=== PATIENT | female | born 1960 | race Caucasian/White ===

== ENCOUNTER 2017-05-02 05:58 | Day surgery (SDC) | payer MEDICAID ==
[2017-05-02] MEDS ORDERED: Versed 2 MG/2 ML Injection IV ONE (05:59)
[2017-05-02] MEDS ORDERED: DIPRIVAN 200 MG/20 ML IV ONE (05:59)
[2017-05-02] MEDS ORDERED: SUBLIMAZE 100 MCG/2 ML IV ONE (05:59)
[2017-05-02] MEDS ORDERED: Lactated Ringers 1,000 ML IV SCH (06:30)
[2017-05-02] MEDS ORDERED: Lactated Ringers 1,000 ML IV ONE (07:29)
[2017-05-02 08:21] VITALS: PULSE 66; O2SAT 94
[2017-05-02 08:51] VITALS: BP 176/74
--- NOTE | 2017-05-02 14:30 | OP ---
SURGERY DATE/TIME: 05/02/201705 PREOPERATIVE DIAGNOSIS: 1) Abdominal pain. 2) Rectal bleeding. POSTOPERATIVE DIAGNOSIS: 1) Normal EGD. 2) Transverse colon polyp. PROCEDURES: 1) EGD. 2) Colonoscopy. SURGEON: Gee Gupta M.D. ANESTHESIA: MAC by Emmanuel Madera CRNA. ESTIMATED BLOOD LOSS: Minimal. SPECIMENS: Hot forceps polypectomy transverse colon polyp. DESCRIPTION OF PROCEDURE: After informed written consent was obtained, the patient was taken to the endoscopy suite. She underwent monitored anesthesia and a bite block was inserted. The endoscope was inserted in the posterior oropharynx and under direct visualization the esophagus was traversed. The level of the gastroesophageal junction was inspected and noted to be within normal limits. Gastric cavity was inspected and noted to have normal rugated gastric mucosa free of lesions or defects. The pylorus was traversed. The first and second portions of the duodenum within normal limits. Upon withdrawal mucosal inspection revealed no abnormalities, no lesions or defects. The scope was removed and the scopes were switched. Digital rectal exam showed normal sphincter tone and no internal lesions. The scope was inserted in the rectum and sequentially the entire colonic mucosa was traversed. The level of cecum was reached and verified with direct visualization of ileocecal valve. Upon withdrawal careful mucosal inspection revealed a small sessile polyp in the transverse colon which was removed in its entirety with forceps and cautery. These were completely removed and noted to be hemostatic following removal. Upon further withdrawal no other abnormalities. Prior to withdrawal retroflexion was performed and was within normal limits. The scope was removed and the patient was transferred to the recovery room in excellent condition.
== END 2017-05-02 08:40 | disposition home or self-care (01) ==
LOC: SDC 05:58
PROVIDERS: ATTEND Family Medicine
PROC: 0DJ08ZZ Inspection of Upper Intestinal Tract, Via Natural or Artificial Opening Endoscopic (ICD-10-PCS; principal; 2017-05-02)
PROC: 0DBL8ZX Excision of Transverse Colon, Via Natural or Artificial Opening Endoscopic, Diagnostic (ICD-10-PCS; 2017-05-02)
DX: R10.9 Unspecified abdominal pain (principal); D12.3 Benign neoplasm of transverse colon; K62.5 Hemorrhage of anus and rectum; Z95.1 Presence of aortocoronary bypass graft
CPT/HCPCS: 00740; 00810; 36415; 88305; J2250; J2704; J3010

== ENCOUNTER 2017-05-14 08:51 | Emergency (ER) | payer MEDICAID ==
[2017-05-14] MEDS ORDERED: Pepcid 20 MG VIAL IV ONE ×2 (09:21→09:33)
[2017-05-14 09:29] LABS: BASOPHIL % 0.8 % (0.0-0.4); Eosinophil % 3.6 % (0.00-5.0); Granulocytes % 71.7 % (36.0-66.0); Lymphocytes % 18.9 % (24.0-44.0); Mean Cell Volume 97.6 fl (78-100); Mean Corpuscular Hemoglobin 30.3 pg (26-32); Mean Platelet Volume 10.4 fl (6-9.5); Platelet Count 395 K/mm3 (150-450); Red Blood Count 2.87 M/mm3 (4.1-5.4); Red Cell Distribution Width 12.5 % (11.5-14.0); White Blood Count 12.6 K/mm3 (4.0-10.5)
--- NOTE | 2017-05-14 09:29 | ERPHSYRPT ---
- History of Present Illness Time Seen by Provider: 05/14/17 09:15 Historian: patient Patient Subjective Stated Complaint: "I had a colonoscopy on the and had one polyp removed and I have been bleeding ever since. The bleeding is getting worse." Triage Nursing Assessment: Pt alert and oriented X3, skin pwd pt ambulates without difficulty, able to speak in full sentences. PT crying and anxious. Physician History: CC: rectal bleeding Hx: 57 y/o patient of Dr Shin had colonoscopy May 02 with transverse tubular adenoma polyp removed. She had normal EGD. These were done for rectal bleeding. She has been on asa and plavix for heart and stroke. She reports daily rectal bleeding since the procedure. It was worse this AM and scared her. It is bright red and dark in the toilet. She feels some fatigue and dizziness. No fever or chills. Off and on abd discomfort but no graham pain. Allergies/Adverse Reactions: morphine Adverse Reaction (Verified 05/14/17 09:02) Rash Home Medications: Albuterol 2.5 mg/3 ml Neb [Proventil 2.5 mg/3 ml Neb] 2.5 mg IH UD [History] Albuterol Sulfate 1.25 mg IH BID 04/24/17 [History] Aspirin EC 325 mg [Ecotrin 325 MG] 325 mg PO DAILY 04/24/17 [History] Atorvastatin Calcium [Lipitor] 40 mg PO HS 04/24/17 [History] Carbamazepine [Tegretol] 200 mg PO QID 04/24/17 [History] Cider Vinegar [Apple Cider Vinegar] 300 mg PO DAILY 04/24/17 [History] Citalopram Hydrobromide 20 mg* [ceLEXa 20 MG] 20 mg PO HS 04/24/17 [History] Clopidogrel Bisulfate 75 mg [PLAVIX 75 MG Tablet] 75 mg PO DAILY 04/24/17 [History] Famotidine 20 mg [Pepcid 20 MG] 20 mg PO HS 04/24/17 [History] Fenofibric Acid (Choline) [Trilipix] 45 mg PO BID 04/24/17 [History] Lisinopril/Hydrochlorothiazide [Lisinopril-Hctz 20-12.5 mg Tab] 1 each PO DAILY 04/24/17 [History] Metformin HCl [Metformin HCl ER] 1,000 mg PO BID 04/24/17 [History] Metoprolol Tartrate 50 mg [Lopressor 50 MG] 50 mg PO HS 04/24/17 [History] [place]-3 Fatty Acids/Fish Oil [Fish Oil 1,000 mg Capsule] 1,000 mg PO DAILY 04/24/17 [History] PANTOPRAZOLE 40 mg Tablet [Protonix 40MG Tablet] 40 mg PO QAM 04/24/17 [ History] Hx Tetanus, Diphtheria Vaccination/Date Given: No Hx Influenza Vaccination/Date Given: Yes Hx Pneumococcal Vaccination/Date Given: Yes Immunizations Up to Date: Yes - Review of Systems Constitutional: Fatigue, Weakness, No Fever, No Chills Eyes: No Symptoms Ears, Nose, & Throat: No Symptoms Respiratory: No Cough, No Dyspnea Cardiac: No Chest Pain Abdominal/Gastrointestinal: Nausea, Hematochezia, No Vomiting, No Diarrhea Skin: No Rash Neurological: Dizziness, No Headache All Other Systems: Reviewed and Negative - Past Medical History Pertinent Past Medical History: Yes Neurological History: Seizures, Stroke ENT History: No Pertinent History Cardiac History: Coronary Artery Disease, High Cholesterol, Hypertension Respiratory History: COPD Endocrine Medical History: Diabetes Type II Musculoskeletal History: Arthritis GI Medical History: GERD History: Other Psycho-Social History: Anxiety, Depression, Other Female Reproductive Disorders: No Pertinent History Other Medical History: states had been in [facility], states has kidney stones , possibly passed - Past Surgical History Past Surgical History: Yes Neuro Surgical History: No Pertinent History Cardiac: CABG Respiratory: No Pertinent History Gastrointestinal: Cholecystectomy Genitourinary: No Pertinent History Musculoskeletal: No Pertinent History Female Surgical History: Hysterectomy, Section Other Surgical History: colonoscopy - Social History Smoking Status: Never smoker Exposure to second hand smoke: No Drug Use: none Patient Lives Alone: No - Female History Hx Last Menstrual Period: years - Nursing Vital Signs Nursing Vital Signs: Initial Vital Signs Temperature 98.7 F 05/14/17 08:55 Pulse Rate 82 05/14/17 08:55 Respiratory Rate 16 05/14/17 08:55 Blood Pressure 186/109 05/14/17 08:55 O2 Sat by Pulse Oximetry 94 L 05/14/17 08:55 Pain Scale Pain Intensity 0 - Physical Exam General Appearance: alert, obese, other (pleasant anxious lady) Eye Exam: PERRL/EOMI Ears, Nose, Throat Exam: normal ENT inspection, moist mucous membranes Neck Exam: normal inspection, supple Respiratory Exam: normal breath sounds Cardiovascular Exam: regular rate/rhythm Gastrointestinal/Abdomen Exam: soft, No tenderness, No distention, No mass, No guarding Rectal Exam: normal rectal tone, blood (dark maroon blood), No hemorrhoids Back Exam: normal inspection Extremity Exam: normal inspection, normal range of motion Neurologic Exam: alert, oriented x 3, cooperative, sensation nml, No motor deficits Skin Exam: warm, dry, No rash SpO2 Interpretation: normal SpO2: 97 Oxygen Delivery: Room Air - Course Nursing assessment & vital signs reviewed: Yes - Radiology Exams AAS X-ray Interpretation: Teleradiologist Report, Negative Ordered Tests: Active Orders 24 hr Category Date Time Status IV Insertion STAT Care 05/14/17 09:21 Active NPO (ED) STAT Care 05/14/17 09:21 Active Orthostatic Vital Signs STAT Care 05/14/17 10:22 Active OBSTR/ACUTE ABDOMEN SERIES Stat Exams 05/14/17 09:22 Completed CBC W DIFF Stat Lab 05/14/17 09:26 Completed CMP Stat Lab 05/14/17 09:26 Completed PROTIME WITH INR Stat Lab 05/14/17 09:26 Completed PTT Stat Lab 05/14/17 09:26 Completed Medication Summary Generic Name Dose Route Start Last Admin Trade Name Freq PRN Reason Stop Dose Admin Sodium Chloride 1,000 mls @ 100 mls/hr 05/14/17 09:30 05/14/17 09:37 Sodium Chloride 0.9% 1000 Ml IV 06/13/17 09:29 100 mls/hr .Q10H SB Administration Discontinued Medications Generic Name Dose Route Start Last Admin Trade Name Freq PRN Reason Stop Dose Admin Famotidine 20 mg 05/14/17 09:21 05/14/17 09:37 Pepcid 20 Mg Vial IV 05/14/17 09:22 20 mg STAT ONE Administration Famotidine Confirm 05/14/17 09:33 Pepcid 20 Mg Vial Administered 05/14/17 09:34 Dose 20 mg IV .[email or web address]-MED ONE Lab/Rad Data: Laboratory Result Diagrams 05/14/17 09:26 05/14/17 09:26 Laboratory Results 05/14/17 05/14/17 05/14/17 Range/Units 09:26 09:26 09:26 WBC 12.6 H (4.0-10.5) K/mm3 RBC 2.87 L (4.1-5.4) M/mm3 Hgb 8.7 L (12.0-16.0) gm/dl Hct 28.0 L (35-47) % MCV 97.6 (78-100) fl MCH 30.3 (26-32) pg MCHC 31.1 L (32-36) g/dl RDW 12.5 (11.5-14.0) % Plt Count 395 (150-450) K/mm3 MPV 10.4 H (6-9.5) fl Gran % 71.7 H (36.0-66.0) % Lymphocytes % 18.9 L (24.0-44.0) % Monocytes % 5.0 (0.0-12.0) % Eosinophils % 3.6 (0.00-5.0) % Basophils % 0.8 (0.0-0.4) % Basophils # 0.10 (0-0.4) INR 0.95 (0.8-3.0) APTT 27.7 (25.3-37.0) SECONDS Sodium 139 (136-145) mEq/L Potassium 4.2 (3.5-5.1) mEq/L Chloride 102 (98-107) mEq/L Carbon Dioxide 26.0 (21-32) mEq/L Anion Gap 15.5 H (5-15) MEQ/L BUN 24 H (9-20) mg/dL Creatinine 0.93 (0.55-1.30) mg/dl Estimated GFR > 60 ML/MIN Glucose 226 H (70-110) MG/DL Calcium 9.0 (8.5-10.1) mg/dL Total Bilirubin 0.20 (0.2-1.0) mg/dL AST 14 L (15-37) U/L ALT 15 (12-78) U/L Alkaline Phosphatase 68 (46-116) U/L Serum Total Protein 7.6 (6.4-8.2) gm/dL Albumin 3.6 (3.4-5.0) g/dL ABO Group Rh Factor Antibody Screen (NEGATIVE) 05/14/17 Range/Units 09:21 WBC (4.0-10.5) K/mm3 RBC (4.1-5.4) M/mm3 Hgb (12.0-16.0) gm/dl Hct (35-47) % MCV (78-100) fl MCH (26-32) pg MCHC (32-36) g/dl RDW (11.5-14.0) % Plt Count (150-450) K/mm3 MPV (6-9.5) fl Gran % (36.0-66.0) % Lymphocytes % (24.0-44.0) % Monocytes % (0.0-12.0) % Eosinophils % (0.00-5.0) % Basophils % (0.0-0.4) % Basophils # (0-0.4) INR (0.8-3.0) APTT (25.3-37.0) SECONDS Sodium (136-145) mEq/L Potassium (3.5-5.1) mEq/L Chloride (98-107) mEq/L Carbon Dioxide (21-32) mEq/L Anion Gap (5-15) MEQ/L BUN (9-20) mg/dL Creatinine (0.55-1.30) mg/dl Estimated GFR ML/MIN Glucose (70-110) MG/DL Calcium (8.5-10.1) mg/dL Total Bilirubin (0.2-1.0) mg/dL AST (15-37) U/L ALT (12-78) U/L Alkaline Phosphatase (46-116) U/L Serum Total Protein (6.4-8.2) gm/dL Albumin (3.4-5.0) g/dL ABO Group A Rh Factor POSITIVE Antibody Screen NEGATIVE (NEGATIVE) - Progress Progress Note: 05/14/17 10:41 She is stable but feels need to have another BM. She has been upset and tearful. Daughter Charanjit here and wants her transferred to [facility]. Discussed test results. Hg has dropped about 5 gram since last check. Plan discussed with pt and daughter. 05/14/17 11:12 Pt stable on orthostatic testing. Spoke to Dr Curt Hernandez [facility] one call transfer center and he accepts transfer to [facility] medical floor at patient request. Dr Matson for [facility] notified. Counseled pt/family regarding: lab results, diagnosis, need for follow-up, rad results - Departure Time of Disposition: 11:12 Departure Disposition: Transfer ([facility]) Clinical Impression: Lower GI bleed, Anemia Condition: Fair Critical Care Time: No Referrals: NICHOLAS SHIN MD [Primary Care Provider] -
[2017-05-14] MEDS ORDERED: Sodium Chloride 0.9% 1000 ML 1,000 ML IV SCH (09:30)
[2017-05-14] MEDS ORDERED: Sodium Chloride 0.9% 1000 ML 1,000 ML ONE (09:33)
[2017-05-14 09:49] LABS: INR 0.95 (0.8-3.0); PROTIME 10.7 SECONDS (9.95-12.35)
[2017-05-14 09:52] LABS: PTT 27.7 SECONDS (25.3-37.0)
[2017-05-14 09:57] LABS: ALBUMIN 3.6 g/dL (3.4-5.0); ALKALINE PHOSPHATASE 68 U/L (46-116); ANION GAP 15.5 MEQ/L (5-15); BLOOD UREA NITROGEN 24 mg/dL (9-20); CHLORIDE 102 mEq/L (98-107); Glucose 226 MG/DL (70-110); Potassium 4.2 mEq/L (3.5-5.1); SGOT/AST 14 U/L (15-37); SGPT/ALT 15 U/L (12-78); SODIUM 139 mEq/L (136-145); Total Protein 7.6 gm/dL (6.4-8.2)
--- NOTE | 2017-05-14 10:50 | XRAY ---
Indication: Rectal bleeding and upper abdominal pain following colonoscopy. Comparison: Chest radiograph June 18, 2011. 2 views of the abdomen nonacute and nonobstructed with chunky calcified splenic granuloma and cholecystectomy clips. No free air. Solid organs unremarkable. Osseous structures intact with mild spinal degenerative changes. Single PA chest remains clear. Heart is not enlarged and again demonstrates previous CABG surgery. Bony thorax intact. Impression: Nonacute nonobstructed abdomen with chronic features. Stable nonacute 1 view chest.
[2017-05-14 11:15] VITALS: BP 140/78; PULSE 76; O2SAT 96
== END 2017-05-14 12:01 | disposition short-term general hospital (02) ==
LOC: ED 08:51
DX: K92.2 Gastrointestinal hemorrhage, unspecified (principal); D64.9 Anemia, unspecified
CPT/HCPCS: 36000; 36415; 74022; 80053; 85025; 85610; 85730; 86850; 86900; 86901; 96360; 96374; 99285

== ENCOUNTER 2018-10-15 14:11 | Emergency (ER) | payer OTHER ==
[2018-10-15] MEDS ORDERED: Sodium Chloride 0.9% 1000 ML 1,000 ML IV STA (14:38)
[2018-10-15 15:07] LABS: BASOPHIL % 0.6 % (0.0-0.4); Basophil (Absolute #) 0.05 (0-0.4); Eosinophil % 3.9 % (0.00-5.0); Eosinophil (Absolute #) 0.33 (0-0.5); Granulocyte Absolute (ANC) 5.93 (1.4-6.9); Granulocytes % 69.3 % (36.0-66.0); Hematocrit 41.1 % (35-47); Hemoglobin 13.2 gm/dl (12.0-16.0); Lymphocyte (Absolute #) 1.69 (1.0-4.6); Lymphocytes % 19.8 % (24.0-44.0); Mean Cell Volume 94.3 fl (78-100); Mean Corpuscular Hemoglobin 30.3 pg (26-32); Mean Corpuscular Hgb Concent. 32.1 g/dl (32-36); Mean Platelet Volume 10.3 fl (6-9.5); Monocyte (Absolute #) 0.55 (0.0-1.3); Monocytes % 6.4 % (0.0-12.0); Platelet Count 373 K/mm3 (150-450); Red Blood Count 4.36 M/mm3 (4.1-5.4); Red Cell Distribution Width 12.1 % (11.5-14.0); White Blood Count 8.6 K/mm3 (4.0-10.5)
[2018-10-15] MEDS ORDERED: Sodium Chloride 0.9% 1000 ML 1,000 ML ONE (15:08)
[2018-10-15 15:14] LABS: ALBUMIN 4.6 g/dL (3.5-5.0); ALKALINE PHOSPHATASE 80 U/L (38-126); ANION GAP 17.4 MEQ/L (5-15); BLOOD UREA NITROGEN 16 mg/dL (7-17); CHLORIDE 103 mmol/L (98-107); Calcium 9.4 mg/dL (8.4-10.2); Carbon Dioxide 24 mmol/L (22-30); Creatinine 1 0.73 mg/dL (0.52-1.04); Glucose 116 mg/dL (74-106); Potassium 3.9 mmol/L (3.5-5.1); SGOT/AST 22 U/L (14-36); SGPT/ALT 17 U/L (0-35); SODIUM 141 mmol/L (137-145); Total Protein 8.1 g/dL (6.3-8.2)
--- NOTE | 2018-10-15 15:18 | XRAY ---
Indication: Back pain. Gross hematuria. History kidney stones. Multiple contiguous axial images obtained through the abdomen and pelvis without contrast using renal stone protocol. Comparison: October 21, 2013. Lung bases demonstrate stable tiny medial right base calcified granuloma. No infiltrate or effusion. Heart is not enlarged. Nonobstructing micro-calculus in each kidney, stable in the right kidney and new on the left. No hydronephrosis or hydroureter. Urinary bladder now demonstrates small intraluminal air either iatrogenic from recent catheterization versus gas-forming bacterial infection. Stomach distended with food/fluid. Noncontrasted stomach and bowel loops appear nonobstructed. Normal appendix. Again previous cholecystectomy and hysterectomy. No free fluid/air. Stable hepatic/splenic calcified granulomas. Remaining liver, pancreas, spleen, adrenal glands, kidneys, ureters, and bladder appear unremarkable for noncontrast exam. Moderate scattered aortoiliac calcifications without AAA. Osseous structures intact with mild degenerative changes throughout the spine. No ventral or inguinal hernias. Impression: 1. Nonobstructing micro-calculus in each kidney. 2. New urinary bladder intraluminal air either from recent catheterization versus gas-forming bacterial infection. 3. Again evidence for old granulomatous disease. 4. Remaining CT abdomen/pelvis without contrast exam is negative. CT DI 23.68
[2018-10-15] MEDS ORDERED: Cipro 500 MG ONE (15:38)
--- NOTE | 2018-10-15 16:28 | ERPHSYRPT ---
- History of Present Illness Source: patient Exam Limitations: no limitations Patient Subjective Stated Complaint: urinating graham blood Triage Nursing Assessment: Pt was brought down by [facility] due to graham blood in her urine, pt reports that 4 days ago her urine was pink tinged but upon waking up this morning her urine is dark red, denies any pain, has burning in her urinary tract and pain in her back when she urinates, she feels she has to push real hard to urinate, was told 2 years ago that she had kidney stones in her kidney and she hasn't seen her urologist since, she can not remember the name of the doctor, no other issues at this time Physician History: Pt is a pleasant 58 y/o female, with 4 days of dysuria, urgency and frequency. She started having some bleeding in her urine, but she thought it is secondary to cranberry juice she was drinking. Today she had gross hematuria, and came to [facility], that sent her to the ER. Pt had a CT of abdomen that showed air in the bladder and small non obstructing stones. Labs did not show any infection, and WBC is normal. Pt started Cipro 500mg PO once, and IVF fluids were started. As pt still having gross hematuria, she will be transfered to regional ER for Urology consult. Timing/Duration: today Activites at Onset: none Onset Location: right flank Pain Radiation: none Severity of Pain-Max: moderate Severity of Pain-Current: none Modifying Factors: Improves With: nothing (blood in the urine) Allergies/Adverse Reactions: No Known Drug Allergies Allergy (Verified 10/15/18 14:34) Home Medications: Albuterol 2.5 mg/3 ml Neb [Proventil 2.5 mg/3 ml Neb] 2.5 mg IH UD [History] Albuterol Sulfate 1.25 mg IH BID 04/24/17 [History] Aspirin EC 325 mg [Ecotrin 325 MG] 325 mg PO DAILY 04/24/17 [History] Atorvastatin Calcium [Lipitor] 40 mg PO HS 04/24/17 [History] Carbamazepine [Tegretol] 200 mg PO QID 04/24/17 [History] Cider Vinegar [Apple Cider Vinegar] 300 mg PO DAILY 04/24/17 [History] Citalopram Hydrobromide 20 mg* [ceLEXa 20 MG] 20 mg PO HS 04/24/17 [History] Clopidogrel Bisulfate 75 mg [PLAVIX 75 MG Tablet] 75 mg PO DAILY 04/24/17 [History] Famotidine 20 mg [Pepcid 20 MG] 20 mg PO HS 04/24/17 [History] Fenofibric Acid (Choline) [Trilipix] 45 mg PO BID 04/24/17 [History] Lisinopril/Hydrochlorothiazide [Lisinopril-Hctz 20-12.5 mg Tab] 1 each PO DAILY 04/24/17 [History] Metformin HCl [Metformin ER Osmotic] 1,000 mg PO BID 04/24/17 [History] Metoprolol Tartrate 50 mg [Lopressor 50 MG] 50 mg PO HS 04/24/17 [History] [place]-3 Fatty Acids/Fish Oil [Fish Oil 1,000 mg Capsule] 1,000 mg PO DAILY 04/24/17 [History] PANTOPRAZOLE 40 mg Tablet [Protonix 40MG Tablet] 40 mg PO QAM 04/24/17 [ History] Hx Tetanus, Diphtheria Vaccination/Date Given: No Hx Influenza Vaccination/Date Given: Yes Hx Pneumococcal Vaccination/Date Given: Yes - Review of Systems Constitutional: No Fever, No Chills Respiratory: No Cough, No Dyspnea Cardiac: No Chest Pain, No Edema, No Syncope Abdominal/Gastrointestinal: No Abdominal Pain, No Nausea, No Vomiting, No Diarrhea Genitourinary Symptoms: Other (gross hematuria) Musculoskeletal: No Back Pain, No Neck Pain - Past Medical History Pertinent Past Medical History: Yes Neurological History: Seizures, Stroke ENT History: No Pertinent History Cardiac History: Coronary Artery Disease, High Cholesterol, Hypertension Respiratory History: COPD Endocrine Medical History: Diabetes Type II Musculoskeletal History: Arthritis GI Medical History: GERD History: Other Psycho-Social History: Anxiety, Depression, Other Female Reproductive Disorders: No Pertinent History Other Medical History: states had been in [facility], states has kidney stones , possibly passed - Past Surgical History Past Surgical History: Yes Neuro Surgical History: No Pertinent History Cardiac: CABG Respiratory: No Pertinent History Gastrointestinal: Cholecystectomy Genitourinary: No Pertinent History Musculoskeletal: No Pertinent History Female Surgical History: Hysterectomy, Section Other Surgical History: colonoscopy - Social History Smoking Status: Former smoker Exposure to second hand smoke: No Drug Use: none Patient Lives Alone: No - Female History Hx Now: No - Nursing Vital Signs Nursing Vital Signs: Initial Vital Signs Temperature 98.1 F 10/15/18 15:14 Pulse Rate 63 10/15/18 15:14 Respiratory Rate 18 10/15/18 15:14 Blood Pressure 90/62 10/15/18 15:14 O2 Sat by Pulse Oximetry 94 L 10/15/18 15:14 Pain Scale Pain Intensity 0 - Physical Exam General Appearance: no apparent distress, alert Respiratory Exam: normal breath sounds, lungs clear, No respiratory distress Cardiovascular Exam: regular rate/rhythm, normal heart sounds, normal peripheral pulses Gastrointestinal/Abdomen Exam: soft, No tenderness, No mass Pelvic Exam: not done Rectal Exam: deferred Back Exam: normal inspection, normal range of motion, No CVA tenderness, No vertebral tenderness Extremity Exam: normal inspection, normal range of motion, pelvis stable SpO2: 94 - Course Nursing assessment & vital signs reviewed: Yes Ordered Tests: Active Orders 24 hr Category Date Time Status IV Insertion STAT Care 10/15/18 14:38 Active ABDOMEN AND PELVIS W/0 CONTRAS [CT] Stat Exams 10/15/18 14:37 Completed CBC W DIFF Stat Lab 10/15/18 15:01 Completed CMP Stat Lab 10/15/18 15:01 Completed Lactic Acid Stat Lab 10/15/18 14:38 Results Medication Summary Generic Name Dose Route Start Last Admin Trade Name Freq PRN Reason Stop Dose Admin Ciprofloxacin 500 mg 10/15/18 22:00 10/15/18 15:39 Cipro 500 Mg PO 11/14/18 21:59 500 mg BID SB Administration Discontinued Medications Generic Name Dose Route Start Last Admin Trade Name Freq PRN Reason Stop Dose Admin Sodium Chloride 1,000 mls @ 999 mls/hr 10/15/18 14:38 10/15/18 16:18 Sodium Chloride 0.9% 1000 Ml IV 10/15/18 15:38 Infused .Q1H1M STA Infusion Sodium Chloride Confirm 10/15/18 15:08 Sodium Chloride 0.9% 1000 Ml Administered 10/15/18 15:09 Dose 1,000 mls @ ud .ROUTE .[facility]-MED ONE Lab/Rad Data: Laboratory Result Diagrams 10/15/18 15:01 10/15/18 15:01 Laboratory Results 10/15/18 10/15/18 10/15/18 Range/Units 15:01 15:01 14:38 WBC 8.6 (4.0-10.5) K/mm3 RBC 4.36 (4.1-5.4) M/mm3 Hgb 13.2 (12.0-16.0) gm/dl Hct 41.1 (35-47) % MCV 94.3 (78-100) fl MCH 30.3 (26-32) pg MCHC 32.1 (32-36) g/dl RDW 12.1 (11.5-14.0) % Plt Count 373 (150-450) K/mm3 MPV 10.3 H (6-9.5) fl Gran % 69.3 H (36.0-66.0) % Eos # (Auto) 0.33 (0-0.5) Absolute Lymphs (auto) 1.69 (1.0-4.6) Absolute Monos (auto) 0.55 (0.0-1.3) Lymphocytes % 19.8 L (24.0-44.0) % Monocytes % 6.4 (0.0-12.0) % Eosinophils % 3.9 (0.00-5.0) % Basophils % 0.6 (0.0-0.4) % Absolute Granulocytes 5.93 (1.4-6.9) Basophils # 0.05 (0-0.4) Sodium 141 (137-145) mmol/L Potassium 3.9 (3.5-5.1) mmol/L Chloride 103 (98-107) mmol/L Carbon Dioxide 24 (22-30) mmol/L Anion Gap 17.4 H (5-15) MEQ/L BUN 16 (7-17) mg/dL Creatinine 0.73 (0.52-1.04) mg/dL Estimated GFR > 60.0 ML/MIN Glucose 116 H (74-106) mg/dL Lactic Acid 2.0 (0.4-2.0) Calcium 9.4 (8.4-10.2) mg/dL Total Bilirubin 0.40 (0.2-1.3) mg/dL AST 22 (14-36) U/L ALT 17 (0-35) U/L Alkaline Phosphatase 80 (38-126) U/L Serum Total Protein 8.1 (6.3-8.2) g/dL Albumin 4.6 (3.5-5.0) g/dL - Progress Progress: unchanged Air Movement: good Blood Culture(s) Obtained: No Antibiotics given: Yes (Cipro 500mg PO once) Will see patient in: ED (Pt is transfered to regional ED. Dr Muñoz is accepting) Counseled pt/family regarding: lab results, diagnosis, rad results - Departure Time of Disposition: 16:40 Departure Disposition: Transfer Clinical Impression: Gross hematuria Condition: Stable Critical Care Time: No Referrals: NICHOLAS SHIN MD [Primary Care Provider] - Additional Instructions: F/U with Regional ER.
[2018-10-15 17:04] VITALS: BP 116/60; PULSE 69; O2SAT 98
[2018-10-15] MEDS ORDERED: Cipro 500 MG PO SCH (22:00)
== END 2018-10-15 17:32 | disposition short-term general hospital (02) ==
LOC: ED 14:11
DX: R31.0 Gross hematuria (principal); G40.909 Epilepsy, unspecified, not intractable, without status epilepticus; I25.810 Atherosclerosis of coronary artery bypass graft(s) without angina pectoris; I10 Essential (primary) hypertension; E78.00 Pure hypercholesterolemia, unspecified; J44.9 Chronic obstructive pulmonary disease, unspecified; E11.9 Type 2 diabetes mellitus without complications; Z79.4 Long term (current) use of insulin; M19.90 Unspecified osteoarthritis, unspecified site; K21.9 Gastro-esophageal reflux disease without esophagitis; F41.9 Anxiety disorder, unspecified; F32.9 Major depressive disorder, single episode, unspecified
CPT/HCPCS: 36000; 36415; 74176; 80053; 83605; 85025; 96360; 96374; 99285; A9270-GY

== ENCOUNTER 2021-11-30 16:43 | Emergency (ER) | payer OTHER ==
--- NOTE | 2021-11-30 16:45 | ERPHSYRPT ---
- History of Present Illness Time Seen by Provider: 11/30/21 16:45 Source: patient Exam Limitations: no limitations Physician History: This is a right-handed 61-year-old white female with a laceration to the tip of the left thumb. She accidentally cut this area while cutting peppers for a meal. Patient is on Plavix. She could not get the area to stop bleeding. Patient's tetanus status is not up-to-date. Timing/Duration: today Quality: painful Severity: moderate (In terms of pain only) Location: hands (Left thumb) Possible Causes: other (Accidental laceration) Associated Symptoms: denies symptoms Allergies/Adverse Reactions: No Known Drug Allergies Allergy (Verified 07/13/20 10:23) Home Medications: Albuterol 2.5 mg/3 ml Neb [Proventil 2.5 mg/3 ml Neb] 2.5 mg IH UD 04/24/17 [History] Albuterol Sulfate 1.25 mg IH BID 04/24/17 [History] Aspirin EC 325 mg [Ecotrin 325 MG] 325 mg PO DAILY 04/24/17 [History] Atorvastatin Calcium [Lipitor] 40 mg PO HS 04/24/17 [History] Citalopram Hydrobromide 20 mg* [ceLEXa 20 MG] 40 mg PO HS 04/24/17 [History] Clopidogrel Bisulfate 75 mg [PLAVIX 75 MG Tablet] 75 mg PO DAILY 04/24/17 [History] Fenofibric Acid (Choline) [Trilipix] 45 mg PO BID 04/24/17 [History] Metformin HCl [Metformin ER Osmotic] 1,000 mg PO BID 04/24/17 [History] Metoprolol Tartrate 50 mg [Lopressor 50 MG] 50 mg PO HS 04/24/17 [History] carBAMazepine [Tegretol] 200 mg PO QID 04/24/17 [History] Dexlansoprazole [Dexilant] 60 mg PO DAILY 07/13/20 [History] Tramadol HCl 50 mg [Ultram 50 mg] 50 mg PO TID 07/13/20 [History] guaiFENesin [Mucinex] 600 mg PO DAILY 07/13/20 [History] Hx Tetanus, Diphtheria Vaccination/Date Given: No Hx Influenza Vaccination/Date Given: Yes Hx Pneumococcal Vaccination/Date Given: Yes Travel Risk - International Travel Have you traveled outside of the country in past 3 weeks: No - Coronavirus Screening Are you exhibiting any of the following symptoms?: No Close contact with a COVID-19 positive Pt in past 14-21 Days: No - Review of Systems Constitutional: No Symptoms Eyes: No Symptoms Ears, Nose, & Throat: No Symptoms Respiratory: No Symptoms Cardiac: No Symptoms Abdominal/Gastrointestinal: No Symptoms Genitourinary Symptoms: No Symptoms Musculoskeletal: No Symptoms Skin: Other (Laceration tip of left thumb) Neurological: No Symptoms Psychological: No Symptoms Endocrine: No Symptoms Hematologic/Lymphatic: No Symptoms Immunological/Allergic: No Symptoms All Other Systems: Reviewed and Negative - Past Medical History Pertinent Past Medical History: Yes Neurological History: Seizures, Stroke ENT History: No Pertinent History Cardiac History: Coronary Artery Disease, High Cholesterol, Hypertension Respiratory History: COPD Endocrine Medical History: Diabetes Type II Musculoskeletal History: Arthritis GI Medical History: GERD History: Other Psycho-Social History: Anxiety, Depression, Other Female Reproductive Disorders: No Pertinent History Other Medical History: states had been in [facility], states has kidney stones , possibly passed - Past Surgical History Past Surgical History: Yes Neuro Surgical History: No Pertinent History Cardiac: CABG Respiratory: No Pertinent History Gastrointestinal: Cholecystectomy Genitourinary: No Pertinent History Musculoskeletal: No Pertinent History Female Surgical History: Hysterectomy, Section Other Surgical History: colonoscopy - Social History Smoking Status: Former smoker Exposure to second hand smoke: No Drug Use: none Patient Lives Alone: No - Nursing Vital Signs Nursing Vital Signs: Initial Vital Signs Temperature 96.4 F 11/30/21 16:54 Pulse Rate 63 11/30/21 16:54 Respiratory Rate 16 11/30/21 16:54 O2 Sat by Pulse Oximetry 95 11/30/21 16:54 Pain Scale Pain Intensity 0 - Physical Exam General Appearance: no apparent distress, alert, anxiety Eye Exam: PERRL/EOMI, eyes nml inspection Ears, Nose, Throat Exam: normal ENT inspection, moist mucous membranes Neck Exam: normal inspection, non-tender, supple, full range of motion Respiratory Exam: airway intact, No chest tenderness, No respiratory distress Gastrointestinal/Abdomen Exam: No tenderness Pelvic Exam: not done Rectal Exam: not done Back Exam: normal inspection, normal range of motion, No CVA tenderness, No vertebral tenderness Extremity Exam: normal range of motion, pelvis stable, other (Tip of left thumb was completely avulsed off. The diameter was approximately 4 mm. There is a slow ooze from the site. It is tender. Patient has full function. There is no tendon injury. Patient is neurovascularly intact) Neurologic Exam: alert, oriented x 3, cooperative, community ambassador II-XII nml as tested, normal mood/affect, nml cerebellar function, nml station & gait, sensation nml Skin Exam: laceration (Tip of left thumb) Lymphatic Exam: No adenopathy SpO2 Interpretation: normal O2 Delivery: Room Air Ordered Tests: Medication Summary Discontinued Medications Generic Name Dose Route Start Last Admin Trade Name Freq PRN Reason Stop Dose Admin Bacitracin Zinc Confirm 11/30/21 16:59 Bacitracin Packet 0.9 Gm Pckt Administered 11/30/21 17:00 Dose 1 gm .ROUTE .STK-MED ONE Diphtheria/Tetanus/Acell Pertussis 0.5 ml 11/30/21 17:14 Tdap --Diph,Pertuss(Acell),Tet Vac/Pf 0.5 Ml Vial IM 11/30/21 17:15 .ONCE ONE - Progress Progress: improved, re-examined Progress Note: 11/30/21 17:20 Procedure note: There is no need for laceration repair. Patient had avulsed a very small flap of skin from the tip of the left thumb. Timeout was performed approximately 17 10 PM. The site was cleaned and dried. The area was then anesthetized with 1 cc of 1% lidocaine plain intradermally. This compressed the blood vessels in the oozing from the site ceased. We then cauterized the site with electrocautery. Area was then cleaned bacitracin ointment is applied followed by Telfa and a pressure dressing. 11/30/21 17:23 Counseled pt/family regarding: diagnosis - Departure Departure Disposition: Home Clinical Impression: Laceration of left thumb Condition: Stable Critical Care Time: No Referrals: NICHOLAS SHIN MD [Primary Care Provider] - Follow up/PCP as directed Additional Instructions: Stop your Plavix. May restart Plavix on 12/03/2021. Keep pressure dressing in place until Saturday morning, 12/02/2021. After removing the dressing, wash the site daily with soap and water. Do not rub the laceration site. Keep the area clean and dried. May apply antibiotic ointment once daily then cover it with a bandage.
[2021-11-30] MEDS ORDERED: BACIGUENT PACKET ONE (16:59)
[2021-11-30 17:11] VITALS: PULSE 63; O2SAT 95
[2021-11-30] MEDS ORDERED: Adacel Vial IM ONE ×2 (17:14→17:20)
[2021-11-30] MEDS ORDERED: BACIGUENT PACKET TP ONE (17:24)
== END 2021-11-30 17:33 | disposition home or self-care (01) ==
LOC: ED 16:43
DX: S61.012A Laceration without foreign body of left thumb without damage to nail, initial encounter (principal); W26.0XXA Contact with knife, initial encounter; Y93.G1 Activity, food preparation and clean up; Y92.000 Kitchen of unspecified non-institutional (private) residence as the place of occurrence of the external cause; E78.5 Hyperlipidemia, unspecified; I10 Essential (primary) hypertension; E11.9 Type 2 diabetes mellitus without complications; Z79.84 Long term (current) use of oral hypoglycemic drugs; K21.9 Gastro-esophageal reflux disease without esophagitis; Z79.891 Long term (current) use of opiate analgesic; Z79.01 Long term (current) use of anticoagulants; Z79.899 Other long term (current) drug therapy
CPT/HCPCS: 90471; 90715; 99283; A9270-GY

== ENCOUNTER 2023-03-19 12:20 | Emergency (ER) | payer OTHER ==
--- NOTE | 2023-03-19 12:35 | ERPHSYRPT ---
- History of Present Illness Time Seen by Provider: 03/19/23 12:31 Exam Limitations: no limitations Physician History: Patient is a 63-year-old female presents to our emergency department for evalu ation of heart palpitations neck pain and feeling unwell. Patient states she was playing a board game at home when symptoms started. Upon arrival to our ED patient was observed to be in sinus tachycardia. No associated nausea vomiting or diaphoresis. Patient states she has 7 cardiac stents. Stents were placed approximately 10 years ago. Patient's quality nurse is . Patient is accompanied by her daughter. They voiced no other complaints or concerns at this time. Timing/Duration: today Modifying Factors: Improves With: cold therapy, nothing Associated Symptoms: other (Neck pain) Allergies/Adverse Reactions: No Known Drug Allergies Allergy (Verified 12/12/22 10:09) Home Medications: Albuterol 2.5 mg/3 ml Neb [Proventil 2.5 mg/3 ml Neb] 2.5 mg IH UD 04/24/17 [History] Albuterol Sulfate 1.25 mg IH BID 04/24/17 [History] Aspirin EC 325 mg [Ecotrin 325 MG] 325 mg PO DAILY 04/24/17 [History] Atorvastatin Calcium [Lipitor] 40 mg PO HS 04/24/17 [History] Citalopram Hydrobromide 20 mg* [ceLEXa 20 MG] 40 mg PO HS 04/24/17 [History] Clopidogrel Bisulfate [PLAVIX Tablet] 75 mg PO DAILY 04/24/17 [History] Metformin HCl [Metformin ER Osmotic] 1,000 mg PO BID 04/24/17 [History] Metoprolol Tartrate 50 mg [Lopressor 50 MG] 50 mg PO HS 04/24/17 [History] carBAMazepine [Tegretol] 200 mg PO QID 04/24/17 [History] Dexlansoprazole [Dexilant] 60 mg PO DAILY 07/13/20 [History] Tramadol HCl 50 mg [Ultram 50 mg] 50 mg PO TID 07/13/20 [History] guaiFENesin [Mucinex] 600 mg PO DAILY 07/13/20 [History] Ropinirole HCl 0.5 mg [Requip 0.5 MG] 0.5 mg PO DAILY 03/19/23 [History] Semaglutide [Ozempic] 2 mg SQ WEEKLY 03/19/23 [History] Hx Tetanus, Diphtheria Vaccination/Date Given: No Hx Influenza Vaccination/Date Given: Yes Hx Pneumococcal Vaccination/Date Given: Yes Travel Risk - Vaccine Status Have you recieved a Covid-19 vaccination: No - Review of Systems Constitutional: No Symptoms, No Fever, No Chills Eyes: No Symptoms Ears, Nose, & Throat: No Symptoms Respiratory: No Symptoms, No Cough, No Dyspnea Cardiac: No Symptoms, No Chest Pain, No Edema, No Syncope Abdominal/Gastrointestinal: No Symptoms, No Abdominal Pain, No Nausea, No Vomiting, No Diarrhea Genitourinary Symptoms: No Symptoms, No Dysuria Musculoskeletal: No Symptoms, No Back Pain, No Neck Pain Skin: No Symptoms, No Rash Neurological: No Symptoms, No Dizziness, No Focal Weakness, No Sensory Changes Psychological: No Symptoms Endocrine: No Symptoms Hematologic/Lymphatic: No Symptoms Immunological/Allergic: No Symptoms All Other Systems: Reviewed and Negative - Past Medical History Pertinent Past Medical History: Yes Neurological History: Seizures, Stroke ENT History: No Pertinent History Cardiac History: Coronary Artery Disease, High Cholesterol, Hypertension Respiratory History: COPD Endocrine Medical History: Diabetes Type II Musculoskeletal History: Arthritis GI Medical History: GERD History: Other Psycho-Social History: Anxiety, Depression, Other Female Reproductive Disorders: No Pertinent History Other Medical History: states had been in [facility], states has kidney stones , possibly passed - Past Surgical History Past Surgical History: Yes Neuro Surgical History: No Pertinent History Cardiac: CABG Respiratory: No Pertinent History Gastrointestinal: Cholecystectomy Genitourinary: No Pertinent History Musculoskeletal: No Pertinent History Female Surgical History: Hysterectomy, Section Other Surgical History: colonoscopy. brain susrgery - Social History Smoking Status: Former smoker Exposure to second hand smoke: No Drug Use: none Patient Lives Alone: No - Nursing Vital Signs Nursing Vital Signs: Initial Vital Signs Temperature 97.6 F 03/19/23 12:26 Pulse Rate 136 H 03/19/23 12:26 Respiratory Rate 24 03/19/23 12:26 Blood Pressure 180/99 03/19/23 12:26 O2 Sat by Pulse Oximetry 96 03/19/23 12:26 Pain Scale Pain Intensity 0 - Physical Exam General Appearance: no apparent distress, alert Eye Exam: PERRL/EOMI, eyes nml inspection Ears, Nose, Throat Exam: normal ENT inspection, TMs normal, pharynx normal, moist mucous membranes Neck Exam: normal inspection, non-tender, supple, full range of motion Respiratory Exam: normal breath sounds, lungs clear, airway intact, No respiratory distress Cardiovascular Exam: regular rate/rhythm, normal heart sounds, normal peripheral pulses Gastrointestinal/Abdomen Exam: soft, normal bowel sounds, No tenderness, No mass Back Exam: normal inspection, normal range of motion, No CVA tenderness, No v ertebral tenderness Extremity Exam: normal inspection, normal range of motion, pelvis stable Neurologic Exam: alert, oriented x 3, cooperative, normal mood/affect, nml cerebellar function, nml station & gait, sensation nml, No motor deficits Skin Exam: normal color, warm, dry, No rash Lymphatic Exam: No adenopathy SpO2 Interpretation: normal SpO2: 96 O2 Delivery: Room Air - Course Nursing assessment & vital signs reviewed: Yes EKG Interpreted by Me: RATE (129, fast sinus arrhythmia), NORMAL AXIS, NORMAL INTERVALS, NORMAL QRS - Radiology Exams Chest X-ray Interpretation: Teleradiologist Report (No acute findings) Ordered Tests: Active Orders 24 hr Category Date Time Status Director Of Regional Sales STAT Care 03/19/23 12:32 Active EKG-ER Only STAT Care 03/19/23 12:31 Active IV Insertion STAT Care 03/19/23 12:31 Active Pulse Oximetry (ED) STAT Care 03/19/23 12:31 Active CHEST 1 VIEW (PORTABLE) Stat Exams 03/19/23 12:32 Completed ALBUMIN Stat Lab 03/19/23 12:35 Completed ALKALINE PHOSPHATASE Stat Lab 03/19/23 12:35 Completed BILIRUBIN,TOTAL Stat Lab 03/19/23 12:35 Completed CBC W DIFF Stat Lab 03/19/23 12:35 Completed D-DIMER QUANTITATIVE Stat Lab 03/19/23 12:35 Completed NT PRO BNPII Stat Lab 03/19/23 Completed SGOT/AST Stat Lab 03/19/23 12:35 Completed SGPT/ALT Stat Lab 03/19/23 12:35 Completed TROPONIN Q4H Lab 03/19/23 12:35 Completed TROPONIN Q4H Lab 03/19/23 16:45 Ordered TROPONIN Q4H Lab 03/19/23 20:45 Ordered TSH [TSH, 3RD Generation] Stat Lab 03/19/23 13:29 Completed Total Protein Stat Lab 03/19/23 12:35 Completed Medication Summary Generic Name Dose Route Start Last Admin Trade Name Thomas PRN Reason Stop Dose Admin Sodium Chloride 1,000 mls @ 100 mls/hr 03/19/23 13:30 03/19/23 13:31 Sodium Chloride 0.9% 1000 Ml IV 04/18/23 13:29 100 mls/hr .Q10H SB Administration Amiodarone HCl/Dextrose 360 mg in 200 mls @ 33 mls/hr 03/19/23 15:30 03/19/23 15:27 Nexterone 360 Mg/200 Ml Bag IV 04/18/23 15:29 33 mls/hr .Q6H4M SB 33 mls/hr Administration Protocol Lorazepam 0.5 mg 03/19/23 13:16 03/19/23 13:31 Lorazepam 2 Mg/1 Ml 2 Mg Vial IV 04/18/23 13:15 0.5 mg Q4H PRN PRN Administration ANXIETY Discontinued Medications Generic Name Dose Route Start Last Admin Trade Name Thomas PRN Reason Stop Dose Admin Amiodarone HCl Confirm 03/19/23 16:02 Amiodarone Hcl 150 Mg/3 Ml Vial Administered 03/19/23 16:03 Dose 150 mg .ROUTE .STK-MED ONE Amiodarone HCl 150 mg/ 103 mls @ 618 mls/hr 03/19/23 15:58 03/19/23 16:03 Dextrose IV 03/19/23 16:07 618 mls/hr STAT ONE Administration Protocol Amiodarone HCl 150 mg/ 103 mls @ 618 mls/hr 03/19/23 16:01 03/19/23 16:04 Dextrose IV 03/19/23 16:10 Not Given STAT ONE Protocol Dextrose Confirm 03/19/23 16:03 D5w 100ml Mini Bag 100 Ml Administered 03/19/23 16:04 Dose 100 mls @ ud IV .STK-MED ONE Lab/Rad Data: Laboratory Result Diagrams 03/19/23 12:35 03/19/23 12:35 Laboratory Results 03/19/23 03/19/23 03/19/23 Range/Units Unknown 13:29 12:35 WBC (4.0-10.5) x10^3/uL RBC (4.1-5.4) x10^6/uL Hgb (12.0-16.0) g/dL Hct (35-47) % MCV (78-100) fL MCH (26-32) pg MCHC (32-36) g/dL RDW (11.5-14.0) % Plt Count (150-450) x10^3/uL MPV (7.5-11.0) fL Gran % (36.0-66.0) % Immature Gran % (Auto) (0.00-0.4) % Nucleat RBC Rel Count (0.00-0.1) % Eos # (Auto) (0-0.5) x10^3/uL Immature Gran # (Auto) (0.00-0.03) x10^3u/L Absolute Lymphs (auto) (1.0-4.6) x10^3/uL Absolute Monos (auto) (0.0-1.3) x10^3/uL Absolute Nucleated RBC (0.00-0.01) x10^3u/L Lymphocytes % (24.0-44.0) % Monocytes % (0.0-12.0) % Eosinophils % (0.00-5.0) % Basophils % (0.0-0.4) % Absolute Granulocytes (1.4-6.9) x10^3/uL Basophils # (0-0.4) x10^3/uL D-Dimer (0.0-0.50) mg/L Sodium Direct (138-146) mmol/L Potassium (3.5-4.9) mmol/L Chloride (98-109) mmol/L Carbon Dioxide (24-29) mmol/L Venous BUN (8-26) mg/dL Creatinine (0.6-1.3) mg/dL Glucose (70-105) mg/dL Ionized Calcium (1.12-1.32) mmol/L Total Bilirubin (0.2-1.3) mg/dL AST (14-36) U/L ALT (0-35) U/L Alkaline Phosphatase (38-126) U/L Troponin I < 0.012 (0.000-0.034) ng/mL NT-Pro-B Natriuret Pep 186 (<300) pg/mL Serum Total Protein (6.3-8.2) g/dL Albumin (3.5-5.0) g/dL TSH 3rd Generation 1.180 (0.47-4.68) mIU/L 03/19/23 03/19/23 03/19/23 Range/Units 12:35 12:35 12:35 WBC 9.7 (4.0-10.5) x10^3/uL RBC 4.62 (4.1-5.4) x10^6/uL Hgb 13.7 (12.0-16.0) g/dL Hct 41.7 (35-47) % MCV 90.3 (78-100) fL MCH 29.7 (26-32) pg MCHC 32.9 (32-36) g/dL RDW 13.2 (11.5-14.0) % Plt Count 359 (150-450) x10^3/uL MPV 10.1 (7.5-11.0) fL Gran % 71.4 H (36.0-66.0) % Immature Gran % (Auto) 0.2 (0.00-0.4) % Nucleat RBC Rel Count 0.0 (0.00-0.1) % Eos # (Auto) 0.36 (0-0.5) x10^3/uL Immature Gran # (Auto) 0.02 (0.00-0.03) x10^3u/L Absolute Lymphs (auto) 1.73 (1.0-4.6) x10^3/uL Absolute Monos (auto) 0.58 (0.0-1.3) x10^3/uL Absolute Nucleated RBC 0.00 (0.00-0.01) x10^3u/L Lymphocytes % 17.9 L (24.0-44.0) % Monocytes % 6.0 (0.0-12.0) % Eosinophils % 3.7 (0.00-5.0) % Basophils % 0.8 (0.0-0.4) % Absolute Granulocytes 6.88 (1.4-6.9) x10^3/uL Basophils # 0.08 (0-0.4) x10^3/uL D-Dimer 0.38 (0.0-0.50) mg/L Sodium Direct 137 L (138-146) mmol/L Potassium 4.2 (3.5-4.9) mmol/L Chloride 100 (98-109) mmol/L Carbon Dioxide 28 (24-29) mmol/L Venous BUN 32 H (8-26) mg/dL Creatinine 0.9 (0.6-1.3) mg/dL Glucose 107 H (70-105) mg/dL Ionized Calcium 1.11 L (1.12-1.32) mmol/L Total Bilirubin 0.50 (0.2-1.3) mg/dL AST 35 (14-36) U/L ALT 22 (0-35) U/L Alkaline Phosphatase 60 (38-126) U/L Troponin I (0.000-0.034) ng/mL NT-Pro-B Natriuret Pep (<300) pg/mL Serum Total Protein 8.7 H (6.3-8.2) g/dL Albumin 4.6 (3.5-5.0) g/dL TSH 3rd Generation (0.47-4.68) mIU/L - Progress Progress: improved Progress Note: Case discussed with Dr. Otero ER physician at [facility] who accepts transfer at 4:22 PM 03/19/23 16:24 Case discussed with quality nurse at [facility] who accepts t ransfer at 3:15 PM Patient 63-year-old female presents to our ED for evaluation of heart palpitatio ns. Physical exam reveals a very anxious patient. EKG reveals a tacky dysrhythmia. Rhythm strip reveals intermittent bouts of ventricular tachycardia. Testing includes EKG which reveals a sinus tachycardia with abnormal rhythm. Chest x-ray within normal limits. CBC CMP within normal limits. D-dimer negative. Initial troponin negative. TSH within normal limits. Patient received lorazepam for anxiety. Amiodarone drip initiated. Heart rate now down from 180s to 92. Patient received normal saline as well. Patient appears to be resting comfortably. Will be transferred to [facility]. Complexity of problem addressed is high, threat to bodily function. 2 hours of critical care time. Patient in and out of ventricular tachycardia. Immediate action with amiodarone drip initiated to prevent further deterioration. Complexity of data reviewed and analyzed is extensive. Dr. Berger ordered reviewed and analyzed laboratory work-up as well as imaging studies. Plan of care discussed with receiving physician Dr. Otero ER physician at [facility]. Risk of complication and or risk morbidity/mortality of patient management is high. Patient requires hospitalization/higher level of care for further evaluation and treatment. Patient agrees to transfer to [facility] for further evaluation and treatment. Vitals are stable. Diagnosis is heart palpitations ventricular tachycardia. Portions of this note were created with voice recognition technology. There may be grammatical, spelling, punctuation or sound alike errors 03/19/23 16:24 Counseled pt/family regarding: lab results, diagnosis, rad results - Departure Departure Disposition: Transfer Clinical Impression: Heart palpitations, Intermittent ventricular tachycardia Condition: Stable Critical Care Time: Yes Critical Care Time(excluding separately billable procedures): Critical 105-134 mins Referrals: NICHOLAS SHIN MD [Primary Care Provider] - Follow up/PCP as directed Additional Instructions: Discharge/Care Plan AKUA ADAME was seen on 03/19/23 in the Emergency Room. The patient was counseled regarding Diagnosis,Lab results, Imaging studies, need for follow up and when to return to the Emergency Room. Prescriptions given: Discharge Note I have spoken with the patient and/or caregivers. I have explained the patient's condition, diagnosis and treatment plan based on the information available to me at this time. I have answered the patient's and/or caregiver's questions and addressed any concerns. The patient and/or caregivers have as good understanding of the patient's diagnosis, condition and treatment plan as can be expected at this point. The vital signs have been stable. The patient's condition is stable and appropriate for discharge from the emergency department. The patient will pursue further outpatient evaluation with the primary care physician or other designated or consulting physician as outlined in the dischar ge instructions. The patient and/or caregivers are agreeable to this plan of care and follow-up instructions have been explained in detail. The patient and/or caregivers have received these instruction. The patient/and or caregivers are aware that any significant change in condition or worsening of symptoms should prompt an immediate return to this or the closest emergency department or call 911.
--- NOTE | 2023-03-19 12:49 | XRAY ---
Indication: Palpitations. Comparison: May 14, 2017 Portable chest remains inflated and clear. Heart borderline enlarged again with CABG. Bony thorax intact. No acute findings.
[2023-03-19 13:01] LABS: Absolute Neutrophil Ct (ANC) 6.88 x10^3/uL (1.4-6.9); BASOPHIL % 0.8 % (0.0-0.4); Basophil (Absolute #) 0.08 x10^3/uL (0-0.4); Eosinophil % 3.7 % (0.00-5.0); Eosinophil (Absolute #) 0.36 x10^3/uL (0-0.5); Hematocrit 41.7 % (35-47); Hemoglobin 13.7 g/dL (12.0-16.0); IMMATURE GRAN # 0.02 x10^3u/L (0.00-0.03); IMMATURE GRAN % 0.2 % (0.00-0.4); Lymphocyte (Absolute #) 1.73 x10^3/uL (1.0-4.6); Lymphocytes % 17.9 % (24.0-44.0); Mean Cell Volume 90.3 fL (78-100); Mean Corpuscular Hemoglobin 29.7 pg (26-32); Mean Corpuscular Hgb Concent. 32.9 g/dL (32-36); Mean Platelet Volume 10.1 fL (7.5-11.0); Monocyte (Absolute #) 0.58 x10^3/uL (0.0-1.3); Neutrophil % 71.4 % (36.0-66.0); Platelet Count 359 x10^3/uL (150-450); Red Blood Count 4.62 x10^6/uL (4.1-5.4); Red Cell Distribution Width 13.2 % (11.5-14.0); White Blood Count 9.7 x10^3/uL (4.0-10.5)
[2023-03-19 13:06] LABS: ISTAT CREA 0.9 mg/dL (0.6-1.3); ISTAT K 4.2 mmol/L (3.5-4.9); ISTAT iCA 1.11 mmol/L (1.12-1.32)
[2023-03-19 13:09] LABS: ALBUMIN 4.6 g/dL (3.5-5.0); BILIRUBIN,TOTAL 0.5 mg/dL (0.2-1.3); Total Protein 8.7 g/dL (6.3-8.2)
[2023-03-19] MEDS ORDERED: Ativan 2 MG/1 ML VIAL IV PRN (13:16)
[2023-03-19] MEDS ORDERED: Sodium Chloride 0.9% 1000 ML 1,000 ML IV SCH (13:30)
[2023-03-19] MEDS ORDERED: Ativan 2 MG/1 ML VIAL ONE (13:31)
[2023-03-19] MEDS ORDERED: Sodium Chloride 0.9% 1000 ML 1,000 ML ONE (13:31)
[2023-03-19] MEDS ORDERED: NEXTERONE 360 MG/200 ML BAG 360 MG/200 ML PLAST..BAG IV ONE (15:24)
[2023-03-19] MEDS ORDERED: NEXTERONE 360 MG/200 ML BAG 360 MG/200 ML PLAST..BAG IV SCH (15:30)
[2023-03-19 15:44] VITALS: PULSE 168
[2023-03-19 15:47] VITALS: O2SAT 96
[2023-03-19] MEDS ORDERED: Cordarone 150 MG/3 ML Injection*** 150 MG in D5w 100ML Mini Bag 100 ML 100 ML IV ONE ×2 (15:58→16:01)
[2023-03-19] MEDS ORDERED: Cordarone 150 MG/3 ML Injection ONE (16:02)
[2023-03-19] MEDS ORDERED: D5w 100ML Mini Bag 100 ML 100 ML IV ONE (16:03)
[2023-03-19 16:45] VITALS: BP 125/73
== END 2023-03-19 16:52 | disposition short-term general hospital (02) ==
LOC: ED 12:20
DX: I47.29 Other ventricular tachycardia (principal); R00.2 Palpitations; M54.2 Cervicalgia; E78.5 Hyperlipidemia, unspecified; I10 Essential (primary) hypertension; E11.9 Type 2 diabetes mellitus without complications; Z79.02 Long term (current) use of antithrombotics/antiplatelets; Z79.84 Long term (current) use of oral hypoglycemic drugs; Z79.85 Long-term (current) use of injectable non-insulin antidiabetic drugs; Z79.899 Other long term (current) drug therapy; Z28.310 Unvaccinated for COVID-19
CPT/HCPCS: 36000; 36415; 71045; 80047; 82040; 82247; 83521; 83880; 84075; 84443; 84450; 84460; 84484; 85025; 85379; 93005; 93041; 94760; 96374; 99284; 99291; 99292; J0282; J2060

== ENCOUNTER 2023-08-11 01:34 | Emergency (ER) | payer OTHER ==
--- NOTE | 2023-08-11 01:40 | ERPHSYRPT ---
- History of Present Illness Time Seen by Provider: 08/11/23 01:39 Source: patient Exam Limitations: no limitations Physician History: The patient, who has a history of COPD, diabetes, and blood pressure issues, underwent pacemaker surgery 10 days ago. They started experiencing shortness of breath yesterday, which worsened today, making it difficult for them to sleep. T he patient reports a mild cough, producing yellow phlegm. They deny having any fever or wheezing, but mention feeling as if their lungs were heavy while breathing. The patient has a history of open heart surgery, specifically a triple bypass, as the fourth artery was located behind the heart. They have been using Beterol as needed for their COPD, which has not bothered them since quitting smoking 13 years ago. The patient was unaware that Beterol is not a daily inhaler. Additionally, the patient experiences diarrhea, which they attribute to Irritable Bowel Syndrome (IBS), as they often alternate between constipation and diarrhea. They report no swelling or pain in their legs, and no pain elsewhere. Timing/Duration: yesterday Activities at Onset: rest Severity of Dyspnea-Max: severe Severity of Dyspnea-Current: moderate Possible Cause: illness exposure Modifying Factors: Improves With: albuterol inhaler, oxygen. Worsens With: exertion Associated Symptoms: constant, cough, wheezing, productive cough, No chest pain/discomfort, No edema, No fever, No chills, No dizziness, No heaviness, No heart racing, No leg swelling Allergies/Adverse Reactions: latex Allergy (Verified 08/11/23 01:40) Itching Home Medications: Albuterol Sulfate 1.25 mg IH BID 04/24/17 [History] Atorvastatin Calcium [Lipitor] 40 mg PO HS 04/24/17 [History] Citalopram Hydrobromide 20 mg* [ceLEXa 20 MG] 40 mg PO HS 04/24/17 [History] Clopidogrel Bisulfate [PLAVIX Tablet] 75 mg PO DAILY 04/24/17 [History] Metformin HCl [Metformin ER Osmotic] 1,000 mg PO BID 04/24/17 [History] Metoprolol Tartrate 50 mg [Lopressor 50 MG] 25 mg PO BID 04/24/17 [History] carBAMazepine [Tegretol] 400 mg PO QID 04/24/17 [History] Tramadol HCl 50 mg [Ultram 50 mg] 50 mg PO TID 07/13/20 [History] Semaglutide [Ozempic] 2 mg SQ WEEKLY 03/19/23 [History] Apixaban [Eliquis] 5 mg PO BID 08/11/23 [History] Cetirizine HCl 10 mg PO DAILY 08/11/23 [History] Empagliflozin [Jardiance] 25 mg PO DAILY 08/11/23 [History] Glipizide [Glipizide ER] 5 mg PO BID 08/11/23 [History] Isosorbide Mononitrate 30 mg [Imdur 30 MG] 30 mg PO DAILY 08/11/23 [History] Isosorbide Mononitrate 60 mg [Imdur 60MG] 60 mg PO DAILY 08/11/23 [History] Lisinopril 10 mg [Zestril 10 MG] 10 mg PO DAILY 08/11/23 [History] Melatonin 5 mg PO HS 08/11/23 [History] Hx Tetanus, Diphtheria Vaccination/Date Given: No Hx Influenza Vaccination/Date Given: Yes Hx Pneumococcal Vaccination/Date Given: Yes Travel Risk - Vaccine Status Have you recieved a Covid-19 vaccination: No - Review of Systems All Other Systems: Reviewed and Negative (As per HPI) - Past Medical History Pertinent Past Medical History: Yes Neurological History: Seizures, Stroke ENT History: No Pertinent History Cardiac History: Coronary Artery Disease, High Cholesterol, Hypertension Respiratory History: COPD Endocrine Medical History: Diabetes Type II Musculoskeletal History: Arthritis GI Medical History: GERD History: Other Psycho-Social History: Anxiety, Depression, Other Female Reproductive Disorders: No Pertinent History Other Medical History: states had been in [facility], states has kidney stones , possibly passed - Past Surgical History Past Surgical History: Yes Neuro Surgical History: No Pertinent History Cardiac: CABG Respiratory: No Pertinent History Gastrointestinal: Cholecystectomy Genitourinary: No Pertinent History Musculoskeletal: No Pertinent History Female Surgical History: Hysterectomy, Section Other Surgical History: colonoscopy. brain susrgery - Social History Smoking Status: Former smoker Exposure to second hand smoke: No Drug Use: none Patient Lives Alone: No - Nursing Vital Signs Nursing Vital Signs: Initial Vital Signs Temperature 95 F 08/11/23 01:34 Pulse Rate 72 08/11/23 01:34 Respiratory Rate 20 08/11/23 01:34 Blood Pressure 178/93 08/11/23 01:34 O2 Sat by Pulse Oximetry 95 08/11/23 01:34 Pain Scale Pain Intensity 0 - Physical Exam General Appearance: mild distress Eye Exam: eyes nml inspection Ears, Nose, Throat Exam: hearing grossly normal, normal ENT inspection, normal pharynx Neck Exam: normal inspection, non-tender, supple, full range of motion Respiratory Exam: airway intact, wheezing, No respiratory distress Cardiovascular/Chest Exam: normal heart sounds, regular rate/rhythm, No edema Abdominal/Gastrointestinal Exam: soft, No tenderness, No distention Extremity Exam: non-tender, No swelling Neurologic Exam: alert, oriented x 3, cooperative, normal mood/affect Skin Exam: normal color, warm, dry, No rash SpO2 Interpretation: hypoxic O2 Delivery: Nasal Cannula - Course Nursing assessment & vital signs reviewed: Yes EKG Interpreted by Me: RATE (70, atrial paced), NORMAL AXIS, NORMAL INTERVALS, Right Bundle Branch Block, NORMAL ST-T - Radiology Exams Chest X-ray Interpretation: Interpreted by me, Other (b/l patchy ground glass infiltrates, hyperinflated lungs) Ordered Tests: Active Orders 24 hr Category Date Time Status EKG-ER Only STAT Care 08/11/23 01:54 Active IV Insertion STAT Care 08/11/23 01:54 Active CHEST 1 VIEW (PORTABLE) Stat Exams 08/11/23 01:55 Taken CBC W DIFF Stat Lab 08/11/23 01:50 Completed CMP Stat Lab 08/11/23 01:50 Completed MAGNESIUM Stat Lab 08/11/23 01:50 Completed NT PRO BNPII Stat Lab 08/11/23 01:50 Received TROPONIN Q4H Lab 08/11/23 01:50 Completed TROPONIN Q4H Lab 08/11/23 06:00 Ordered TROPONIN Q4H Lab 08/11/23 10:00 Ordered VENOUS BLOOD GAS Stat Lab 08/11/23 01:15 Completed Respiratory Therapy Assessment DAILY RT 08/11/23 02:06 Active Medication Summary Generic Name Dose Route Start Last Admin Trade Name Freq PRN Reason Stop Dose Admin Sodium Chloride 1,000 mls @ 999 mls/hr 08/11/23 01:54 08/11/23 02:06 Sodium Chloride 0.9% 1000 Ml IV 08/11/23 02:54 999 mls/hr .Q1H1M STA Administration Azithromycin 500 mg in 250 mls @ 250 mls/hr 08/11/23 01:54 08/11/23 02:07 Zithromax 500 Mg/ 250 Ml Nacl Premix IV 08/11/23 02:53 250 mls/hr STAT STA 250 mls/hr Administration Discontinued Medications Generic Name Dose Route Start Last Admin Trade Name Thomas PRN Reason Stop Dose Admin Albuterol/Ipratropium 3 ml 08/11/23 01:54 08/11/23 02:06 Ipratropium/Albuterol Sulfate 3 Ml Ampul.Neb IH 08/11/23 01:55 3 ml STAT ONE Administration Albuterol/Ipratropium Confirm 08/11/23 02:02 Ipratropium/Albuterol Sulfate 3 Ml Ampul.Neb Administered 08/11/23 02:03 Dose 3 ml IH .STK-MED ONE Methylprednisolone Sodium 0 mg 08/11/23 01:54 08/11/23 02:07 Succinate 125 mg/ Sterile IV 08/11/23 01:55 125 mg Water 2 ml STAT ONE Administration Azithromycin Confirm 08/11/23 02:02 Zithromax 500 Mg/ 250 Ml Nacl Premix Administered 08/11/23 02:03 Dose 500 mg in 250 mls @ ud IV .STK-MED ONE Sodium Chloride Confirm 08/11/23 02:02 Sodium Chloride 0.9% 1000 Ml Administered 08/11/23 02:03 Dose 1,000 mls @ ud .ROUTE .STK-MED ONE Methylprednisolone Sodium Succinate Confirm 08/11/23 02:02 Methylprednis Sod Succ 125 Mg/2 Ml Vial Administered 08/11/23 02:03 Dose 125 mg .ROUTE .STK-MED ONE Sterile Water Confirm 08/11/23 02:02 Water For Injection,Sterile 10 Ml Vial Administered 08/11/23 02:03 Dose 10 ml IJ .STK-MED ONE Lab/Rad Data: Laboratory Result Diagrams 08/11/23 01:50 08/11/23 01:50 Laboratory Results 08/11/23 08/11/23 08/11/23 Range/Units 01:50 01:50 01:50 WBC 14.6 H (4.0-10.5) x10^3/uL RBC 4.63 (4.1-5.4) x10^6/uL Hgb 14.5 (12.0-16.0) g/dL Hct 45.0 (35-47) % MCV 97.2 (78-100) fL MCH 31.3 (26-32) pg MCHC 32.2 (32-36) g/dL RDW 11.9 (11.5-14.0) % Plt Count 368 (150-450) x10^3/uL MPV 9.8 (7.5-11.0) fL Gran % 72.6 H (36.0-66.0) % Immature Gran % (Auto) 0.4 (0.00-0.4) % Nucleat RBC Rel Count 0.0 (0.00-0.1) % Eos # (Auto) 0.34 (0-0.5) x10^3/uL Immature Gran # (Auto) 0.06 H (0.00-0.03) x10^3u/L Absolute Lymphs (auto) 2.80 (1.0-4.6) x10^3/uL Absolute Monos (auto) 0.73 (0.0-1.3) x10^3/uL Absolute Nucleated RBC 0.00 (0.00-0.01) x10^3u/L Lymphocytes % 19.2 L (24.0-44.0) % Monocytes % 5.0 (0.0-12.0) % Eosinophils % 2.3 (0.00-5.0) % Basophils % 0.5 (0.0-0.4) % Absolute Granulocytes 10.61 H (1.4-6.9) x10^3/uL Basophils # 0.08 (0-0.4) x10^3/uL pO2/FiO2 Ratio % VBG pH (7.32-7.42) VBG pCO2 at Pat Temp (42-55) mm/Hg VBG pO2 at Pat Temp (25-40) mm/Hg VBG HCO3 (22-28) meq/L VBG O2 Sat (Vincent) (95-100) VBG Base Excess (-2.0-2.0) VBG Hemoglobin VBG Carboxyhemoglobin (0.0-6.9) % T HGB POC Potassium (3.5-5.1) Sodium 141 (137-145) mmol/L Potassium 4.0 (3.5-5.1) mmol/L Chloride 104 (98-107) mmol/L Carbon Dioxide 27 (22-30) mmol/L Anion Gap 14.0 (5-15) MEQ/L BUN 10 (7-17) mg/dL Creatinine 0.67 (0.52-1.04) mg/dL Estimated GFR 96.9 ML/MIN Glucose 138 H (74-106) mg/dL Calcium 8.9 (8.4-10.2) mg/dL Magnesium 1.6 (1.6-2.3) mg/dL Total Bilirubin 0.20 (0.2-1.3) mg/dL AST 31 (14-36) U/L ALT 18 (0-35) U/L Alkaline Phosphatase 108 (38-126) U/L Troponin I < 0.012 (0.000-0.034) ng/mL Serum Total Protein 8.0 (6.3-8.2) g/dL Albumin 4.2 (3.5-5.0) g/dL 08/11/23 Range/Units 01:15 WBC (4.0-10.5) x10^3/uL RBC (4.1-5.4) x10^6/uL Hgb (12.0-16.0) g/dL Hct (35-47) % MCV (78-100) fL MCH (26-32) pg MCHC (32-36) g/dL RDW (11.5-14.0) % Plt Count (150-450) x10^3/uL MPV (7.5-11.0) fL Gran % (36.0-66.0) % Immature Gran % (Auto) (0.00-0.4) % Nucleat RBC Rel Count (0.00-0.1) % Eos # (Auto) (0-0.5) x10^3/uL Immature Gran # (Auto) (0.00-0.03) x10^3u/L Absolute Lymphs (auto) (1.0-4.6) x10^3/uL Absolute Monos (auto) (0.0-1.3) x10^3/uL Absolute Nucleated RBC (0.00-0.01) x10^3u/L Lymphocytes % (24.0-44.0) % Monocytes % (0.0-12.0) % Eosinophils % (0.00-5.0) % Basophils % (0.0-0.4) % Absolute Granulocytes (1.4-6.9) x10^3/uL Basophils # (0-0.4) x10^3/uL pO2/FiO2 Ratio 21.0 % VBG pH 7.25 L (7.32-7.42) VBG pCO2 at Pat Temp 67 H* (42-55) mm/Hg VBG pO2 at Pat Temp 37 (25-40) mm/Hg VBG HCO3 29.4 H* (22-28) meq/L VBG O2 Sat (Vincent) 56.6 L (95-100) VBG Base Excess 0.2 (-2.0-2.0) VBG Hemoglobin 15.0 VBG Carboxyhemoglobin 2.7 (0.0-6.9) % T HGB POC Potassium 4.2 (3.5-5.1) Sodium (137-145) mmol/L Potassium (3.5-5.1) mmol/L Chloride (98-107) mmol/L Carbon Dioxide (22-30) mmol/L Anion Gap (5-15) MEQ/L BUN (7-17) mg/dL Creatinine (0.52-1.04) mg/dL Estimated GFR ML/MIN Glucose (74-106) mg/dL Calcium (8.4-10.2) mg/dL Magnesium (1.6-2.3) mg/dL Total Bilirubin (0.2-1.3) mg/dL AST (14-36) U/L ALT (0-35) U/L Alkaline Phosphatase (38-126) U/L Troponin I (0.000-0.034) ng/mL Serum Total Protein (6.3-8.2) g/dL Albumin (3.5-5.0) g/dL - Progress Progress: improved Air Movement: good Progress Note: Patient responded well to DuoNeb and steroids. She is moving good amounts of air and no longer wheezing at this time. She was given 500 mg of azithromycin as well. Her white count was elevated at 14 but otherwise her CBC and CMP were within normal limits. Initial troponin was negative. Patient's symptoms are dramatically improved and feels well enough to go home. I will discharge her with 4 days of azithromycin and prednisone 50 mg daily over this time. I will also send in Advair inhaler for her to start and instructed her on using the albuterol inhaler only as needed and not as a daily inhaler. I strongly encouraged her to follow-up with Dr. Shin. Blood Culture(s) Obtained: No Antibiotics given: Yes Counseled pt/family regarding: lab results, diagnosis, need for follow-up, rad results Medical Desision Making - Diagnostic Testing Diagnostic test were ordered, analyzed, and reviewed by me: Yes Radiological Interpretation: Interpreted by me - Risk of complications The pt has a mod risk of morbidity or mortality based on: Need for prescription drug management - Departure Departure Disposition: Home Clinical Impression: COPD exacerbation, SOB (shortness of breath), Atypical pneumonia Condition: Good Critical Care Time: No Referrals: NICHOLAS SHIN MD [Primary Care Provider] - Follow up/PCP as directed Instructions: Exacerbation of COPD (DC), Chronic Obstructive Pulmonary Disease Prescriptions: Fluticasone/Salmeterol 230/21 [Advair Hfa 230/21 Mcg COMMON CANISTER*] 1 puff IH DAILY #1 inhaler Azithromycin 250 mg PO DAILY #4 tablet predniSONE [Prednisone] 50 mg PO DAILY #4 tablet
[2023-08-11 01:53] VITALS: TEMP 95
[2023-08-11] MEDS ORDERED: DUONEB 0.5-3 MG/3 ml Neb IH ONE ×2 (01:54→02:02)
[2023-08-11] MEDS ORDERED: Sodium Chloride 0.9% 1000 ML 1,000 ML IV STA (01:54)
[2023-08-11] MEDS ORDERED: solu-MEDROL 125 MG, Sterile H2O 10 ml 2 ML IV ONE ×2 (01:54)
[2023-08-11] MEDS ORDERED: Zithromax 500 MG/ 250 ML NaCl Premix 500 MG/250 ML IVPB IV STA (01:54)
[2023-08-11] MEDS ORDERED: Zithromax 500 MG/ 250 ML NaCl Premix 500 MG/250 ML IVPB IV ONE (02:02)
[2023-08-11] MEDS ORDERED: Sodium Chloride 0.9% 1000 ML 1,000 ML ONE (02:02)
[2023-08-11] MEDS ORDERED: solu-MEDROL ONE (02:02)
[2023-08-11] MEDS ORDERED: Sterile H2O 10 ml IJ ONE (02:02)
[2023-08-11 02:03] LABS: Absolute Neutrophil Ct (ANC) 10.61 x10^3/uL (1.4-6.9); BASOPHIL % 0.5 % (0.0-0.4); Basophil (Absolute #) 0.08 x10^3/uL (0-0.4); Eosinophil % 2.3 % (0.00-5.0); Eosinophil (Absolute #) 0.34 x10^3/uL (0-0.5); Hemoglobin 14.5 g/dL (12.0-16.0); IMMATURE GRAN # 0.06 x10^3u/L (0.00-0.03); IMMATURE GRAN % 0.4 % (0.00-0.4); Lymphocytes % 19.2 % (24.0-44.0); Mean Cell Volume 97.2 fL (78-100); Mean Corpuscular Hemoglobin 31.3 pg (26-32); Mean Corpuscular Hgb Concent. 32.2 g/dL (32-36); Mean Platelet Volume 9.8 fL (7.5-11.0); Monocyte (Absolute #) 0.73 x10^3/uL (0.0-1.3); Neutrophil % 72.6 % (36.0-66.0); Platelet Count 368 x10^3/uL (150-450); Red Blood Count 4.63 x10^6/uL (4.1-5.4); Red Cell Distribution Width 11.9 % (11.5-14.0); White Blood Count 14.6 x10^3/uL (4.0-10.5)
[2023-08-11 02:14] LABS: ALBUMIN 4.2 g/dL (3.5-5.0); BILIRUBIN,TOTAL 0.2 mg/dL (0.2-1.3); Calcium 8.9 mg/dL (8.4-10.2); Creatinine 1 0.67 mg/dL (0.52-1.04); EST GLOMERULAR FILTRATION RATE 96.9 ML/MIN; MAGNESIUM 1.6 mg/dL (1.6-2.3)
[2023-08-11 02:21] LABS: VBG BASE EXCESS 0.2 (-2.0-2.0); VBG CARBOXYHEMOGLOBIN 2.7 % T HGB (0.0-6.9); VBG HCO3- 29.4 meq/L (22-28); VBG O2 SATURATION 56.6 (95-100); VBG POTASSIUM 4.2 (3.5-5.1); VBG pH 7.25 (7.32-7.42)
[2023-08-11 02:52] LABS: INFLUENZA A NEGATIVE (NEGATIVE); INFLUENZA B NEGATIVE (NEGATIVE); RESPIRATORY SYNCTIAL VIRUS NEGATIVE (NEGATIVE); SARS-CoV-2 Xpert Express NEGATIVE (NEGATIVE)
[2023-08-11 02:54] VITALS: RESP 20; O2SAT 94
[2023-08-11 03:15] VITALS: BP 144/74; PULSE 66
--- NOTE | 2023-08-11 07:42 | XRAY ---
Indication: Short of breath. Comparison: March 19, 2023 Portable chest again hyperinflated without focal infiltrate, consolidation, or large effusion. Heart not enlarged again with CABG. New left dual-lead pacemaker. Bony thorax intact again with osteopenia and mild degenerative changes. Impression: Continued nonacute chest with chronic features.
== END 2023-08-11 03:25 | disposition home or self-care (01) ==
LOC: ED 01:34
DX: J44.1 Chronic obstructive pulmonary disease with (acute) exacerbation (principal); J18.9 Pneumonia, unspecified organism; R06.02 Shortness of breath; E11.9 Type 2 diabetes mellitus without complications; E78.5 Hyperlipidemia, unspecified; I10 Essential (primary) hypertension; Z79.52 Long term (current) use of systemic steroids; Z79.02 Long term (current) use of antithrombotics/antiplatelets; Z79.84 Long term (current) use of oral hypoglycemic drugs; Z79.85 Long-term (current) use of injectable non-insulin antidiabetic drugs; Z79.01 Long term (current) use of anticoagulants; Z79.899 Other long term (current) drug therapy; Z28.310 Unvaccinated for COVID-19; Z20.828 Contact with and (suspected) exposure to other viral communicable diseases
CPT/HCPCS: 0241U; 36000; 36415; 71045; 80053; 82805; 83735; 83880; 84484; 85025; 93005; 94640; 96360; 96374; 99284; 96365; J0456; J2930; A9270-GY

== ENCOUNTER 2025-06-27 14:23 | Observation (INO) | payer OTHER ==
[2025-06-27] MEDS ORDERED: ZITHROMAX IV IV ONE (14:44)
[2025-06-27] MEDS ORDERED: Sterile H2O 10 ml IJ ONE ×2 (14:44→21:30)
[2025-06-27] MEDS ORDERED: BABY ASPIRIN 81 MG CHEW ONE (14:44)
[2025-06-27] MEDS: ZITHROMAX IV*** 500 MG in Sodium Chloride 0.9% 250 ML 250 ML IV STA (14:46)
[2025-06-27] MEDS: BABY ASPIRIN 81 MG CHEW PO ONE (14:48)
[2025-06-27] MEDS: solu-MEDROL 125 MG, Sterile H2O 10 ml 2 ML IV ONE (14:48)
[2025-06-27 14:51] LABS: BASOPHIL % 0.7 % (0.1-1.2); Basophil (Absolute #) 0.09 x10^3/uL (0.01-0.08); Eosinophil (Absolute #) 0.52 x10^3/uL (0.04-0.36); Hematocrit 45.9 % (34.1-44.9); Hemoglobin 14.6 g/dL (11.2-15.7); IMMATURE GRAN # 0.03 x10^3u/L (0.001-0.031); IMMATURE GRAN % 0.2 % (0.001-0.429); Lymphocyte (Absolute #) 1.69 x10^3/uL (1.18-3.74); Mean Corpuscular Hemoglobin 30.2 pg (25.6-32.2); Mean Corpuscular Hgb Concent. 31.8 g/dL (32.2-35.5); Monocyte (Absolute #) 0.97 x10^3/uL (0.24-0.86); NUCLEATED RBC # 0.00 x10^3u/L (0.00-0.012); NUCLEATED RBC % 0.0 % (0.00-0.2); Platelet Count 416 x10^3/uL (182-369); Red Blood Count 4.84 x10^6/uL (3.93-5.22); White Blood Count 13.3 x10^3/uL (3.98-10.04)
[2025-06-27] MEDS ORDERED: DUONEB 0.5-3 MG/3 ml Neb IH ONE (14:55)
[2025-06-27] MEDS: DUONEB 0.5-3 MG/3 ml Neb IH ONE (14:56)
--- NOTE | 2025-06-27 14:57 | ERPHSYRPT ---
- History of Present Illness Time Seen by Provider: 06/27/25 14:27 Source: patient Exam Limitations: no limitations Patient Subjective Stated Complaint: patient's right shoulder/elbow is "locked", patient states she cant lift anything with right arm, patient states she thinks she has pneumonia, patient states she is short of breath, patient is coughing up yellow phlegm, Triage Nursing Assessment: patient presents to ed via private vehicle, patient able to ambulate into ed, patient alert and oriented x 4, patient's skin p/w/d, patient complains of shorntess of breath, patient's oxygen saturation 90% on room air, patient placed on 2 L oxygen via nasal cannula, patient has wheezing throughout all lung vasquez, patient has productive cough with yellow phlegm, denies chest discomfort, patient unable to lift right arm due to pain in shoulder, no bruising/deformity noted to right shoulder Physician History: Patient is here for shortness of breath and right shoulder pain. Patient states that she has been having ongoing shortness of breath the past few weeks. Was placed on steroids by her primary care doctor. Patient is not on home oxygen. She was 90% when she came to the emergency department. Placed on 2 L of oxygen. Patient states that she does have a history of smoking and COPD exacerbations. She has not been admitted to the hospital during this time. No fever no chills no systemic signs of illness. Patient also complains of right shoulder pain. States that it "locks up". Patient states that she cannot raise it against gravity. However she has full strength at her wrist and her elbow. It sounds like it is more pain limiting rather than a stroke, true numbness and weakness. She has no falls, trauma, gross deformities. She has not seen her PCP for this. Patient is taking PO well. Same number of urinations and defecations. The patient has no signs of altered mental status, nuchal rigidity, signs of meningitis. The patient is up-to-date on all vaccinations. Allergies/Adverse Reactions: latex Allergy (Verified 06/27/25 14:34) Itching Home Medications: Citalopram Hydrobromide 20 mg* [ceLEXa 20 MG] 40 mg PO HS 04/24/17 [History] Clopidogrel Bisulfate [PLAVIX Tablet] 75 mg PO DAILY 04/24/17 [History] Metformin HCl [Metformin ER Osmotic] 1,000 mg PO BID 04/24/17 [History] Metoprolol Tartrate 50 mg [Lopressor 50 MG] 25 mg PO BID 04/24/17 [History] carBAMazepine [Tegretol] 400 mg PO QID 04/24/17 [History] Tramadol HCl 50 mg [Ultram 50 mg] 50 mg PO TID 07/13/20 [History] Semaglutide [Ozempic] 2 mg SQ WEEKLY 03/19/23 [History] Apixaban [Eliquis] 5 mg PO BID 08/11/23 [History] Cetirizine HCl 10 mg PO DAILY 08/11/23 [History] Empagliflozin [Jardiance] 25 mg PO DAILY 08/11/23 [History] Isosorbide Mononitrate 30 mg [Imdur 30 MG] 30 mg PO DAILY 08/11/23 [History] Isosorbide Mononitrate 60 mg [Imdur 60MG] 60 mg PO DAILY 08/11/23 [History] Lisinopril 10 mg [Zestril 10 MG] 20 mg PO DAILY 08/11/23 [History] Melatonin 5 mg PO HS 08/11/23 [History] Albuterol 8 gm Mdi Hfa [Ventolin Hfa MDI] 2 puff IH QID PRN 06/27/25 [History] Hx Tetanus, Diphtheria Vaccination/Date Given: No Hx Influenza Vaccination/Date Given: Yes Hx Pneumococcal Vaccination/Date Given: Yes Travel Risk - International Travel Have you traveled outside of the country in past 3 weeks: No - Emerging Infectious Disease Are you exhibiting symptoms associated with any current EIDs: No Comment: 91% room air - Past Medical History Pertinent Past Medical History: Yes Neurological History: Seizures, Stroke ENT History: No Pertinent History Cardiac History: Coronary Artery Disease, Hypertension Respiratory History: COPD Endocrine Medical History: Diabetes Type II Musculoskeletal History: Arthritis GI Medical History: GERD History: Other Psycho-Social History: Anxiety, Depression, Other Female Reproductive Disorders: No Pertinent History Other Medical History: states had been in [facility], states has kidney stones , possibly passed. parkinson disease. glaucoma - Past Surgical History Past Surgical History: Yes Neuro Surgical History: No Pertinent History Cardiac: CABG Respiratory: No Pertinent History Gastrointestinal: Cholecystectomy Genitourinary: No Pertinent History Musculoskeletal: No Pertinent History Female Surgical History: Hysterectomy, Section Other Surgical History: colonoscopy. brain surgery- aneurysm - Social History Smoking Status: Former smoker Exposure to second hand smoke: No Drug Use: none - Social Determinants of Health Will the patient participate in the screening: Yes Do you worry about a steady place to live?: No Do you have any problems with any of the following?: No known problems In the past 12 months,have you had to go without utilities?: No Transportation Issues: No Has anyone in your support network made you feel unsafe?: No Have you or anyone in your house had to go w/o enough food: No - Nursing Vital Signs Nursing Vital Signs: Initial Vital Signs Temperature 97.2 F 06/27/25 14:24 Pulse Rate 67 06/27/25 14:24 Respiratory Rate 14 06/27/25 14:24 Blood Pressure 159/98 06/27/25 14:24 O2 Sat by Pulse Oximetry 95 06/27/25 14:24 Pain Scale Pain Intensity 4 - Physical Exam SpO2 Interpretation: normal SpO2: 95 Comments: 06/27/25 14:54 Review of Systems Constitutional: Negative for fever. HENT: Negative for congestion. Respiratory: Shortness of breath, wheezing, placed on oxygen Cardiovascular: Negative for chest pain. Gastrointestinal: Negative for abdominal pain. Genitourinary: Negative for dysuria. Musculoskeletal: Negative for back pain. Right shoulder pain Skin: Negative for rash. Neurological: Negative for headaches. Psychiatric/Behavioral: Negative for behavioral problems. All other systems reviewed and are negative. Physical Exam Vitals signs and nursing note reviewed. Constitutional: Appearance: Patient is well-developed. HENT: Head: Normocephalic and atraumatic. Eyes: Conjunctiva/sclera: Conjunctivae normal. Neck: Musculoskeletal: Normal range of motion. Trachea: No tracheal deviation. Cardiovascular: Rate and Rhythm: Normal rate. Heart sounds normal. Pulmonary: Effort: Pulmonary effort is normal. Wheezing throughout, some crackles at the bases, placed on 2 L of oxygen Abdominal: Palpations: Abdomen is soft. Musculoskeletal: General: Right shoulder pain, minimal tenderness to palpation. Unable to lift right arm against gravity. Full range of motion at right elbow, right wrist. No wrist deformity, elbow deformity, pain. 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 I am able to lift her right arm passively against gravity. However she is not able to hold it up against gravity. She has tenderness with any movement whatsoever. She is otherwise neurovascularly intact distal to the pain. 2+ radial, 2+ ulnar pulses, sensation intact, 2+ cap refill. No signs of compartment syndrome, no gross deformities. No overlying skin changes Skin: General: Skin is warm and dry. Neurological/ Psychiatric: Mental Status: Mental status, behavior, interaction with environment is appropriate for patient's age and condition - Course Nursing assessment & vital signs reviewed: Yes EKG Interpreted by Me: Sinus Rhythm (EKG my interpretation at 1430 demonstrates atrial paced complexes, right bundle branch block, rate of 73, FL interval 205, QRS 162, QTc is 480, no STEMI or other ST changes) Ordered Tests: Active Orders 24 hr Category Date Time Status Admit as Inpatient ROUTINE Care 06/27/25 17:22 Active Call Admit Doctor for Orders ON ADMISSION Care 06/27/25 17:22 Active Dental Floss Packer STAT Care 06/27/25 14:39 Active Code Status Order ROUTINE Care 06/27/25 17:22 Active EKG-ER Only STAT Care 06/27/25 14:38 Active IV Insertion STAT Care 06/27/25 14:38 Active Telemetry q6h Care 06/27/25 17:23 Active House Regular Diet Diet 06/28/25 Breakfast Active CHEST 1 VIEW (PORTABLE) Stat Exams 06/27/25 14:39 Completed SHOULDER Stat Exams 06/27/25 14:40 Taken CBC W DIFF Stat Lab 06/27/25 14:45 Completed CMP Stat Lab 06/27/25 14:45 Completed CULTURE,SPUTUM Stat Lab 06/27/25 14:38 Received NT PRO BNPII Stat Lab 06/27/25 14:45 Completed TROPONIN Q4H Lab 06/27/25 14:45 Completed TROPONIN Q4H Lab 06/27/25 18:45 Ordered TROPONIN Q4H Lab 06/27/25 22:45 Ordered Pulse Oximetry CONTINUOUS RT 06/27/25 17:23 Active Respiratory Therapy Assessment DAILY RT 06/27/25 14:58 Active Respiratory Therapy Consult ONCE RT 06/27/25 17:22 Active Transfer Order Routine Transfer 06/27/25 Ordered Medication Summary Generic Name Dose Route Start Last Admin Trade Name Freq PRN Reason Stop Dose Admin Ceftriaxone Sodium 1 gm in 100 mls @ 200 mls/hr 06/27/25 17:09 06/27/25 17:11 Rocephin 1 Gm / 100 Ml Nacl IV 06/27/25 17:38 200 ml/hr STAT ONE 200 mls/hr Administration Discontinued Medications Generic Name Dose Route Start Last Admin Trade Name Thomas PRN Reason Stop Dose Admin Albuterol/Ipratropium 3 ml 06/27/25 14:38 06/27/25 14:56 Ipratropium/Albuterol Sulfate 3 Ml Ampul.Neb IH 06/27/25 14:39 3 ml STAT ONE Administration Albuterol/Ipratropium Confirm 06/27/25 14:55 Ipratropium/Albuterol Sulfate 3 Ml Ampul.Neb Administered 06/27/25 14:56 Dose 3 ml IH .STK-MED ONE Aspirin 324 mg 06/27/25 14:40 06/27/25 14:48 Aspirin 81 Mg Tab.Chew PO 06/27/25 14:41 324 mg STAT ONE Administration Aspirin Confirm 06/27/25 14:44 Aspirin 81 Mg Tab.Chew Administered 06/27/25 14:45 Dose 324 mg .ROUTE .STK-MED ONE Azithromycin Confirm 06/27/25 14:44 Azithromycin Inj Administered 06/27/25 14:45 Dose 500 mg IV .STK-MED ONE Methylprednisolone Sodium 0 mg 06/27/25 14:38 06/27/25 14:48 Succinate 125 mg/ Sterile IV 06/27/25 14:39 125 mg Water 2 ml STAT ONE Administration Azithromycin 500 mg/ Sodium 250 mls @ 250 mls/hr 06/27/25 14:38 06/27/25 15:50 Chloride IV 06/27/25 15:37 Infused STAT STA Infusion Sodium Chloride Confirm 06/27/25 14:44 Sodium Chloride 0.9% 250 Ml Administered 06/27/25 14:45 Dose 250 mls @ ud IV .STK-MED ONE Ceftriaxone Sodium Confirm 06/27/25 17:10 Rocephin 1 Gm / 100 Ml Nacl Administered 06/27/25 17:11 Dose 1 gm in 100 mls @ ud IV .STK-MED ONE Methylprednisolone Sodium Succinate Confirm 06/27/25 14:44 Methylprednis Sod Succ 125 Mg/2 Ml Vial Administered 06/27/25 14:45 Dose 125 mg .ROUTE .STK-MED ONE Sterile Water Confirm 06/27/25 14:44 Water For Injection,Sterile 10 Ml Vial Administered 06/27/25 14:45 Dose 10 ml IJ .[employer] ONE Lab/Rad Data: Laboratory Result Diagrams 06/27/25 14:45 06/27/25 14:45 Laboratory Results 06/27/25 06/27/25 06/27/25 Range/Units 14:50 14:45 14:45 WBC (3.98-10.04) x10^3/uL RBC (3.93-5.22) x10^6/uL Hgb (11.2-15.7) g/dL Hct (34.1-44.9) % MCV (79.4-94.8) fL MCH (25.6-32.2) pg MCHC (32.2-35.5) g/dL RDW (11.7-14.4) % Plt Count (182-369) x10^3/uL MPV (9.4-12.3) fL Gran % (34.0-71.1) % Immature Gran % (Auto) (0.001-0.429) % Nucleat RBC Rel Count (0.00-0.2) % Eos # (Auto) (0.04-0.36) x10^3/uL Immature Gran # (Auto) (0.001-0.031) x10^3u/L Absolute Lymphs (auto) (1.18-3.74) x10^3/uL Absolute Monos (auto) (0.24-0.86) x10^3/uL Absolute Nucleated RBC (0.00-0.012) x10^3u/L Lymphocytes % (19.3-51.7) % Monocytes % (4.7-12.5) % Eosinophils % (0.7-5.8) % Basophils % (0.1-1.2) % Absolute Granulocytes (1.56-6.13) x10^3/uL Basophils # (0.01-0.08) x10^3/uL Sodium 139 (135-145) mmol/L Potassium 4.8 (3.5-5.1) mmol/L Chloride 103 (98-107) mmol/L Carbon Dioxide 27 (22-30) mmol/L Anion Gap 14.8 (5-15) MEQ/L BUN 14 (7-17) mg/dL Creatinine 0.64 (0.52-1.04) mg/dL Estimated GFR 96.8 ML/MIN Glucose 94 (74-106) mg/dL Calcium 9.4 (8.4-10.2) mg/dL Total Bilirubin 0.30 (0.2-1.3) mg/dL AST 26 (14-36) U/L ALT 16 (0-35) U/L Alkaline Phosphatase 84 (38-126) U/L Troponin I < 0.012 (0.000-0.033) ng/mL NT-Pro-B Natriuret Pep 1410 (<300) pg/mL Serum Total Protein 8.1 (6.3-8.2) g/dL Albumin 4.3 (3.5-5.0) g/dL Influenza Type A Ag NEGATIVE (NEGATIVE) Influenza Type B Ag NEGATIVE (NEGATIVE) RSV (PCR) NEGATIVE (NEGATIVE) SARS-CoV-2 (PCR) NEGATIVE (NEGATIVE) 06/27/25 Range/Units 14:45 WBC 13.3 H (3.98-10.04) x10^3/uL RBC 4.84 (3.93-5.22) x10^6/uL Hgb 14.6 (11.2-15.7) g/dL Hct 45.9 H (34.1-44.9) % MCV 94.8 (79.4-94.8) fL MCH 30.2 (25.6-32.2) pg MCHC 31.8 L (32.2-35.5) g/dL RDW 13.0 (11.7-14.4) % Plt Count 416 H (182-369) x10^3/uL MPV 9.6 (9.4-12.3) fL Gran % 75.2 H (34.0-71.1) % Immature Gran % (Auto) 0.2 (0.001-0.429) % Nucleat RBC Rel Count 0.0 (0.00-0.2) % Eos # (Auto) 0.52 H (0.04-0.36) x10^3/uL Immature Gran # (Auto) 0.03 (0.001-0.031) x10^3u/L Absolute Lymphs (auto) 1.69 (1.18-3.74) x10^3/uL Absolute Monos (auto) 0.97 H (0.24-0.86) x10^3/uL Absolute Nucleated RBC 0.00 (0.00-0.012) x10^3u/L Lymphocytes % 12.7 L (19.3-51.7) % Monocytes % 7.3 (4.7-12.5) % Eosinophils % 3.9 (0.7-5.8) % Basophils % 0.7 (0.1-1.2) % Absolute Granulocytes 9.97 H (1.56-6.13) x10^3/uL Basophils # 0.09 H (0.01-0.08) x10^3/uL Sodium (135-145) mmol/L Potassium (3.5-5.1) mmol/L Chloride (98-107) mmol/L Carbon Dioxide (22-30) mmol/L Anion Gap (5-15) MEQ/L BUN (7-17) mg/dL Creatinine (0.52-1.04) mg/dL Estimated GFR ML/MIN Glucose (74-106) mg/dL Calcium (8.4-10.2) mg/dL Total Bilirubin (0.2-1.3) mg/dL AST (14-36) U/L ALT (0-35) U/L Alkaline Phosphatase (38-126) U/L Troponin I (0.000-0.033) ng/mL NT-Pro-B Natriuret Pep (<300) pg/mL Serum Total Protein (6.3-8.2) g/dL Albumin (3.5-5.0) g/dL Influenza Type A Ag (NEGATIVE) Influenza Type B Ag (NEGATIVE) RSV (PCR) (NEGATIVE) SARS-CoV-2 (PCR) (NEGATIVE) - Progress Progress: improved Progress Note: 06/27/25 14:56 Differential diagnosis includes: PNA, STEMI, NSTEMI, other infection, musculoskeletal pain, pneumothorax, right shoulder musculoskeletal injury, fracture, strain, sprain - We'll obtain basic labs, fluids, EKG, troponin, chest x-ray - EKG shows no ST changes - my read - O2 saturations consistently greater than 95% on 2 L - CXR and right shoulder x-ray 06/27/25 17:24 Right shoulder x-ray demonstrates no acute fracture, dislocation on my review. Likely labrum tear or other musculoskeletal injury based on physical exam. Chest x-ray does show bilateral pneumonia. Patient on 2 L of oxygen as above. Likely COPD exacerbation with pneumonia. Patient started on azithromycin and Rocephin. Patient does look much improved after breathing treatment, steroids, antibiotics. I still believe that she will need to be admitted to the hospital today. I did discuss all this over the phone with on-call physician, Dr. Girma Larson. We discussed the case in detail, made the decision to admit patient to the hospital floor. Plan for continued close monitoring, oxygen, antibiotics. Counseled pt/family regarding: lab results, diagnosis, need for follow-up, rad results - Departure Departure Disposition: In-patient Admission Clinical Impression: Acute hypoxic respiratory failure, Right shoulder pain, Pneumonia, COPD exacerbation Condition: Stable Critical Care Time: Yes Critical Care Time(excluding separately billable procedures): Critical 30-74 mins Referrals: NICHOLAS SHIN MD [Primary Care Provider, [facility]] - Follow up/PCP as directed Instructions: Chronic Obstructive Pulmonary Disease
[2025-06-27 15:20] LABS: Calcium 9.4 mg/dL (8.4-10.2); Carbon Dioxide 27.0 mmol/L (22-30); Creatinine 1 0.64 mg/dL (0.52-1.04); EST GLOMERULAR FILTRATION RATE 96.8 ML/MIN; Glucose 94.0 mg/dL (74-106); NT PRO BNPII 1410.0 pg/mL (<300); Potassium 4.8 mmol/L (3.5-5.1); SGOT/AST 26.0 U/L (14-36); SGPT/ALT 16.0 U/L (0-35); Total Protein 8.1 g/dL (6.3-8.2)
[2025-06-27 15:29] LABS: INFLUENZA A NEGATIVE (NEGATIVE); INFLUENZA B NEGATIVE (NEGATIVE); RESPIRATORY SYNCTIAL VIRUS NEGATIVE (NEGATIVE); SARS-CoV-2 Xpert Express NEGATIVE (NEGATIVE)
--- NOTE | 2025-06-27 17:04 | XRAY ---
CLINICAL HISTORY: PNA COMPARISON: 08/11/2023 CR. TECHNIQUE: X-ray images of the chest were obtained in posteroanterior (PA) projection. FINDINGS: The lungs show bilateral middle and lower lung zone reticulonodular infiltration with patchy airspace opacities. There is no evidence of pleural effusion or pleural thickening. No pneumothorax is seen. The heart size and shape are normal. There is no mediastinal widening or mass. No hilar or mediastinal lymphadenopathy is identified. A dual-lead cardiac pacemaker is noted. The bony thorax appears intact without fractures or deformities. Sternotomy sutures from previous open heart surgery are noted. The soft tissues overlying the chest wall are unremarkable. IMPRESSION: Findings suggest an infective/inflammatory etiology, less likely others, to be further evaluated by a dedicated CT of the chest. New findings are present. Electronically Signed by: Gerald Goodwin MD. (06/27/2025 17:03:19 EDT)
[2025-06-27] MEDS ORDERED: ROCEPHIN 1 GM / 100 ML NaCl 1 GM/100 ML IVPB IV ONE (17:10)
[2025-06-27] MEDS: ROCEPHIN 1 GM / 100 ML NaCl 1 GM/100 ML IVPB IV ONE (17:11)
--- NOTE | 2025-06-27 18:13 | PCM.HP ---
History of Present Illness - Chief Complaint Chief Complaint: PNA Date: 06/27/25 History of Present Illness: is a 65 year old female with a past medical history including COPD, coronary artery disease status post CABG with placement of 9 stents, arrythmia (patient unsure-reports fast HR with pacemaker on Eliquis), hypertension, type 2 diabetes mellitus, gastroesophageal reflux disease, arthritis, anxiety, depression, seizure disorder, prior ischemic strokes, history of cerebral aneurysm, essential tremor(questionable Parkinsons disease- being worked up OP), who presented to the ED on June 27, 2025 for evaluation of progressive shortness of breath and productive cough. She reports that her respiratory symptoms began approximately eight weeks ago, when she was diagnosed with bronchitis. Her cough and shortness of breath never fully resolved and gradually worsened over the past two weeks, with increased dyspnea and more productive cough. Over the last two days, her condition acutely deteriorated, with severe shortness of breath at rest, markedly increased sputum production now described as thick and yellow, recurrent sweats, and worsening orthopnea requiring her to sleep upright. She denies chest pain but endorses wheezing, cough, and overall fatigue. On arrival to the ED, she was noted to be hypoxic with oxygen saturation of 90% on room air, improving to 95% on 2 L nasal cannula. Normal sinus rhythm on EKG with right bundle branch block (rate 73 bpm, OH interval 205 ms, QRS 162 ms, QTcF 480 ms), without ST elevations or ischemic changes. Chest X-ray demonstrated bilateral infiltrates consistent with pneumonia. Right shoulder radiograph showed no acute fracture despite the patients complaint of stiffness and inability to raise her arm. Laboratory evaluation was notable for WBC 13.3, and BNP 1410. Chemistry panel was otherwise unremarkable, and a respiratory viral panel was negative. Patient received Duonebs, IV Solu-Medrol, and empiric antibiotics azithromycin and Rocephin in ED. - Review of Systems Constitutional: Night Sweats, Weakness Eyes: No Symptoms Ears, Nose, & Throat: No Symptoms Respiratory: Cough, Short Of Breath, Wheezing Cardiac: No Symptoms Abdominal/Gastrointestinal: No Symptoms Genitourinary Symptoms: No Symptoms Musculoskeletal: Joint Pain (right shoulder) Skin: No Symptoms Neurological: No Symptoms Psychological: No Symptoms Endocrine: No Symptoms Hematologic/Lymphatic: No Symptoms Immunological/Allergic: No Symptoms Medications & Allergies Home Medications: Home Medication List Citalopram Hydrobromide 20 mg* [ceLEXa 20 MG] 40 mg PO HS 04/24/17 [History Confirmed 06/27/25] Clopidogrel Bisulfate [PLAVIX Tablet] 75 mg PO DAILY 04/24/17 [History Confirmed 06/27/25] Metformin HCl [Metformin ER Osmotic] 1,000 mg PO BID 04/24/17 [History Confirmed 06/27/25] Metoprolol Tartrate 50 mg [Lopressor 50 MG] 25 mg PO BID 04/24/17 [History Confirmed 06/27/25] carBAMazepine [Tegretol] 400 mg PO QID 04/24/17 [History Confirmed 06/27/25] Tramadol HCl 50 mg [Ultram 50 mg] 50 mg PO TID 07/13/20 [History Confirmed 06/27/25] Semaglutide [Ozempic] 2 mg SQ WEEKLY 03/19/23 [History Confirmed 06/27/25] Apixaban [Eliquis] 5 mg PO BID 08/11/23 [History Confirmed 06/27/25] Cetirizine HCl 10 mg PO DAILY 08/11/23 [History Confirmed 06/27/25] Empagliflozin [Jardiance] 25 mg PO DAILY 08/11/23 [History Confirmed 06/27/25] Isosorbide Mononitrate 30 mg [Imdur 30 MG] 30 mg PO DAILY 08/11/23 [History Confirmed 06/27/25] Isosorbide Mononitrate 60 mg [Imdur 60MG] 60 mg PO DAILY 08/11/23 [History Confirmed 06/27/25] Lisinopril 10 mg [Zestril 10 MG] 20 mg PO DAILY 08/11/23 [History Confirmed 06/27/25] Melatonin 5 mg PO HS 08/11/23 [History Confirmed 06/27/25] Albuterol 8 gm Mdi Hfa [Ventolin Hfa MDI] 2 puff IH QID PRN 06/27/25 [History Confirmed 06/27/25] Allergies/Adverse Reactions: Allergies Allergy/AdvReac Type Severity Reaction Status Date / Time latex Allergy Itching Verified 06/27/25 14:34 - Past Medical History Past Medical History: Yes Neurological History: Seizures, Stroke ENT History: No Pertinent History Cardiac History: Coronary Artery Disease, Hypertension Respiratory History: COPD Endocrine Medical History: Diabetes Type II Musculoskelatal History: Arthritis GI Medical History: GERD History: Other Pyscho-Social History: Anxiety, Depression, Other Reproductive Disorders: No Pertinent History Comment: states had been in [facility], states has kidney stones , possibly passed. parkinson disease. glaucoma - Past Surgical History Past Surgical History: Yes Neuro Surgical History: No Pertinent History Cardiac History: CABG Respiratory Surgery: No Pertinent History GI Surgical History: Cholecystectomy Genitourinary Surgical Hx: No Pertinent History Musculskeletal Surgical Hx: No Pertinent History Female Surgical History: Hysterectomy, Section Other Surgical History: Tonsil/adeoidectomy. colonoscopy. brain surgery- aneurysm Significant Family History: heart disease, cancer, diabetes - Social History Smoking Status: Former smoker Exposure to second hand smoke: No Alcohol: None Drug Use: none - Social Determinants of Health Will the patient participate in the screening: Yes Do you worry about a steady place to live?: No Do you have any problems with any of the following?: No known problems In the past 12 months,have you had to go without utilities?: No Have you or anyone in your house had to go without enough: No Transportation Issues: No Has anyone in your support network made you feel unsafe?: No - Physical Exam Vital Signs: Vital Signs - 24 hr Temp Pulse Resp BP BP Pulse Ox 06/27/25 17:30 71 18 142/84 95 06/27/25 17:26 95 06/27/25 17:00 68 15 136/95 94 L 06/27/25 16:30 69 22 140/70 93 L 06/27/25 16:02 70 22 120/78 95 06/27/25 15:38 64 21 132/79 96 06/27/25 15:37 98 06/27/25 15:24 154/80 98 06/27/25 15:00 16 165/92 98 06/27/25 14:56 63 17 94 L 06/27/25 14:43 62 14 159/98 95 06/27/25 14:35 65 18 95 06/27/25 14:24 97.2 F 67 14 159/98 95 General Appearance: no apparent distress Neurologic Exam: alert, oriented x 3, cooperative Eye Exam: PERRL/EOMI Ears, Nose, Throat Exam: normal ENT inspection Neck Exam: normal inspection Respiratory Exam: crackles/rales, wheezing Cardiovascular Exam: regular rate/rhythm, normal heart sounds Pelvic Exam: not done Rectal Exam: deferred Back Exam: normal inspection Extremity Exam: normal inspection Skin Exam: normal color Results - Labs Lab/Micro Results: Lab Results-Last 24 Hours 06/27/25 06/27/25 06/27/25 Range/Units 14:45 14:45 14:45 WBC 13.3 H (3.98-10.04) x10^3/uL RBC 4.84 (3.93-5.22) x10^6/uL Hgb 14.6 (11.2-15.7) g/dL Hct 45.9 H (34.1-44.9) % MCV 94.8 (79.4-94.8) fL MCH 30.2 (25.6-32.2) pg MCHC 31.8 L (32.2-35.5) g/dL RDW 13.0 (11.7-14.4) % Plt Count 416 H (182-369) x10^3/uL MPV 9.6 (9.4-12.3) fL Gran % 75.2 H (34.0-71.1) % Immature Gran % (Auto) 0.2 (0.001-0.429) % Nucleat RBC Rel Count 0.0 (0.00-0.2) % Eos # (Auto) 0.52 H (0.04-0.36) x10^3/uL Immature Gran # (Auto) 0.03 (0.001-0.031) x10^3u/L Absolute Lymphs (auto) 1.69 (1.18-3.74) x10^3/uL Absolute Monos (auto) 0.97 H (0.24-0.86) x10^3/uL Absolute Nucleated RBC 0.00 (0.00-0.012) x10^3u/L Lymphocytes % 12.7 L (19.3-51.7) % Monocytes % 7.3 (4.7-12.5) % Eosinophils % 3.9 (0.7-5.8) % Basophils % 0.7 (0.1-1.2) % Absolute Granulocytes 9.97 H (1.56-6.13) x10^3/uL Basophils # 0.09 H (0.01-0.08) x10^3/uL Sodium 139 (135-145) mmol/L Potassium 4.8 (3.5-5.1) mmol/L Chloride 103 (98-107) mmol/L Carbon Dioxide 27 (22-30) mmol/L Anion Gap 14.8 (5-15) MEQ/L BUN 14 (7-17) mg/dL Creatinine 0.64 (0.52-1.04) mg/dL Estimated GFR 96.8 ML/MIN Glucose 94 (74-106) mg/dL Calcium 9.4 (8.4-10.2) mg/dL Total Bilirubin 0.30 (0.2-1.3) mg/dL AST 26 (14-36) U/L ALT 16 (0-35) U/L Alkaline Phosphatase 84 (38-126) U/L Troponin I < 0.012 (0.000-0.033) ng/mL NT-Pro-B Natriuret Pep 1410 (<300) pg/mL Serum Total Protein 8.1 (6.3-8.2) g/dL Albumin 4.3 (3.5-5.0) g/dL Influenza Type A Ag (NEGATIVE) Influenza Type B Ag (NEGATIVE) RSV (PCR) (NEGATIVE) SARS-CoV-2 (PCR) (NEGATIVE) 06/27/25 Range/Units 14:50 WBC (3.98-10.04) x10^3/uL RBC (3.93-5.22) x10^6/uL Hgb (11.2-15.7) g/dL Hct (34.1-44.9) % MCV (79.4-94.8) fL MCH (25.6-32.2) pg MCHC (32.2-35.5) g/dL RDW (11.7-14.4) % Plt Count (182-369) x10^3/uL MPV (9.4-12.3) fL Gran % (34.0-71.1) % Immature Gran % (Auto) (0.001-0.429) % Nucleat RBC Rel Count (0.00-0.2) % Eos # (Auto) (0.04-0.36) x10^3/uL Immature Gran # (Auto) (0.001-0.031) x10^3u/L Absolute Lymphs (auto) (1.18-3.74) x10^3/uL Absolute Monos (auto) (0.24-0.86) x10^3/uL Absolute Nucleated RBC (0.00-0.012) x10^3u/L Lymphocytes % (19.3-51.7) % Monocytes % (4.7-12.5) % Eosinophils % (0.7-5.8) % Basophils % (0.1-1.2) % Absolute Granulocytes (1.56-6.13) x10^3/uL Basophils # (0.01-0.08) x10^3/uL Sodium (135-145) mmol/L Potassium (3.5-5.1) mmol/L Chloride (98-107) mmol/L Carbon Dioxide (22-30) mmol/L Anion Gap (5-15) MEQ/L BUN (7-17) mg/dL Creatinine (0.52-1.04) mg/dL Estimated GFR ML/MIN Glucose (74-106) mg/dL Calcium (8.4-10.2) mg/dL Total Bilirubin (0.2-1.3) mg/dL AST (14-36) U/L ALT (0-35) U/L Alkaline Phosphatase (38-126) U/L Troponin I (0.000-0.033) ng/mL NT-Pro-B Natriuret Pep (<300) pg/mL Serum Total Protein (6.3-8.2) g/dL Albumin (3.5-5.0) g/dL Influenza Type A Ag NEGATIVE (NEGATIVE) Influenza Type B Ag NEGATIVE (NEGATIVE) RSV (PCR) NEGATIVE (NEGATIVE) SARS-CoV-2 (PCR) NEGATIVE (NEGATIVE) - Radiology Impressions Radiology Exams & Impressions: Radiology Procedures Category Date Time Status CHEST 1 VIEW (PORTABLE) Stat Exams 06/27/25 14:39 Completed SHOULDER Stat Exams 06/27/25 14:40 Taken - Other Procedures and Tests Respiratory Therapy 06/27/25 14:58 Respiratory Therapy Assessment DAILY 06/27/25 17:22 Respiratory Therapy Consult ONCE Assessment/Plan (1) Acute hypoxic respiratory failure Current Visit: Yes Status: Acute Assessment & Plan: -CXR bilateral infiltrates consistent with pneumonia -O2sat 90% RA - 95% on 2 L NC; Multifactorial: bilateral pneumonia + COPD exacerbation; BNP elevated but no radiographic edema/no edema on exam -Maintain O2 to keep sat >92%. -Trend ABG or VBG if worsening hypoxia/lethargy -Continue ceftriaxone/azithromycin -sputum culture pending -Protonix -lactic -Blood cultures x 2 pending -WBC reviewed at 13.3-trend -Respiratory viral panel negative -Solumedrol 40mg BID transition to prednisone as appropriate -Xopenex/INH -IS Code(s): J96.01 - ACUTE RESPIRATORY FAILURE WITH HYPOXIA (2) COPD exacerbation Current Visit: Yes Status: Acute Assessment & Plan: -see plan ARF Code(s): J44.1 - CHRONIC OBSTRUCTIVE PULMONARY DISEASE W (ACUTE) EXACERBATION (3) Pneumonia Current Visit: Yes Status: Acute Assessment & Plan: see above ARF Code(s): J18.9 - PNEUMONIA, UNSPECIFIED ORGANISM (4) CAD (coronary artery disease) Current Visit: Yes Status: Acute Assessment & Plan: -continue home meds Code(s): I25.10 - ATHSCL HEART DISEASE OF [place] CORONARY ARTERY W/O ANG PCTRS (5) Arrhythmia Current Visit: Yes Status: Acute Assessment & Plan: -Currently NSR, paced. -On ELiquis -Tele -Resume outpatient rate/rhythm regimen Code(s): I49.9 - CARDIAC ARRHYTHMIA, UNSPECIFIED (6) Seizure disorder Current Visit: Yes Status: Acute Assessment & Plan: -Stable at baseline, no acute neuro changes -Continue home regimen Code(s): G40.909 - EPILEPSY, UNSP, NOT INTRACTABLE, WITHOUT STATUS EPILEPTICUS (7) Cerebral aneurysm Current Visit: Yes Status: Acute Assessment & Plan: -Stable at baseline, no acute neuro changes -Neuro checks during hospitalization. (8) Essential tremor Current Visit: Yes Status: Acute Assessment & Plan: -Questionable diagnosis of parkinson per patient - being worked-up OP, no acute changes. Code(s): G25.0 - ESSENTIAL TREMOR (9) DMII (diabetes mellitus, type 2) Current Visit: Yes Status: Acute Assessment & Plan: -ADA diet -SSI -adjust accordingly for steroid induced hyperglycemia -A1c (10) HTN (hypertension) Current Visit: Yes Status: Acute Assessment & Plan: -Continue home antihypertensives. -Adjust based on inpatient BP trends. Code(s): I10 - ESSENTIAL (PRIMARY) HYPERTENSION (11) Anxiety and depression Current Visit: Yes Status: Acute Assessment & Plan: -Continue home medications. -Supportive management. Code(s): F41.9 - ANXIETY DISORDER, UNSPECIFIED; F32.A - DEPRESSION, UNSPECIFIED (12) GERD (gastroesophageal reflux disease) Current Visit: Yes Status: Acute Assessment & Plan: -Continue protonix Code(s): K21.9 - GASTRO-ESOPHAGEAL REFLUX DISEASE WITHOUT ESOPHAGITIS (13) Right shoulder pain Current Visit: Yes Status: Acute Assessment & Plan: -No fracture on X-ray; reports mechanical locking. -Symptomatic management with analgesia. -Consider PT/OT evaluation. -If persistent, outpatient ortho follow-up. Code(s): M25.511 - PAIN IN RIGHT SHOULDER (14) History of stroke Current Visit: Yes Status: Acute Assessment & Plan: -continue home meds Code(s): Z86.73 - PRSNL HX OF TIA (TIA), AND CEREB INFRC W/O RESID DEFICITS (15) Chronic diarrhea Current Visit: Yes Status: Acute Assessment & Plan: -add questran VTE: Eliquis PPI: Protonix Dispo: 1-3 days Code status: Full Code Plan of care time spent > 40mins Code(s): K52.9 - NONINFECTIVE GASTROENTERITIS AND COLITIS, UNSPECIFIED Telemedicine Encounter - Telemedicine Encounter Telemedicine Encounter: "The entirety of this encounter was performed via Telemedicine" This visit was performed using real-time audio and video connection between my location and thepatients locationwith the assistance of a surrogateat the patients location. Written or verbal consent was obtained from the patient/guardian to perform this visit [facility] technology. Any patient questions regarding the telemedicine interaction were answered.
[2025-06-27] MEDS ORDERED: TYLENOL 325 MG PO PRN (18:34)
[2025-06-27] MEDS ORDERED: Xopenex 1.25 MG/0.5 ML UD NEBULE IH PRN (18:34)
[2025-06-27] MEDS ORDERED: NON-FORMULARY ITEM (Cetirizine Hcl [Cetirizine Hcl] 10 MG Tablet) PO PRN (18:59)
[2025-06-27] MEDS ORDERED: Ventolin Hfa MDI IH PRN (18:59)
[2025-06-27] MEDS ORDERED: Sodium Chloride 3 ML UD NEBULES IH ONE (19:09)
[2025-06-27] MEDS: Xopenex 1.25 MG/0.5 ML UD NEBULE IH SCH (19:32)
--- NOTE | 2025-06-27 19:38 | XRAY ---
Indication: Pain. Comparison: None 3 view right shoulder demonstrates osteopenia, mild AC degenerative arthropathy, curvilinear ossification superior lateral humeral head as degenerative versus sequela injury/inflammation, and mild multilevel cervical thoracic degenerative spondylosis. No acute bony/articular abnormalities. Chest reported separately.
[2025-06-27] MEDS: ROCEPHIN 1 GM / 100 ML NaCl 1 GM/100 ML IVPB IV SCH (20:06)
[2025-06-27] MEDS: ceLEXa 20 MG PO SCH (20:27)
[2025-06-27] MEDS: Mucinex 600MG ER Tabs PO SCH (21:42)
[2025-06-27] MEDS: solu-MEDROL 40 MG, Sterile H2O 10 ml 1 ML IV SCH (21:42)
[2025-06-27] MEDS: MELATONIN PO SCH (21:43)
[2025-06-27] MEDS: Lopressor 50 MG PO SCH (21:43)
[2025-06-27] MEDS: Tegretol 200 MG PO SCH (21:43)
[2025-06-27] MEDS: ULTRAM 50 MG PO SCH (21:44)
[2025-06-27] MEDS: ELIQUIS 2.5 MG TABLET PO SCH (21:44)
[2025-06-27] MEDS: Zestril 10 MG PO SCH (21:44)
[2025-06-27] MEDS: HUMALOG SQ PRN (21:57)
[2025-06-27] MEDS ORDERED: NON-FORMULARY ITEM (Apixaban [Eliquis] 5 MG Tablet) PO SCH (22:00)
[2025-06-27] MEDS ORDERED: NON-FORMULARY ITEM (Melatonin [Melatonin] 5 MG Tablet) PO SCH (22:00)
[2025-06-27] MEDS ORDERED: VIBRAMYCIN 100 MG*** 100 MG in D5w 100ML Mini Bag 100 ML 100 ML IV SCH (22:00)
[2025-06-28] MEDS ORDERED: Sodium Chloride 3 ML UD NEBULES IH ONE ×2 (01:17→06:47)
[2025-06-28 05:10] LABS: BASOPHIL % 0.3 % (0.1-1.2); Basophil (Absolute #) 0.03 x10^3/uL (0.01-0.08); Eosinophil (Absolute #) 0.09 x10^3/uL (0.04-0.36); Hematocrit 42.2 % (34.1-44.9); Hemoglobin 13.3 g/dL (11.2-15.7); IMMATURE GRAN # 0.03 x10^3u/L (0.001-0.031); IMMATURE GRAN % 0.3 % (0.001-0.429); Lymphocyte (Absolute #) 1.02 x10^3/uL (1.18-3.74); Mean Corpuscular Hemoglobin 30.0 pg (25.6-32.2); Mean Corpuscular Hgb Concent. 31.5 g/dL (32.2-35.5); Monocyte (Absolute #) 0.67 x10^3/uL (0.24-0.86); NUCLEATED RBC # 0.00 x10^3u/L (0.00-0.012); NUCLEATED RBC % 0.0 % (0.00-0.2); Platelet Count 342 x10^3/uL (182-369); Red Blood Count 4.43 x10^6/uL (3.93-5.22); White Blood Count 11.1 x10^3/uL (3.98-10.04)
[2025-06-28 05:33] LABS: Calcium 8.9 mg/dL (8.4-10.2); Carbon Dioxide 27.0 mmol/L (22-30); Creatinine 1 0.52 mg/dL (0.52-1.04); EST GLOMERULAR FILTRATION RATE 101.8 ML/MIN; Glucose 120.0 mg/dL (74-106); Potassium 4.5 mmol/L (3.5-5.1); SGOT/AST 20.0 U/L (14-36); SGPT/ALT 12.0 U/L (0-35); Total Protein 7.7 g/dL (6.3-8.2)
[2025-06-28] MEDS ORDERED: CLARITIN 10 MG PO PRN (06:58)
[2025-06-28] MEDS ORDERED: VENTOLIN COMMON CANISTER IH PRN (07:04)
[2025-06-28 07:18] VITALS: RESP 16
[2025-06-28] MEDS: QUESTRAN Light 4 GM Packet PO SCH (09:28)
[2025-06-28] MEDS: Protonix 40MG Tablet PO SCH (09:29)
[2025-06-28] MEDS: ZITHROMAX IV*** 500 MG in Sodium Chloride 0.9% 250 ML 250 ML IV SCH (09:32)
[2025-06-28] MEDS: Zestril 20 MG PO SCH (09:32)
[2025-06-28] MEDS: PLAVIX Tablet PO SCH (09:43)
[2025-06-28] MEDS ORDERED: ZITHROMAX IV*** 500 MG in Sodium Chloride 0.9% 250 ML 250 ML IV SCH (10:00)
[2025-06-28] MEDS ORDERED: ROCEPHIN 1 GM / 100 ML NaCl 1 GM/100 ML IVPB IV SCH (10:00)
[2025-06-28] MEDS: ROCEPHIN 1 GM / 100 ML NaCl 1 GM/100 ML IVPB IV SCH (10:48)
[2025-06-28 11:47] VITALS: BP 141/71; PULSE 87; TEMP 97.8; O2SAT 90
--- NOTE | 2025-06-28 12:07 | PCM.DS ---
Discharge Summary Date of Admission: 06/27/25 17:48 Date of Discharge: 06/28/25 Admitting Physician: NAHEED BILLINGSLEY MD Primary Care Provider: NICHOLAS SHIN NAOMI Allergies Allergies latex Allergy (Verified 06/27/25 14:34) Itching Hospital Summary - Hospital Course Hospital Course: is a 65-year-old female with a complex medical history including COPD, coronary artery disease with prior CABG and multiple stents, arrhythmia with pacemaker on Eliquis, hypertension, type 2 diabetes, GERD, arthritis, anxiety, depression, seizure disorder, prior ischemic strokes, cerebral aneurysm, and essential tremor (with outpatient workup for possible Parkinsons disease) presented to the ED on June 27, 2025, with worsening shortness of breath and productive cough. Her symptoms began approximately eight weeks ago following a diagnosis of bronchitis, with gradual progression over the past two weeks and acute worsening over the past two days, including increased dyspnea at rest, thick yellow sputum, sweats, fatigue, wheezing, and orthopnea requiring upright sleep. On arrival, she was hypoxic with SpO2 of 90% on room air, improving to 95% with 2 L nasal cannula. Chest X-ray showed bilateral infiltrates consistent with pneumonia, and labs revealed leukocytosis (WBC 13.3) and elevated BNP at 1410. EKG showed normal sinus rhythm with a right bundle branch block but no ischemic changes. She was treated in the ED with Duonebs, IV steroids, and empiric antibiotics (azithromycin and ceftriaxone). On 06/28, she reported feeling much better, with improved WBC count (now 11.1) and oxygen saturation of 97% on room air at rest, though she required 2 L oxygen with ambulation. She wishes to be discharged home today on continued antibiotics, steroids, and supplemental oxygen. Pending improvement in blood pressure, discharge will proceed, and she denies any further concerns. - Vitals & Intake/Output Vital Signs: Vital Signs Temperature 97.8 F 06/28/25 11:46 Pulse Rate 87 06/28/25 11:46 Respiratory Rate 16 06/28/25 11:46 Blood Pressure 141/71 06/28/25 11:46 O2 Sat by Pulse Oximetry 90 L 06/28/25 11:46 Intake & Output: Intake & Output 06/26/25 06/27/25 06/28/25 06/29/25 11:59 11:59 11:59 11:59 Intake Total 1580 Balance 1580 Weight 98 kg - Lab Result Diagrams: 06/28/25 05:00 06/28/25 05:00 Lab Results-Last 24 Hrs: Lab Results-Last 24 Hours 06/27/25 06/27/25 06/27/25 Range/Units 14:45 14:45 14:45 WBC 13.3 H (3.98-10.04) x10^3/uL RBC 4.84 (3.93-5.22) x10^6/uL Hgb 14.6 (11.2-15.7) g/dL Hct 45.9 H (34.1-44.9) % MCV 94.8 (79.4-94.8) fL MCH 30.2 (25.6-32.2) pg MCHC 31.8 L (32.2-35.5) g/dL RDW 13.0 (11.7-14.4) % Plt Count 416 H (182-369) x10^3/uL MPV 9.6 (9.4-12.3) fL Gran % 75.2 H (34.0-71.1) % Immature Gran % (Auto) 0.2 (0.001-0.429) % Nucleat RBC Rel Count 0.0 (0.00-0.2) % Eos # (Auto) 0.52 H (0.04-0.36) x10^3/uL Immature Gran # (Auto) 0.03 (0.001-0.031) x10^3u/L Absolute Lymphs (auto) 1.69 (1.18-3.74) x10^3/uL Absolute Monos (auto) 0.97 H (0.24-0.86) x10^3/uL Absolute Nucleated RBC 0.00 (0.00-0.012) x10^3u/L Lymphocytes % 12.7 L (19.3-51.7) % Monocytes % 7.3 (4.7-12.5) % Eosinophils % 3.9 (0.7-5.8) % Basophils % 0.7 (0.1-1.2) % Absolute Granulocytes 9.97 H (1.56-6.13) x10^3/uL Basophils # 0.09 H (0.01-0.08) x10^3/uL Sodium 139 (135-145) mmol/L Potassium 4.8 (3.5-5.1) mmol/L Chloride 103 (98-107) mmol/L Carbon Dioxide 27 (22-30) mmol/L Anion Gap 14.8 (5-15) MEQ/L BUN 14 (7-17) mg/dL Creatinine 0.64 (0.52-1.04) mg/dL Estimated GFR 96.8 ML/MIN Glucose 94 (74-106) mg/dL POC Glucometer (74 to 106) mg/dL Hemoglobin A1c (4.5-6.0) % Lactic Acid (0.4-2.0) Calcium 9.4 (8.4-10.2) mg/dL Total Bilirubin 0.30 (0.2-1.3) mg/dL AST 26 (14-36) U/L ALT 16 (0-35) U/L Alkaline Phosphatase 84 (38-126) U/L Troponin I < 0.012 (0.000-0.033) ng/mL NT-Pro-B Natriuret Pep 1410 (<300) pg/mL Serum Total Protein 8.1 (6.3-8.2) g/dL Albumin 4.3 (3.5-5.0) g/dL Influenza Type A Ag (NEGATIVE) Influenza Type B Ag (NEGATIVE) RSV (PCR) (NEGATIVE) SARS-CoV-2 (PCR) (NEGATIVE) 06/27/25 06/27/25 06/27/25 Range/Units 14:50 18:45 18:46 WBC (3.98-10.04) x10^3/uL RBC (3.93-5.22) x10^6/uL Hgb (11.2-15.7) g/dL Hct (34.1-44.9) % MCV (79.4-94.8) fL MCH (25.6-32.2) pg MCHC (32.2-35.5) g/dL RDW (11.7-14.4) % Plt Count (182-369) x10^3/uL MPV (9.4-12.3) fL Gran % (34.0-71.1) % Immature Gran % (Auto) (0.001-0.429) % Nucleat RBC Rel Count (0.00-0.2) % Eos # (Auto) (0.04-0.36) x10^3/uL Immature Gran # (Auto) (0.001-0.031) x10^3u/L Absolute Lymphs (auto) (1.18-3.74) x10^3/uL Absolute Monos (auto) (0.24-0.86) x10^3/uL Absolute Nucleated RBC (0.00-0.012) x10^3u/L Lymphocytes % (19.3-51.7) % Monocytes % (4.7-12.5) % Eosinophils % (0.7-5.8) % Basophils % (0.1-1.2) % Absolute Granulocytes (1.56-6.13) x10^3/uL Basophils # (0.01-0.08) x10^3/uL Sodium (135-145) mmol/L Potassium (3.5-5.1) mmol/L Chloride (98-107) mmol/L Carbon Dioxide (22-30) mmol/L Anion Gap (5-15) MEQ/L BUN (7-17) mg/dL Creatinine (0.52-1.04) mg/dL Estimated GFR ML/MIN Glucose (74-106) mg/dL POC Glucometer (74 to 106) mg/dL Hemoglobin A1c (4.5-6.0) % Lactic Acid 1.5 (0.4-2.0) Calcium (8.4-10.2) mg/dL Total Bilirubin (0.2-1.3) mg/dL AST (14-36) U/L ALT (0-35) U/L Alkaline Phosphatase (38-126) U/L Troponin I < 0.012 (0.000-0.033) ng/mL NT-Pro-B Natriuret Pep (<300) pg/mL Serum Total Protein (6.3-8.2) g/dL Albumin (3.5-5.0) g/dL Influenza Type A Ag NEGATIVE (NEGATIVE) Influenza Type B Ag NEGATIVE (NEGATIVE) RSV (PCR) NEGATIVE (NEGATIVE) SARS-CoV-2 (PCR) NEGATIVE (NEGATIVE) 06/27/25 06/27/25 06/27/25 Range/Units 18:46 21:34 22:20 WBC (3.98-10.04) x10^3/uL RBC (3.93-5.22) x10^6/uL Hgb (11.2-15.7) g/dL Hct (34.1-44.9) % MCV (79.4-94.8) fL MCH (25.6-32.2) pg MCHC (32.2-35.5) g/dL RDW (11.7-14.4) % Plt Count (182-369) x10^3/uL MPV (9.4-12.3) fL Gran % (34.0-71.1) % Immature Gran % (Auto) (0.001-0.429) % Nucleat RBC Rel Count (0.00-0.2) % Eos # (Auto) (0.04-0.36) x10^3/uL Immature Gran # (Auto) (0.001-0.031) x10^3u/L Absolute Lymphs (auto) (1.18-3.74) x10^3/uL Absolute Monos (auto) (0.24-0.86) x10^3/uL Absolute Nucleated RBC (0.00-0.012) x10^3u/L Lymphocytes % (19.3-51.7) % Monocytes % (4.7-12.5) % Eosinophils % (0.7-5.8) % Basophils % (0.1-1.2) % Absolute Granulocytes (1.56-6.13) x10^3/uL Basophils # (0.01-0.08) x10^3/uL Sodium (135-145) mmol/L Potassium (3.5-5.1) mmol/L Chloride (98-107) mmol/L Carbon Dioxide (22-30) mmol/L Anion Gap (5-15) MEQ/L BUN (7-17) mg/dL Creatinine (0.52-1.04) mg/dL Estimated GFR ML/MIN Glucose (74-106) mg/dL POC Glucometer 158 H (74 to 106) mg/dL Hemoglobin A1c 5.73 (4.5-6.0) % Lactic Acid (0.4-2.0) Calcium (8.4-10.2) mg/dL Total Bilirubin (0.2-1.3) mg/dL AST (14-36) U/L ALT (0-35) U/L Alkaline Phosphatase (38-126) U/L Troponin I < 0.012 (0.000-0.033) ng/mL NT-Pro-B Natriuret Pep (<300) pg/mL Serum Total Protein (6.3-8.2) g/dL Albumin (3.5-5.0) g/dL Influenza Type A Ag (NEGATIVE) Influenza Type B Ag (NEGATIVE) RSV (PCR) (NEGATIVE) SARS-CoV-2 (PCR) (NEGATIVE) 06/28/25 06/28/25 06/28/25 Range/Units 05:00 05:00 07:35 WBC 11.1 H (3.98-10.04) x10^3/uL RBC 4.43 (3.93-5.22) x10^6/uL Hgb 13.3 (11.2-15.7) g/dL Hct 42.2 (34.1-44.9) % MCV 95.3 H (79.4-94.8) fL MCH 30.0 (25.6-32.2) pg MCHC 31.5 L (32.2-35.5) g/dL RDW 12.9 (11.7-14.4) % Plt Count 342 (182-369) x10^3/uL MPV 9.9 (9.4-12.3) fL Gran % 83.4 H (34.0-71.1) % Immature Gran % (Auto) 0.3 (0.001-0.429) % Nucleat RBC Rel Count 0.0 (0.00-0.2) % Eos # (Auto) 0.09 (0.04-0.36) x10^3/uL Immature Gran # (Auto) 0.03 (0.001-0.031) x10^3u/L Absolute Lymphs (auto) 1.02 L (1.18-3.74) x10^3/uL Absolute Monos (auto) 0.67 (0.24-0.86) x10^3/uL Absolute Nucleated RBC 0.00 (0.00-0.012) x10^3u/L Lymphocytes % 9.2 L (19.3-51.7) % Monocytes % 6.0 (4.7-12.5) % Eosinophils % 0.8 (0.7-5.8) % Basophils % 0.3 (0.1-1.2) % Absolute Granulocytes 9.26 H (1.56-6.13) x10^3/uL Basophils # 0.03 (0.01-0.08) x10^3/uL Sodium 136 (135-145) mmol/L Potassium 4.5 (3.5-5.1) mmol/L Chloride 101 (98-107) mmol/L Carbon Dioxide 27 (22-30) mmol/L Anion Gap 11.8 (5-15) MEQ/L BUN 13 (7-17) mg/dL Creatinine 0.52 (0.52-1.04) mg/dL Estimated GFR 101.8 ML/MIN Glucose 120 H (74-106) mg/dL POC Glucometer 109 H (74 to 106) mg/dL Hemoglobin A1c (4.5-6.0) % Lactic Acid (0.4-2.0) Calcium 8.9 (8.4-10.2) mg/dL Total Bilirubin 0.20 (0.2-1.3) mg/dL AST 20 (14-36) U/L ALT 12 (0-35) U/L Alkaline Phosphatase 81 (38-126) U/L Troponin I (0.000-0.033) ng/mL NT-Pro-B Natriuret Pep (<300) pg/mL Serum Total Protein 7.7 (6.3-8.2) g/dL Albumin 4.0 (3.5-5.0) g/dL Influenza Type A Ag (NEGATIVE) Influenza Type B Ag (NEGATIVE) RSV (PCR) (NEGATIVE) SARS-CoV-2 (PCR) (NEGATIVE) 06/28/25 Range/Units 11:21 WBC (3.98-10.04) x10^3/uL RBC (3.93-5.22) x10^6/uL Hgb (11.2-15.7) g/dL Hct (34.1-44.9) % MCV (79.4-94.8) fL MCH (25.6-32.2) pg MCHC (32.2-35.5) g/dL RDW (11.7-14.4) % Plt Count (182-369) x10^3/uL MPV (9.4-12.3) fL Gran % (34.0-71.1) % Immature Gran % (Auto) (0.001-0.429) % Nucleat RBC Rel Count (0.00-0.2) % Eos # (Auto) (0.04-0.36) x10^3/uL Immature Gran # (Auto) (0.001-0.031) x10^3u/L Absolute Lymphs (auto) (1.18-3.74) x10^3/uL Absolute Monos (auto) (0.24-0.86) x10^3/uL Absolute Nucleated RBC (0.00-0.012) x10^3u/L Lymphocytes % (19.3-51.7) % Monocytes % (4.7-12.5) % Eosinophils % (0.7-5.8) % Basophils % (0.1-1.2) % Absolute Granulocytes (1.56-6.13) x10^3/uL Basophils # (0.01-0.08) x10^3/uL Sodium (135-145) mmol/L Potassium (3.5-5.1) mmol/L Chloride (98-107) mmol/L Carbon Dioxide (22-30) mmol/L Anion Gap (5-15) MEQ/L BUN (7-17) mg/dL Creatinine (0.52-1.04) mg/dL Estimated GFR ML/MIN Glucose (74-106) mg/dL POC Glucometer 150 H (74 to 106) mg/dL Hemoglobin A1c (4.5-6.0) % Lactic Acid (0.4-2.0) Calcium (8.4-10.2) mg/dL Total Bilirubin (0.2-1.3) mg/dL AST (14-36) U/L ALT (0-35) U/L Alkaline Phosphatase (38-126) U/L Troponin I (0.000-0.033) ng/mL NT-Pro-B Natriuret Pep (<300) pg/mL Serum Total Protein (6.3-8.2) g/dL Albumin (3.5-5.0) g/dL Influenza Type A Ag (NEGATIVE) Influenza Type B Ag (NEGATIVE) RSV (PCR) (NEGATIVE) SARS-CoV-2 (PCR) (NEGATIVE) Micro Results-Entire Visit: Microbiology 06/27/25 14:38 Gram Stain - Final Sputum - Aerosol Induced Accuchecks Date 06/28/25 Date 06/28/25 Time 11:45 Time 07:42 - Radiology Exams Ordered Rad Exams-Entire Visit: Radiology Procedures Category Date Time Status CHEST 1 VIEW (PORTABLE) Stat Exams 06/27/25 14:39 Completed SHOULDER Stat Exams 06/27/25 14:40 Completed - Procedures and Test Procedures and Tests throughout Hospitalization: Therapy Orders & Screens 06/27/25 14:58 Respiratory Therapy Assessment DAILY Comment: 06/27/25 17:22 Respiratory Therapy Consult ONCE Comment: Reason For Exam: 06/27/25 18:34 EKG REPEAT IN AM Comment: Diagnosis: PNA Flutter Therapy UD Comment: Diagnosis: PNA Incentive Spirometry UD Comment: Diagnosis: PNA 06/27/25 19:53 Oxygen Nasal Cannula 2 lpm Comment: Diagnosis: PNA 06/27/25 20:32 OT Screen per Nursing Assess ONCE Comment: Protocol Order Physician Instructions: Greater than 3 points order OT Admission Screening Reason For Exam: Triggered on Admission Diagnosis: PNA Open Wound/Cellutlitis/Pressure Ulcers: No Acute Fx/ORIF/Change in wt bearing status: No Severe MUSCULOSKELETAL pain: No ADL Dysfunction: Yes Acute CVA w/Hemiparesis/Hemiplegia: No Decreased Functional Mobility/Strength: Yes: FROZEN RT SHOULDER Sprain/Strain: No Acute Post-op Mobility Dysfunction: No Total Points: 4 PT Screen per Nursing Assess ONCE Comment: Protocol Order Physician Instructions: Greater than 3 points order PT Admission Screenin Reason For Exam: Triggered on Admission Diagnosis: PNA Open Wound/Cellutlitis/Pressure Ulcers: No Acute Fx/ORIF/Change in wt bearing status: No Severe MUSCULOSKELETAL pain: No ADL Dysfunction: Yes Acute CVA w/Hemiparesis/Hemiplegia: No Decreased Functional Mobility/Strength: Yes: FROZEN RT SHOULDER Sprain/Strain: No Acute Post-op Mobility Dysfunction: No Total Points: 4 RT Screen per Nursing Assess ONCE Comment: Protocol Order Physician Instructions: Greater than 3 points order RT Admission Screen Reason For Exam: Triggered on Admission Diagnosis: PNA Diagnosis: PNA Pneumonia: Yes Home O2: No Asthma: No CHF: No Home CPAP/BIPAP: No Home Nebs/MDI: Yes Total Points: 8 ST Screen per Nursing Assess ONCE Comment: Protocol Order Physician Instructions: Greater than [address] Admission Screening Reason For Exam: Triggered on Admission Diagnosis: PNA CVA/Dysphagia/Aphasia: Yes: PAST HX Cognitive Deficits: No Dehydration/Nutrition Deficit: No Reflux: Yes Oral-Motor Difficulties: No Pneumonia: Yes Usp Resident: No Total Points: 13 Discharge Exam General Appearance: no apparent distress, alert, obese Neurologic Exam: alert, oriented x 3, cooperative, normal mood/affect, nml cerebellar function, sensation nml, No motor deficits Eye Exam: PERRL, EOMI, eyes nml inspection Ears, Nose, Throat Exam: normal ENT inspection, pharynx normal, moist mucous membranes Neck Exam: normal inspection, non-tender, supple, full range of motion Respiratory Exam: normal breath sounds, lungs clear, No respiratory distress Cardiovascular Exam: regular rate/rhythm, normal heart sounds Gastrointestinal/Abdomen Exam: soft, No tenderness, No mass Pelvic Exam: deferred Rectal Exam: deferred Back Exam: normal inspection, normal range of motion, No CVA tenderness, No vertebral tenderness Extremity Exam: normal inspection, normal range of motion Skin Exam: normal color, warm, dry Final Diagnosis/Problem List - Final Discharge Diagnosis/Problem (1) Pneumonia Current Visit: Yes Status: Acute Assessment & Plan: - CXR bilateral infiltrates consistent with pneumonia - O2sat 90% RA - 95% on 2 L NC; Multifactorial: bilateral pneumonia + COPD exacerbation; BNP elevated but no radiographic edema/no edema on exam - Maintain O2 to keep sat >92%. - Trend ABG or VBG if worsening hypoxia/lethargy - Continue ceftriaxone/azithromycin - Respiratory viral panel negative - Solumedrol 40mg BID transition to prednisone as appropriate - Xopenex/INH - IS - Sputum culture and BC x2 pending- Will continue to follow OP - RA 97% when sitting, requires O2 when walking per RT - CM ordered home O2 2LNC - CBC, CMP reviewed - WBC 11.1- improved Code(s): J18.9 - PNEUMONIA, UNSPECIFIED ORGANISM (2) COPD exacerbation Current Visit: Yes Status: Acute Assessment & Plan: - see pneumonia plan Code(s): J44.1 - CHRONIC OBSTRUCTIVE PULMONARY DISEASE W (ACUTE) EXACERBATION (3) Right shoulder pain Current Visit: Yes Status: Acute Assessment & Plan: - F/U with ortho OP- appointment made -No fracture on X-ray; reports mechanical locking. -Symptomatic management with analgesia. -Consider PT/OT evaluation- OP Code(s): M25.511 - PAIN IN RIGHT SHOULDER (4) Cerebral aneurysm Current Visit: Yes Status: Chronic Assessment & Plan: - Hx of - Stable at baseline, no acute neuro changes - Neuro checks during hospitalization. (5) Chronic diarrhea Current Visit: Yes Status: Chronic Assessment & Plan: - Questran daily Code(s): K52.9 - NONINFECTIVE GASTROENTERITIS AND COLITIS, UNSPECIFIED (6) DMII (diabetes mellitus, type 2) Current Visit: Yes Status: Chronic Assessment & Plan: - ADA diet - Accuchecks AC/HS - SSI -adjust accordingly for steroid induced hyperglycemia - A1c 5.73 - controlled (7) Essential tremor Current Visit: Yes Status: Chronic Assessment & Plan: - Questionable diagnosis of parkinson per patient - being worked-up OP, no acute changes. Code(s): G25.0 - ESSENTIAL TREMOR (8) GERD (gastroesophageal reflux disease) Current Visit: Yes Status: Chronic Assessment & Plan: - Continue protonix Code(s): K21.9 - GASTRO-ESOPHAGEAL REFLUX DISEASE WITHOUT ESOPHAGITIS (9) HTN (hypertension) Current Visit: Yes Status: Chronic Assessment & Plan: - Continue home antihypertensives. - Adjust based on inpatient BP trends. - Diastolic elevated this AM- trend- if improves january d/c. Code(s): I10 - ESSENTIAL (PRIMARY) HYPERTENSION (10) History of stroke Current Visit: Yes Status: Chronic Assessment & Plan: -Continue home meds - Neuro consult - Continue plavix Code(s): Z86.73 - PRSNL HX OF TIA (TIA), AND CEREB INFRC W/O RESID DEFICITS (11) Seizure disorder Current Visit: Yes Status: Chronic Assessment & Plan: -Stable at baseline, no acute neuro changes -Continue home regimen Code(s): G40.909 - EPILEPSY, UNSP, NOT INTRACTABLE, WITHOUT STATUS EPILEPTICUS (12) Obesity (BMI 30-39.9) Current Visit: Yes Status: Chronic Assessment & Plan: - advised diet and exercise control Code(s): E66.9 - OBESITY, UNSPECIFIED (13) Arrhythmia Current Visit: Yes Status: Chronic Assessment & Plan: -Currently NSR, paced. -On Eliquis -Tele -Resume outpatient rate/rhythm regimen Code(s): I49.9 - CARDIAC ARRHYTHMIA, UNSPECIFIED (14) Anxiety and depression Current Visit: Yes Status: Chronic Assessment & Plan: - Continue home meds Code(s): F41.9 - ANXIETY DISORDER, UNSPECIFIED; F32.A - DEPRESSION, UNSPECIFIED (15) Acute hypoxic respiratory failure Current Visit: Yes Status: Resolved Assessment & Plan: - See above plan - 2:2 pneumonia Code(s): J96.01 - ACUTE RESPIRATORY FAILURE WITH HYPOXIA (16) CAD (coronary artery disease) Current Visit: Yes Status: Chronic Assessment & Plan: -continue home meds D/C plan of care time : 41 minutes D/C meds new: Questran light, prednisone, cefuroxime Will continue to follow BC x2 and sputum culture OP Code(s): I25.10 - ATHSCL HEART DISEASE OF [place] CORONARY ARTERY W/O ANG PCTRS - Discharge Discharge Date: 06/28/25 Disposition: Home, Self-Care Condition: Stable Prescriptions: New Cholestyramine Light 4 gm [QUESTRAN Light 4 GM Packet] 4 gm PO DAILY 30 Days #30 pkt Continue Citalopram Hydrobromide 20 mg* [ceLEXa 20 MG] 40 mg PO HS Metoprolol Tartrate 50 mg [Lopressor 50 MG] 25 mg PO BID carBAMazepine [Tegretol] 400 mg PO QID Clopidogrel Bisulfate [PLAVIX Tablet] 75 mg PO DAILY Metformin HCl [Metformin ER Osmotic] 1,000 mg PO BID Tramadol HCl 50 mg [Ultram 50 mg] 50 mg PO TID Semaglutide [Ozempic] 2 mg SQ WEEKLY Empagliflozin [Jardiance] 25 mg PO QHS Apixaban [Eliquis] 5 mg PO BID Melatonin 5 mg PO HS Lisinopril 10 mg [Zestril 10 MG] 20 mg PO BID Cetirizine HCl 10 mg PO DAILY PRN PRN PRN Reason: Allergies Albuterol 8 gm Mdi Hfa [Ventolin Hfa MDI] 2 puff IH QID PRN PRN Reason: Shortness Of Breath/Wheezing Instructions: Oxygen therapy at home, Pneumonia in adults - Discharge instructions Additional Instructions: WEAR 2L/NC AT HOME, ESPECIALLY WHEN AMBULATING OR EXERTING YOURSELF CALL LOUIE AT [phone] WHEN YOU LEAVE [facility] SO THEY CAN MEET YOU AT HOME TO DELIVER YOUR HOME CONCENTRATOR If you found Mucinex helpful you can buy this OTC. Follow up with: WESTON ARCE MD [ACTIVE STAFF, ORTHOPEDICS] - 07/01/25 9:00 am Referral Note: Right frozen shoulder CAMILA TIJERINA NP [NON-STAFF PHY W/O PRIVILEGES, UNKNOWN] - 07/05/25 11:00 am
== END 2025-06-28 13:40 | disposition home or self-care (01) ==
LOC: ED 14:23 → MED SURG 17:48
PROVIDERS: ADMIT Internal Medicine; ATTEND Internal Medicine
DX: J18.9 Pneumonia, unspecified organism (principal); J44.1 Chronic obstructive pulmonary disease with (acute) exacerbation; M25.511 Pain in right shoulder; I67.1 Cerebral aneurysm, nonruptured; K52.9 Noninfective gastroenteritis and colitis, unspecified; E11.9 Type 2 diabetes mellitus without complications; G25.0 Essential tremor; K21.9 Gastro-esophageal reflux disease without esophagitis; I10 Essential (primary) hypertension; Z86.73 Personal history of transient ischemic attack (TIA), and cerebral infarction without residual deficits; G40.909 Epilepsy, unspecified, not intractable, without status epilepticus; E66.9 Obesity, unspecified; I49.9 Cardiac arrhythmia, unspecified; F41.9 Anxiety disorder, unspecified; F32.A Depression, unspecified; J96.01 Acute respiratory failure with hypoxia; I25.10 Atherosclerotic heart disease of native coronary artery without angina pectoris; Z79.01 Long term (current) use of anticoagulants; Z79.899 Other long term (current) drug therapy; Z95.0 Presence of cardiac pacemaker
CPT/HCPCS: 36415; 71045; 73030; 80053; 82947; 83036; 83605; 83880; 84484; 85025; 87040; 87070; 87637; 93005; 93041; 93268; 94640; 94667; 94762; 96365; 96367; 96375; 99291; G0378

== ENCOUNTER 2025-07-13 09:30 | Observation (INO) | payer OTHER ==
[2025-07-13 10:43] LABS: Glucose, Urine >=1000 mg/dL (Negative); Protein,Urine Dip Trace (Negative); RBC 0-2 /HPF (0-5); WBC 21-50 /HPF (0-5)
[2025-07-13] MEDS ORDERED: Sterile H2O 10 ml IJ ONE (10:50)
[2025-07-13] MEDS: solu-MEDROL 125 MG, Sterile H2O 10 ml 2 ML IV ONE (10:51)
[2025-07-13] MEDS ORDERED: DUONEB 0.5-3 MG/3 ml Neb IH ONE (10:54)
--- NOTE | 2025-07-13 10:54 | ERPHSYRPT ---
- History of Present Illness Time Seen by Provider: 07/13/25 10:30 Source: patient Exam Limitations: no limitations Patient Subjective Stated Complaint: C/O SOB. Patient reports she has been SOB "for weeks" with sudden worsening last night. Patient typically utilizes 02 @ 2L per N/C at home and increased herself to 4L during the night. Triage Nursing Assessment: Patient arrived by ambulance. She is alert and oriented. Skin is cool, clammy and patient is diaphoretic. ORR WNL. Denies pain. Labored breathing present. Wheezing noted throughout. Physician History: Patient is a 65-year-old female history of type 2 diabetes, hypertension stroke seizure coronary artery disease CABG, COPD, anxiety and depression presents to our ED via EMS for evaluation of shortness of breath. Patient normally requires 2 L nasal cannula at home. However patient states her O2 requirement went up to 4 L. Symptoms started approximately 11 weeks ago. Patient states shortness of breath worse last night. No chest pain. No nausea vomiting or diaphoresis. No trauma no fever. Patient states she was diagnosed with bronchitis about 2 weeks ago. She was diagnosed with pneumonia shortly thereafter. Patient symptoms are mild to moderate in intensity. Shortness of breath worse with activity. Patient otherwise feels well. She voices no other complaints or concerns at this time. Portions of this note were created with voice recognition technology. There may be grammatical, spelling, punctuation or sound alike errors Timing/Duration: today Activities at Onset: none Severity of Dyspnea-Max: moderate Severity of Dyspnea-Current: mild Possible Cause: occasional episodes Modifying Factors: Improves With: exertion Associated Symptoms: denies symptoms Allergies/Adverse Reactions: latex Allergy (Verified 07/13/25 09:41) Itching Home Medications: Citalopram Hydrobromide 20 mg* [ceLEXa 20 MG] 40 mg PO HS 04/24/17 [History] Clopidogrel Bisulfate [PLAVIX Tablet] 75 mg PO DAILY 04/24/17 [History] Metformin HCl [Metformin ER Osmotic] 1,000 mg PO BID 04/24/17 [History] Metoprolol Tartrate 50 mg [Lopressor 50 MG] 25 mg PO BID 04/24/17 [History] carBAMazepine [Tegretol] 400 mg PO QID 04/24/17 [History] Tramadol HCl 50 mg [Ultram 50 mg] 50 mg PO TID 07/13/20 [History] Semaglutide [Ozempic] 2 mg SQ WEEKLY 03/19/23 [History] Apixaban [Eliquis] 5 mg PO BID 08/11/23 [History] Cetirizine HCl 10 mg PO DAILY 08/11/23 [History] Empagliflozin [Jardiance] 25 mg PO QHS 08/11/23 [History] Lisinopril 10 mg [Zestril 10 MG] 20 mg PO BID 08/11/23 [History] Melatonin 5 mg PO HS 08/11/23 [History] Albuterol 8 gm Mdi Hfa [Ventolin Hfa MDI] 2 puff IH QID PRN 06/27/25 [History] Hx Tetanus, Diphtheria Vaccination/Date Given: Yes Hx Influenza Vaccination/Date Given: Yes Hx Pneumococcal Vaccination/Date Given: Yes Immunizations Up to Date: Yes Travel Risk - International Travel Have you traveled outside of the country in past 3 weeks: No - Emerging Infectious Disease Are you exhibiting symptoms associated with any current EIDs: Yes Symptoms: Cough: New Onset, Shortness of Breath Comment: 91% room air - Review of Systems All Other Systems: Reviewed and Negative - Past Medical History Pertinent Past Medical History: Yes Neurological History: Seizures, Stroke, Other ENT History: Glaucoma Cardiac History: Coronary Artery Disease, Hypertension Respiratory History: COPD Endocrine Medical History: Diabetes Type II Musculoskeletal History: Arthritis GI Medical History: GERD History: Other Psycho-Social History: Anxiety, Depression, Other Female Reproductive Disorders: No Pertinent History Other Medical History: kidney stones, parkinson disease - Past Surgical History Past Surgical History: Yes Neuro Surgical History: No Pertinent History Cardiac: CABG, Pacemaker Respiratory: No Pertinent History Gastrointestinal: Cholecystectomy Genitourinary: No Pertinent History Musculoskeletal: No Pertinent History Female Surgical History: Hysterectomy, Section Other Surgical History: brain surgery- aneurysm Significant Family History: heart disease, cancer, diabetes - Social History Smoking Status: Former smoker Exposure to second hand smoke: No Drug Use: none - Social Determinants of Health Will the patient participate in the screening: Yes Do you worry about a steady place to live?: No Do you have any problems with any of the following?: No known problems In the past 12 months,have you had to go without utilities?: No Transportation Issues: No Has anyone in your support network made you feel unsafe?: No Have you or anyone in your house had to go w/o enough food: No - Nursing Vital Signs Nursing Vital Signs: Initial Vital Signs Pulse Rate 66 07/13/25 09:30 Respiratory Rate 18 07/13/25 09:30 Blood Pressure 102/56 07/13/25 09:30 O2 Sat by Pulse Oximetry 96 07/13/25 09:30 Pain Scale Pain Intensity 0 - Physical Exam General Appearance: no apparent distress, alert Eye Exam: PERRL/EOMI Ears, Nose, Throat Exam: hearing grossly normal Neck Exam: normal inspection, supple Respiratory Exam: diminished breath sounds, wheezing, other (Slightly tachypneic. No acute respiratory distress) Cardiovascular/Chest Exam: normal heart sounds, regular rate/rhythm Abdominal/Gastrointestinal Exam: soft, No tenderness, No distention, No mass Extremity Exam: non-tender, normal range of motion, normal inspection, no calf tenderness, no pedal edema Neurologic Exam: alert, oriented x 3, cooperative, tack puller machine II-XII nml as tested, sensation nml, No motor deficits Skin Exam: normal color, warm, No dry Lymphatic Exam: No adenopathy SpO2 Interpretation: normal SpO2: 96 O2 Delivery: Room Air - Course Nursing assessment & vital signs reviewed: Yes EKG Interpreted by Me: RATE (61), LAFB, NORMAL INTERVALS, Right Bundle Branch Block - CT Exams Chest CT Interpretation: Tele-radiologist Report (No PE, bilateral pneumonia) Ordered Tests: Active Orders 24 hr Category Date Time Status Accountant Tax STAT Care 07/13/25 10:12 Active EKG-ER Only STAT Care 07/13/25 10:11 Active IV Insertion STAT Care 07/13/25 10:11 Active Oxygen-ED Only Nasal Cannula 2 lpm Care 07/13/25 10:11 Active Pulse Oximetry (ED) STAT Care 07/13/25 10:11 Active CHEST WITH CONTRAST [CT] Stat Exams 07/13/25 11:50 Completed BLOOD CULTURE Stat Lab 07/13/25 11:17 Received CBC W DIFF Stat Lab 07/13/25 11:07 Completed CMP Stat Lab 07/13/25 11:07 Completed CULTURE,URINE Stat Lab 07/13/25 10:11 Received D-DIMER QUANTITATIVE Stat Lab 07/13/25 11:07 Completed NT PRO BNPII Stat Lab 07/13/25 11:07 Completed TROPONIN Q4H Lab 07/13/25 11:07 Completed TROPONIN Q4H Lab 07/13/25 15:00 Ordered TROPONIN Q4H Lab 07/13/25 19:00 Ordered UA W/RFX UR CULTURE Stat Lab 07/13/25 10:11 Completed Respiratory Therapy Assessment DAILY RT 07/13/25 11:04 Active Transfer Order Routine Transfer 07/13/25 Ordered Medication Summary Generic Name Dose Route Start Last Admin Trade Name Freq PRN Reason Stop Dose Admin Ceftriaxone Sodium 2 gm in 100 mls @ 200 mls/hr 07/13/25 14:22 07/13/25 14:29 Rocephin 2 Gm/100 Ml Nacl IV 07/13/25 14:51 200 mls/hr STAT ONE 200 mls/hr Administration Azithromycin 500 mg/ Sodium 250 mls @ 250 mls/hr 07/13/25 14:22 Chloride IV 07/13/25 15:21 STAT STA Discontinued Medications Generic Name Dose Route Start Last Admin Trade Name Freq PRN Reason Stop Dose Admin Albuterol/Ipratropium 3 ml 07/13/25 10:45 07/13/25 11:03 Ipratropium/Albuterol Sulfate 3 Ml Ampul.Neb IH 07/13/25 10:46 3 ml STAT ONE Administration Albuterol/Ipratropium Confirm 07/13/25 10:54 Ipratropium/Albuterol Sulfate 3 Ml Ampul.Neb Administered 07/13/25 10:55 Dose 3 ml IH .STK-MED ONE Methylprednisolone Sodium 0 mg 07/13/25 10:45 07/13/25 10:51 Succinate 125 mg/ Sterile IV 07/13/25 10:46 125 mg Water 2 ml STAT ONE Administration Ceftriaxone Sodium Confirm 07/13/25 14:25 Rocephin 2 Gm/100 Ml Nacl Administered 07/13/25 14:26 Dose 2 gm in 100 mls @ ud IV .STK-MED ONE Methylprednisolone Sodium Succinate Confirm 07/13/25 10:50 Methylprednis Sod Succ 125 Mg/2 Ml Vial Administered 07/13/25 10:51 Dose 125 mg .ROUTE .STK-MED ONE Sterile Water Confirm 07/13/25 10:50 Water For Injection,Sterile 10 Ml Vial Administered 07/13/25 10:51 Dose 10 ml IJ .[facility] ONE Lab/Rad Data: Laboratory Result Diagrams 07/13/25 11:07 07/13/25 11:07 Laboratory Results 07/13/25 07/13/25 07/13/25 Range/Units 11:07 11:07 11:07 WBC (3.98-10.04) x10^3/uL RBC (3.93-5.22) x10^6/uL Hgb (11.2-15.7) g/dL Hct (34.1-44.9) % MCV (79.4-94.8) fL MCH (25.6-32.2) pg MCHC (32.2-35.5) g/dL RDW (11.7-14.4) % Plt Count (182-369) x10^3/uL MPV (9.4-12.3) fL Gran % (34.0-71.1) % Immature Gran % (Auto) (0.001-0.429) % Nucleat RBC Rel Count (0.00-0.2) % Eos # (Auto) (0.04-0.36) x10^3/uL Immature Gran # (Auto) (0.001-0.031) x10^3u/L Absolute Lymphs (auto) (1.18-3.74) x10^3/uL Absolute Monos (auto) (0.24-0.86) x10^3/uL Absolute Nucleated RBC (0.00-0.012) x10^3u/L Lymphocytes % (19.3-51.7) % Monocytes % (4.7-12.5) % Eosinophils % (0.7-5.8) % Basophils % (0.1-1.2) % Absolute Granulocytes (1.56-6.13) x10^3/uL Basophils # (0.01-0.08) x10^3/uL D-Dimer 1.07 H* (0.0-0.50) mg/L Sodium 140 (135-145) mmol/L Potassium 4.4 (3.5-5.1) mmol/L Chloride 105 (98-107) mmol/L Carbon Dioxide 25 (22-30) mmol/L Anion Gap 13.4 (5-15) MEQ/L BUN 15 (7-17) mg/dL Creatinine 0.62 (0.52-1.04) mg/dL Estimated GFR 97.5 ML/MIN Glucose 90 (74-106) mg/dL Calcium 8.5 (8.4-10.2) mg/dL Total Bilirubin < 0.10 L (0.2-1.3) mg/dL AST 25 (14-36) U/L ALT 18 (0-35) U/L Alkaline Phosphatase 92 (38-126) U/L Troponin I < 0.012 (0.000-0.033) ng/mL NT-Pro-B Natriuret Pep 591 (<300) pg/mL Serum Total Protein 7.1 (6.3-8.2) g/dL Albumin 3.6 (3.5-5.0) g/dL Urine Color (Yellow) Urine Appearance (Clear) Urine pH (4.6-8.0) Ur Specific [place] (1.005-1.030) Urine Protein (Negative) Urine Glucose (UA) (Negative) mg/dL Urine Ketones (Negative) Urine Blood (Negative) Urine Nitrite (Negative) Urine Bilirubin (Negative) Urine Urobilinogen (0.2) mg/dL Ur Leukocyte Esterase (Negative) U Hyaline Cast (Auto) (0-2) /LPF Urine Microscopic RBC (0-5) /HPF Urine Microscopic WBC (0-5) /HPF Ur Epithelial Cells (None Seen) /HPF Urine Bacteria (None Seen) /HPF Urine Culture Reflexed (NO) Influenza Type A Ag (NEGATIVE) Influenza Type B Ag (NEGATIVE) RSV (PCR) (NEGATIVE) SARS-CoV-2 (PCR) (NEGATIVE) 07/13/25 07/13/25 07/13/25 Range/Units 11:07 10:40 10:11 WBC 13.7 H (3.98-10.04) x10^3/uL RBC 4.57 (3.93-5.22) x10^6/uL Hgb 14.1 (11.2-15.7) g/dL Hct 43.8 (34.1-44.9) % MCV 95.8 H (79.4-94.8) fL MCH 30.9 (25.6-32.2) pg MCHC 32.2 (32.2-35.5) g/dL RDW 12.7 (11.7-14.4) % Plt Count 385 H (182-369) x10^3/uL MPV 9.7 (9.4-12.3) fL Gran % 77.9 H (34.0-71.1) % Immature Gran % (Auto) 0.4 (0.001-0.429) % Nucleat RBC Rel Count 0.0 (0.00-0.2) % Eos # (Auto) 0.31 (0.04-0.36) x10^3/uL Immature Gran # (Auto) 0.06 H (0.001-0.031) x10^3u/L Absolute Lymphs (auto) 1.75 (1.18-3.74) x10^3/uL Absolute Monos (auto) 0.81 (0.24-0.86) x10^3/uL Absolute Nucleated RBC 0.00 (0.00-0.012) x10^3u/L Lymphocytes % 12.8 L (19.3-51.7) % Monocytes % 5.9 (4.7-12.5) % Eosinophils % 2.3 (0.7-5.8) % Basophils % 0.7 (0.1-1.2) % Absolute Granulocytes 10.69 H (1.56-6.13) x10^3/uL Basophils # 0.10 H (0.01-0.08) x10^3/uL D-Dimer (0.0-0.50) mg/L Sodium (135-145) mmol/L Potassium (3.5-5.1) mmol/L Chloride (98-107) mmol/L Carbon Dioxide (22-30) mmol/L Anion Gap (5-15) MEQ/L BUN (7-17) mg/dL Creatinine (0.52-1.04) mg/dL Estimated GFR ML/MIN Glucose (74-106) mg/dL Calcium (8.4-10.2) mg/dL Total Bilirubin (0.2-1.3) mg/dL AST (14-36) U/L ALT (0-35) U/L Alkaline Phosphatase (38-126) U/L Troponin I (0.000-0.033) ng/mL NT-Pro-B Natriuret Pep (<300) pg/mL Serum Total Protein (6.3-8.2) g/dL Albumin (3.5-5.0) g/dL Urine Color Yellow (Yellow) Urine Appearance Clear (Clear) Urine pH 6.0 (4.6-8.0) Ur Specific [place] >=1.030 A (1.005-1.030) Urine Protein Trace A (Negative) Urine Glucose (UA) >=1000 A (Negative) mg/dL Urine Ketones Negative (Negative) Urine Blood Negative (Negative) Urine Nitrite Negative (Negative) Urine Bilirubin Negative (Negative) Urine Urobilinogen 0.2 (0.2) mg/dL Ur Leukocyte Esterase Trace A (Negative) U Hyaline Cast (Auto) 6-10 A (0-2) /LPF Urine Microscopic RBC 0-2 (0-5) /HPF Urine Microscopic WBC 21-50 A (0-5) /HPF Ur Epithelial Cells Rare (None Seen) /HPF Urine Bacteria Few A (None Seen) /HPF Urine Culture Reflexed YES (NO) Influenza Type A Ag NEGATIVE (NEGATIVE) Influenza Type B Ag NEGATIVE (NEGATIVE) RSV (PCR) NEGATIVE (NEGATIVE) SARS-CoV-2 (PCR) NEGATIVE (NEGATIVE) - Progress Progress: improved Air Movement: good Progress Note: Patient is a 65-year-old female history of type 2 diabetes, hypertension stroke seizure coronary artery disease CABG, COPD, anxiety and depression presents to our ED via EMS for evaluation of shortness of breath. Physical exam reveals diffuse bilateral wheezing tachypnea. Patient's O2 requirement is increased from 2 to 4 L/min. D-dimer positive. CTA chest negative for PE however reveals bilateral pneumonia. Laboratory workup reveals a leukocytosis of 13.7. UA significant for UTI. Blood cultures obtained. 125 mg Solu-Medrol administered. Patient also received a DuoNeb per respiratory therapy. 2 g of Rocephin IV piggyback and azithromycin 500 mg administered. Patient will require hospitalization for further evaluation and treatment. Patient advised of the findings. Patient agrees to admission at [facility] for further evaluation and treatment. Case discussed with hospitalist stepped admission to observation at approximately 2:30 PM Portions of this note were created with voice recognition technology. There may be grammatical, spelling, punctuation or sound alike errors History obtained from patient. Differential diagnosis include pneumonia, PE, COPD exacerbation Complexity of problem addressed is moderate acute complicated. No critical care time. Complex of data reviewed and analyzed is extensive. Test ordered chest reviewed results analyzed and correlated clinically with history and physical exam. Management discussed with hospitalist who accepts admission to observation. Risk of complication or risk of morbidity/mortality of patient management is high. Patient requires hospitalization for further evaluation and treatment. Vital stable. Time spent to admit patient approximately 15 minutes. Plan of care established for shared decision making. No social determinants of health present to impede follow-up. Portions of this note were created with voice recognition technology. There may be grammatical, spelling, punctuation or sound alike errors 07/13/25 14:34 07/13/25 14:35 Blood Culture(s) Obtained: Yes Antibiotics given: Yes Will see patient in: hospital (observation) Counseled pt/family regarding: lab results, diagnosis, rad results - Departure Departure Disposition: Observation Clinical Impression: Bilateral pneumonia, Shortness of breath, COPD exacerbation, UTI (urinary tract infection) Condition: Stable Critical Care Time: No Referrals: NICHOLAS SHIN MD [Primary Care Provider, [facility]] - Follow up/PCP as directed Instructions: Chronic Obstructive Pulmonary Disease
[2025-07-13] MEDS: DUONEB 0.5-3 MG/3 ml Neb IH ONE (11:03)
[2025-07-13 11:22] LABS: BASOPHIL % 0.7 % (0.1-1.2); Basophil (Absolute #) 0.10 x10^3/uL (0.01-0.08); Eosinophil (Absolute #) 0.31 x10^3/uL (0.04-0.36); Hematocrit 43.8 % (34.1-44.9); Hemoglobin 14.1 g/dL (11.2-15.7); IMMATURE GRAN # 0.06 x10^3u/L (0.001-0.031); IMMATURE GRAN % 0.4 % (0.001-0.429); Lymphocyte (Absolute #) 1.75 x10^3/uL (1.18-3.74); Mean Corpuscular Hemoglobin 30.9 pg (25.6-32.2); Mean Corpuscular Hgb Concent. 32.2 g/dL (32.2-35.5); Monocyte (Absolute #) 0.81 x10^3/uL (0.24-0.86); NUCLEATED RBC # 0.00 x10^3u/L (0.00-0.012); NUCLEATED RBC % 0.0 % (0.00-0.2); Platelet Count 385 x10^3/uL (182-369); Red Blood Count 4.57 x10^6/uL (3.93-5.22); White Blood Count 13.7 x10^3/uL (3.98-10.04)
[2025-07-13 11:43] LABS: INFLUENZA A NEGATIVE (NEGATIVE); INFLUENZA B NEGATIVE (NEGATIVE); RESPIRATORY SYNCTIAL VIRUS NEGATIVE (NEGATIVE); SARS-CoV-2 Xpert Express NEGATIVE (NEGATIVE)
[2025-07-13 11:46] LABS: Calcium 8.5 mg/dL (8.4-10.2); Carbon Dioxide 25 mmol/L (22-30); Creatinine 1 0.62 mg/dL (0.52-1.04); EST GLOMERULAR FILTRATION RATE 97.5 ML/MIN; Glucose 90 mg/dL (74-106); NT PRO BNPII 591 pg/mL (<300); Potassium 4.4 mmol/L (3.5-5.1); SGOT/AST 25 U/L (14-36); SGPT/ALT 18 U/L (0-35); Total Protein 7.1 g/dL (6.3-8.2)
--- NOTE | 2025-07-13 14:15 | XRAY ---
Indication: Short of breath. Positive D-dimer. Multiple contiguous axial images obtained through the chest using 80 cc Isovue 370 contrast and PE protocol. Comparison: None Good opacification pulmonary arteries. Mild diffuse respiration artifact limits evaluation of the more distal lobar and segmental branches. No central pulmonary embolus. Heart not enlarged with CABG surgery and left dual lead pacemaker. Aorta is normal in course and caliber with minimal calcifications. Small subcarinal calcified nodes. No pathologic mediastinal/hilar lymphadenopathy. Lungs demonstrates diffuse bilateral patchy consolidating/nonconsolidating airspace disease with small right and tiny left effusion. Bony thorax intact with osteopenia and mild/moderate degenerative changes throughout spine. Limited upper abdomen demonstrates hepatic/splenic calcified granulomas and cholecystectomy clips. Impression: 1. Respiration artifact limits pulmonary embolus evaluation. No obvious central pulmonary embolus. 2. Diffuse bilateral consolidating/nonconsolidating airspace disease with small effusions as was reported on chest radiograph June 27, 2025. 3. Chronic findings including CABG surgery, arteriosclerotic disease, chronic bony findings, and old granulomatous disease.
[2025-07-13] MEDS ORDERED: ROCEPHIN 2 GM/100 ML NACL 2 GM/100 ML IVPB IV ONE (14:25)
[2025-07-13] MEDS: ROCEPHIN 2 GM/100 ML NACL 2 GM/100 ML IVPB IV ONE (14:29)
--- NOTE | 2025-07-13 15:01 | PCM.HP ---
History of Present Illness - Chief Complaint Chief Complaint: COPD exacerbation, bilateral pneumonia, wheezing Date: 07/13/25 History of Present Illness: is a 65-year-old female with a past medical history significant for type 2 diabetes mellitus, hypertension, prior stroke, seizure disorder, coronary artery disease status post CABG, COPD, anxiety, and depression. She presented to the emergency department via EMS for evaluation of worsening shortness of talon th. The patient typically requires 2 liters of oxygen via nasal cannula at home but reports that her oxygen requirement recently increased to 4 liters. She was recently hospitalized from 06/27 to 06/28 for COPD exacerbation and pneumonia. The patient states that after discharge, she never improved and has progressively worsened since returning home. Her shortness of breath has intensified, particularly with activity. She denies chest pain, nausea, vomiting, diaphoresis, fever, or trauma. In the emergency department, laboratory workup revealed an elevated D-dimer; however, CTA of the chest was negative for pulmonary embolism. She was started on antibiotics for pneumonia, urinary tract infection, and COPD exacerbation. The patients symptoms are described as mild to moderate in intensity at rest but worsen with exertion. She otherwise feels generally unwell and expresses concern that her breathing has not improved since her last hospitalization. - Review of Systems Constitutional: Other (diaphoretic), No Fever, No Chills Eyes: No Symptoms Ears, Nose, & Throat: No Symptoms Respiratory: Orthopnea, Short Of Breath, Wheezing, No Cough Cardiac: No Chest Pain, No Edema, No Syncope Abdominal/Gastrointestinal: Diarrhea, No Abdominal Pain, No Nausea, No Vomiting Genitourinary Symptoms: No Dysuria Musculoskeletal: No Back Pain, No Neck Pain Skin: No Rash Neurological: No Dizziness, No Focal Weakness, No Sensory Changes Psychological: No Symptoms Endocrine: No Symptoms Hematologic/Lymphatic: No Symptoms Immunological/Allergic: No Symptoms Medications & Allergies Home Medications: Home Medication List Citalopram Hydrobromide 20 mg* [ceLEXa 20 MG] 40 mg PO HS 04/24/17 [History Confirmed 07/13/25] Clopidogrel Bisulfate [PLAVIX Tablet] 75 mg PO DAILY 04/24/17 [History Confirmed 07/13/25] Metformin HCl [Metformin ER Osmotic] 1,000 mg PO BID 04/24/17 [History Confirmed 07/13/25] Metoprolol Tartrate 50 mg [Lopressor 50 MG] 25 mg PO BID 04/24/17 [History Confirmed 07/13/25] carBAMazepine [Tegretol] 400 mg PO QID 04/24/17 [History Confirmed 07/13/25] Tramadol HCl 50 mg [Ultram 50 mg] 50 mg PO TID 07/13/20 [History Confirmed 07/13/25] Semaglutide [Ozempic] 2 mg SQ WEEKLY 03/19/23 [History Confirmed 07/13/25] Apixaban [Eliquis] 5 mg PO BID 08/11/23 [History Confirmed 07/13/25] Cetirizine HCl 10 mg PO DAILY 08/11/23 [History Confirmed 07/13/25] Empagliflozin [Jardiance] 25 mg PO QHS 08/11/23 [History Confirmed 07/13/25] Lisinopril 10 mg [Zestril 10 MG] 20 mg PO BID 08/11/23 [History Confirmed 07/13/25] Melatonin 5 mg PO HS 08/11/23 [History Confirmed 07/13/25] Albuterol 8 gm Mdi Hfa [Ventolin Hfa MDI] 2 puff IH QID PRN 06/27/25 [History Confirmed 07/13/25] Allergies/Adverse Reactions: Allergies Allergy/AdvReac Type Severity Reaction Status Date / Time latex Allergy Itching Verified 07/13/25 14:48 - Past Medical History Past Medical History: Yes Neurological History: Seizures, Stroke, Other ENT History: Glaucoma Cardiac History: Coronary Artery Disease, Hypertension Respiratory History: COPD Endocrine Medical History: Diabetes Type II Musculoskelatal History: Arthritis GI Medical History: GERD History: Other Pyscho-Social History: Anxiety, Depression, Other Reproductive Disorders: No Pertinent History Comment: kidney stones, parkinson disease - Past Surgical History Past Surgical History: Yes Neuro Surgical History: No Pertinent History Cardiac History: CABG, Pacemaker Respiratory Surgery: No Pertinent History GI Surgical History: Cholecystectomy Genitourinary Surgical Hx: No Pertinent History Musculskeletal Surgical Hx: No Pertinent History Female Surgical History: Hysterectomy, Section Other Surgical History: brain surgery- aneurysm Significant Family History: heart disease, cancer, diabetes - Social History Smoking Status: Former smoker Exposure to second hand smoke: No Alcohol: None Drug Use: none - Social Determinants of Health Will the patient participate in the screening: Yes Do you worry about a steady place to live?: No Do you have any problems with any of the following?: No known problems In the past 12 months,have you had to go without utilities?: No Have you or anyone in your house had to go without enough: No Transportation Issues: No Has anyone in your support network made you feel unsafe?: No - Physical Exam Vital Signs: Vital Signs - 24 hr Temp Pulse Resp BP BP Pulse Ox 07/13/25 14:38 96 07/13/25 14:00 74 11 L 139/90 96 07/13/25 13:30 77 19 137/69 96 07/13/25 13:00 67 22 127/83 96 07/13/25 12:41 69 23 122/73 95 07/13/25 12:40 72 20 96 07/13/25 12:00 66 22 122/64 95 07/13/25 11:30 66 30 H 126/69 94 L 07/13/25 11:10 61 22 101/58 96 07/13/25 11:04 67 22 96 07/13/25 11:02 63 21 101/58 97 07/13/25 10:30 62 25 H 117/64 99 07/13/25 10:11 96 07/13/25 10:00 62 18 108/57 96 07/13/25 09:38 97.9 F 70 22 102/56 93 L 07/13/25 09:30 66 18 102/56 96 General Appearance: no apparent distress, alert, obese Neurologic Exam: alert, oriented x 3, cooperative, 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 as tested, normal mood/affect, nml cerebellar function, nml station & gait, sensation nml, No motor deficits Eye Exam: PERRL/EOMI, eyes nml inspection Ears, Nose, Throat Exam: normal ENT inspection, TMs normal, pharynx normal, moist mucous membranes Neck Exam: normal inspection, non-tender, supple, full range of motion Respiratory Exam: wheezing, No respiratory distress Cardiovascular Exam: regular rate/rhythm, normal heart sounds, normal peripheral pulses Gastrointestinal/Abdomen Exam: soft, normal bowel sounds, No tenderness, No mass Back Exam: normal inspection, normal range of motion, No CVA tenderness, No vertebral tenderness Extremity Exam: normal inspection, normal range of motion, pelvis stable Skin Exam: normal color, warm, dry, diaphoresis, No rash Lymphatic Exam: No adenopathy Results - Labs Lab/Micro Results: Lab Results-Last 24 Hours 07/13/25 07/13/25 07/13/25 Range/Units 10:11 10:40 11:07 WBC 13.7 H (3.98-10.04) x10^3/uL RBC 4.57 (3.93-5.22) x10^6/uL Hgb 14.1 (11.2-15.7) g/dL Hct 43.8 (34.1-44.9) % MCV 95.8 H (79.4-94.8) fL MCH 30.9 (25.6-32.2) pg MCHC 32.2 (32.2-35.5) g/dL RDW 12.7 (11.7-14.4) % Plt Count 385 H (182-369) x10^3/uL MPV 9.7 (9.4-12.3) fL Gran % 77.9 H (34.0-71.1) % Immature Gran % (Auto) 0.4 (0.001-0.429) % Nucleat RBC Rel Count 0.0 (0.00-0.2) % Eos # (Auto) 0.31 (0.04-0.36) x10^3/uL Immature Gran # (Auto) 0.06 H (0.001-0.031) x10^3u/L Absolute Lymphs (auto) 1.75 (1.18-3.74) x10^3/uL Absolute Monos (auto) 0.81 (0.24-0.86) x10^3/uL Absolute Nucleated RBC 0.00 (0.00-0.012) x10^3u/L Lymphocytes % 12.8 L (19.3-51.7) % Monocytes % 5.9 (4.7-12.5) % Eosinophils % 2.3 (0.7-5.8) % Basophils % 0.7 (0.1-1.2) % Absolute Granulocytes 10.69 H (1.56-6.13) x10^3/uL Basophils # 0.10 H (0.01-0.08) x10^3/uL D-Dimer (0.0-0.50) mg/L Sodium (135-145) mmol/L Potassium (3.5-5.1) mmol/L Chloride (98-107) mmol/L Carbon Dioxide (22-30) mmol/L Anion Gap (5-15) MEQ/L BUN (7-17) mg/dL Creatinine (0.52-1.04) mg/dL Estimated GFR ML/MIN Glucose (74-106) mg/dL Calcium (8.4-10.2) mg/dL Total Bilirubin (0.2-1.3) mg/dL AST (14-36) U/L ALT (0-35) U/L Alkaline Phosphatase (38-126) U/L Troponin I (0.000-0.033) ng/mL NT-Pro-B Natriuret Pep (<300) pg/mL Serum Total Protein (6.3-8.2) g/dL Albumin (3.5-5.0) g/dL Urine Color Yellow (Yellow) Urine Appearance Clear (Clear) Urine pH 6.0 (4.6-8.0) Ur Specific [place] >=1.030 A (1.005-1.030) Urine Protein Trace A (Negative) Urine Glucose (UA) >=1000 A (Negative) mg/dL Urine Ketones Negative (Negative) Urine Blood Negative (Negative) Urine Nitrite Negative (Negative) Urine Bilirubin Negative (Negative) Urine Urobilinogen 0.2 (0.2) mg/dL Ur Leukocyte Esterase Trace A (Negative) U Hyaline Cast (Auto) 6-10 A (0-2) /LPF Urine Microscopic RBC 0-2 (0-5) /HPF Urine Microscopic WBC 21-50 A (0-5) /HPF Ur Epithelial Cells Rare (None Seen) /HPF Urine Bacteria Few A (None Seen) /HPF Urine Culture Reflexed YES (NO) Influenza Type A Ag NEGATIVE (NEGATIVE) Influenza Type B Ag NEGATIVE (NEGATIVE) RSV (PCR) NEGATIVE (NEGATIVE) SARS-CoV-2 (PCR) NEGATIVE (NEGATIVE) 07/13/25 07/13/25 07/13/25 Range/Units 11:07 11:07 11:07 WBC (3.98-10.04) x10^3/uL RBC (3.93-5.22) x10^6/uL Hgb (11.2-15.7) g/dL Hct (34.1-44.9) % MCV (79.4-94.8) fL MCH (25.6-32.2) pg MCHC (32.2-35.5) g/dL RDW (11.7-14.4) % Plt Count (182-369) x10^3/uL MPV (9.4-12.3) fL Gran % (34.0-71.1) % Immature Gran % (Auto) (0.001-0.429) % Nucleat RBC Rel Count (0.00-0.2) % Eos # (Auto) (0.04-0.36) x10^3/uL Immature Gran # (Auto) (0.001-0.031) x10^3u/L Absolute Lymphs (auto) (1.18-3.74) x10^3/uL Absolute Monos (auto) (0.24-0.86) x10^3/uL Absolute Nucleated RBC (0.00-0.012) x10^3u/L Lymphocytes % (19.3-51.7) % Monocytes % (4.7-12.5) % Eosinophils % (0.7-5.8) % Basophils % (0.1-1.2) % Absolute Granulocytes (1.56-6.13) x10^3/uL Basophils # (0.01-0.08) x10^3/uL D-Dimer 1.07 H* (0.0-0.50) mg/L Sodium 140 (135-145) mmol/L Potassium 4.4 (3.5-5.1) mmol/L Chloride 105 (98-107) mmol/L Carbon Dioxide 25 (22-30) mmol/L Anion Gap 13.4 (5-15) MEQ/L BUN 15 (7-17) mg/dL Creatinine 0.62 (0.52-1.04) mg/dL Estimated GFR 97.5 ML/MIN Glucose 90 (74-106) mg/dL Calcium 8.5 (8.4-10.2) mg/dL Total Bilirubin < 0.10 L (0.2-1.3) mg/dL AST 25 (14-36) U/L ALT 18 (0-35) U/L Alkaline Phosphatase 92 (38-126) U/L Troponin I < 0.012 (0.000-0.033) ng/mL NT-Pro-B Natriuret Pep 591 (<300) pg/mL Serum Total Protein 7.1 (6.3-8.2) g/dL Albumin 3.6 (3.5-5.0) g/dL Urine Color (Yellow) Urine Appearance (Clear) Urine pH (4.6-8.0) Ur Specific [place] (1.005-1.030) Urine Protein (Negative) Urine Glucose (UA) (Negative) mg/dL Urine Ketones (Negative) Urine Blood (Negative) Urine Nitrite (Negative) Urine Bilirubin (Negative) Urine Urobilinogen (0.2) mg/dL Ur Leukocyte Esterase (Negative) U Hyaline Cast (Auto) (0-2) /LPF Urine Microscopic RBC (0-5) /HPF Urine Microscopic WBC (0-5) /HPF Ur Epithelial Cells (None Seen) /HPF Urine Bacteria (None Seen) /HPF Urine Culture Reflexed (NO) Influenza Type A Ag (NEGATIVE) Influenza Type B Ag (NEGATIVE) RSV (PCR) (NEGATIVE) SARS-CoV-2 (PCR) (NEGATIVE) - Radiology Impressions Radiology Exams & Impressions: Radiology Procedures Category Date Time Status CHEST WITH CONTRAST [CT] Stat Exams 07/13/25 11:50 Completed Assessment/Plan (1) Bilateral pneumonia Current Visit: Yes Status: Acute Assessment & Plan: - Chest CTA: Impression: 1. Respiration artifact limits pulmonary embolus evaluation. No obvious central pulmonary embolus. 2. Diffuse bilateral consolidating/nonconsolidating airspace disease with small effusions as was reported on chest radiograph June 27, 2025. 3. Chronic findings including CABG surgery, arteriosclerotic disease, chronic bony findings, and old granulomatous disease. - CBC, CMP reviewed - D-Dimer elevated - IV Zosyn, azithromycin not added as it is a contraindication with her home meds - steroids, duonebs, advair - BC x2 - Tylenol PRN - Previous sputum sample negative. - On 4lNC, BL 2LNC Code(s): J18.9 - PNEUMONIA, UNSPECIFIED ORGANISM (2) COPD exacerbation Current Visit: Yes Status: Acute Assessment & Plan: - On 4lNC 95% - BL 2lNC - Zosyn IV - Advair, duonebs, steroids Code(s): J44.1 - CHRONIC OBSTRUCTIVE PULMONARY DISEASE W (ACUTE) EXACERBATION (3) UTI (urinary tract infection) Current Visit: Yes Status: Acute Assessment & Plan: - IV antibiotic - UC pending Code(s): N39.0 - URINARY TRACT INFECTION, SITE NOT SPECIFIED (4) Anxiety and depression Current Visit: No Status: Chronic Assessment & Plan: - Continue home meds Code(s): F41.9 - ANXIETY DISORDER, UNSPECIFIED; F32.A - DEPRESSION, UNSPECIFIED (5) CAD (coronary artery disease) Current Visit: No Status: Chronic Assessment & Plan: - Continue home meds Code(s): I25.10 - ATHSCL HEART DISEASE OF [place] CORONARY ARTERY W/O ANG PCTRS (6) DMII (diabetes mellitus, type 2) Current Visit: No Status: Chronic 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 Assessment & Plan: - A1c 5.73- Controlled - Hold oral meds - S/S insulin (7) HTN (hypertension) Current Visit: No Status: Chronic Assessment & Plan: - Continue home meds - BP stable Code(s): I10 - ESSENTIAL (PRIMARY) HYPERTENSION (8) History of stroke Current Visit: No Status: Chronic Assessment & Plan: - Continue Eliquis Code(s): Z86.73 - PRSNL HX OF TIA (TIA), AND CEREB INFRC W/O RESID DEFICITS (9) Obesity (BMI 30-39.9) Current Visit: No Status: Chronic Assessment & Plan: - Advised diet and exercise control Code(s): E66.9 - OBESITY, UNSPECIFIED (10) Seizure disorder Current Visit: No Status: Chronic Assessment & Plan: - Continue tegretol Code(s): G40.909 - EPILEPSY, UNSP, NOT INTRACTABLE, WITHOUT STATUS EPILEPTICUS (11) Chronic diarrhea Current Visit: No Status: Chronic Assessment & Plan: - Pt refuses to take Questran light as she does not like the taste - Probiotics started VTE: Eliquis PPI: Protonix Next of KIN: Friend Sandra Allan D/C plan: 2-3 days Code status: Full PLan of care time> 48 minutes Code(s): K52.9 - NONINFECTIVE GASTROENTERITIS AND COLITIS, UNSPECIFIED Telemedicine Encounter - Telemedicine Encounter Telemedicine Encounter: "The entirety of this encounter was performed via Telemedicine" This visit was performed using real-time audio and video connection between my location and thepatients locationwith the assistance of a surrogateat the patients location. Written or verbal consent was obtained from the patient/guardian to perform this visit [email or web address]. Any patient questions regarding the telemedicine interaction were answered.
[2025-07-13] MEDS ORDERED: NON-FORMULARY ITEM (Semaglutide [Ozempic] 2 MG/0.75 ML Pen.Injctr) SQ SCH (16:15)
[2025-07-13] MEDS ORDERED: HUMALOG SQ PRN (16:27)
[2025-07-13] MEDS: Tegretol 200 MG PO SCH (18:47)
[2025-07-13] MEDS: ZITHROMAX IV*** 500 MG in Sodium Chloride 0.9% 250 ML 250 ML IV STA (19:10)
[2025-07-13] MEDS: DUONEB 0.5-3 MG/3 ml Neb IH PRN (19:28)
[2025-07-13] MEDS: Advair Hfa 115/21 Common canister IH SCH (19:33)
[2025-07-13] MEDS ORDERED: Lopressor 50 MG PO SCH (22:00)
[2025-07-13] MEDS ORDERED: NON-FORMULARY ITEM (Apixaban [Eliquis] 5 MG Tablet) PO SCH (22:00)
[2025-07-13] MEDS ORDERED: Zestril 10 MG PO SCH (22:00)
[2025-07-13] MEDS ORDERED: NON-FORMULARY ITEM (Melatonin [Melatonin] 5 MG Tablet) PO SCH (22:00)
[2025-07-13] MEDS: ceLEXa 20 MG PO SCH (22:35)
[2025-07-13] MEDS: Lopressor 25MG Tab PO SCH (22:36)
[2025-07-13] MEDS: ULTRAM 50 MG PO SCH (22:37)
[2025-07-13] MEDS: ELIQUIS 2.5 MG TABLET PO SCH (22:37)
[2025-07-13] MEDS: Zestril 20 MG PO SCH (22:38)
[2025-07-13] MEDS: solu-MEDROL 40 MG, Sterile H2O 10 ml 1 ML IV SCH (22:39)
[2025-07-13] MEDS: MELATONIN PO SCH (22:40)
[2025-07-14 05:29] LABS: Hematocrit 41.3 % (34.1-44.9); Hemoglobin 13.0 g/dL (11.2-15.7); Mean Corpuscular Hemoglobin 29.9 pg (25.6-32.2); Mean Corpuscular Hgb Concent. 31.5 g/dL (32.2-35.5); Platelet Count 338 x10^3/uL (182-369); Red Blood Count 4.35 x10^6/uL (3.93-5.22); White Blood Count 10.9 x10^3/uL (3.98-10.04)
[2025-07-14 06:32] LABS: Calcium 8.3 mg/dL (8.4-10.2); Carbon Dioxide 29 mmol/L (22-30); Creatinine 1 0.61 mg/dL (0.52-1.04); EST GLOMERULAR FILTRATION RATE 97.9 ML/MIN; Glucose 120 mg/dL (74-106); Potassium 4.4 mmol/L (3.5-5.1); SGOT/AST 19 U/L (14-36); SGPT/ALT 13 U/L (0-35); Total Protein 6.6 g/dL (6.3-8.2)
[2025-07-14] MEDS: CLARITIN 10 MG PO SCH (09:47)
[2025-07-14] MEDS: PLAVIX Tablet PO SCH (09:48)
[2025-07-14] MEDS: Acidophilus TABLET PO SCH (09:49)
[2025-07-14] MEDS: HOLD METFORMIN PRODUCTS FOR 48 HOURS MC SCH (09:50)
[2025-07-14] MEDS: Protonix 20MG Tablet PO SCH (09:50)
[2025-07-14] MEDS ORDERED: NON-FORMULARY ITEM (Cetirizine Hcl [Cetirizine Hcl] 10 MG Tablet) PO SCH (10:00)
--- NOTE | 2025-07-14 11:43 | PCM.NOTE ---
Date and Time: 07/14/25 1137 Subjective Assessment: 07/13/25 is a 65-year-old female with a past medical history significant for type 2 diabetes mellitus, hypertension, prior stroke, seizure disorder, coronary artery disease status post CABG, COPD, anxiety, and depression. She presented to the emergency department via EMS for evaluation of worsening shortness of breath. The patient typically requires 2 liters of oxygen via nasal cannula at home but reports that her oxygen requirement recently increased to 4 liters. She was recently hospitalized from 06/27 to 06/28 for COPD exacerbation and pneumonia. The patient states that after discharge, she never improved and has progressively worsened since returning home. Her shortness of breath has int ensified, particularly with activity. She denies chest pain, nausea, vomiting, diaphoresis, fever, or trauma. In the emergency department, laboratory workup revealed an elevated D-dimer; however, CTA of the chest was negative for pulmonary embolism. She was started on antibiotics for pneumonia, urinary tract infection, and COPD exacerbation. The patients symptoms are described as mild to moderate in intensity at rest but worsen with exertion. She otherwise feels generally unwell and expresses concern that her breathing has not improved since her last hospitalization. 07/14/25 The patient was observed sitting up in the chair today and reports that she is starting to feel better overall. However, she continues to experience shortness of breath with any activity. She remains on her baseline oxygen of 2 liters per minute, maintaining an oxygen saturation of 94%. Physical therapy will evaluate the patient to assess her needs for home support. She is continuing on IV Zosyn, corticosteroids, and scheduled DuoNeb treatments. The patient refused Advair last night; upon discussion, she explained that it increases her appetite and requested snacks if she decides to resume it. This was agreed upon and discussed with the nursing staff. Blood cultures x2 are currently pending. The urine culture has returned showing gram-negative organisms, with sensitivities pending. A stool specimen has been sent and is pending results for Clostridioides difficile. - Review of Systems Constitutional: No Fever, No Chills Eyes: No Symptoms Ears, Nose, & Throat: No Symptoms Respiratory: Short Of Breath, No Cough Cardiac: No Chest Pain, No Edema, No Syncope Abdominal/Gastrointestinal: No Abdominal Pain, No Nausea, No Vomiting, No Diarrhea Genitourinary Symptoms: No Dysuria Musculoskeletal: No Back Pain, No Neck Pain Skin: No Rash Neurological: No Dizziness, No Focal Weakness, No Sensory Changes Psychological: No Symptoms Endocrine: No Symptoms Hematologic/Lymphatic: No Symptoms Immunological/Allergic: No Symptoms Objective Exam General Appearance: no apparent distress, alert, obese Neurologic Exam: alert, oriented x 3, cooperative, normal mood/affect, nml cerebellar function, sensation nml, No motor deficits Skin Exam: normal color, warm, dry Eye Exam: PERRL, EOMI, eyes nml inspection Ears, Nose, Throat Exam: normal ENT inspection, pharynx normal, moist mucous membranes Neck Exam: normal inspection, non-tender, supple, full range of motion Respiratory Exam: normal breath sounds, lungs clear, diminished breath sounds, No respiratory distress Cardiovascular Exam: regular rate/rhythm, normal heart sounds Gastrointestinal/Abdomen Exam: soft, No tenderness, No mass Extremity Exam: normal inspection, normal range of motion Back Exam: normal inspection, normal range of motion, No CVA tenderness, No vertebral tenderness Pelvic Exam: deferred Rectal Exam: deferred Objective Data Vital Signs: Vital Signs - 24 hr Temp Pulse Resp BP BP Pulse Ox 07/14/25 11:28 98.5 F 66 18 119/77 94 L 07/14/25 07:40 98.8 F 79 18 165/84 94 L 07/14/25 07:02 73 16 98 07/14/25 04:00 96.8 F 71 19 142/74 95 07/13/25 23:25 97.0 F 73 19 118/56 95 07/13/25 20:33 80 22 95 07/13/25 19:43 97.6 F 79 22 133/78 95 07/13/25 16:39 96 07/13/25 15:30 97.3 F 79 24 129/73 95 07/13/25 14:47 97.3 F 79 24 129/73 95 07/13/25 14:38 96 07/13/25 14:00 74 11 L 139/90 96 07/13/25 13:30 77 19 137/69 96 07/13/25 13:00 67 22 127/83 96 07/13/25 12:41 69 23 122/73 95 07/13/25 12:40 72 20 96 07/13/25 12:00 66 22 122/64 95 Pain Assessment - Last Documented Pain Intensity 0 Intake and Output: Intake & Output 10/19/25 10/20/25 10/21/25 10/22/25 11:59 11:59 11:59 11:59 Intake Total 1938 Balance 1938 Weight 94.8 kg 93.4 kg Lab Results: Lab Results-Last 24 Hours 07/13/25 07/13/25 07/13/25 Range/Units 10:40 11:07 11:07 WBC (3.98-10.04) x10^3/uL RBC (3.93-5.22) x10^6/uL Hgb (11.2-15.7) g/dL Hct (34.1-44.9) % MCV (79.4-94.8) fL MCH (25.6-32.2) pg MCHC (32.2-35.5) g/dL RDW (11.7-14.4) % Plt Count (182-369) x10^3/uL MPV (9.4-12.3) fL D-Dimer 1.07 H* (0.0-0.50) mg/L Sodium 140 (135-145) mmol/L Potassium 4.4 (3.5-5.1) mmol/L Chloride 105 (98-107) mmol/L Carbon Dioxide 25 (22-30) mmol/L Anion Gap 13.4 (5-15) MEQ/L BUN 15 (7-17) mg/dL Creatinine 0.62 (0.52-1.04) mg/dL Estimated GFR 97.5 ML/MIN Glucose 90 (74-106) mg/dL POC Glucometer (74 to 106) mg/dL Calcium 8.5 (8.4-10.2) mg/dL Total Bilirubin < 0.10 L (0.2-1.3) mg/dL AST 25 (14-36) U/L ALT 18 (0-35) U/L Alkaline Phosphatase 92 (38-126) U/L Troponin I (0.000-0.033) ng/mL NT-Pro-B Natriuret Pep 591 (<300) pg/mL Serum Total Protein 7.1 (6.3-8.2) g/dL Albumin 3.6 (3.5-5.0) g/dL TSH 3rd Generation (0.470-4.680) mIU/L Influenza Type A Ag NEGATIVE (NEGATIVE) Influenza Type B Ag NEGATIVE (NEGATIVE) RSV (PCR) NEGATIVE (NEGATIVE) SARS-CoV-2 (PCR) NEGATIVE (NEGATIVE) 07/13/25 07/13/25 07/13/25 Range/Units 11:07 15:07 17:30 WBC (3.98-10.04) x10^3/uL RBC (3.93-5.22) x10^6/uL Hgb (11.2-15.7) g/dL Hct (34.1-44.9) % MCV (79.4-94.8) fL MCH (25.6-32.2) pg MCHC (32.2-35.5) g/dL RDW (11.7-14.4) % Plt Count (182-369) x10^3/uL MPV (9.4-12.3) fL D-Dimer (0.0-0.50) mg/L Sodium (135-145) mmol/L Potassium (3.5-5.1) mmol/L Chloride (98-107) mmol/L Carbon Dioxide (22-30) mmol/L Anion Gap (5-15) MEQ/L BUN (7-17) mg/dL Creatinine (0.52-1.04) mg/dL Estimated GFR ML/MIN Glucose (74-106) mg/dL POC Glucometer 170 H (74 to 106) mg/dL Calcium (8.4-10.2) mg/dL Total Bilirubin (0.2-1.3) mg/dL AST (14-36) U/L ALT (0-35) U/L Alkaline Phosphatase (38-126) U/L Troponin I < 0.012 < 0.012 (0.000-0.033) ng/mL NT-Pro-B Natriuret Pep (<300) pg/mL Serum Total Protein (6.3-8.2) g/dL Albumin (3.5-5.0) g/dL TSH 3rd Generation (0.470-4.680) mIU/L Influenza Type A Ag (NEGATIVE) Influenza Type B Ag (NEGATIVE) RSV (PCR) (NEGATIVE) SARS-CoV-2 (PCR) (NEGATIVE) 07/13/25 07/13/25 07/14/25 Range/Units 19:05 21:09 05:03 WBC 10.9 H (3.98-10.04) x10^3/uL RBC 4.35 (3.93-5.22) x10^6/uL Hgb 13.0 (11.2-15.7) g/dL Hct 41.3 (34.1-44.9) % MCV 94.9 H (79.4-94.8) fL MCH 29.9 (25.6-32.2) pg MCHC 31.5 L (32.2-35.5) g/dL RDW 12.6 (11.7-14.4) % Plt Count 338 (182-369) x10^3/uL MPV 9.8 (9.4-12.3) fL D-Dimer (0.0-0.50) mg/L Sodium (135-145) mmol/L Potassium (3.5-5.1) mmol/L Chloride (98-107) mmol/L Carbon Dioxide (22-30) mmol/L Anion Gap (5-15) MEQ/L BUN (7-17) mg/dL Creatinine (0.52-1.04) mg/dL Estimated GFR ML/MIN Glucose (74-106) mg/dL POC Glucometer 109 H (74 to 106) mg/dL Calcium (8.4-10.2) mg/dL Total Bilirubin (0.2-1.3) mg/dL AST (14-36) U/L ALT (0-35) U/L Alkaline Phosphatase (38-126) U/L Troponin I < 0.012 (0.000-0.033) ng/mL NT-Pro-B Natriuret Pep (<300) pg/mL Serum Total Protein (6.3-8.2) g/dL Albumin (3.5-5.0) g/dL TSH 3rd Generation (0.470-4.680) mIU/L Influenza Type A Ag (NEGATIVE) Influenza Type B Ag (NEGATIVE) RSV (PCR) (NEGATIVE) SARS-CoV-2 (PCR) (NEGATIVE) 07/14/25 07/14/25 07/14/25 Range/Units 05:03 07:23 11:13 WBC (3.98-10.04) x10^3/uL RBC (3.93-5.22) x10^6/uL Hgb (11.2-15.7) g/dL Hct (34.1-44.9) % MCV (79.4-94.8) fL MCH (25.6-32.2) pg MCHC (32.2-35.5) g/dL RDW (11.7-14.4) % Plt Count (182-369) x10^3/uL MPV (9.4-12.3) fL D-Dimer (0.0-0.50) mg/L Sodium 138 (135-145) mmol/L Potassium 4.4 (3.5-5.1) mmol/L Chloride 105 (98-107) mmol/L Carbon Dioxide 29 (22-30) mmol/L Anion Gap 8.5 (5-15) MEQ/L BUN 17 (7-17) mg/dL Creatinine 0.61 (0.52-1.04) mg/dL Estimated GFR 97.9 ML/MIN Glucose 120 H (74-106) mg/dL POC Glucometer 102 136 H (74 to 106) mg/dL Calcium 8.3 L (8.4-10.2) mg/dL Total Bilirubin < 0.10 L (0.2-1.3) mg/dL AST 19 (14-36) U/L ALT 13 (0-35) U/L Alkaline Phosphatase 89 (38-126) U/L Troponin I (0.000-0.033) ng/mL NT-Pro-B Natriuret Pep (<300) pg/mL Serum Total Protein 6.6 (6.3-8.2) g/dL Albumin 3.3 L (3.5-5.0) g/dL TSH 3rd Generation 0.287 L (0.470-4.680) mIU/L Influenza Type A Ag (NEGATIVE) Influenza Type B Ag (NEGATIVE) RSV (PCR) (NEGATIVE) SARS-CoV-2 (PCR) (NEGATIVE) Radiology Exams: Radiology Procedures Category Date Time Status CHEST WITH CONTRAST [CT] Stat Exams 07/13/25 11:50 Completed Medications: Medications Generic Name Dose Route Start Last Admin Trade Name Freq PRN Reason Stop Dose Admin Acetaminophen 650 mg 07/13/25 16:09 Acetaminophen 325 Mg Tablet PO 08/12/25 16:08 Q6H PRN PRN PAIN AND/OR FEVER Albuterol/Ipratropium 3 ml 07/13/25 16:15 07/13/25 19:28 Ipratropium/Albuterol Sulfate 3 Ml Ampul.Neb IH 08/12/25 16:14 3 ml Q4HPRN PRN Administration SHORTNESS OF BREATH/WHEEZING Apixaban 5 mg 07/13/25 22:00 07/14/25 09:48 Apixaban 2.5 Mg Tablet PO 08/12/25 21:59 5 mg BID SB Administration Carbamazepine 400 mg 07/13/25 17:00 07/14/25 09:49 Carbamazepine 200 Mg Tablet PO 08/12/25 16:59 400 mg QID SB Administration Citalopram Hydrobromide 40 mg 07/13/25 22:00 07/13/25 22:35 Citalopram Hydrobromide 20 Mg Tablet PO 08/12/25 21:59 40 mg HS SB Administration Clopidogrel Bisulfate 75 mg 07/14/25 10:00 07/14/25 09:48 Clopidogrel Bisulfate 75 Mg Tablet PO 08/13/25 09:59 75 mg DAILY SB Administration Methylprednisolone Sodium 0 mg 07/13/25 22:00 07/14/25 09:49 Succinate 40 mg/ Sterile Water IV 08/12/25 21:59 40 mg 1 ml Q12HT SB Administration Piperacillin Sod/Tazobactam 100 mls @ 200 mls/hr 07/13/25 18:00 07/14/25 05:58 Sod 4.5 gm/ Sodium Chloride IV 08/12/25 17:59 200 mls/hr Q6HT SB Administration Insulin Human Lispro 0 unit 07/13/25 16:27 Insulin Lispro 1 Unit SQ 08/12/25 16:26 UD PRN HYPERGLYCEMIA Lactobacillus Acidophilus 1 tab 07/14/25 10:00 07/14/25 09:49 Lactobacillus Acidophilus 1 Tab Tablet PO 08/13/25 09:59 1 tab DAILY SB Administration Lisinopril 20 mg 07/13/25 22:00 07/14/25 09:48 Lisinopril 20 Mg Tablet PO 08/12/25 21:59 20 mg BID SB Administration Loratadine 10 mg 07/14/25 10:00 07/14/25 09:47 Loratadine 10 Mg Tablet PO 08/13/25 09:59 10 mg DAILY SB Administration Melatonin 4.5 mg 07/13/25 22:00 07/13/25 22:40 Melatonin 3 Mg Tablet PO 08/12/25 21:59 4.5 mg HS SB Administration Metoprolol Tartrate 25 mg 07/13/25 22:00 07/14/25 09:48 Metoprolol Tartrate 25 Mg Tab PO 08/12/25 21:59 25 mg BID SB Administration Non-Formulary Medication 1 each 07/13/25 12:30 07/14/25 09:50 Hold Metformin Products For 48hrs 07/15/25 12:31 Not Given Q48H SB Pantoprazole Sodium 20 mg 07/14/25 10:00 07/14/25 09:50 Pantoprazole 20 Mg Tab PO 08/13/25 09:59 20 mg DAILY SB Administration Tramadol HCl 50 mg 07/13/25 22:00 07/14/25 09:49 Tramadol Hcl 50 Mg Tablet PO 08/12/25 21:59 50 mg TID SB Administration Discontinued Medications Generic Name Dose Route Start Last Admin Trade Name Morganq PRN Reason Stop Dose Admin Albuterol/Ipratropium 3 ml 07/13/25 10:45 07/13/25 11:03 Ipratropium/Albuterol Sulfate 3 Ml Ampul.Neb IH 07/13/25 10:46 3 ml STAT ONE Administration Albuterol/Ipratropium Confirm 07/13/25 10:54 Ipratropium/Albuterol Sulfate 3 Ml Ampul.Neb Administered 07/13/25 10:55 Dose 3 ml IH .STK-MED ONE Methylprednisolone Sodium 0 mg 07/13/25 10:45 07/13/25 10:51 Succinate 125 mg/ Sterile IV 07/13/25 10:46 125 mg Water 2 ml STAT ONE Administration Ceftriaxone Sodium 2 gm in 100 mls @ 200 mls/hr 07/13/25 14:22 07/13/25 14:29 Rocephin 2 Gm/100 Ml Nacl IV 07/13/25 14:51 200 mls/hr STAT ONE 200 mls/hr Administration Azithromycin 500 mg/ Sodium 250 mls @ 250 mls/hr 07/13/25 14:22 07/13/25 19:10 Chloride IV 07/13/25 15:21 Not Given STAT STA Ceftriaxone Sodium Confirm 07/13/25 14:25 Rocephin 2 Gm/100 Ml Nacl Administered 07/13/25 14:26 Dose 2 gm in 100 mls @ ud IV .STK-MED ONE Methylprednisolone Sodium Succinate Confirm 07/13/25 10:50 Methylprednis Sod Succ 125 Mg/2 Ml Vial Administered 07/13/25 10:51 Dose 125 mg .ROUTE .STK-MED ONE Non-Formulary Medication 2 mg 07/13/25 16:15 Semaglutide [Ozempic] SQ 08/12/25 16:14 WEEKLY SB Fluticasone/Salmeterol 2 puff 07/13/25 19:00 07/14/25 07:01 Fluticasone/Salmeterol / 60 Puff Aer.W.Adap IH 08/12/25 18:59 Not Given BIDRT SB Sterile Water Confirm 07/13/25 10:50 Water For Injection,Sterile 10 Ml Vial Administered 07/13/25 10:51 Dose 10 ml IJ .STK-MED ONE Assessment/Plan (1) Bilateral pneumonia Current Visit: Yes Status: Acute Code(s): J18.9 - PNEUMONIA, UNSPECIFIED ORGANISM (2) COPD exacerbation Current Visit: Yes Status: Acute Code(s): J44.1 - CHRONIC OBSTRUCTIVE PULMONARY DISEASE W (ACUTE) EXACERBATION (3) UTI (urinary tract infection) Current Visit: Yes Status: Acute Code(s): N39.0 - URINARY TRACT INFECTION, SITE NOT SPECIFIED (4) Anxiety and depression Current Visit: No Status: Chronic Code(s): F41.9 - ANXIETY DISORDER, UNSPECIFIED; F32.A - DEPRESSION, UNSPECIFIED (5) CAD (coronary artery disease) Current Visit: No Status: Chronic Code(s): I25.10 - ATHSCL HEART DISEASE OF [place] CORONARY ARTERY W/O ANG PCTRS (6) DMII (diabetes mellitus, type 2) Current Visit: No Status: Chronic Qualifiers: Diabetes mellitus long-term insulin use: 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 (7) HTN (hypertension) Current Visit: No Status: Chronic Code(s): I10 - ESSENTIAL (PRIMARY) HYPERTENSION (8) History of stroke Current Visit: No Status: Chronic Code(s): Z86.73 - PRSNL HX OF TIA (TIA), AND CEREB INFRC W/O RESID DEFICITS (9) Obesity (BMI 30-39.9) Current Visit: No Status: Chronic Code(s): E66.9 - OBESITY, UNSPECIFIED (10) Seizure disorder Current Visit: No Status: Chronic Code(s): G40.909 - EPILEPSY, UNSP, NOT INTRACTABLE, WITHOUT STATUS EPILEPTICUS (11) Chronic diarrhea Current Visit: No Status: Chronic Assessment & Plan: (1) Bilateral pneumonia Current Visit: Yes Status: Acute Assessment & Plan: - Tele - Chest CTA: Impression: 1. Respiration artifact limits pulmonary embolus evaluation. No obvious central pulmonary embolus. 2. Diffuse bilateral consolidating/nonconsolidating airspace disease with small effusions as was reported on chest radiograph June 27, 2025. 3. Chronic findings including CABG surgery, arteriosclerotic disease, chronic bony findings, and old granulomatous disease. - CBC, CMP reviewed - D-Dimer elevated - IV Zosyn, azithromycin not added as it is a contraindication with her home meds - steroids, duonebs, advair - BC x2 - Tylenol PRN - Previous sputum sample negative. - On 4lNC, BL 2LNC 07/14 - On 2lNC 94%- baseline O2 requirement - BC x2 pending - CBC, CMP reviewed - WBC 10.9- improved - PT eval for weakness and home needs - Increased SOB with activity Code(s): J18.9 - PNEUMONIA, UNSPECIFIED ORGANISM (2) COPD exacerbation Current Visit: Yes Status: Acute Assessment & Plan: - On 4lNC 95% - BL 2lNC - Zosyn IV - Advair, duonebs, steroids 07/14 - On 2lNC 94%- baseline O2 requirement Code(s): J44.1 - CHRONIC OBSTRUCTIVE PULMONARY DISEASE W (ACUTE) EXACERBATION (3) UTI (urinary tract infection) Current Visit: Yes Status: Acute Assessment & Plan: - IV antibiotic - UC pending 07/14 - UC geam negative Code(s): N39.0 - URINARY TRACT INFECTION, SITE NOT SPECIFIED (4) Anxiety and depression Current Visit: No Status: Chronic Assessment & Plan: - Continue home meds Code(s): F41.9 - ANXIETY DISORDER, UNSPECIFIED; F32.A - DEPRESSION, UNSPECIFIED (5) CAD (coronary artery disease) Current Visit: No Status: Chronic Assessment & Plan: - Continue home meds Code(s): I25.10 - ATHSCL HEART DISEASE OF [place] CORONARY ARTERY W/O ANG PCTRS (6) DMII (diabetes mellitus, type 2) Current Visit: No Status: Chronic Qualifiers: Diabetes mellitus long-term insulin use: 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 Assessment & Plan: - A1c 5.73- Controlled - Hold oral meds - S/S insulin - Accuchecks AC/HS (7) HTN (hypertension) Current Visit: No Status: Chronic Assessment & Plan: - Continue home meds - BP stable Code(s): I10 - ESSENTIAL (PRIMARY) HYPERTENSION (8) History of stroke Current Visit: No Status: Chronic Assessment & Plan: - Continue Eliquis Code(s): Z86.73 - PRSNL HX OF TIA (TIA), AND CEREB INFRC W/O RESID DEFICITS (9) Obesity (BMI 30-39.9) Current Visit: No Status: Chronic Assessment & Plan: - Advised diet and exercise control Code(s): E66.9 - OBESITY, UNSPECIFIED (10) Seizure disorder Current Visit: No Status: Chronic Assessment & Plan: - Continue tegretol Code(s): G40.909 - EPILEPSY, UNSP, NOT INTRACTABLE, WITHOUT STATUS EPILEPTICUS (11) Chronic diarrhea Current Visit: No Status: Chronic Assessment & Plan: - Pt refuses to take Questran light as she does not like the taste - Probiotics started - C-Diff pending VTE: Eliquis PPI: Protonix Next of KIN: Friend Sandra Lemus D/C plan: 1-2 days Code status: Full PLan of care time> 48 minutes Code(s): K52.9 - NONINFECTIVE GASTROENTERITIS AND COLITIS, UNSPECIFIED Code(s): K52.9 - NONINFECTIVE GASTROENTERITIS AND COLITIS, UNSPECIFIED
[2025-07-14] MEDS: TYLENOL 325 MG PO PRN (18:24)
[2025-07-14] MEDS: Advair Hfa 115/21 Common canister IH SCH (19:52)
[2025-07-15 05:10] LABS: Hematocrit 38.7 % (34.1-44.9); Hemoglobin 12.4 g/dL (11.2-15.7); Mean Corpuscular Hemoglobin 30.4 pg (25.6-32.2); Mean Corpuscular Hgb Concent. 32.0 g/dL (32.2-35.5); Platelet Count 314 x10^3/uL (182-369); Red Blood Count 4.08 x10^6/uL (3.93-5.22); White Blood Count 9.8 x10^3/uL (3.98-10.04)
[2025-07-15 06:56] LABS: Calcium 8.0 mg/dL (8.4-10.2); Carbon Dioxide 29 mmol/L (22-30); Creatinine 1 0.53 mg/dL (0.52-1.04); EST GLOMERULAR FILTRATION RATE 101.3 ML/MIN; Glucose 135 mg/dL (74-106); Potassium 4.0 mmol/L (3.5-5.1); SGOT/AST 19 U/L (14-36); SGPT/ALT 13 U/L (0-35); Total Protein 6.3 g/dL (6.3-8.2)
[2025-07-15 07:54] VITALS: O2SAT 93
--- NOTE | 2025-07-15 11:49 | PCM.DS ---
Discharge Summary Date of Admission: 07/13/25 14:43 Date of Discharge: 07/15/25 Admitting Physician: ALEXANDRA CABRERA MD Primary Care Provider: NICHOLAS SHIN NOAMI Allergies Allergies latex Allergy (Verified 07/13/25 14:48) Itching Hospital Summary - Hospital Course Hospital Course: The patient is a 65-year-old female with a past medical history of type 2 diabetes mellitus, hypertension, prior stroke, seizure disorder, coronary artery disease status post CABG, COPD, anxiety, and depression, who presented on 07/13/25 with worsening shortness of breath. She typically uses 2 liters of oxygen via nasal cannula at home but had recently required 4 liters. Evaluation in the emergency department revealed an elevated D-dimer, but CTA of the chest was negative for pulmonary embolism. She was started on antibiotics for pneumonia, urinary tract infection, and COPD exacerbation, along with corticosteroids and scheduled DuoNeb treatments. Over the course of hospitalization, her respiratory symptoms gradually improved, and she was weaned back to her baseline oxygen of 2 liters per minute with oxygen saturation of 94%. Today, the patient reports feeling much better and is ready for discharge. White blood cell count has normalized. She will continue antibiotics and corticosteroids as an outpatient for management of pneumonia and COPD exacerbation. Her TSH was found to be low, consistent with hyperthyroidism, and she will be referred to endocrinology for outpatient evaluation. The patient has experienced symptoms consistent with hyperthyroidism, including tremors, diarrhea, hair thinning, and sweating. Case management arranged for her to have a nebulizer machine at home; she will be discharged with albuterol nebulizer treatments and an Advair inhaler. The patient denies any further concerns at this time and will follow up with her primary care provider and endocrinology as an outpatient. - Vitals & Intake/Output Vital Signs: Vital Signs Temperature 97.9 F 07/15/25 07:53 Pulse Rate 65 07/15/25 07:53 Respiratory Rate 21 07/15/25 07:53 Blood Pressure 133/73 07/15/25 07:53 O2 Sat by Pulse Oximetry 93 L 07/15/25 07:53 Intake & Output: Intake & Output 07/12/25 07/13/25 07/14/25 07/15/25 11:59 11:59 11:59 11:59 Intake Total 1937 1812 Output Total 250 Balance 1937 1562 Weight 94.8 kg 93.4 kg - Lab Result Diagrams: 07/15/25 05:01 07/15/25 05:01 Lab Results-Last 24 Hrs: Lab Results-Last 24 Hours 07/14/25 07/14/25 07/15/25 Range/Units 16:08 21:16 05:01 WBC 9.8 (3.98-10.04) x10^3/uL RBC 4.08 (3.93-5.22) x10^6/uL Hgb 12.4 (11.2-15.7) g/dL Hct 38.7 (34.1-44.9) % MCV 94.9 H (79.4-94.8) fL MCH 30.4 (25.6-32.2) pg MCHC 32.0 L (32.2-35.5) g/dL RDW 13.1 (11.7-14.4) % Plt Count 314 (182-369) x10^3/uL MPV 9.8 (9.4-12.3) fL Sodium (135-145) mmol/L Potassium (3.5-5.1) mmol/L Chloride (98-107) mmol/L Carbon Dioxide (22-30) mmol/L Anion Gap (5-15) MEQ/L BUN (7-17) mg/dL Creatinine (0.52-1.04) mg/dL Estimated GFR ML/MIN Glucose (74-106) mg/dL POC Glucometer 141 H 148 H (74 to 106) mg/dL Calcium (8.4-10.2) mg/dL Total Bilirubin (0.2-1.3) mg/dL AST (14-36) U/L ALT (0-35) U/L Alkaline Phosphatase (38-126) U/L Serum Total Protein (6.3-8.2) g/dL Albumin (3.5-5.0) g/dL 07/15/25 07/15/25 Range/Units 05:01 07:26 WBC (3.98-10.04) x10^3/uL RBC (3.93-5.22) x10^6/uL Hgb (11.2-15.7) g/dL Hct (34.1-44.9) % MCV (79.4-94.8) fL MCH (25.6-32.2) pg MCHC (32.2-35.5) g/dL RDW (11.7-14.4) % Plt Count (182-369) x10^3/uL MPV (9.4-12.3) fL Sodium 140 (135-145) mmol/L Potassium 4.0 (3.5-5.1) mmol/L Chloride 107 (98-107) mmol/L Carbon Dioxide 29 (22-30) mmol/L Anion Gap 8.3 (5-15) MEQ/L BUN 12 (7-17) mg/dL Creatinine 0.53 (0.52-1.04) mg/dL Estimated GFR 101.3 ML/MIN Glucose 135 H (74-106) mg/dL POC Glucometer 104 (74 to 106) mg/dL Calcium 8.0 L (8.4-10.2) mg/dL Total Bilirubin < 0.10 L (0.2-1.3) mg/dL AST 19 (14-36) U/L ALT 13 (0-35) U/L Alkaline Phosphatase 79 (38-126) U/L Serum Total Protein 6.3 (6.3-8.2) g/dL Albumin 3.1 L (3.5-5.0) g/dL Micro Results-Entire Visit: Microbiology 07/13/25 10:11 Urine Culture - Final Clean Catch Midstream Proteus Mirabilis 07/13/25 11:17 Blood Culture - Preliminary Blood 07/13/25 11:07 Blood Culture - Preliminary Blood Accuchecks Date 07/14/25 Time 16:26 - Radiology Exams Ordered Rad Exams-Entire Visit: Radiology Procedures Category Date Time Status CHEST WITH CONTRAST [CT] Stat Exams 07/13/25 11:50 Completed - Procedures and Test Procedures and Tests throughout Hospitalization: Therapy Orders & Screens 07/13/25 11:04 Respiratory Therapy Assessment DAILY Comment: 07/13/25 15:43 RT Screen per Nursing Assess ONCE Comment: Protocol Order Physician Instructions: Greater than 3 points order RT Admission Screen Reason For Exam: Triggered on Admission Diagnosis: COPD exacerbation, bilateral pneumonia Diagnosis: COPD exacerbation, bilateral pneumonia Pneumonia: Yes Home O2: Yes Asthma: No CHF: No Home CPAP/BIPAP: No Home Nebs/MDI: Yes Total Points: 13 07/13/25 16:27 Respiratory Therapy Assessment DAILY Comment: Diagnosis: COPD exacerbation, bilateral pneumonia, wheezing 07/13/25 16:29 Oxygen Nasal Cannula 2 lpm Comment: Diagnosis: COPD exacerbation, bilateral pneumonia, wheezing 07/14/25 11:42 PT Eval & Treat (MD Order) ONCE Reason for Eval:: increased SOB with walking, weakness- eval for home needs Diagnosis: COPD exacerbation, bilateral pneumonia, wheezing Discharge Exam General Appearance: no apparent distress, alert, obese Neurologic Exam: alert, oriented x 3, cooperative, normal mood/affect, nml cerebellar function, sensation nml, No motor deficits Eye Exam: PERRL, EOMI, eyes nml inspection Ears, Nose, Throat Exam: normal ENT inspection, pharynx normal, moist mucous membranes Neck Exam: normal inspection, non-tender, supple, full range of motion Respiratory Exam: normal breath sounds, lungs clear, No respiratory distress Cardiovascular Exam: regular rate/rhythm, normal heart sounds Gastrointestinal/Abdomen Exam: soft, No tenderness, No mass Pelvic Exam: deferred Rectal Exam: deferred Back Exam: normal inspection, normal range of motion, No CVA tenderness, No vertebral tenderness Extremity Exam: normal inspection, normal range of motion Skin Exam: normal color, warm, dry Final Diagnosis/Problem List - Final Discharge Diagnosis/Problem (1) Bilateral pneumonia Current Visit: Yes Status: Acute Code(s): J18.9 - PNEUMONIA, UNSPECIFIED ORGANISM (2) COPD exacerbation Current Visit: Yes Status: Acute Code(s): J44.1 - CHRONIC OBSTRUCTIVE PULMONARY DISEASE W (ACUTE) EXACERBATION (3) UTI (urinary tract infection) Current Visit: Yes Status: Acute Code(s): N39.0 - URINARY TRACT INFECTION, SITE NOT SPECIFIED (4) Anxiety and depression Current Visit: No Status: Chronic Code(s): F41.9 - ANXIETY DISORDER, UNSPECIFIED; F32.A - DEPRESSION, UNSPECIFIED (5) CAD (coronary artery disease) Current Visit: No Status: Chronic Code(s): I25.10 - ATHSCL HEART DISEASE OF [place] CORONARY ARTERY W/O ANG PCTRS (6) DMII (diabetes mellitus, type 2) Current Visit: No Status: Chronic (7) HTN (hypertension) Current Visit: No Status: Chronic Code(s): I10 - ESSENTIAL (PRIMARY) HYPERTENSION (8) History of stroke Current Visit: No Status: Chronic Code(s): Z86.73 - PRSNL HX OF TIA (TIA), AND CEREB INFRC W/O RESID DEFICITS (9) Obesity (BMI 30-39.9) Current Visit: No Status: Chronic Code(s): E66.9 - OBESITY, UNSPECIFIED (10) Seizure disorder Current Visit: No Status: Chronic Code(s): G40.909 - EPILEPSY, UNSP, NOT INTRACTABLE, WITHOUT STATUS EPILEPTICUS (11) Chronic diarrhea Current Visit: No Status: Chronic Assessment & Plan: (1) Bilateral pneumonia Current Visit: Yes Status: Acute Assessment & Plan: - Tele - Chest CTA: Impression: 1. Respiration artifact limits pulmonary embolus evaluation. No obvious central pulmonary embolus. 2. Diffuse bilateral consolidating/nonconsolidating airspace disease with small effusions as was reported on chest radiograph June 27, 2025. 3. Chronic findings including CABG surgery, arteriosclerotic disease, chronic bony findings, and old granulomatous disease. - CBC, CMP reviewed - D-Dimer elevated - IV Zosyn, azithromycin not added as it is a contraindication with her home meds - steroids, duonebs, advair - BC x2 - Tylenol PRN - Previous sputum sample negative. - On 4lNC, BL 2LNC 07/14 - On 2lNC 94%- baseline O2 requirement - BC x2 pending - CBC, CMP reviewed - WBC 10.9- improved - PT eval for weakness and home needs - Increased SOB with activity 07/15 - On baseline O2 at 2lNC 94% - Lung sounds are clear - Denies SOB - Neb machine ordered by CM, - Continue nebs, antibiotics, steroids OP - CBC, CMP reviewed - BC x2 negative Code(s): J18.9 - PNEUMONIA, UNSPECIFIED ORGANISM (2) COPD exacerbation Current Visit: Yes Status: Acute Assessment & Plan: - On 4lNC 95% - BL 2lNC - Zosyn IV - Advair, duonebs, steroids 07/14 - On 2lNC 94%- baseline O2 requirement Code(s): J44.1 - CHRONIC OBSTRUCTIVE PULMONARY DISEASE W (ACUTE) EXACERBATION (3) UTI (urinary tract infection) Current Visit: Yes Status: Acute Assessment & Plan: - IV antibiotic - UC pending 07/14 - UC gram negative 07/15 - UC + proteus mirabilis - Will d/c with PO antibiotic Code(s): N39.0 - URINARY TRACT INFECTION, SITE NOT SPECIFIED (4) Anxiety and depression Current Visit: No Status: Chronic Assessment & Plan: - Continue home meds Code(s): F41.9 - ANXIETY DISORDER, UNSPECIFIED; F32.A - DEPRESSION, UNSPECIFIED (5) CAD (coronary artery disease) Current Visit: No Status: Chronic Assessment & Plan: - Continue home meds Code(s): I25.10 - ATHSCL HEART DISEASE OF [place] CORONARY ARTERY W/O ANG PCTRS (6) DMII (diabetes mellitus, type 2) Current Visit: No Status: Chronic Qualifiers: Diabetes mellitus mcfp insulin use: without mcfp use Assessment & Plan: - A1c 5.73- Controlled - Hold oral meds - S/S insulin - Accuchecks AC/HS (7) HTN (hypertension) Current Visit: No Status: Chronic Assessment & Plan: - Continue home meds - BP stable Code(s): I10 - ESSENTIAL (PRIMARY) HYPERTENSION (8) History of stroke Current Visit: No Status: Chronic Assessment & Plan: - Continue Eliquis Code(s): Z86.73 - PRSNL HX OF TIA (TIA), AND CEREB INFRC W/O RESID DEFICITS (9) Obesity (BMI 30-39.9) Current Visit: No Status: Chronic Assessment & Plan: - Advised diet and exercise control Code(s): E66.9 - OBESITY, UNSPECIFIED (10) Seizure disorder Current Visit: No Status: Chronic Assessment & Plan: - Continue tegretol Code(s): G40.909 - EPILEPSY, UNSP, NOT INTRACTABLE, WITHOUT STATUS EPILEPTICUS (11) Chronic diarrhea Current Visit: No Status: Chronic Assessment & Plan: - Pt refuses to take Questran light as she does not like the taste - Probiotics started - C-Diff pending- diarrhea resolved so specimen not obtained D/C plan of care time: > 46 minutes New meds at D/C: Prednisone, Advair inhaler, Albuterol nebs, cefuroxime, doxycycline Code(s): K52.9 - NONINFECTIVE GASTROENTERITIS AND COLITIS, UNSPECIFIED - Discharge Discharge Date: 07/15/25 Disposition: Home, Self-Care Condition: Stable Prescriptions: New Doxycycline Hyclate 100 mg [Vibramycin 100 MG] 100 mg PO BID 5 Days #10 tab Prednisone 20 mg [Deltasone 20 mg] 20 mg PO BID 5 Days #10 tablet Albuterol/Ipratropium 3ml Neb* [DUONEB 0.5-3 MG/3 ml Neb] 3 ml IH Q4HPRN PRN 5 Days #30 amp PRN Reason: Shortness Of Breath/Wheezing Fluticasone/Salmeterol 115/21 [Advair Hfa 115/21 Common canister*] 2 puff IH BID 30 Days #1 inhaler Continue Citalopram Hydrobromide 20 mg* [ceLEXa 20 MG] 40 mg PO HS Metoprolol Tartrate 50 mg [Lopressor 50 MG] 25 mg PO BID carBAMazepine [Tegretol] 400 mg PO QID Clopidogrel Bisulfate [PLAVIX Tablet] 75 mg PO DAILY Metformin HCl [Metformin ER Osmotic] 1,000 mg PO BID Tramadol HCl 50 mg [Ultram 50 mg] 50 mg PO TID Semaglutide [Ozempic] 2 mg SQ WEEKLY Empagliflozin [Jardiance] 25 mg PO QHS Apixaban [Eliquis] 5 mg PO BID Melatonin 5 mg PO HS Lisinopril 10 mg [Zestril 10 MG] 20 mg PO BID Cetirizine HCl 10 mg PO DAILY Albuterol 8 gm Mdi Hfa [Ventolin Hfa MDI] 2 puff IH QID PRN PRN Reason: Shortness Of Breath/Wheezing Additional Instructions: A NEBULIZER MACHINE WAS ORDERED THRU [facility]- THIS WILL BE DELIVERED TO YOUR HOME. YOU CAN FOLLOWUP WITH THEM IF NEEDED AT [phone] Follow up with: DEVON MACHADO [NON-STAFF PHY W/O PRIVILEGES, UNKNOWN] - Office will call patient Referral Note: We will be faxing your records to Dr. Machado. Once reviewed, they will call you to schedule an appointment. NICHOLAS SHIN MD [Primary Care Provider, [facility]] - 07/19/25 1:00 pm
[2025-07-15 12:05] VITALS: BP 183/87; PULSE 86; RESP 19; TEMP 97.6
== END 2025-07-15 13:58 | disposition home or self-care (01) ==
LOC: ED 09:30 → MED SURG 14:43
PROVIDERS: ADMIT Internal Medicine; ATTEND Internal Medicine
DX: J18.9 Pneumonia, unspecified organism (principal); J44.1 Chronic obstructive pulmonary disease with (acute) exacerbation; N39.0 Urinary tract infection, site not specified; F41.9 Anxiety disorder, unspecified; F32.A Depression, unspecified; I25.10 Atherosclerotic heart disease of native coronary artery without angina pectoris; E11.9 Type 2 diabetes mellitus without complications; I10 Essential (primary) hypertension; Z86.73 Personal history of transient ischemic attack (TIA), and cerebral infarction without residual deficits; E66.9 Obesity, unspecified; G40.909 Epilepsy, unspecified, not intractable, without status epilepticus; K52.9 Noninfective gastroenteritis and colitis, unspecified; Z79.01 Long term (current) use of anticoagulants; Z79.899 Other long term (current) drug therapy; Z95.0 Presence of cardiac pacemaker
CPT/HCPCS: 36415; 71260; 80053; 81001; 82947; 83880; 84443; 84484; 85025; 85027; 85379; 87040; 87077; 87086; 87186; 87637; 93005; 93041; 94640; 94760; 94762; 97161; 97530; 99285; Q3014

== ENCOUNTER 2025-07-19 09:57 | Inpatient (IN) | payer OTHER ==
--- NOTE | 2025-07-19 10:12 | ERPHSYRPT ---
- History of Present Illness Time Seen by Provider: 07/19/25 10:07 Source: patient Physician History: Patient comes to the emergency room due to shortness of breath that is minimal on for the past 2 days patient was discharged a couple weeks ago from this hospital for pneumonia was started on oxygen normally she is on 2 L but right now requiring about 3 to 4 L saying her shortness of breath is getting worse and her legs are getting more puffy and swollen therefore she came in to get evaluated for that wants to be admitted. Timing/Duration: day(s) Possible Cause: frequent episodes Modifying Factors: Improves With: activity Associated Symptoms: cough, edema, No fever, No productive cough Allergies/Adverse Reactions: latex Allergy (Verified 07/19/25 10:07) Itching Home Medications: Citalopram Hydrobromide 20 mg* [ceLEXa 20 MG] 40 mg PO HS 04/24/17 [History] Clopidogrel Bisulfate [PLAVIX Tablet] 75 mg PO DAILY 04/24/17 [History] Metformin HCl [Metformin ER Osmotic] 1,000 mg PO BID 04/24/17 [History] Metoprolol Tartrate 50 mg [Lopressor 50 MG] 25 mg PO BID 04/24/17 [History] carBAMazepine [Tegretol] 400 mg PO QID 04/24/17 [History] Tramadol HCl 50 mg [Ultram 50 mg] 50 mg PO TID 07/13/20 [History] Semaglutide [Ozempic] 2 mg SQ WEEKLY 03/19/23 [History] Apixaban [Eliquis] 5 mg PO BID 08/11/23 [History] Cetirizine HCl 10 mg PO DAILY 08/11/23 [History] Empagliflozin [Jardiance] 25 mg PO QHS 08/11/23 [History] Lisinopril 10 mg [Zestril 10 MG] 20 mg PO BID 08/11/23 [History] Melatonin 5 mg PO HS 08/11/23 [History] Albuterol 8 gm Mdi Hfa [Ventolin Hfa MDI] 2 puff IH QID PRN 06/27/25 [History] Hx Tetanus, Diphtheria Vaccination/Date Given: Yes Hx Influenza Vaccination/Date Given: Yes Hx Pneumococcal Vaccination/Date Given: Yes Travel Risk - Emerging Infectious Disease Are you exhibiting symptoms associated with any current EIDs: Yes Symptoms: Cough: New Onset, Shortness of Breath Comment: 91% room air - Review of Systems Constitutional: No Fever, No Chills Respiratory: Cough, Dyspnea, Dyspnea on Exertion (VICENTE) Cardiac: Edema, No No Symptoms Abdominal/Gastrointestinal: No Symptoms Skin: No Symptoms Neurological: No Symptoms Psychological: No Symptoms - Past Medical History Pertinent Past Medical History: Yes Neurological History: Seizures, Stroke, Other ENT History: Glaucoma Cardiac History: Coronary Artery Disease, Hypertension Respiratory History: COPD Endocrine Medical History: Diabetes Type II Musculoskeletal History: Arthritis GI Medical History: GERD History: Other Psycho-Social History: Anxiety, Depression, Other Female Reproductive Disorders: No Pertinent History Other Medical History: kidney stones, parkinson disease - Past Surgical History Past Surgical History: Yes Neuro Surgical History: No Pertinent History Cardiac: CABG, Pacemaker Respiratory: No Pertinent History Gastrointestinal: Cholecystectomy Genitourinary: No Pertinent History Musculoskeletal: No Pertinent History Female Surgical History: Hysterectomy, Section Other Surgical History: brain surgery- aneurysm Significant Family History: heart disease, cancer, diabetes - Social History Drug Use: none - Social Determinants of Health Will the patient participate in the screening: Yes Do you worry about a steady place to live?: No In the past 12 months,have you had to go without utilities?: No Transportation Issues: No Has anyone in your support network made you feel unsafe?: No Have you or anyone in your house had to go w/o enough food: No - Nursing Vital Signs Nursing Vital Signs: Initial Vital Signs Temperature 96 F 07/19/25 09:57 Pulse Rate 73 07/19/25 09:57 Respiratory Rate 17 07/19/25 09:57 Blood Pressure 161/96 07/19/25 09:57 O2 Sat by Pulse Oximetry 94 L 07/19/25 09:57 Pain Scale Pain Intensity 3 - Physical Exam General Appearance: no apparent distress Eye Exam: PERRL/EOMI Respiratory Exam: diminished breath sounds Cardiovascular/Chest Exam: normal heart sounds, regular rate/rhythm, edema Abdominal/Gastrointestinal Exam: soft Extremity Exam: non-tender Neurologic Exam: alert, oriented x 3, cooperative, 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 as tested, sensation nml, No motor deficits Skin Exam: normal color, warm, No dry SpO2 Interpretation: O2 applied SpO2: 94 O2 Delivery: Nasal Cannula Ordered Tests: Active Orders 24 hr Category Date Time Status EKG-ER Only STAT Care 07/19/25 10:13 Active CHEST 1 VIEW (PORTABLE) Stat Exams 07/19/25 10:06 Completed BMP Stat Lab 07/19/25 10:22 Completed CBC W DIFF Stat Lab 07/19/25 10:18 Completed NT PRO BNPII Stat Lab 07/19/25 10:18 Completed VENOUS BLOOD GAS Stat Lab 07/19/25 10:06 Completed Medication Summary Discontinued Medications Generic Name Dose Route Start Last Admin Trade Name Freq PRN Reason Stop Dose Admin Piperacillin Sod/Tazobactam 100 mls @ 200 mls/hr 07/19/25 10:46 07/19/25 11:39 Sod 3.375 gm/ Sodium Chloride IV 07/19/25 11:15 Infused STAT STA Infusion Sodium Chloride Confirm 07/19/25 10:56 Sodium Chloride 0.9% Administered 07/19/25 10:57 Dose 100 mls @ ud .ROUTE .STK-MED ONE Ondansetron HCl 4 mg 07/19/25 11:28 07/19/25 11:38 Ondansetron Hcl 4 Mg/2 Ml Vial IV 07/19/25 11:29 4 mg STAT ONE Administration Ondansetron HCl Confirm 07/19/25 11:34 Ondansetron Hcl 4 Mg/2 Ml Vial Administered 07/19/25 11:35 Dose 4 mg .ROUTE .STK-MED ONE Piperacillin Sod/Tazobactam Sod Confirm 07/19/25 10:55 Piperacillin/Tazobactam Sodium 3.375 Gm Vial Administered 07/19/25 10:56 Dose 3.375 gm IV .STK-MED ONE Lab/Rad Data: Laboratory Result Diagrams 07/19/25 10:18 07/19/25 10:22 Laboratory Results 07/19/25 07/19/25 07/19/25 Range/Units 10:22 10:18 10:18 WBC (3.98-10.04) x10^3/uL RBC (3.93-5.22) x10^6/uL Hgb (11.2-15.7) g/dL Hct (34.1-44.9) % MCV (79.4-94.8) fL MCH (25.6-32.2) pg MCHC (32.2-35.5) g/dL RDW (11.7-14.4) % Plt Count (182-369) x10^3/uL MPV (9.4-12.3) fL Gran % (34.0-71.1) % Immature Gran % (Auto) (0.001-0.429) % Nucleat RBC Rel Count (0.00-0.2) % Eos # (Auto) (0.04-0.36) x10^3/uL Immature Gran # (Auto) (0.001-0.031) x10^3u/L Absolute Lymphs (auto) (1.18-3.74) x10^3/uL Absolute Monos (auto) (0.24-0.86) x10^3/uL Absolute Nucleated RBC (0.00-0.012) x10^3u/L Lymphocytes % (19.3-51.7) % Monocytes % (4.7-12.5) % Eosinophils % (0.7-5.8) % Basophils % (0.1-1.2) % Absolute Granulocytes (1.56-6.13) x10^3/uL Basophils # (0.01-0.08) x10^3/uL pO2/FiO2 Ratio % VBG pH (7.32-7.42) VBG pCO2 at Pat Temp (42-55) mm/Hg VBG pO2 at Pat Temp (25-40) mm/Hg VBG HCO3 (22-28) meq/L VBG O2 Sat (Vincent) (95-100) VBG Base Excess (-2.0-2.0) VBG Hemoglobin VBG Carboxyhemoglobin (0.0-6.9) % T HGB POC Potassium (3.5-5.1) Sodium 138 (135-145) mmol/L Potassium 4.1 (3.5-5.1) mmol/L Chloride 101 (98-107) mmol/L Carbon Dioxide 28 (22-30) mmol/L Anion Gap 13.0 (5-15) MEQ/L BUN 14 (7-17) mg/dL Creatinine 0.52 (0.52-1.04) mg/dL Estimated GFR 101.8 ML/MIN Glucose 120 H (74-106) mg/dL Calcium 8.8 (8.4-10.2) mg/dL NT-Pro-B Natriuret Pep 1600 (<300) pg/mL Influenza Type A Ag NEGATIVE (NEGATIVE) Influenza Type B Ag NEGATIVE (NEGATIVE) RSV (PCR) NEGATIVE (NEGATIVE) SARS-CoV-2 (PCR) NEGATIVE (NEGATIVE) 07/19/25 07/19/25 Range/Units 10:18 10:06 WBC 13.8 H (3.98-10.04) x10^3/uL RBC 4.44 (3.93-5.22) x10^6/uL Hgb 13.5 (11.2-15.7) g/dL Hct 41.7 (34.1-44.9) % MCV 93.9 (79.4-94.8) fL MCH 30.4 (25.6-32.2) pg MCHC 32.4 (32.2-35.5) g/dL RDW 12.7 (11.7-14.4) % Plt Count 369 (182-369) x10^3/uL MPV 9.9 (9.4-12.3) fL Gran % 84.4 H (34.0-71.1) % Immature Gran % (Auto) 0.4 (0.001-0.429) % Nucleat RBC Rel Count 0.0 (0.00-0.2) % Eos # (Auto) 0.11 (0.04-0.36) x10^3/uL Immature Gran # (Auto) 0.06 H (0.001-0.031) x10^3u/L Absolute Lymphs (auto) 1.25 (1.18-3.74) x10^3/uL Absolute Monos (auto) 0.67 (0.24-0.86) x10^3/uL Absolute Nucleated RBC 0.00 (0.00-0.012) x10^3u/L Lymphocytes % 9.1 L (19.3-51.7) % Monocytes % 4.9 (4.7-12.5) % Eosinophils % 0.8 (0.7-5.8) % Basophils % 0.4 (0.1-1.2) % Absolute Granulocytes 11.61 H (1.56-6.13) x10^3/uL Basophils # 0.06 (0.01-0.08) x10^3/uL pO2/FiO2 Ratio 21.0 % VBG pH 7.46 H (7.32-7.42) VBG pCO2 at Pat Temp 43 (42-55) mm/Hg VBG pO2 at Pat Temp 95 H (25-40) mm/Hg VBG HCO3 30.6 H* (22-28) meq/L VBG O2 Sat (Vincent) 98.4 (95-100) VBG Base Excess 6.0 H (-2.0-2.0) VBG Hemoglobin 14.4 VBG Carboxyhemoglobin 2.6 (0.0-6.9) % T HGB POC Potassium 4.1 (3.5-5.1) Sodium (135-145) mmol/L Potassium (3.5-5.1) mmol/L Chloride (98-107) mmol/L Carbon Dioxide (22-30) mmol/L Anion Gap (5-15) MEQ/L BUN (7-17) mg/dL Creatinine (0.52-1.04) mg/dL Estimated GFR ML/MIN Glucose (74-106) mg/dL Calcium (8.4-10.2) mg/dL NT-Pro-B Natriuret Pep (<300) pg/mL Influenza Type A Ag (NEGATIVE) Influenza Type B Ag (NEGATIVE) RSV (PCR) (NEGATIVE) SARS-CoV-2 (PCR) (NEGATIVE) - Progress Progress: re-examined Air Movement: fair Progress Note: 07/19/25 11:46 Patient has pneumonia based on the x-ray physical exam. At this time patient is requiring oxygen more than normal she was normally on 2 L and now she is requiring about 4 L because the patient was recently discharged from the hospital about 3 weeks ago after being treated with pneumonia I will be treating this as hospital-acquired pneumonia and giving the patient Gil here in the emergency room. Patient is very anxious but she is not in respiratory distress. At this time patient will be admitted for hypoxia secondary to pneumonia now there is some swelling bilaterally of the lower extremities and this could be consistent with possible congestive heart failure I cannot find any records based on checking to see if there is history of heart failure the patient cannot disclose that information therefore with her BNP being at 1600 I would not be treating that we will await further testing if the patient is admitted and worked up for that might require an echocardiogram. Antibiotics given: Yes - Departure Departure Disposition: In-patient Admission Clinical Impression: SOB (shortness of breath) Pneumonia Qualifiers: Pneumonia type: due to unspecified organism Laterality: bilateral Lung location: unspecified part of lung Qualified Code(s): J18.9 - Pneumonia, unspecified organism Condition: Stable Critical Care Time: No Referrals: NICHOLAS SHIN MD [Primary Care Provider, [facility]] - Follow up/PCP as directed
[2025-07-19 10:22] LABS: VBG BASE EXCESS 6.0 (-2.0-2.0); VBG CARBOXYHEMOGLOBIN 2.6 % T HGB (0.0-6.9); VBG FIO2 21.0 %; VBG HCO3- 30.6 meq/L (22-28); VBG HEMOGLOBIN 14.4; VBG O2 SATURATION 98.4 (95-100); VBG PCO2 43.0 mm/Hg (42-55); VBG PO2 95.0 mm/Hg (25-40); VBG POTASSIUM 4.1 (3.5-5.1)
[2025-07-19 10:22] LABS: BASOPHIL % 0.4 % (0.1-1.2); Basophil (Absolute #) 0.06 x10^3/uL (0.01-0.08); Eosinophil (Absolute #) 0.11 x10^3/uL (0.04-0.36); Hematocrit 41.7 % (34.1-44.9); Hemoglobin 13.5 g/dL (11.2-15.7); IMMATURE GRAN # 0.06 x10^3u/L (0.001-0.031); IMMATURE GRAN % 0.4 % (0.001-0.429); Lymphocyte (Absolute #) 1.25 x10^3/uL (1.18-3.74); Mean Corpuscular Hemoglobin 30.4 pg (25.6-32.2); Mean Corpuscular Hgb Concent. 32.4 g/dL (32.2-35.5); Monocyte (Absolute #) 0.67 x10^3/uL (0.24-0.86); NUCLEATED RBC # 0.00 x10^3u/L (0.00-0.012); NUCLEATED RBC % 0.0 % (0.00-0.2); Platelet Count 369 x10^3/uL (182-369); Red Blood Count 4.44 x10^6/uL (3.93-5.22); White Blood Count 13.8 x10^3/uL (3.98-10.04)
--- NOTE | 2025-07-19 10:33 | XRAY ---
Indication: Short of breath. Comparison: June 27, 2025 Portable chest demonstrates worsening moderate diffuse bilateral consolidating/nonconsolidating airspace disease. New small bibasilar effusions, [id number]. Appearance similar to recent CT PE exam July 13, 2025. Heart now enlarged again with left pacemaker.
[2025-07-19] MEDS ORDERED: PIPERACILLIN/TAZOBACTAM IV ONE (10:55)
[2025-07-19 10:59] LABS: INFLUENZA A NEGATIVE (NEGATIVE); INFLUENZA B NEGATIVE (NEGATIVE); RESPIRATORY SYNCTIAL VIRUS NEGATIVE (NEGATIVE); SARS-CoV-2 Xpert Express NEGATIVE (NEGATIVE)
[2025-07-19 11:14] LABS: Calcium 8.8 mg/dL (8.4-10.2); Carbon Dioxide 28.0 mmol/L (22-30); Creatinine 1 0.52 mg/dL (0.52-1.04); EST GLOMERULAR FILTRATION RATE 101.8 ML/MIN; Glucose 120.0 mg/dL (74-106); Potassium 4.1 mmol/L (3.5-5.1)
[2025-07-19] MEDS ORDERED: Zofran 4 MG/2 ML VIAL ONE (11:34)
[2025-07-19] MEDS: Zofran 4 MG/2 ML VIAL IV ONE (11:38)
--- NOTE | 2025-07-19 12:41 | PCM.HP ---
History of Present Illness - Chief Complaint Chief Complaint: pneumonia/CHF exacerbation Date: 07/19/25 History of Present Illness: is a 65 year old female with a pmhx of chronic heart failure, coronary artery disease status post-CABG (9 stents), arrythmia (on eliquis/pacemaker), COPD, type 2 diabetes mellitus, hypertension, prior ischemic stroke, seizure disorder, anxiety, and depression, who presented on July 09, 2025, with shortness of breath and bilateral lower extremity edema. She was recently admitted from June 2123 for pneumonia, COPD exacerbation, and urinary tract infection, treated with doxycycline, corticosteroids, and scheduled DuoNebs. She improved and was discharged on home oxygen at her baseline 4 L/min with saturation 94%. Patient reports that her shortness of breath has not changed since discharge but she will occasionally knock her oxygen off and become short of breath at night and have a panic attack. She reports multiple panic attacks due to shortness of breath. Over the past two days she has noticed worsening bilateral leg swelling. She denies chest pain, fever, chills, or productive cough. In the emergency department, BP was 161/96 mm Hg, SpO2 94% on 3 L, and exam revealed diffuse crackles and pitting pedal edema greater on the left . Chest X-ray demonstrated worsening moderate diffuse bilateral airspace disease (both consolidating and nonconsolidating) with new small bibasilar effusions, right greater than left, and cardiomegaly with a left-sided pacemaker, similar to her CT chest from July 13. Laboratory findings showed WBC 13.8 and BNP 1600 , consistent with heart failure exacerbation. CMP was unremarkable. Respiratory viral panel was negative. Plan for observation for treatment of pneumonia and CHF exacerbation. No recent echo on file. Will obtain. - Review of Systems Constitutional: Weakness Eyes: No Symptoms Ears, Nose, & Throat: No Symptoms Respiratory: Cough, Short Of Breath Cardiac: Edema (BLE L> R ) Abdominal/Gastrointestinal: No Symptoms Genitourinary Symptoms: No Symptoms Musculoskeletal: No Symptoms Skin: No Symptoms Neurological: No Symptoms Psychological: No Symptoms Endocrine: No Symptoms Hematologic/Lymphatic: No Symptoms Immunological/Allergic: No Symptoms Medications & Allergies Home Medications: Home Medication List Citalopram Hydrobromide 20 mg* [ceLEXa 20 MG] 40 mg PO HS 04/24/17 [History Confirmed 07/19/25] Clopidogrel Bisulfate [PLAVIX Tablet] 75 mg PO DAILY 04/24/17 [History Confirmed 07/19/25] Metformin HCl [Metformin ER Osmotic] 1,000 mg PO BID 04/24/17 [History Confirmed 07/19/25] Metoprolol Tartrate 50 mg [Lopressor 50 MG] 25 mg PO BID 04/24/17 [History Confirmed 07/19/25] carBAMazepine [Tegretol] 400 mg PO QID 04/24/17 [History Confirmed 07/19/25] Tramadol HCl 50 mg [Ultram 50 mg] 50 mg PO TID 07/13/20 [History Confirmed 07/19/25] Semaglutide [Ozempic] 2 mg SQ WEEKLY 03/19/23 [History Confirmed 07/19/25] Apixaban [Eliquis] 5 mg PO BID 08/11/23 [History Confirmed 07/19/25] Cetirizine HCl 10 mg PO DAILY 08/11/23 [History Confirmed 07/19/25] Empagliflozin [Jardiance] 25 mg PO QHS 08/11/23 [History Confirmed 07/19/25] Lisinopril 10 mg [Zestril 10 MG] 20 mg PO BID 08/11/23 [History Confirmed 07/19/25] Melatonin 5 mg PO HS 08/11/23 [History Confirmed 07/19/25] Albuterol 8 gm Mdi Hfa [Ventolin Hfa MDI] 2 puff IH QID PRN 06/27/25 [History Confirmed 07/19/25] Albuterol/Ipratropium 3ml Neb* [DUONEB 0.5-3 MG/3 ml Neb] 3 ml IH Q4HPRN PRN 5 Days #30 amp 07/15/25 [Rx Confirmed 07/19/25] Doxycycline Hyclate 100 mg [Vibramycin 100 MG] 100 mg PO BID 5 Days #10 tab 07/15/25 [Rx Confirmed 07/19/25] Fluticasone/Salmeterol 115/21 [Advair Hfa 115/21 Common canister*] 2 puff IH BID 30 Days #1 inhaler 07/15/25 [Rx Confirmed 07/19/25] Prednisone 20 mg [Deltasone 20 mg] 20 mg PO BID 5 Days #10 tablet 07/15/25 [Rx Confirmed 07/19/25] cefuroxime axetiL [Cefuroxime] 500 mg PO BID 5 Days #10 tablet 07/15/25 [Rx Confirmed 07/19/25] Allergies/Adverse Reactions: Allergies Allergy/AdvReac Type Severity Reaction Status Date / Time latex Allergy Itching Verified 07/19/25 12:23 - Past Medical History Past Medical History: Yes Neurological History: Seizures, Stroke, Other ENT History: Glaucoma Cardiac History: Coronary Artery Disease, Hypertension Respiratory History: COPD Endocrine Medical History: Diabetes Type II Musculoskelatal History: Arthritis GI Medical History: GERD History: Other Pyscho-Social History: Anxiety, Depression, Other Reproductive Disorders: No Pertinent History Comment: kidney stones, parkinson disease - Past Surgical History Past Surgical History: Yes Neuro Surgical History: No Pertinent History Cardiac History: CABG, Pacemaker Respiratory Surgery: No Pertinent History GI Surgical History: Cholecystectomy Genitourinary Surgical Hx: No Pertinent History Musculskeletal Surgical Hx: No Pertinent History Female Surgical History: Hysterectomy, Section Other Surgical History: brain surgery- aneurysm Significant Family History: heart disease, cancer, diabetes - Social History Smoking Status: Former smoker Exposure to second hand smoke: No Alcohol: None Drug Use: none - Social Determinants of Health Will the patient participate in the screening: Yes Do you worry about a steady place to live?: No Do you have any problems with any of the following?: No known problems In the past 12 months,have you had to go without utilities?: No Have you or anyone in your house had to go without enough: No Transportation Issues: No Has anyone in your support network made you feel unsafe?: No Does the patient want assistance with any of the above?: No - Physical Exam Vital Signs: Vital Signs - 24 hr Temp Pulse Resp BP BP Pulse Ox 07/19/25 12:21 97.9 F 76 24 154/72 92 L 07/19/25 12:00 76 18 163/100 97 07/19/25 11:48 94 L 07/19/25 11:30 79 19 154/90 98 07/19/25 11:04 73 19 150/85 97 07/19/25 11:00 68 24 154/90 96 07/19/25 10:50 71 21 96 07/19/25 10:40 72 30 H 96 07/19/25 10:32 71 23 95 07/19/25 10:00 72 25 H 152/91 94 L 07/19/25 09:58 75 19 161/96 94 L 07/19/25 09:57 96 F 73 17 161/96 94 L General Appearance: no apparent distress Neurologic Exam: alert, oriented x 3, cooperative Eye Exam: PERRL/EOMI Ears, Nose, Throat Exam: normal ENT inspection Neck Exam: normal inspection Respiratory Exam: crackles/rales Cardiovascular Exam: regular rate/rhythm, normal heart sounds Gastrointestinal/Abdomen Exam: soft, normal bowel sounds Pelvic Exam: not done Rectal Exam: deferred Back Exam: normal inspection Extremity Exam: pedal edema (L>R 2+ pitting) Skin Exam: normal color Results - Labs Lab/Micro Results: Lab Results-Last 24 Hours 07/19/25 07/19/25 07/19/25 Range/Units 10:06 10:18 10:18 WBC 13.8 H (3.98-10.04) x10^3/uL RBC 4.44 (3.93-5.22) x10^6/uL Hgb 13.5 (11.2-15.7) g/dL Hct 41.7 (34.1-44.9) % MCV 93.9 (79.4-94.8) fL MCH 30.4 (25.6-32.2) pg MCHC 32.4 (32.2-35.5) g/dL RDW 12.7 (11.7-14.4) % Plt Count 369 (182-369) x10^3/uL MPV 9.9 (9.4-12.3) fL Gran % 84.4 H (34.0-71.1) % Immature Gran % (Auto) 0.4 (0.001-0.429) % Nucleat RBC Rel Count 0.0 (0.00-0.2) % Eos # (Auto) 0.11 (0.04-0.36) x10^3/uL Immature Gran # (Auto) 0.06 H (0.001-0.031) x10^3u/L Absolute Lymphs (auto) 1.25 (1.18-3.74) x10^3/uL Absolute Monos (auto) 0.67 (0.24-0.86) x10^3/uL Absolute Nucleated RBC 0.00 (0.00-0.012) x10^3u/L Lymphocytes % 9.1 L (19.3-51.7) % Monocytes % 4.9 (4.7-12.5) % Eosinophils % 0.8 (0.7-5.8) % Basophils % 0.4 (0.1-1.2) % Absolute Granulocytes 11.61 H (1.56-6.13) x10^3/uL Basophils # 0.06 (0.01-0.08) x10^3/uL pO2/FiO2 Ratio 21.0 % VBG pH 7.46 H (7.32-7.42) VBG pCO2 at Pat Temp 43 (42-55) mm/Hg VBG pO2 at Pat Temp 95 H (25-40) mm/Hg VBG HCO3 30.6 H* (22-28) meq/L VBG O2 Sat (Vincent) 98.4 (95-100) VBG Base Excess 6.0 H (-2.0-2.0) VBG Hemoglobin 14.4 VBG Carboxyhemoglobin 2.6 (0.0-6.9) % T HGB POC Potassium 4.1 (3.5-5.1) Sodium (135-145) mmol/L Potassium (3.5-5.1) mmol/L Chloride (98-107) mmol/L Carbon Dioxide (22-30) mmol/L Anion Gap (5-15) MEQ/L BUN (7-17) mg/dL Creatinine (0.52-1.04) mg/dL Estimated GFR ML/MIN Glucose (74-106) mg/dL Calcium (8.4-10.2) mg/dL NT-Pro-B Natriuret Pep (<300) pg/mL Influenza Type A Ag NEGATIVE (NEGATIVE) Influenza Type B Ag NEGATIVE (NEGATIVE) RSV (PCR) NEGATIVE (NEGATIVE) SARS-CoV-2 (PCR) NEGATIVE (NEGATIVE) 07/19/25 07/19/25 Range/Units 10:18 10:22 WBC (3.98-10.04) x10^3/uL RBC (3.93-5.22) x10^6/uL Hgb (11.2-15.7) g/dL Hct (34.1-44.9) % MCV (79.4-94.8) fL MCH (25.6-32.2) pg MCHC (32.2-35.5) g/dL RDW (11.7-14.4) % Plt Count (182-369) x10^3/uL MPV (9.4-12.3) fL Gran % (34.0-71.1) % Immature Gran % (Auto) (0.001-0.429) % Nucleat RBC Rel Count (0.00-0.2) % Eos # (Auto) (0.04-0.36) x10^3/uL Immature Gran # (Auto) (0.001-0.031) x10^3u/L Absolute Lymphs (auto) (1.18-3.74) x10^3/uL Absolute Monos (auto) (0.24-0.86) x10^3/uL Absolute Nucleated RBC (0.00-0.012) x10^3u/L Lymphocytes % (19.3-51.7) % Monocytes % (4.7-12.5) % Eosinophils % (0.7-5.8) % Basophils % (0.1-1.2) % Absolute Granulocytes (1.56-6.13) x10^3/uL Basophils # (0.01-0.08) x10^3/uL pO2/FiO2 Ratio % VBG pH (7.32-7.42) VBG pCO2 at Pat Temp (42-55) mm/Hg VBG pO2 at Pat Temp (25-40) mm/Hg VBG HCO3 (22-28) meq/L VBG O2 Sat (Vincent) (95-100) VBG Base Excess (-2.0-2.0) VBG Hemoglobin VBG Carboxyhemoglobin (0.0-6.9) % T HGB POC Potassium (3.5-5.1) Sodium 138 (135-145) mmol/L Potassium 4.1 (3.5-5.1) mmol/L Chloride 101 (98-107) mmol/L Carbon Dioxide 28 (22-30) mmol/L Anion Gap 13.0 (5-15) MEQ/L BUN 14 (7-17) mg/dL Creatinine 0.52 (0.52-1.04) mg/dL Estimated GFR 101.8 ML/MIN Glucose 120 H (74-106) mg/dL Calcium 8.8 (8.4-10.2) mg/dL NT-Pro-B Natriuret Pep 1600 (<300) pg/mL Influenza Type A Ag (NEGATIVE) Influenza Type B Ag (NEGATIVE) RSV (PCR) (NEGATIVE) SARS-CoV-2 (PCR) (NEGATIVE) - Radiology Impressions Radiology Exams & Impressions: Radiology Procedures Category Date Time Status CHEST 1 VIEW (PORTABLE) Stat Exams 07/19/25 10:06 Completed Assessment/Plan (1) Acute and chronic respiratory failure Current Visit: Yes Status: Acute Assessment & Plan: multifactorial (acute decompensated heart failure vs. recurrent pneumonia vs. COPD exacerbation): -The patient presents with progressive dyspnea, increased oxygen demand, elevated BNP, and imaging consistent with pulmonary congestion and effusionsmost compatible with acute decompensated heart failure superimposed on chronic lung disease. Persistent leukocytosis and patchy airspace opacities could represent residual or recurrent infection. -Supplemental oxygen with goal spo2 > 90%- currently on 3L at 92% - baseline per pt is 4L -RT following -INH/NEBS -Prednisone -Sputum culture -Will continue Zosyn for HAP -Lasix 40mg x 1- Echo to evaluate CHF -Strict I/O, daily weights, and repeat chest X-ray post-diuresis to track volume response -Procal, blood cultures x 2 -WBC reviewed -trend Code(s): J96.20 - ACUTE AND CHR RESP FAILURE, UNSP W HYPOXIA OR HYPERCAPNIA (2) CHF exacerbation Current Visit: Yes Status: Acute Assessment & Plan: -No echo on file -BNP elevated at 1600; BLE pedal edema on exam -Reports h/o of CHF - no home meds or diuretics -Obtain echo -elevated HOB/strict I&Os -Lasix 40mg BID -consider Cards consult Code(s): I50.9 - HEART FAILURE, UNSPECIFIED (3) Pneumonia Current Visit: Yes Status: Acute Assessment & Plan: -see ARF Code(s): J18.9 - PNEUMONIA, UNSPECIFIED ORGANISM (4) CAD (coronary artery disease) Current Visit: Yes Status: Acute Assessment & Plan: -Stable; continue secondary prevention -S/p CABG 9 stents Code(s): I25.10 - ATHSCL HEART DISEASE OF [place] CORONARY ARTERY W/O ANG PCTRS (5) HTN (hypertension) Current Visit: Yes Status: Acute Assessment & Plan: -continue home meds Code(s): I10 - ESSENTIAL (PRIMARY) HYPERTENSION (6) COPD exacerbation Current Visit: No Status: Acute Assessment & Plan: -Contributing to worsening respiratory distress and hypoxemia. Likely triggered by fluid overload and possible infection. VBG demonstrates no acute hypercapnia, suggesting partial compensation. -see ARF -Nebs/INH -RT to follow -Consider ABG if worsening hypoxia or signs of CO? retention develop. Code(s): J44.1 - CHRONIC OBSTRUCTIVE PULMONARY DISEASE W (ACUTE) EXACERBATION (7) DMII (diabetes mellitus, type 2) Current Visit: No Status: Chronic Qualifiers: Diabetes mellitus correction insulin use: without manager intermediate use Assessment & Plan: -ADA diet -SSI -A1c at 5.73 06/27/25 (8) GERD (gastroesophageal reflux disease) Current Visit: No Status: Chronic Assessment & Plan: -Protonix Code(s): K21.9 - GASTRO-ESOPHAGEAL REFLUX DISEASE WITHOUT ESOPHAGITIS (9) History of stroke Current Visit: No Status: Chronic Assessment & Plan: -continue home meds Code(s): Z86.73 - PRSNL HX OF TIA (TIA), AND CEREB INFRC W/O RESID DEFICITS (10) Obesity (BMI 30-39.9) Current Visit: No Status: Chronic Assessment & Plan: -advised diet and exercise Code(s): E66.9 - OBESITY, UNSPECIFIED (11) Seizure disorder Current Visit: No Status: Chronic Assessment & Plan: -Stable at baseline, no acute neuro changes -Continue home regimen Code(s): G40.909 - EPILEPSY, UNSP, NOT INTRACTABLE, WITHOUT STATUS EPILEPTICUS (12) Arrhythmia Current Visit: Yes Status: Acute Assessment & Plan: -Currently NSR, paced. -On ELiquis -Tele -Resume outpatient rate/rhythm regimen VTE: Eliquis PPI: Protonix Dispo: 1-3 days Code status: Full Code Plan of care time spent > 40mins Code(s): I49.9 - CARDIAC ARRHYTHMIA, UNSPECIFIED
[2025-07-19] MEDS ORDERED: DUONEB 0.5-3 MG/3 ml Neb IH SCH (13:00)
[2025-07-19] MEDS ORDERED: DUONEB 0.5-3 MG/3 ml Neb IH ONE (13:45)
[2025-07-19] MEDS: DUONEB 0.5-3 MG/3 ml Neb IH PRN (13:46)
--- NOTE | 2025-07-19 14:14 | XRAY ---
Indication: Edema. Two-dimensional sonogram and color Doppler imaging major venous vessels left and right leg performed. Comparison: None No thrombus seen in the examined deep venous vessels left and right leg including greater saphenous vein. Veins demonstrate normal compressibility. Venous waveforms are normal with and without augmentation. Posterior right knee demonstrates 4.9 x 1.3 x 2.2 cm Osman's cyst. Impression: Left and right leg negative for DVT. Incidental right knee Osman's cyst.
[2025-07-19] MEDS: Lasix 40 MG/4 ML IV SCH (14:30)
[2025-07-19] MEDS ORDERED: Ventolin Hfa MDI IH PRN (14:40)
[2025-07-19 15:27] LABS: Glucose, Urine 500 mg/dL (Negative); Protein,Urine Dip Negative (Negative); RBC 0-2 /HPF (0-5); WBC 0-2 /HPF (0-5)
[2025-07-19] MEDS: Tegretol 200 MG PO SCH (16:21)
[2025-07-19] MEDS: ULTRAM 50 MG PO SCH (16:21)
[2025-07-19] MEDS: Zofran 4 MG/2 ML VIAL IV PRN (17:16)
[2025-07-19] MEDS: Advair Hfa 115/21 Common canister IH SCH (19:20)
[2025-07-19] MEDS: TYLENOL 325 MG PO PRN (19:48)
[2025-07-19] MEDS: ceLEXa 20 MG PO SCH (21:10)
[2025-07-19] MEDS: HUMALOG SQ PRN (21:11)
[2025-07-19] MEDS: Lopressor 25MG Tab PO SCH (21:12)
[2025-07-19] MEDS: DELTASONE 20 MG PO SCH (21:12)
[2025-07-19] MEDS: ELIQUIS 2.5 MG TABLET PO SCH (21:12)
[2025-07-19] MEDS: MELATONIN PO SCH (21:12)
[2025-07-19] MEDS: Zestril 20 MG PO SCH (21:12)
[2025-07-19] MEDS ORDERED: Zestril 10 MG PO SCH (22:00)
[2025-07-19] MEDS ORDERED: NON-FORMULARY ITEM (Apixaban [Eliquis] 5 MG Tablet) PO SCH (22:00)
[2025-07-19] MEDS ORDERED: Lopressor 50 MG PO SCH (22:00)
[2025-07-19] MEDS ORDERED: NON-FORMULARY ITEM (Melatonin [Melatonin] 5 MG Tablet) PO SCH (22:00)
[2025-07-20] MEDS: DUONEB 0.5-3 MG/3 ml Neb IH PRN (01:07)
[2025-07-20 04:24] LABS: BASOPHIL % 0.4 % (0.1-1.2); Basophil (Absolute #) 0.05 x10^3/uL (0.01-0.08); Eosinophil (Absolute #) 0.11 x10^3/uL (0.04-0.36); Hematocrit 40.6 % (34.1-44.9); Hemoglobin 13.1 g/dL (11.2-15.7); IMMATURE GRAN # 0.07 x10^3u/L (0.001-0.031); IMMATURE GRAN % 0.6 % (0.001-0.429); Lymphocyte (Absolute #) 0.80 x10^3/uL (1.18-3.74); Mean Corpuscular Hemoglobin 30.8 pg (25.6-32.2); Mean Corpuscular Hgb Concent. 32.3 g/dL (32.2-35.5); Monocyte (Absolute #) 0.48 x10^3/uL (0.24-0.86); NUCLEATED RBC # 0.00 x10^3u/L (0.00-0.012); NUCLEATED RBC % 0.0 % (0.00-0.2); Platelet Count 323 x10^3/uL (182-369); Red Blood Count 4.26 x10^6/uL (3.93-5.22); White Blood Count 11.5 x10^3/uL (3.98-10.04)
[2025-07-20 04:36] LABS: Calcium 8.4 mg/dL (8.4-10.2); Carbon Dioxide 30 mmol/L (22-30); Creatinine 1 0.65 mg/dL (0.52-1.04); EST GLOMERULAR FILTRATION RATE 96.4 ML/MIN; Glucose 136 mg/dL (74-106); Potassium 3.8 mmol/L (3.5-5.1); SGOT/AST 27 U/L (14-36); SGPT/ALT 18 U/L (0-35); Total Protein 6.8 g/dL (6.3-8.2)
[2025-07-20] MEDS: PLAVIX Tablet PO SCH (08:32)
[2025-07-20] MEDS: CLARITIN 10 MG PO SCH (08:33)
[2025-07-20] MEDS: Protonix 40MG Tablet PO SCH (08:34)
--- NOTE | 2025-07-20 08:42 | PCM.NOTE ---
Date and Time: 07/20/25 0836 Subjective Assessment: is a 65 year old female with a pmhx of chronic heart failure, coronary artery disease status post-CABG (9 stents), arrythmia (on eliquis/pacemaker), COPD, type 2 diabetes mellitus, hypertension, prior ischemic stroke, seizure disorder, anxiety, and depression, who presented on July 09, 2025, with shortness of breath and bilateral lower extremity edema. She was recently admitted from June 2123 for pneumonia, COPD exacerbation, and urinary tract infection, treated with doxycycline, corticosteroids, and scheduled DuoNebs. She improved and was discharged on home oxygen at her baseline 4 L/min with saturation 94%. Patient reports that her shortness of breath has not changed since discharge but she will occasionally knock her oxygen off and become short of breath at night and have a panic attack. She reports multiple panic attacks due to shortness of breath. Over the past two days she has noticed worsening bilateral leg swelling. She denies chest pain, fever, chills, or productive cough. In the emergency department, BP was 161/96 mm Hg, SpO2 94% on 3 L, and exam revealed diffuse crackles and pitting pedal edema greater on the left . Chest X-ray demonstrated worsening moderate diffuse bilateral airspace disease (both consolidating and nonconsolidating) with new small bibasilar effusions, right greater than left, and cardiomegaly with a left-sided pacemaker, similar to her CT chest from July 13. Laboratory findings showed WBC 13.8 and BNP 1600 , consistent with heart failure exacerbation. CMP was unremarkable. Respiratory viral panel was negative. Plan for observation for treatment of pneumonia and CHF exacerbation. Echo obtained 07/19/25 showing Normal LV size with mild concentric wall thickening. LVEF 5560% with normal systolic function. Grade I diastolic dysfunction (impaired relaxation). Borderline left atrial enlargement. Normal right-sided chamber size and function. No wall motion or significant valvular abnormalities. Normal aortic root. Unable to estimate RVSP due to insufficient TR jet; estimated RA pressure 10 mmHg. Overall, findings consistent with preserved EF and mild diastolic dysfunction. CT chest from 07/19/25 notes respiratory motion artifact limiting evaluation for pulmonary embolism, with no obvious PE identified. There is interval worsening of diffuse bilateral consolidative and non-consolidative airspace opacities and increased bilateral pleural effusions. 07/20/25: Patient seen at bedside, reporting improved dyspnea though remains on 4 L oxygen via nasal cannula. Cough is productive with yellow sputum. Bilateral lower extremity edema has improved. On exam, lungs with coarse crackles and expiratory wheezing bilaterally. CT chest from 07/19/25 showing respiratory motion artifact limiting evaluation for pulmonary embolism, with no obvious PE identified. There is interval worsening of diffuse bilateral consolidative and non-consolidative airspace opacities and increased bilateral pleural effusions. Echocardiogram shows normal LV size with mild concentric wall thickening, preserved systolic function (LVEF 5560%), grade I diastolic dysfunction, borderline left atrial enlargement, normal right ventricular size and function, and no significant valvular disease. Overall, findings consistent with preserved EF and mild diastolic dysfunction. Plan to continue IV diuresis with furosemide and maintain antibiotic therapy for multifocal pneumonia and CHF exacerbation, with ongoing monitoring of respiratory status, daily weights, and volume response. - Review of Systems Constitutional: No Symptoms Eyes: No Symptoms Ears, Nose, & Throat: No Symptoms Respiratory: Cough, Short Of Breath, Wheezing Cardiac: Edema (BLE edema ) Abdominal/Gastrointestinal: No Symptoms Genitourinary Symptoms: No Symptoms Musculoskeletal: No Symptoms Skin: No Symptoms Neurological: No Symptoms Psychological: No Symptoms Endocrine: No Symptoms Hematologic/Lymphatic: No Symptoms Immunological/Allergic: No Symptoms Objective Exam General Appearance: no apparent distress Neurologic Exam: alert, oriented x 3, cooperative Skin Exam: normal color Eye Exam: post op pupil defect (R) Ears, Nose, Throat Exam: normal ENT inspection Neck Exam: normal inspection Respiratory Exam: crackles/rales, wheezing Cardiovascular Exam: regular rate/rhythm, normal heart sounds Gastrointestinal/Abdomen Exam: soft, normal bowel sounds Extremity Exam: pedal edema (+2 pitting L>R), swelling Back Exam: normal inspection Pelvic Exam: deferred Rectal Exam: deferred Objective Data Vital Signs: Vital Signs - 24 hr Temp Pulse Resp BP BP Pulse Ox 07/20/25 08:11 77 18 93 L 07/20/25 06:49 98.7 F 78 16 141/81 96 07/20/25 04:00 97.8 F 82 18 168/86 97 07/20/25 01:07 72 18 93 L 07/20/25 00:13 97.1 F 70 18 129/74 96 07/20/25 00:00 97.8 F 99 H 18 114/74 94 L 07/19/25 19:56 97.8 F 99 H 18 114/74 94 L 07/19/25 19:21 94 H 18 95 07/19/25 16:21 97.9 F 86 20 117/81 92 L 07/19/25 13:50 76 24 95 07/19/25 13:00 97.9 F 76 24 154/72 92 L 07/19/25 12:51 81 18 95 07/19/25 12:21 97.9 F 76 24 154/72 92 L 07/19/25 12:00 76 18 163/100 97 07/19/25 11:48 94 L 07/19/25 11:30 79 19 154/90 98 07/19/25 11:04 73 19 150/85 97 07/19/25 11:00 68 24 154/90 96 07/19/25 10:50 71 21 96 07/19/25 10:40 72 30 H 96 07/19/25 10:32 71 23 95 07/19/25 10:00 72 25 H 152/91 94 L 07/19/25 09:58 75 19 161/96 94 L 07/19/25 09:57 96 F 73 17 161/96 94 L Pain Assessment - Last Documented Pain Intensity 0 Pain Scale Used 0-10 Pain Scale Intake and Output: Intake & Output 07/17/25 07/18/25 07/19/25 07/20/25 11:59 11:59 11:59 11:59 Intake Total 458 Output Total 3600 Balance -3142 Weight 96.2 kg 94.4 kg Lab Results: Lab Results-Last 24 Hours 07/19/25 07/19/25 07/19/25 Range/Units 10:06 10:18 10:18 WBC 13.8 H (3.98-10.04) x10^3/uL RBC 4.44 (3.93-5.22) x10^6/uL Hgb 13.5 (11.2-15.7) g/dL Hct 41.7 (34.1-44.9) % MCV 93.9 (79.4-94.8) fL MCH 30.4 (25.6-32.2) pg MCHC 32.4 (32.2-35.5) g/dL RDW 12.7 (11.7-14.4) % Plt Count 369 (182-369) x10^3/uL MPV 9.9 (9.4-12.3) fL Gran % 84.4 H (34.0-71.1) % Immature Gran % (Auto) 0.4 (0.001-0.429) % Nucleat RBC Rel Count 0.0 (0.00-0.2) % Eos # (Auto) 0.11 (0.04-0.36) x10^3/uL Immature Gran # (Auto) 0.06 H (0.001-0.031) x10^3u/L Absolute Lymphs (auto) 1.25 (1.18-3.74) x10^3/uL Absolute Monos (auto) 0.67 (0.24-0.86) x10^3/uL Absolute Nucleated RBC 0.00 (0.00-0.012) x10^3u/L Lymphocytes % 9.1 L (19.3-51.7) % Monocytes % 4.9 (4.7-12.5) % Eosinophils % 0.8 (0.7-5.8) % Basophils % 0.4 (0.1-1.2) % Absolute Granulocytes 11.61 H (1.56-6.13) x10^3/uL Basophils # 0.06 (0.01-0.08) x10^3/uL pO2/FiO2 Ratio 21.0 % VBG pH 7.46 H (7.32-7.42) VBG pCO2 at Pat Temp 43 (42-55) mm/Hg VBG pO2 at Pat Temp 95 H (25-40) mm/Hg VBG HCO3 30.6 H* (22-28) meq/L VBG O2 Sat (Vincent) 98.4 (95-100) VBG Base Excess 6.0 H (-2.0-2.0) VBG Hemoglobin 14.4 VBG Carboxyhemoglobin 2.6 (0.0-6.9) % T HGB POC Potassium 4.1 (3.5-5.1) Sodium (135-145) mmol/L Potassium (3.5-5.1) mmol/L Chloride (98-107) mmol/L Carbon Dioxide (22-30) mmol/L Anion Gap (5-15) MEQ/L BUN (7-17) mg/dL Creatinine (0.52-1.04) mg/dL Estimated GFR ML/MIN Glucose (74-106) mg/dL POC Glucometer (74 to 106) mg/dL Lactic Acid (0.4-2.0) Calcium (8.4-10.2) mg/dL Total Bilirubin (0.2-1.3) mg/dL AST (14-36) U/L ALT (0-35) U/L Alkaline Phosphatase (38-126) U/L NT-Pro-B Natriuret Pep (<300) pg/mL Serum Total Protein (6.3-8.2) g/dL Albumin (3.5-5.0) g/dL Procalcitonin (0.030-0.080) ng/mL Urine Color (Yellow) Urine Appearance (Clear) Urine pH (4.6-8.0) Ur Specific [place] (1.005-1.030) Urine Protein (Negative) Urine Glucose (UA) (Negative) mg/dL Urine Ketones (Negative) Urine Blood (Negative) Urine Nitrite (Negative) Urine Bilirubin (Negative) Urine Urobilinogen (0.2) mg/dL Ur Leukocyte Esterase (Negative) U Hyaline Cast (Auto) (0-2) /LPF Urine Microscopic RBC (0-5) /HPF Urine Microscopic WBC (0-5) /HPF Ur Epithelial Cells (None Seen) /HPF Urine Bacteria (None Seen) /HPF Urine Culture Reflexed (NO) Influenza Type A Ag NEGATIVE (NEGATIVE) Influenza Type B Ag NEGATIVE (NEGATIVE) RSV (PCR) NEGATIVE (NEGATIVE) SARS-CoV-2 (PCR) NEGATIVE (NEGATIVE) 07/19/25 07/19/25 07/19/25 Range/Units 10:18 10:22 10:22 WBC (3.98-10.04) x10^3/uL RBC (3.93-5.22) x10^6/uL Hgb (11.2-15.7) g/dL Hct (34.1-44.9) % MCV (79.4-94.8) fL MCH (25.6-32.2) pg MCHC (32.2-35.5) g/dL RDW (11.7-14.4) % Plt Count (182-369) x10^3/uL MPV (9.4-12.3) fL Gran % (34.0-71.1) % Immature Gran % (Auto) (0.001-0.429) % Nucleat RBC Rel Count (0.00-0.2) % Eos # (Auto) (0.04-0.36) x10^3/uL Immature Gran # (Auto) (0.001-0.031) x10^3u/L Absolute Lymphs (auto) (1.18-3.74) x10^3/uL Absolute Monos (auto) (0.24-0.86) x10^3/uL Absolute Nucleated RBC (0.00-0.012) x10^3u/L Lymphocytes % (19.3-51.7) % Monocytes % (4.7-12.5) % Eosinophils % (0.7-5.8) % Basophils % (0.1-1.2) % Absolute Granulocytes (1.56-6.13) x10^3/uL Basophils # (0.01-0.08) x10^3/uL pO2/FiO2 Ratio % VBG pH (7.32-7.42) VBG pCO2 at Pat Temp (42-55) mm/Hg VBG pO2 at Pat Temp (25-40) mm/Hg VBG HCO3 (22-28) meq/L VBG O2 Sat (Vincent) (95-100) VBG Base Excess (-2.0-2.0) VBG Hemoglobin VBG Carboxyhemoglobin (0.0-6.9) % T HGB POC Potassium (3.5-5.1) Sodium 138 (135-145) mmol/L Potassium 4.1 (3.5-5.1) mmol/L Chloride 101 (98-107) mmol/L Carbon Dioxide 28 (22-30) mmol/L Anion Gap 13.0 (5-15) MEQ/L BUN 14 (7-17) mg/dL Creatinine 0.52 (0.52-1.04) mg/dL Estimated GFR 101.8 ML/MIN Glucose 120 H (74-106) mg/dL POC Glucometer (74 to 106) mg/dL Lactic Acid (0.4-2.0) Calcium 8.8 (8.4-10.2) mg/dL Total Bilirubin (0.2-1.3) mg/dL AST (14-36) U/L ALT (0-35) U/L Alkaline Phosphatase (38-126) U/L NT-Pro-B Natriuret Pep 1600 (<300) pg/mL Serum Total Protein (6.3-8.2) g/dL Albumin (3.5-5.0) g/dL Procalcitonin 0.048 (0.030-0.080) ng/mL Urine Color (Yellow) Urine Appearance (Clear) Urine pH (4.6-8.0) Ur Specific [place] (1.005-1.030) Urine Protein (Negative) Urine Glucose (UA) (Negative) mg/dL Urine Ketones (Negative) Urine Blood (Negative) Urine Nitrite (Negative) Urine Bilirubin (Negative) Urine Urobilinogen (0.2) mg/dL Ur Leukocyte Esterase (Negative) U Hyaline Cast (Auto) (0-2) /LPF Urine Microscopic RBC (0-5) /HPF Urine Microscopic WBC (0-5) /HPF Ur Epithelial Cells (None Seen) /HPF Urine Bacteria (None Seen) /HPF Urine Culture Reflexed (NO) Influenza Type A Ag (NEGATIVE) Influenza Type B Ag (NEGATIVE) RSV (PCR) (NEGATIVE) SARS-CoV-2 (PCR) (NEGATIVE) 07/19/25 07/19/25 07/19/25 Range/Units 12:49 15:17 16:02 WBC (3.98-10.04) x10^3/uL RBC (3.93-5.22) x10^6/uL Hgb (11.2-15.7) g/dL Hct (34.1-44.9) % MCV (79.4-94.8) fL MCH (25.6-32.2) pg MCHC (32.2-35.5) g/dL RDW (11.7-14.4) % Plt Count (182-369) x10^3/uL MPV (9.4-12.3) fL Gran % (34.0-71.1) % Immature Gran % (Auto) (0.001-0.429) % Nucleat RBC Rel Count (0.00-0.2) % Eos # (Auto) (0.04-0.36) x10^3/uL Immature Gran # (Auto) (0.001-0.031) x10^3u/L Absolute Lymphs (auto) (1.18-3.74) x10^3/uL Absolute Monos (auto) (0.24-0.86) x10^3/uL Absolute Nucleated RBC (0.00-0.012) x10^3u/L Lymphocytes % (19.3-51.7) % Monocytes % (4.7-12.5) % Eosinophils % (0.7-5.8) % Basophils % (0.1-1.2) % Absolute Granulocytes (1.56-6.13) x10^3/uL Basophils # (0.01-0.08) x10^3/uL pO2/FiO2 Ratio % VBG pH (7.32-7.42) VBG pCO2 at Pat Temp (42-55) mm/Hg VBG pO2 at Pat Temp (25-40) mm/Hg VBG HCO3 (22-28) meq/L VBG O2 Sat (Vincent) (95-100) VBG Base Excess (-2.0-2.0) VBG Hemoglobin VBG Carboxyhemoglobin (0.0-6.9) % T HGB POC Potassium (3.5-5.1) Sodium (135-145) mmol/L Potassium (3.5-5.1) mmol/L Chloride (98-107) mmol/L Carbon Dioxide (22-30) mmol/L Anion Gap (5-15) MEQ/L BUN (7-17) mg/dL Creatinine (0.52-1.04) mg/dL Estimated GFR ML/MIN Glucose (74-106) mg/dL POC Glucometer 137 H (74 to 106) mg/dL Lactic Acid 2.4 H (0.4-2.0) Calcium (8.4-10.2) mg/dL Total Bilirubin (0.2-1.3) mg/dL AST (14-36) U/L ALT (0-35) U/L Alkaline Phosphatase (38-126) U/L NT-Pro-B Natriuret Pep (<300) pg/mL Serum Total Protein (6.3-8.2) g/dL Albumin (3.5-5.0) g/dL Procalcitonin (0.030-0.080) ng/mL Urine Color Yellow (Yellow) Urine Appearance Clear (Clear) Urine pH 5.0 (4.6-8.0) Ur Specific [place] <=1.005 (1.005-1.030) Urine Protein Negative (Negative) Urine Glucose (UA) 500 A (Negative) mg/dL Urine Ketones Negative (Negative) Urine Blood Negative (Negative) Urine Nitrite Negative (Negative) Urine Bilirubin Negative (Negative) Urine Urobilinogen 0.2 (0.2) mg/dL Ur Leukocyte Esterase Negative (Negative) U Hyaline Cast (Auto) NONE SEEN (0-2) /LPF Urine Microscopic RBC 0-2 (0-5) /HPF Urine Microscopic WBC 0-2 (0-5) /HPF Ur Epithelial Cells None Seen (None Seen) /HPF Urine Bacteria None Seen (None Seen) /HPF Urine Culture Reflexed NO (NO) Influenza Type A Ag (NEGATIVE) Influenza Type B Ag (NEGATIVE) RSV (PCR) (NEGATIVE) SARS-CoV-2 (PCR) (NEGATIVE) 07/19/25 07/20/25 07/20/25 Range/Units 20:58 04:12 04:12 WBC 11.5 H (3.98-10.04) x10^3/uL RBC 4.26 (3.93-5.22) x10^6/uL Hgb 13.1 (11.2-15.7) g/dL Hct 40.6 (34.1-44.9) % MCV 95.3 H (79.4-94.8) fL MCH 30.8 (25.6-32.2) pg MCHC 32.3 (32.2-35.5) g/dL RDW 12.6 (11.7-14.4) % Plt Count 323 (182-369) x10^3/uL MPV 9.7 (9.4-12.3) fL Gran % 86.8 H (34.0-71.1) % Immature Gran % (Auto) 0.6 H (0.001-0.429) % Nucleat RBC Rel Count 0.0 (0.00-0.2) % Eos # (Auto) 0.11 (0.04-0.36) x10^3/uL Immature Gran # (Auto) 0.07 H (0.001-0.031) x10^3u/L Absolute Lymphs (auto) 0.80 L (1.18-3.74) x10^3/uL Absolute Monos (auto) 0.48 (0.24-0.86) x10^3/uL Absolute Nucleated RBC 0.00 (0.00-0.012) x10^3u/L Lymphocytes % 7.0 L (19.3-51.7) % Monocytes % 4.2 L (4.7-12.5) % Eosinophils % 1.0 (0.7-5.8) % Basophils % 0.4 (0.1-1.2) % Absolute Granulocytes 9.99 H (1.56-6.13) x10^3/uL Basophils # 0.05 (0.01-0.08) x10^3/uL pO2/FiO2 Ratio % VBG pH (7.32-7.42) VBG pCO2 at Pat Temp (42-55) mm/Hg VBG pO2 at Pat Temp (25-40) mm/Hg VBG HCO3 (22-28) meq/L VBG O2 Sat (Vincent) (95-100) VBG Base Excess (-2.0-2.0) VBG Hemoglobin VBG Carboxyhemoglobin (0.0-6.9) % T HGB POC Potassium (3.5-5.1) Sodium 138 (135-145) mmol/L Potassium 3.8 (3.5-5.1) mmol/L Chloride 100 (98-107) mmol/L Carbon Dioxide 30 (22-30) mmol/L Anion Gap 10.8 (5-15) MEQ/L BUN 20 H (7-17) mg/dL Creatinine 0.65 (0.52-1.04) mg/dL Estimated GFR 96.4 ML/MIN Glucose 136 H (74-106) mg/dL POC Glucometer 157 H (74 to 106) mg/dL Lactic Acid (0.4-2.0) Calcium 8.4 (8.4-10.2) mg/dL Total Bilirubin < 0.10 L (0.2-1.3) mg/dL AST 27 (14-36) U/L ALT 18 (0-35) U/L Alkaline Phosphatase 82 (38-126) U/L NT-Pro-B Natriuret Pep (<300) pg/mL Serum Total Protein 6.8 (6.3-8.2) g/dL Albumin 3.5 (3.5-5.0) g/dL Procalcitonin (0.030-0.080) ng/mL Urine Color (Yellow) Urine Appearance (Clear) Urine pH (4.6-8.0) Ur Specific [place] (1.005-1.030) Urine Protein (Negative) Urine Glucose (UA) (Negative) mg/dL Urine Ketones (Negative) Urine Blood (Negative) Urine Nitrite (Negative) Urine Bilirubin (Negative) Urine Urobilinogen (0.2) mg/dL Ur Leukocyte Esterase (Negative) U Hyaline Cast (Auto) (0-2) /LPF Urine Microscopic RBC (0-5) /HPF Urine Microscopic WBC (0-5) /HPF Ur Epithelial Cells (None Seen) /HPF Urine Bacteria (None Seen) /HPF Urine Culture Reflexed (NO) Influenza Type A Ag (NEGATIVE) Influenza Type B Ag (NEGATIVE) RSV (PCR) (NEGATIVE) SARS-CoV-2 (PCR) (NEGATIVE) 07/20/25 Range/Units 07:10 WBC (3.98-10.04) x10^3/uL RBC (3.93-5.22) x10^6/uL Hgb (11.2-15.7) g/dL Hct (34.1-44.9) % MCV (79.4-94.8) fL MCH (25.6-32.2) pg MCHC (32.2-35.5) g/dL RDW (11.7-14.4) % Plt Count (182-369) x10^3/uL MPV (9.4-12.3) fL Gran % (34.0-71.1) % Immature Gran % (Auto) (0.001-0.429) % Nucleat RBC Rel Count (0.00-0.2) % Eos # (Auto) (0.04-0.36) x10^3/uL Immature Gran # (Auto) (0.001-0.031) x10^3u/L Absolute Lymphs (auto) (1.18-3.74) x10^3/uL Absolute Monos (auto) (0.24-0.86) x10^3/uL Absolute Nucleated RBC (0.00-0.012) x10^3u/L Lymphocytes % (19.3-51.7) % Monocytes % (4.7-12.5) % Eosinophils % (0.7-5.8) % Basophils % (0.1-1.2) % Absolute Granulocytes (1.56-6.13) x10^3/uL Basophils # (0.01-0.08) x10^3/uL pO2/FiO2 Ratio % VBG pH (7.32-7.42) VBG pCO2 at Pat Temp (42-55) mm/Hg VBG pO2 at Pat Temp (25-40) mm/Hg VBG HCO3 (22-28) meq/L VBG O2 Sat (Vincent) (95-100) VBG Base Excess (-2.0-2.0) VBG Hemoglobin VBG Carboxyhemoglobin (0.0-6.9) % T HGB POC Potassium (3.5-5.1) Sodium (135-145) mmol/L Potassium (3.5-5.1) mmol/L Chloride (98-107) mmol/L Carbon Dioxide (22-30) mmol/L Anion Gap (5-15) MEQ/L BUN (7-17) mg/dL Creatinine (0.52-1.04) mg/dL Estimated GFR ML/MIN Glucose (74-106) mg/dL POC Glucometer 105 (74 to 106) mg/dL Lactic Acid (0.4-2.0) Calcium (8.4-10.2) mg/dL Total Bilirubin (0.2-1.3) mg/dL AST (14-36) U/L ALT (0-35) U/L Alkaline Phosphatase (38-126) U/L NT-Pro-B Natriuret Pep (<300) pg/mL Serum Total Protein (6.3-8.2) g/dL Albumin (3.5-5.0) g/dL Procalcitonin (0.030-0.080) ng/mL Urine Color (Yellow) Urine Appearance (Clear) Urine pH (4.6-8.0) Ur Specific [place] (1.005-1.030) Urine Protein (Negative) Urine Glucose (UA) (Negative) mg/dL Urine Ketones (Negative) Urine Blood (Negative) Urine Nitrite (Negative) Urine Bilirubin (Negative) Urine Urobilinogen (0.2) mg/dL Ur Leukocyte Esterase (Negative) U Hyaline Cast (Auto) (0-2) /LPF Urine Microscopic RBC (0-5) /HPF Urine Microscopic WBC (0-5) /HPF Ur Epithelial Cells (None Seen) /HPF Urine Bacteria (None Seen) /HPF Urine Culture Reflexed (NO) Influenza Type A Ag (NEGATIVE) Influenza Type B Ag (NEGATIVE) RSV (PCR) (NEGATIVE) SARS-CoV-2 (PCR) (NEGATIVE) Radiology Exams: Radiology Procedures Category Date Time Status CHEST 1 VIEW (PORTABLE) Stat Exams 07/19/25 10:06 Completed CHEST WITH CONTRAST [CT] Stat Exams 07/19/25 16:44 Taken ECHO W/2D AND DOPPLER [US] Urgent Exams 07/19/25 12:49 Taken VENOUS BILATERAL EXTREMITY [US] Stat Exams 07/19/25 13:12 Completed Medications: Medications Generic Name Dose Route Start Last Admin Trade Name Freq PRN Reason Stop Dose Admin Acetaminophen 650 mg 07/19/25 19:46 07/19/25 19:48 Acetaminophen 325 Mg Tablet PO 08/18/25 19:45 650 mg Q6H PRN PRN Administration PAIN AND/OR FEVER Albuterol Sulfate 2 puff 07/19/25 14:58 Albuterol Common Canister Inhaler 08/18/25 14:57 QID PRN SHORTNESS OF BREATH/WHEEZING Albuterol/Ipratropium 3 ml 07/19/25 14:40 07/20/25 01:07 Ipratropium/Albuterol Sulfate 3 Ml Ampul.Neb 08/18/25 14:39 3 ml Q4HPRN PRN Administration SHORTNESS OF BREATH/WHEEZING Apixaban 5 mg 07/19/25 22:00 07/20/25 08:33 Apixaban 2.5 Mg Tablet PO 08/18/25 21:59 5 mg BID SB Administration Carbamazepine 400 mg 07/19/25 17:00 07/20/25 08:35 Carbamazepine 200 Mg Tablet PO 08/18/25 16:59 400 mg QID SB Administration Citalopram Hydrobromide 40 mg 07/19/25 22:00 07/19/25 21:10 Citalopram Hydrobromide 20 Mg Tablet PO 08/18/25 21:59 40 mg HS SB Administration Clopidogrel Bisulfate 75 mg 07/20/25 10:00 07/20/25 08:32 Clopidogrel Bisulfate 75 Mg Tablet PO 08/19/25 09:59 75 mg DAILY SB Administration Furosemide 40 mg 07/19/25 14:30 07/20/25 08:35 Furosemide 40 Mg/4 Ml Vial IV 08/18/25 14:29 40 mg BID DIURETIC SB Administration Piperacillin Sod/Tazobactam 100 mls @ 200 mls/hr 07/19/25 18:00 07/20/25 06:48 Sod 3.375 gm/ Sodium Chloride IV 07/22/25 17:59 200 mls/hr Q6HT SB Administration Insulin Human Lispro 0 unit 07/19/25 12:51 07/19/25 21:11 Insulin Lispro 1 Unit SQ 08/18/25 12:50 3 unit UD PRN Administration HYPERGLYCEMIA Lisinopril 20 mg 07/19/25 22:00 07/20/25 08:33 Lisinopril 20 Mg Tablet PO 08/18/25 21:59 20 mg BID SB Administration Loratadine 10 mg 07/20/25 10:00 07/20/25 08:33 Loratadine 10 Mg Tablet PO 08/19/25 09:59 10 mg DAILY SB Administration Melatonin 4.5 mg 07/19/25 22:00 07/19/25 21:12 Melatonin 3 Mg Tablet PO 08/18/25 21:59 4.5 mg HS SB Administration Metoprolol Tartrate 25 mg 07/19/25 22:00 07/20/25 08:34 Metoprolol Tartrate 25 Mg Tab PO 08/18/25 21:59 25 mg BID SB Administration Non-Formulary Medication 1 each 07/19/25 17:35 Hold Metformin Products For 48hrs 07/21/25 17:36 Q48H SB Ondansetron HCl 4 mg 07/19/25 12:51 07/19/25 17:16 Ondansetron Hcl 4 Mg/2 Ml Vial IV 08/18/25 12:50 4 mg Q6H PRN PRN Administration NAUSEA/VOMITING Pantoprazole Sodium 40 mg 07/20/25 10:00 07/20/25 08:34 Protonix (Pantoprazole) 40 Mg Tablet PO 08/19/25 09:59 40 mg DAILY SB Administration Prednisone 20 mg 07/19/25 22:00 07/20/25 08:34 Prednisone 20 Mg Tablet PO 08/18/25 21:59 20 mg BID SB Administration Fluticasone/Salmeterol 2 puff 07/19/25 22:00 07/20/25 08:10 Fluticasone/Salmeterol 115/21 60 Puff Aer.W.Adap 08/18/25 21:59 2 puff BID SB Administration Tramadol HCl 50 mg 07/19/25 15:00 07/20/25 08:32 Tramadol Hcl 50 Mg Tablet PO 08/18/25 14:59 50 mg TID SB Administration Discontinued Medications Generic Name Dose Route Start Last Admin Trade Name Freq PRN Reason Stop Dose Admin Albuterol/Ipratropium 3 ml 07/19/25 13:00 Ipratropium/Albuterol Sulfate 3 Ml Ampul.Neb 08/18/25 12:59 Q6HRT SB Albuterol/Ipratropium 3 ml 07/19/25 13:40 07/19/25 13:46 Ipratropium/Albuterol Sulfate 3 Ml Ampul.Neb 08/18/25 13:38 3 ml Q4HPRN PRN Administration SHORTNESS OF BREATH/WHEEZING Albuterol/Ipratropium Confirm 07/19/25 13:45 Ipratropium/Albuterol Sulfate 3 Ml Ampul.Neb Administered 07/19/25 13:46 Dose 3 ml IH .STK-MED ONE Piperacillin Sod/Tazobactam 100 mls @ 200 mls/hr 07/19/25 10:46 07/19/25 11:39 Sod 3.375 gm/ Sodium Chloride IV 07/19/25 11:15 Infused STAT STA Infusion Sodium Chloride Confirm 07/19/25 10:56 Sodium Chloride 0.9% Administered 07/19/25 10:57 Dose 100 mls @ ud .ROUTE .STK-MED ONE Ondansetron HCl 4 mg 07/19/25 11:28 07/19/25 11:38 Ondansetron Hcl 4 Mg/2 Ml Vial IV 07/19/25 11:29 4 mg STAT ONE Administration Ondansetron HCl Confirm 07/19/25 11:34 Ondansetron Hcl 4 Mg/2 Ml Vial Administered 07/19/25 11:35 Dose 4 mg .ROUTE .STK-MED ONE Piperacillin Sod/Tazobactam Sod Confirm 07/19/25 10:55 Piperacillin/Tazobactam Sodium 3.375 Gm Vial Administered 07/19/25 10:56 Dose 3.375 gm IV .STK-MED ONE Assessment/Plan (1) Acute and chronic respiratory failure Current Visit: Yes Status: Acute Assessment & Plan: multifactorial (acute decompensated heart failure vs. recurrent pneumonia vs. COPD exacerbation): -The patient presents with progressive dyspnea, increased oxygen demand, elevated BNP, and imaging consistent with pulmonary congestion and effusionsmost compatible with acute decompensated heart failure superimposed on chronic lung disease. Persistent leukocytosis and patchy airspace opacities could represent residual or recurrent infection. -Supplemental oxygen with goal spo2 > 90%- currently on 3L at 92% - baseline per pt is 2L -RT following -INH/NEBS -Prednisone -Sputum culture -Will continue Zosyn for HAP -Lasix 40mg x 1- Echo to evaluate CHF -Strict I/O, daily weights, and repeat chest X-ray post-diuresis to track volume response -Procal, blood cultures x 2 -WBC reviewed -trend 07/20: -WBC reviewed at [id number] -Lactic acid 2.4 on admission- repeat pending- IVF contraindicated with CHF exacerbation -On 4L oxygen -titrate for spo2 goal > 91% -Continue Zosyn -with sputum cultures pending -Blood cultures pending -Procal WNL -CT chest showing respiratory motion artifact limiting evaluation for pulmonary embolism, with no obvious PE identified. There is interval worsening of diffuse bilateral consolidative and non-consolidative airspace opacities as well as increased bilateral pleural effusions. Code(s): J96.20 - ACUTE AND CHR RESP FAILURE, UNSP W HYPOXIA OR HYPERCAPNIA (2) CHF exacerbation Current Visit: Yes Status: Acute Assessment & Plan: -No echo on file -BNP elevated at 1600; BLE pedal edema on exam -Reports h/o of CHF - no home meds or diuretics -Obtain echo -elevated HOB/strict I&Os -Lasix 40mg BID -consider Cards consult 07/20: -Echo 07/19: Normal left ventricular size with mild concentric wall thickening and preserved systolic function ([id number]%). Grade I diastolic dysfunction consistent with impaired relaxation. Borderline left atrial enlargement. Normal right ventricular size and function. No wall motion abnormalities or significant valvular disease. Normal aortic root and pulmonary valve. Estimated RA pressure 10 mmHg; RVSP not estimated due to insufficient TR jet. -Lasix 40mg BID -CT chest showing respiratory motion artifact limiting evaluation for pulmonary embolism, with no obvious PE identified. There is interval worsening of diffuse bilateral consolidative and non-consolidative airspace opacities as well as increased bilateral pleural effusions. -balance (-2662mls) Code(s): I50.9 - HEART FAILURE, UNSPECIFIED (3) Pneumonia Current Visit: Yes Status: Acute Assessment & Plan: -see ARF Code(s): J18.9 - PNEUMONIA, UNSPECIFIED ORGANISM (4) CAD (coronary artery disease) Current Visit: Yes Status: Acute Assessment & Plan: -Stable; continue secondary prevention -S/p CABG 9 stents Code(s): I25.10 - ATHSCL HEART DISEASE OF [place] CORONARY ARTERY W/O ANG PCTRS (5) HTN (hypertension) Current Visit: Yes Status: Acute Assessment & Plan: -continue home meds Code(s): I10 - ESSENTIAL (PRIMARY) HYPERTENSION (6) COPD exacerbation Current Visit: No Status: Acute Assessment & Plan: -Contributing to worsening respiratory distress and hypoxemia. Likely triggered by fluid overload and possible infection. VBG demonstrates no acute hypercapnia, suggesting partial compensation. -see ARF -Nebs/INH -RT to follow -Consider ABG if worsening hypoxia or signs of CO? retention develop. Code(s): J44.1 - CHRONIC OBSTRUCTIVE PULMONARY DISEASE W (ACUTE) EXACERBATION Hyperthyroidism -Diagnosed during last hospitalization - pending endocrinology follow up- will call for appt -Recheck TSH/FT4- pending -No current antithyroid medications (e.g., methimazole or propylthiouracil) have been initiated at this time pending specialist input. -Continue to monitor for signs of thyroid storm (tachycardia, fever, altered mental status) and manage symptomatically as needed. (7) DMII (diabetes mellitus, type 2) Current Visit: No Status: Chronic Qualifiers: Diabetes mellitus assisted insulin use: without assisted use Assessment & Plan: -ADA diet -SSI -A1c at 5.73 06/27/25 (8) GERD (gastroesophageal reflux disease) Current Visit: No Status: Chronic Assessment & Plan: -Protonix Code(s): K21.9 - GASTRO-ESOPHAGEAL REFLUX DISEASE WITHOUT ESOPHAGITIS (9) History of stroke Current Visit: No Status: Chronic Assessment & Plan: -continue home meds Code(s): Z86.73 - PRSNL HX OF TIA (TIA), AND CEREB INFRC W/O RESID DEFICITS (10) Obesity (BMI 30-39.9) Current Visit: No Status: Chronic Assessment & Plan: -advised diet and exercise Code(s): E66.9 - OBESITY, UNSPECIFIED (11) Seizure disorder Current Visit: No Status: Chronic Assessment & Plan: -Stable at baseline, no acute neuro changes -Continue home regimen Code(s): G40.909 - EPILEPSY, UNSP, NOT INTRACTABLE, WITHOUT STATUS EPILEPTICUS (12) Arrhythmia Current Visit: Yes Status: Acute Assessment & Plan: -Currently NSR, paced. -On ELiquis -Tele -Resume outpatient rate/rhythm regimen VTE: Eliquis PPI: Protonix Dispo: 1-3 days Code status: Full Code Plan of care time spent > 40mins Code(s): J96.20 - ACUTE AND CHR RESP FAILURE, UNSP W HYPOXIA OR HYPERCAPNIA (2) CHF exacerbation Current Visit: Yes Status: Acute Code(s): I50.9 - HEART FAILURE, UNSPECIFIED (3) Pneumonia Current Visit: Yes Status: Acute Code(s): J18.9 - PNEUMONIA, UNSPECIFIED ORGANISM (4) CAD (coronary artery disease) Current Visit: Yes Status: Acute Code(s): I25.10 - ATHSCL HEART DISEASE OF [place] CORONARY ARTERY W/O ANG PCTRS (5) HTN (hypertension) Current Visit: Yes Status: Acute Code(s): I10 - ESSENTIAL (PRIMARY) HYPERTENSION (6) COPD exacerbation Current Visit: No Status: Acute Code(s): J44.1 - CHRONIC OBSTRUCTIVE PULMONARY DISEASE W (ACUTE) EXACERBATION (7) DMII (diabetes mellitus, type 2) Current Visit: No Status: Chronic Qualifiers: Diabetes mellitus assisted insulin use: without assisted use (8) GERD (gastroesophageal reflux disease) Current Visit: No Status: Chronic Code(s): K21.9 - GASTRO-ESOPHAGEAL REFLUX DISEASE WITHOUT ESOPHAGITIS (9) History of stroke Current Visit: No Status: Chronic Code(s): Z86.73 - PRSNL HX OF TIA (TIA), AND CEREB INFRC W/O RESID DEFICITS (10) Obesity (BMI 30-39.9) Current Visit: No Status: Chronic Code(s): E66.9 - OBESITY, UNSPECIFIED (11) Seizure disorder Current Visit: No Status: Chronic Code(s): G40.909 - EPILEPSY, UNSP, NOT INTRACTABLE, WITHOUT STATUS EPILEPTICUS (12) Arrhythmia Current Visit: Yes Status: Acute Code(s): I49.9 - CARDIAC ARRHYTHMIA, UNSPECIFIED
--- NOTE | 2025-07-20 08:48 | XRAY ---
Indication: Short of breath. Multiple contiguous axial images obtained through the chest using 80 cc Isovue 370 contrast and PE protocol. Comparison: July 13, 2025 There is again mild diffuse respiration artifact limiting evaluation for pulmonary embolus. Again no obvious pulmonary embolus. Heart not enlarged again with CABG and left pacemaker. Aorta again minimally arteriosclerotic without aneurysm/dissection. Stable small subcarinal calcified nodes. No pathologic mediastinal/hilar lymphadenopathy. Lungs demonstrates interval worsening diffuse bilateral patchy consolidating/nonconsolidating airspace disease. Also interval worsening moderate bilateral effusions again [id number] with bibasilar compressive atelectasis. Bony thorax intact again with osteopenia and degenerative changes. Limited upper abdomen again demonstrates incidental hepatic/splenic calcified granulomas. Impression: 1. Again respiration artifact limits pulmonary embolus evaluation. Again no obvious pulmonary embolus. 2. Worsening diffuse bilateral consolidating/nonconsolidating airspace disease and worsening bilateral effusions. 3. Again chronic findings including CABG, arteriosclerotic disease, chronic bony findings, and old granulomatous disease.
[2025-07-20] MEDS ORDERED: NON-FORMULARY ITEM (Cetirizine Hcl [Cetirizine Hcl] 10 MG Tablet) PO SCH (10:00)
[2025-07-20] MEDS: Mucinex 600MG ER Tabs PO SCH (17:17)
[2025-07-20] MEDS: BACIGUENT 30 GM TP PRN (19:32)
[2025-07-20 19:57] LABS: Calcium 8.4 mg/dL (8.4-10.2); Carbon Dioxide 35.0 mmol/L (22-30); Creatinine 1 0.92 mg/dL (0.52-1.04); EST GLOMERULAR FILTRATION RATE 68.3 ML/MIN; Glucose 98.0 mg/dL (74-106); Potassium 3.9 mmol/L (3.5-5.1)
[2025-07-20] MEDS: HOLD METFORMIN PRODUCTS FOR 48 HOURS MC SCH (22:00)
[2025-07-21 05:04] LABS: BASOPHIL % 0.4 % (0.1-1.2); Basophil (Absolute #) 0.05 x10^3/uL (0.01-0.08); Eosinophil (Absolute #) 0.25 x10^3/uL (0.04-0.36); Hematocrit 40.6 % (34.1-44.9); Hemoglobin 12.5 g/dL (11.2-15.7); IMMATURE GRAN # 0.04 x10^3u/L (0.001-0.031); IMMATURE GRAN % 0.4 % (0.001-0.429); Lymphocyte (Absolute #) 0.85 x10^3/uL (1.18-3.74); Mean Corpuscular Hemoglobin 29.8 pg (25.6-32.2); Mean Corpuscular Hgb Concent. 30.8 g/dL (32.2-35.5); Monocyte (Absolute #) 0.63 x10^3/uL (0.24-0.86); NUCLEATED RBC # 0.00 x10^3u/L (0.00-0.012); NUCLEATED RBC % 0.0 % (0.00-0.2); Platelet Count 316 x10^3/uL (182-369); Red Blood Count 4.19 x10^6/uL (3.93-5.22); White Blood Count 11.2 x10^3/uL (3.98-10.04)
--- NOTE | 2025-07-21 05:13 | PCM.NOTE ---
Date and Time: 07/21/25 0511 Subjective Assessment: is a 65 year old female with a pmhx of chronic heart failure, coronary artery disease status post-CABG (9 stents), arrythmia (on eliquis/pacemaker), COPD, type 2 diabetes mellitus, hypertension, prior ischemic stroke, seizure disorder, anxiety, and depression, who presented on July 09, 2025, with shortness of breath and bilateral lower extremity edema. She was recently admitted from June 2123 for pneumonia, COPD exacerbation, and urinary tract infection, treated with doxycycline, corticosteroids, and scheduled DuoNebs. She improved and was discharged on home oxygen at her baseline 4 L/min with saturation 94%. Patient reports that her shortness of breath has not changed since discharge but she will occasionally knock her oxygen off and become short of breath at night and have a panic attack. She reports multiple panic attacks due to shortness of breath. Over the past two days she has noticed worsening bilateral leg swelling. She denies chest pain, fever, chills, or productive cough. In the emergency department, BP was 161/96 mm Hg, SpO2 94% on 3 L, and exam revealed diffuse crackles and pitting pedal edema greater on the left . Chest X-ray demonstrated worsening moderate diffuse bilateral airspace disease (both consolidating and nonconsolidating) with new small bibasilar effusions, right greater than left, and cardiomegaly with a left-sided pacemaker, similar to her CT chest from July 13. Laboratory findings showed WBC 13.8 and BNP 1600 , consistent with heart failure exacerbation. CMP was unremarkable. Respiratory viral panel was negative. Plan for observation for treatment of pneumonia and CHF exacerbation. Echo obtained 07/19/25 showing Normal LV size with mild concentric wall thickening. LVEF 5560% with normal systolic function. Grade I diastolic dysfunction (impaired relaxation). Borderline left atrial enlargement. Normal right-sided chamber size and function. No wall motion or significant valvular abnormalities. Normal aortic root. Unable to estimate RVSP due to insufficient TR jet; estimated RA pressure 10 mmHg. Overall, findings consistent with preserved EF and mild diastolic dysfunction. CT chest from 07/19/25 notes respiratory motion artifact limiting evaluation for pulmonary embolism, with no obvious PE identified. There is interval worsening of diffuse bilateral consolidative and non-consolidative airspace opacities and increased bilateral pleural effusions. 07/20/25: Patient seen at bedside, reporting improved dyspnea though remains on 4 L oxygen via nasal cannula. Cough is productive with yellow sputum. Bilateral lower extremity edema has improved. On exam, lungs with coarse crackles and expiratory wheezing bilaterally. CT chest from 07/19/25 showing respiratory motion artifact limiting evaluation for pulmonary embolism, with no obvious PE identified. There is interval worsening of diffuse bilateral consolidative and non-consolidative airspace opacities and increased bilateral pleural effusions. Echocardiogram shows normal LV size with mild concentric wall thickening, preserved systolic function (LVEF 5560%), grade I diastolic dysfunction, borderline left atrial enlargement, normal right ventricular size and function, and no significant valvular disease. Overall, findings consistent with preserved EF and mild diastolic dysfunction. Plan to continue IV diuresis with furosemide and maintain antibiotic therapy for multifocal pneumonia and CHF exacerbation, with ongoing monitoring of respiratory status, daily weights, and volume response. 07/21/25: Met with patient bedside. Endorses improvement in dyspnea and BLE edema. Cough with yellow production. She remains on 4L oxygen. Lung sounds with improved aeration. Fine crackles in bases. No wheezing on exam. Will transition to oral lasix today. Sputum culture is pending. Continue IV zosyn until resulted. Repeat CXR tomorrow. - Review of Systems Constitutional: No Symptoms Eyes: No Symptoms Ears, Nose, & Throat: No Symptoms Respiratory: Cough, Short Of Breath Cardiac: Edema (BLE trace L>R pedal) Abdominal/Gastrointestinal: No Symptoms Genitourinary Symptoms: No Symptoms Musculoskeletal: No Symptoms Skin: No Symptoms Neurological: No Symptoms Psychological: No Symptoms Endocrine: No Symptoms Hematologic/Lymphatic: No Symptoms Immunological/Allergic: No Symptoms Objective Exam General Appearance: no apparent distress Neurologic Exam: alert, oriented x 3, cooperative Skin Exam: normal color Wound Assessment: Skin/Wound Assessment Wound/Incision Assessment Start: 07/20/25 19:38 Text: Status: Active Freq: Q6H Protocol: Document 07/21/25 01:38 CWB (Rec: 07/21/25 02:43 CWB [id number]) Wound Photo Photo Taken No Eye Exam: PERRL Ears, Nose, Throat Exam: normal ENT inspection Neck Exam: normal inspection Respiratory Exam: diminished breath sounds, crackles/rales Cardiovascular Exam: regular rate/rhythm, normal heart sounds Gastrointestinal/Abdomen Exam: soft, normal bowel sounds Extremity Exam: pedal edema (BLE trace L>R pedal) Back Exam: normal inspection Pelvic Exam: deferred Objective Data Vital Signs: Vital Signs - 24 hr Temp Pulse Resp BP Pulse Ox 07/21/25 03:46 98.1 F 74 16 134/64 93 L 07/20/25 23:33 96 07/20/25 23:32 98.5 F 80 20 147/67 96 07/20/25 19:00 97.0 F 82 18 107/60 95 07/20/25 17:58 84 18 96 07/20/25 15:00 98.4 F 84 18 146/67 94 L 07/20/25 13:34 80 18 96 07/20/25 11:23 97.8 F 68 16 104/56 94 L 07/20/25 09:17 97.1 F 07/20/25 09:05 80 24 109/64 95 07/20/25 08:11 77 18 93 L 07/20/25 06:49 98.7 F 78 16 141/81 96 Pain Assessment - Last Documented Pain Intensity 0 Pain Scale Used 0-10 Pain Scale Intake and Output: Intake & Output 07/18/25 07/19/25 07/20/25 07/21/25 11:59 11:59 11:59 11:59 Intake Total 938 1245 Output Total 3600 2300 Balance -2662 -1055 Weight 96.2 kg 94.4 kg Lab Results: Lab Results-Last 24 Hours 07/20/25 07/20/25 07/20/25 Range/Units 04:12 04:12 07:10 WBC (3.98-10.04) x10^3/uL RBC (3.93-5.22) x10^6/uL Hgb (11.2-15.7) g/dL Hct (34.1-44.9) % MCV (79.4-94.8) fL MCH (25.6-32.2) pg MCHC (32.2-35.5) g/dL RDW (11.7-14.4) % Plt Count (182-369) x10^3/uL MPV (9.4-12.3) fL Gran % (34.0-71.1) % Immature Gran % (Auto) (0.001-0.429) % Nucleat RBC Rel Count (0.00-0.2) % Eos # (Auto) (0.04-0.36) x10^3/uL Immature Gran # (Auto) (0.001-0.031) x10^3u/L Absolute Lymphs (auto) (1.18-3.74) x10^3/uL Absolute Monos (auto) (0.24-0.86) x10^3/uL Absolute Nucleated RBC (0.00-0.012) x10^3u/L Lymphocytes % (19.3-51.7) % Monocytes % (4.7-12.5) % Eosinophils % (0.7-5.8) % Basophils % (0.1-1.2) % Absolute Granulocytes (1.56-6.13) x10^3/uL Basophils # (0.01-0.08) x10^3/uL Sodium (135-145) mmol/L Potassium (3.5-5.1) mmol/L Chloride (98-107) mmol/L Carbon Dioxide (22-30) mmol/L Anion Gap (5-15) MEQ/L BUN (7-17) mg/dL Creatinine (0.52-1.04) mg/dL Estimated GFR ML/MIN Glucose (74-106) mg/dL POC Glucometer 105 (74 to 106) mg/dL Lactic Acid (0.4-2.0) Calcium (8.4-10.2) mg/dL Magnesium (1.6-2.3) mg/dL Free T4 0.90 (0.78-2.19) ng/dL TSH 3rd Generation 0.953 (0.470-4.680) mIU/L 07/20/25 07/20/25 07/20/25 Range/Units 07:18 09:14 11:19 WBC (3.98-10.04) x10^3/uL RBC (3.93-5.22) x10^6/uL Hgb (11.2-15.7) g/dL Hct (34.1-44.9) % MCV (79.4-94.8) fL MCH (25.6-32.2) pg MCHC (32.2-35.5) g/dL RDW (11.7-14.4) % Plt Count (182-369) x10^3/uL MPV (9.4-12.3) fL Gran % (34.0-71.1) % Immature Gran % (Auto) (0.001-0.429) % Nucleat RBC Rel Count (0.00-0.2) % Eos # (Auto) (0.04-0.36) x10^3/uL Immature Gran # (Auto) (0.001-0.031) x10^3u/L Absolute Lymphs (auto) (1.18-3.74) x10^3/uL Absolute Monos (auto) (0.24-0.86) x10^3/uL Absolute Nucleated RBC (0.00-0.012) x10^3u/L Lymphocytes % (19.3-51.7) % Monocytes % (4.7-12.5) % Eosinophils % (0.7-5.8) % Basophils % (0.1-1.2) % Absolute Granulocytes (1.56-6.13) x10^3/uL Basophils # (0.01-0.08) x10^3/uL Sodium (135-145) mmol/L Potassium (3.5-5.1) mmol/L Chloride (98-107) mmol/L Carbon Dioxide (22-30) mmol/L Anion Gap (5-15) MEQ/L BUN (7-17) mg/dL Creatinine (0.52-1.04) mg/dL Estimated GFR ML/MIN Glucose (74-106) mg/dL POC Glucometer 201 H 157 H (74 to 106) mg/dL Lactic Acid 1.9 (0.4-2.0) Calcium (8.4-10.2) mg/dL Magnesium (1.6-2.3) mg/dL Free T4 (0.78-2.19) ng/dL TSH 3rd Generation (0.470-4.680) mIU/L 07/20/25 07/20/25 07/20/25 Range/Units 16:16 19:25 20:52 WBC (3.98-10.04) x10^3/uL RBC (3.93-5.22) x10^6/uL Hgb (11.2-15.7) g/dL Hct (34.1-44.9) % MCV (79.4-94.8) fL MCH (25.6-32.2) pg MCHC (32.2-35.5) g/dL RDW (11.7-14.4) % Plt Count (182-369) x10^3/uL MPV (9.4-12.3) fL Gran % (34.0-71.1) % Immature Gran % (Auto) (0.001-0.429) % Nucleat RBC Rel Count (0.00-0.2) % Eos # (Auto) (0.04-0.36) x10^3/uL Immature Gran # (Auto) (0.001-0.031) x10^3u/L Absolute Lymphs (auto) (1.18-3.74) x10^3/uL Absolute Monos (auto) (0.24-0.86) x10^3/uL Absolute Nucleated RBC (0.00-0.012) x10^3u/L Lymphocytes % (19.3-51.7) % Monocytes % (4.7-12.5) % Eosinophils % (0.7-5.8) % Basophils % (0.1-1.2) % Absolute Granulocytes (1.56-6.13) x10^3/uL Basophils # (0.01-0.08) x10^3/uL Sodium 141 (135-145) mmol/L Potassium 3.9 (3.5-5.1) mmol/L Chloride 100 (98-107) mmol/L Carbon Dioxide 35 H (22-30) mmol/L Anion Gap 9.4 (5-15) MEQ/L BUN 21 H (7-17) mg/dL Creatinine 0.92 (0.52-1.04) mg/dL Estimated GFR 68.3 ML/MIN Glucose 98 (74-106) mg/dL POC Glucometer 156 H 81 (74 to 106) mg/dL Lactic Acid (0.4-2.0) Calcium 8.4 (8.4-10.2) mg/dL Magnesium 1.6 (1.6-2.3) mg/dL Free T4 (0.78-2.19) ng/dL TSH 3rd Generation (0.470-4.680) mIU/L 07/21/25 Range/Units 04:09 WBC 11.2 H (3.98-10.04) x10^3/uL RBC 4.19 (3.93-5.22) x10^6/uL Hgb 12.5 (11.2-15.7) g/dL Hct 40.6 (34.1-44.9) % MCV 96.9 H (79.4-94.8) fL MCH 29.8 (25.6-32.2) pg MCHC 30.8 L (32.2-35.5) g/dL RDW 12.8 (11.7-14.4) % Plt Count 316 (182-369) x10^3/uL MPV 9.9 (9.4-12.3) fL Gran % 83.8 H (34.0-71.1) % Immature Gran % (Auto) 0.4 (0.001-0.429) % Nucleat RBC Rel Count 0.0 (0.00-0.2) % Eos # (Auto) 0.25 (0.04-0.36) x10^3/uL Immature Gran # (Auto) 0.04 H (0.001-0.031) x10^3u/L Absolute Lymphs (auto) 0.85 L (1.18-3.74) x10^3/uL Absolute Monos (auto) 0.63 (0.24-0.86) x10^3/uL Absolute Nucleated RBC 0.00 (0.00-0.012) x10^3u/L Lymphocytes % 7.6 L (19.3-51.7) % Monocytes % 5.6 (4.7-12.5) % Eosinophils % 2.2 (0.7-5.8) % Basophils % 0.4 (0.1-1.2) % Absolute Granulocytes 9.36 H (1.56-6.13) x10^3/uL Basophils # 0.05 (0.01-0.08) x10^3/uL Sodium (135-145) mmol/L Potassium (3.5-5.1) mmol/L Chloride (98-107) mmol/L Carbon Dioxide (22-30) mmol/L Anion Gap (5-15) MEQ/L BUN (7-17) mg/dL Creatinine (0.52-1.04) mg/dL Estimated GFR ML/MIN Glucose (74-106) mg/dL POC Glucometer (74 to 106) mg/dL Lactic Acid (0.4-2.0) Calcium (8.4-10.2) mg/dL Magnesium (1.6-2.3) mg/dL Free T4 (0.78-2.19) ng/dL TSH 3rd Generation (0.470-4.680) mIU/L Radiology Exams: Radiology Procedures Category Date Time Status CHEST 1 VIEW (PORTABLE) Stat Exams 07/19/25 10:06 Completed CHEST WITH CONTRAST [CT] Stat Exams 07/19/25 16:44 Completed ECHO W/2D AND DOPPLER [US] Urgent Exams 07/19/25 12:49 Taken VENOUS BILATERAL EXTREMITY [US] Stat Exams 07/19/25 13:12 Completed Medications: Medications Generic Name Dose Route Start Last Admin Trade Name Freq PRN Reason Stop Dose Admin Acetaminophen 650 mg 07/19/25 19:46 07/20/25 19:32 Acetaminophen 325 Mg Tablet PO 08/18/25 19:45 650 mg Q6H PRN PRN Administration PAIN AND/OR FEVER Albuterol Sulfate 2 puff 07/19/25 14:58 Albuterol Common Canister Inhaler IH 08/18/25 14:57 QID PRN SHORTNESS OF BREATH/WHEEZING Albuterol/Ipratropium 3 ml 07/19/25 14:40 07/20/25 23:32 Ipratropium/Albuterol Sulfate 3 Ml Ampul.Neb IH 08/18/25 14:39 3 ml Q4HPRN PRN Administration SHORTNESS OF BREATH/WHEEZING Apixaban 5 mg 07/19/25 22:00 07/20/25 21:53 Apixaban 2.5 Mg Tablet PO 08/18/25 21:59 5 mg BID SB Administration Bacitracin Zinc 1 gm 07/20/25 18:56 07/20/25 19:32 Bacitracin Zinc 28 Gm Tube TP 08/19/25 18:55 1 gm DAILY PRN Administration DRY OR BLEEDING NARES Carbamazepine 400 mg 07/19/25 17:00 07/20/25 21:53 Carbamazepine 200 Mg Tablet PO 08/18/25 16:59 400 mg QID SB Administration Citalopram Hydrobromide 40 mg 07/19/25 22:00 07/20/25 21:54 Citalopram Hydrobromide 20 Mg Tablet PO 08/18/25 21:59 40 mg HS SB Administration Clopidogrel Bisulfate 75 mg 07/20/25 10:00 07/20/25 08:32 Clopidogrel Bisulfate 75 Mg Tablet PO 08/19/25 09:59 75 mg DAILY SB Administration Furosemide 40 mg 07/19/25 14:30 07/20/25 13:36 Furosemide 40 Mg/4 Ml Vial IV 08/18/25 14:29 40 mg BID DIURETIC SB Administration Guaifenesin 600 mg 07/20/25 16:00 07/20/25 17:17 Guaifenesin 600 Mg Tablet Er PO 08/19/25 15:59 600 mg DAILY SB Administration Piperacillin Sod/Tazobactam 100 mls @ 200 mls/hr 07/19/25 18:00 07/21/25 00:06 Sod 3.375 gm/ Sodium Chloride IV 07/22/25 17:59 200 mls/hr Q6HT SB Administration Insulin Human Lispro 0 unit 07/19/25 12:51 07/20/25 17:11 Insulin Lispro 1 Unit SQ 08/18/25 12:50 3 unit UD PRN Administration HYPERGLYCEMIA Lisinopril 20 mg 07/19/25 22:00 07/20/25 21:53 Lisinopril 20 Mg Tablet PO 08/18/25 21:59 20 mg BID SB Administration Loratadine 10 mg 07/20/25 10:00 07/20/25 08:33 Loratadine 10 Mg Tablet PO 08/19/25 09:59 10 mg DAILY SB Administration Melatonin 4.5 mg 07/19/25 22:00 07/20/25 21:54 Melatonin 3 Mg Tablet PO 08/18/25 21:59 4.5 mg HS SB Administration Metoprolol Tartrate 25 mg 07/19/25 22:00 07/20/25 21:53 Metoprolol Tartrate 25 Mg Tab PO 08/18/25 21:59 25 mg BID SB Administration Non-Formulary Medication 1 each 07/19/25 17:35 07/20/25 22:00 Hold Metformin Products For 48hrs 07/21/25 17:36 Not Given Q48H SB Ondansetron HCl 4 mg 07/19/25 12:51 07/20/25 09:10 Ondansetron Hcl 4 Mg/2 Ml Vial IV 08/18/25 12:50 4 mg Q6H PRN PRN Administration NAUSEA/VOMITING Pantoprazole Sodium 40 mg 07/20/25 10:00 07/20/25 08:34 Protonix (Pantoprazole) 40 Mg Tablet PO 08/19/25 09:59 40 mg DAILY SB Administration Prednisone 20 mg 07/19/25 22:00 07/20/25 21:53 Prednisone 20 Mg Tablet PO 08/18/25 21:59 20 mg BID SB Administration Fluticasone/Salmeterol 2 puff 07/19/25 22:00 07/20/25 17:57 Fluticasone/Salmeterol 115/21 60 Puff Aer.W.Adap 08/18/25 21:59 2 puff BID SB Administration Tramadol HCl 50 mg 07/19/25 15:00 07/20/25 21:53 Tramadol Hcl 50 Mg Tablet PO 08/18/25 14:59 50 mg TID SB Administration Discontinued Medications Generic Name Dose Route Start Last Admin Trade Name Freq PRN Reason Stop Dose Admin Albuterol/Ipratropium 3 ml 07/19/25 13:00 Ipratropium/Albuterol Sulfate 3 Ml Ampul.Neb 08/18/25 12:59 Q6HRT SB Albuterol/Ipratropium 3 ml 07/19/25 13:40 07/19/25 13:46 Ipratropium/Albuterol Sulfate 3 Ml Ampul.Neb 08/18/25 13:38 3 ml Q4HPRN PRN Administration SHORTNESS OF BREATH/WHEEZING Albuterol/Ipratropium Confirm 07/19/25 13:45 Ipratropium/Albuterol Sulfate 3 Ml Ampul.Neb Administered 07/19/25 13:46 Dose 3 ml IH .STK-MED ONE Piperacillin Sod/Tazobactam 100 mls @ 200 mls/hr 07/19/25 10:46 07/19/25 11:39 Sod 3.375 gm/ Sodium Chloride IV 07/19/25 11:15 Infused STAT STA Infusion Sodium Chloride Confirm 07/19/25 10:56 Sodium Chloride 0.9% Administered 07/19/25 10:57 Dose 100 mls @ ud .ROUTE .STK-MED ONE Ondansetron HCl 4 mg 07/19/25 11:28 07/19/25 11:38 Ondansetron Hcl 4 Mg/2 Ml Vial IV 07/19/25 11:29 4 mg STAT ONE Administration Ondansetron HCl Confirm 07/19/25 11:34 Ondansetron Hcl 4 Mg/2 Ml Vial Administered 07/19/25 11:35 Dose 4 mg .ROUTE .STK-MED ONE Piperacillin Sod/Tazobactam Sod Confirm 07/19/25 10:55 Piperacillin/Tazobactam Sodium 3.375 Gm Vial Administered 07/19/25 10:56 Dose 3.375 gm IV .STK-MED ONE Multi-Disciplinary Progress Notes: Multi-Disciplinary Progress Notes 07/20/25 10:16 Case Management Note by Jenna Hamilton Addendum entered by Jenna Haimlton 07/20/25 13:56: [facility] HAS ACCEPTED Original Note: NEW REFERRAL EMAILED TO [facility] ( MEDICAID [facility] IN [place]). THEY WILL NEED NOTIFIED AT TIME OF DC AT [phone]. THEY WILL NEED FAXED THE DC INSTRUCTIONS, DC MED LIST AND DC SUMMARY TO [phone] Initialized on 07/20/25 10:16 - END OF NOTE Assessment/Plan (1) Acute and chronic respiratory failure Current Visit: Yes Status: Acute Assessment & Plan: multifactorial (acute decompensated heart failure vs. recurrent pneumonia vs. COPD exacerbation): -The patient presents with progressive dyspnea, increased oxygen demand, elevated BNP, and imaging consistent with pulmonary congestion and effusionsmost compatible with acute decompensated heart failure superimposed on chronic lung disease. Persistent leukocytosis and patchy airspace opacities could represent residual or recurrent infection. -Supplemental oxygen with goal spo2 > 90%- currently on 3L at 92% - baseline per pt is 2L -RT following -INH/NEBS -Prednisone -Sputum culture -Will continue Zosyn for HAP -Lasix 40mg x 1- Echo to evaluate CHF -Strict I/O, daily weights, and repeat chest X-ray post-diuresis to track volume response -Procal, blood cultures x 2 -WBC reviewed -trend 07/20: -WBC reviewed at 11.8-[id number] -Lactic acid 2.4 on admission- repeat pending- IVF contraindicated with CHF exacerbation -On 4L oxygen -titrate for spo2 goal > 91% -Continue Zosyn -with sputum cultures pending -Blood cultures pending -Procal WNL -CT chest showing respiratory motion artifact limiting evaluation for pulmonary embolism, with no obvious PE identified. There is interval worsening of diffuse bilateral consolidative and non-consolidative airspace opacities as well as increased bilateral pleural effusions. Code(s): J96.20 - ACUTE AND CHR RESP FAILURE, UNSP W HYPOXIA OR HYPERCAPNIA (2) CHF exacerbation Current Visit: Yes Status: Acute Assessment & Plan: -No echo on file -BNP elevated at 1600; BLE pedal edema on exam -Reports h/o of CHF - no home meds or diuretics -Obtain echo -elevated HOB/strict I&Os -Lasix 40mg BID -consider Cards consult 07/20: -Echo 07/19: Normal left ventricular size with mild concentric wall thickening and preserved systolic function (LVEF 5560%). Grade I diastolic dysfunction consistent with impaired relaxation. Borderline left atrial enlargement. Normal right ventricular size and function. No wall motion abnormalities or significant valvular disease. Normal aortic root and pulmonary valve. Estimated RA pressure 10 mmHg; RVSP not estimated due to insufficient TR jet. -Lasix 40mg BID -CT chest showing respiratory motion artifact limiting evaluation for pulmonary embolism, with no obvious PE identified. There is interval worsening of diffuse bilateral consolidative and non-consolidative airspace opacities as well as increased bilateral pleural effusions. -balance (-2662mls) 07/21: -BLE edema improve- trace noted bilaterally on exam -(-)5lbs since admission -(-)1.1 -transition to oral lasix 40mg -repeat CXR tomorrow -Remains on 4l oxygen- titrate as appropriate -Pulm referral on discharge Code(s): I50.9 - HEART FAILURE, UNSPECIFIED (3) Pneumonia Current Visit: Yes Status: Acute Assessment & Plan: -see ARF Code(s): J18.9 - PNEUMONIA, UNSPECIFIED ORGANISM (4) CAD (coronary artery disease) Current Visit: Yes Status: Acute Assessment & Plan: -Stable; continue secondary prevention -S/p CABG 9 stents Code(s): I25.10 - ATHSCL HEART DISEASE OF [place] CORONARY ARTERY W/O ANG PCTRS (5) HTN (hypertension) Current Visit: Yes Status: Acute Assessment & Plan: -continue home meds Code(s): I10 - ESSENTIAL (PRIMARY) HYPERTENSION (6) COPD exacerbation Current Visit: No Status: Acute Assessment & Plan: -Contributing to worsening respiratory distress and hypoxemia. Likely triggered by fluid overload and possible infection. VBG demonstrates no acute hypercapnia, suggesting partial compensation. -see ARF -Nebs/INH -RT to follow -Consider ABG if worsening hypoxia or signs of CO? retention develop. Code(s): J44.1 - CHRONIC OBSTRUCTIVE PULMONARY DISEASE W (ACUTE) EXACERBATION Hyperthyroidism -Diagnosed during last hospitalization - pending endocrinology follow up- will call for appt -Recheck TSH/FT4- pending -No current antithyroid medications (e.g., methimazole or propylthiouracil) have been initiated at this time pending specialist input. -Continue to monitor for signs of thyroid storm (tachycardia, fever, altered mental status) and manage symptomatically as needed. 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 Assessment & Plan: -ADA diet -SSI -A1c at 5.73 06/27/25 (8) GERD (gastroesophageal reflux disease) Current Visit: No Status: Chronic Assessment & Plan: -Protonix Code(s): K21.9 - GASTRO-ESOPHAGEAL REFLUX DISEASE WITHOUT ESOPHAGITIS (9) History of stroke Current Visit: No Status: Chronic Assessment & Plan: -continue home meds Code(s): Z86.73 - PRSNL HX OF TIA (TIA), AND CEREB INFRC W/O RESID DEFICITS (10) Obesity (BMI 30-39.9) Current Visit: No Status: Chronic Assessment & Plan: -advised diet and exercise Code(s): E66.9 - OBESITY, UNSPECIFIED (11) Seizure disorder Current Visit: No Status: Chronic Assessment & Plan: -Stable at baseline, no acute neuro changes -Continue home regimen Code(s): G40.909 - EPILEPSY, UNSP, NOT INTRACTABLE, WITHOUT STATUS EPILEPTICUS (12) Arrhythmia Current Visit: Yes Status: Acute Assessment & Plan: -Currently NSR, paced. -On ELiquis -Tele -Resume outpatient rate/rhythm regimen VTE: Eliquis PPI: Protonix Dispo: 1-3 days Code status: Full Code Plan of care time spent > 40mins Code(s): J96.20 - ACUTE AND CHR RESP FAILURE, UNSP W HYPOXIA OR HYPERCAPNIA (2) CHF exacerbation Current Visit: Yes Status: Acute Code(s): I50.9 - HEART FAILURE, UNSPECIFIED (3) Pneumonia Current Visit: Yes Status: Acute Code(s): J18.9 - PNEUMONIA, UNSPECIFIED ORGANISM (4) CAD (coronary artery disease) Current Visit: Yes Status: Acute Code(s): I25.10 - ATHSCL HEART DISEASE OF [place] CORONARY ARTERY W/O ANG PCTRS (5) HTN (hypertension) Current Visit: Yes Status: Acute Code(s): I10 - ESSENTIAL (PRIMARY) HYPERTENSION (6) COPD exacerbation Current Visit: No Status: Acute Code(s): J44.1 - CHRONIC OBSTRUCTIVE PULMONARY DISEASE W (ACUTE) EXACERBATION (7) DMII (diabetes mellitus, type 2) Current Visit: No Status: Chronic Qualifiers: Diabetes mellitus [employer] 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 insulin use: without nursing home use (8) GERD (gastroesophageal reflux disease) Current Visit: No Status: Chronic Code(s): K21.9 - GASTRO-ESOPHAGEAL REFLUX DISEASE WITHOUT ESOPHAGITIS (9) History of stroke Current Visit: No Status: Chronic Code(s): Z86.73 - PRSNL HX OF TIA (TIA), AND CEREB INFRC W/O RESID DEFICITS (10) Obesity (BMI 30-39.9) Current Visit: No Status: Chronic Code(s): E66.9 - OBESITY, UNSPECIFIED (11) Seizure disorder Current Visit: No Status: Chronic Code(s): G40.909 - EPILEPSY, UNSP, NOT INTRACTABLE, WITHOUT STATUS EPILEPTICUS (12) Arrhythmia Current Visit: Yes Status: Acute Code(s): I49.9 - CARDIAC ARRHYTHMIA, UNSPECIFIED
[2025-07-21 05:23] LABS: Calcium 8.3 mg/dL (8.4-10.2); Carbon Dioxide 34 mmol/L (22-30); Creatinine 1 0.69 mg/dL (0.52-1.04); EST GLOMERULAR FILTRATION RATE 95.1 ML/MIN; Glucose 135 mg/dL (74-106); Potassium 3.8 mmol/L (3.5-5.1); SGOT/AST 27 U/L (14-36); SGPT/ALT 17 U/L (0-35); Total Protein 6.7 g/dL (6.3-8.2)
[2025-07-21] MEDS ORDERED: BACIGUENT 30 GM TP PRN (06:56)
--- NOTE | 2025-07-21 15:03 | PCM.NOTE ---
Date and Time: 07/21/25 1443 Objective Data Vital Signs: Vital Signs - 24 hr Temp Pulse Resp BP Pulse Ox 07/21/25 12:00 97.0 F 65 22 109/62 94 L 07/21/25 07:35 96.9 F 76 22 138/63 94 L 07/21/25 07:05 78 18 96 07/21/25 05:35 73 18 94 L 07/21/25 03:46 98.1 F 74 16 134/64 93 L 07/20/25 23:33 96 07/20/25 23:32 98.5 F 80 20 147/67 96 07/20/25 19:00 97.0 F 82 18 107/60 95 07/20/25 17:58 84 18 96 07/20/25 15:00 98.4 F 84 18 146/67 94 L Pain Assessment - Last Documented Pain Intensity 0 Pain Scale Used 0-10 Pain Scale Intake and Output: Intake & Output 07/19/25 07/20/25 07/21/25 07/22/25 06:59 06:59 06:59 06:59 Intake Total 458 1725 760 Output Total 3600 2300 600 Balance -3142 -575 160 Weight 94.4 kg 93.9 kg Lab Results: Lab Results-Last 24 Hours 07/20/25 07/20/25 07/20/25 Range/Units 16:16 19:25 20:52 WBC (3.98-10.04) x10^3/uL RBC (3.93-5.22) x10^6/uL Hgb (11.2-15.7) g/dL Hct (34.1-44.9) % MCV (79.4-94.8) fL MCH (25.6-32.2) pg MCHC (32.2-35.5) g/dL RDW (11.7-14.4) % Plt Count (182-369) x10^3/uL MPV (9.4-12.3) fL Gran % (34.0-71.1) % Immature Gran % (Auto) (0.001-0.429) % Nucleat RBC Rel Count (0.00-0.2) % Eos # (Auto) (0.04-0.36) x10^3/uL Immature Gran # (Auto) (0.001-0.031) x10^3u/L Absolute Lymphs (auto) (1.18-3.74) x10^3/uL Absolute Monos (auto) (0.24-0.86) x10^3/uL Absolute Nucleated RBC (0.00-0.012) x10^3u/L Lymphocytes % (19.3-51.7) % Monocytes % (4.7-12.5) % Eosinophils % (0.7-5.8) % Basophils % (0.1-1.2) % Absolute Granulocytes (1.56-6.13) x10^3/uL Basophils # (0.01-0.08) x10^3/uL Sodium 141 (135-145) mmol/L Potassium 3.9 (3.5-5.1) mmol/L Chloride 100 (98-107) mmol/L Carbon Dioxide 35 H (22-30) mmol/L Anion Gap 9.4 (5-15) MEQ/L BUN 21 H (7-17) mg/dL Creatinine 0.92 (0.52-1.04) mg/dL Estimated GFR 68.3 ML/MIN Glucose 98 (74-106) mg/dL POC Glucometer 156 H 81 (74 to 106) mg/dL Calcium 8.4 (8.4-10.2) mg/dL Magnesium 1.6 (1.6-2.3) mg/dL Total Bilirubin (0.2-1.3) mg/dL AST (14-36) U/L ALT (0-35) U/L Alkaline Phosphatase (38-126) U/L Serum Total Protein (6.3-8.2) g/dL Albumin (3.5-5.0) g/dL 07/21/25 07/21/25 07/21/25 Range/Units 04:09 04:09 04:09 WBC 11.2 H (3.98-10.04) x10^3/uL RBC 4.19 (3.93-5.22) x10^6/uL Hgb 12.5 (11.2-15.7) g/dL Hct 40.6 (34.1-44.9) % MCV 96.9 H (79.4-94.8) fL MCH 29.8 (25.6-32.2) pg MCHC 30.8 L (32.2-35.5) g/dL RDW 12.8 (11.7-14.4) % Plt Count 316 (182-369) x10^3/uL MPV 9.9 (9.4-12.3) fL Gran % 83.8 H (34.0-71.1) % Immature Gran % (Auto) 0.4 (0.001-0.429) % Nucleat RBC Rel Count 0.0 (0.00-0.2) % Eos # (Auto) 0.25 (0.04-0.36) x10^3/uL Immature Gran # (Auto) 0.04 H (0.001-0.031) x10^3u/L Absolute Lymphs (auto) 0.85 L (1.18-3.74) x10^3/uL Absolute Monos (auto) 0.63 (0.24-0.86) x10^3/uL Absolute Nucleated RBC 0.00 (0.00-0.012) x10^3u/L Lymphocytes % 7.6 L (19.3-51.7) % Monocytes % 5.6 (4.7-12.5) % Eosinophils % 2.2 (0.7-5.8) % Basophils % 0.4 (0.1-1.2) % Absolute Granulocytes 9.36 H (1.56-6.13) x10^3/uL Basophils # 0.05 (0.01-0.08) x10^3/uL Sodium 140 (135-145) mmol/L Potassium 3.8 (3.5-5.1) mmol/L Chloride 101 (98-107) mmol/L Carbon Dioxide 34 H (22-30) mmol/L Anion Gap 9.1 (5-15) MEQ/L BUN 24 H (7-17) mg/dL Creatinine 0.69 (0.52-1.04) mg/dL Estimated GFR 95.1 ML/MIN Glucose 135 H (74-106) mg/dL POC Glucometer (74 to 106) mg/dL Calcium 8.3 L (8.4-10.2) mg/dL Magnesium 1.6 (1.6-2.3) mg/dL Total Bilirubin < 0.10 L (0.2-1.3) mg/dL AST 27 (14-36) U/L ALT 17 (0-35) U/L Alkaline Phosphatase 77 (38-126) U/L Serum Total Protein 6.7 (6.3-8.2) g/dL Albumin 3.4 L (3.5-5.0) g/dL 07/21/25 07/21/25 Range/Units 06:53 11:04 WBC (3.98-10.04) x10^3/uL RBC (3.93-5.22) x10^6/uL Hgb (11.2-15.7) g/dL Hct (34.1-44.9) % MCV (79.4-94.8) fL MCH (25.6-32.2) pg MCHC (32.2-35.5) g/dL RDW (11.7-14.4) % Plt Count (182-369) x10^3/uL MPV (9.4-12.3) fL Gran % (34.0-71.1) % Immature Gran % (Auto) (0.001-0.429) % Nucleat RBC Rel Count (0.00-0.2) % Eos # (Auto) (0.04-0.36) x10^3/uL Immature Gran # (Auto) (0.001-0.031) x10^3u/L Absolute Lymphs (auto) (1.18-3.74) x10^3/uL Absolute Monos (auto) (0.24-0.86) x10^3/uL Absolute Nucleated RBC (0.00-0.012) x10^3u/L Lymphocytes % (19.3-51.7) % Monocytes % (4.7-12.5) % Eosinophils % (0.7-5.8) % Basophils % (0.1-1.2) % Absolute Granulocytes (1.56-6.13) x10^3/uL Basophils # (0.01-0.08) x10^3/uL Sodium (135-145) mmol/L Potassium (3.5-5.1) mmol/L Chloride (98-107) mmol/L Carbon Dioxide (22-30) mmol/L Anion Gap (5-15) MEQ/L BUN (7-17) mg/dL Creatinine (0.52-1.04) mg/dL Estimated GFR ML/MIN Glucose (74-106) mg/dL POC Glucometer 129 H 162 H (74 to 106) mg/dL Calcium (8.4-10.2) mg/dL Magnesium (1.6-2.3) mg/dL Total Bilirubin (0.2-1.3) mg/dL AST (14-36) U/L ALT (0-35) U/L Alkaline Phosphatase (38-126) U/L Serum Total Protein (6.3-8.2) g/dL Albumin (3.5-5.0) g/dL Radiology Exams: Radiology Procedures Category Date Time Status CHEST 1 VIEW (PORTABLE) Urgent Exams 07/22/25 06:00 Ordered CHEST WITH CONTRAST [CT] Stat Exams 07/19/25 16:44 Completed Medications: Medications Generic Name Dose Route Start Last Admin Trade Name Freq PRN Reason Stop Dose Admin Acetaminophen 650 mg 07/19/25 19:46 07/21/25 08:04 Acetaminophen 325 Mg Tablet PO 08/18/25 19:45 650 mg Q6H PRN PRN Administration PAIN AND/OR FEVER Albuterol Sulfate 2 puff 07/19/25 14:58 Albuterol Common Canister Inhaler 08/18/25 14:57 QID PRN SHORTNESS OF BREATH/WHEEZING Albuterol/Ipratropium 3 ml 07/19/25 14:40 07/21/25 05:34 Ipratropium/Albuterol Sulfate 3 Ml Ampul.Neb 08/18/25 14:39 3 ml Q4HPRN PRN Administration SHORTNESS OF BREATH/WHEEZING Apixaban 5 mg 07/19/25 22:00 07/21/25 09:02 Apixaban 2.5 Mg Tablet PO 08/18/25 21:59 5 mg BID SB Administration Bacitracin Zinc 0 gm 07/21/25 06:56 Bacitracin Zinc 28 Gm Tube TP 08/20/25 06:55 DAILY PRN PRN DRY OR BLEEDING NARES Carbamazepine 400 mg 07/19/25 17:00 07/21/25 12:43 Carbamazepine 200 Mg Tablet PO 08/18/25 16:59 400 mg QID SB Administration Citalopram Hydrobromide 40 mg 07/19/25 22:00 07/20/25 21:54 Citalopram Hydrobromide 20 Mg Tablet PO 08/18/25 21:59 40 mg HS SB Administration Clopidogrel Bisulfate 75 mg 07/20/25 10:00 07/21/25 09:01 Clopidogrel Bisulfate 75 Mg Tablet PO 08/19/25 09:59 75 mg DAILY SB Administration Furosemide 40 mg 07/22/25 10:00 Furosemide 40 Mg Tablet PO 08/21/25 09:59 DAILY SB Guaifenesin 600 mg 07/20/25 16:00 07/21/25 09:01 Guaifenesin 600 Mg Tablet Er PO 08/19/25 15:59 600 mg DAILY SB Administration Piperacillin Sod/Tazobactam 100 mls @ 200 mls/hr 07/19/25 18:00 07/21/25 11:24 Sod 3.375 gm/ Sodium Chloride IV 07/22/25 17:59 200 mls/hr Q6HT SB Administration Insulin Human Lispro 0 unit 07/19/25 12:51 07/20/25 17:11 Insulin Lispro 1 Unit SQ 08/18/25 12:50 3 unit UD PRN Administration HYPERGLYCEMIA Lisinopril 20 mg 07/19/25 22:00 07/21/25 09:02 Lisinopril 20 Mg Tablet PO 08/18/25 21:59 20 mg BID SB Administration Loratadine 10 mg 07/20/25 10:00 07/21/25 09:01 Loratadine 10 Mg Tablet PO 08/19/25 09:59 10 mg DAILY SB Administration Melatonin 4.5 mg 07/19/25 22:00 07/20/25 21:54 Melatonin 3 Mg Tablet PO 08/18/25 21:59 4.5 mg HS SB Administration Metoprolol Tartrate 25 mg 07/19/25 22:00 07/21/25 09:02 Metoprolol Tartrate 25 Mg Tab PO 08/18/25 21:59 25 mg BID SB Administration Non-Formulary Medication 1 each 07/19/25 17:35 07/20/25 22:00 Hold Metformin Products For 48hrs 07/21/25 17:36 Not Given Q48H SB Ondansetron HCl 4 mg 07/19/25 12:51 07/20/25 09:10 Ondansetron Hcl 4 Mg/2 Ml Vial IV 08/18/25 12:50 4 mg Q6H PRN PRN Administration NAUSEA/VOMITING Pantoprazole Sodium 40 mg 07/20/25 10:00 07/21/25 09:01 Protonix (Pantoprazole) 40 Mg Tablet PO 08/19/25 09:59 40 mg DAILY SB Administration Prednisone 20 mg 07/19/25 22:00 07/21/25 09:02 Prednisone 20 Mg Tablet PO 08/18/25 21:59 20 mg BID SB Administration Fluticasone/Salmeterol 2 puff 07/19/25 22:00 07/21/25 07:01 Fluticasone/Salmeterol 115/21 60 Puff Aer.W.Adap IH 08/18/25 21:59 2 puff BID SB Administration Tramadol HCl 50 mg 07/19/25 15:00 07/21/25 14:36 Tramadol Hcl 50 Mg Tablet PO 08/18/25 14:59 50 mg TID SB Administration Discontinued Medications Generic Name Dose Route Start Last Admin Trade Name Freq PRN Reason Stop Dose Admin Albuterol/Ipratropium 3 ml 07/19/25 13:00 Ipratropium/Albuterol Sulfate 3 Ml Ampul.Neb 08/18/25 12:59 Q6HRT SB Albuterol/Ipratropium 3 ml 07/19/25 13:40 07/19/25 13:46 Ipratropium/Albuterol Sulfate 3 Ml Ampul.Neb IH 08/18/25 13:38 3 ml Q4HPRN PRN Administration SHORTNESS OF BREATH/WHEEZING Albuterol/Ipratropium Confirm 07/19/25 13:45 Ipratropium/Albuterol Sulfate 3 Ml Ampul.Neb Administered 07/19/25 13:46 Dose 3 ml IH .STK-MED ONE Bacitracin Zinc 1 gm 07/20/25 18:56 07/20/25 19:32 Bacitracin Zinc 28 Gm Tube TP 08/19/25 18:55 1 gm DAILY PRN Administration DRY OR BLEEDING NARES Furosemide 40 mg 07/19/25 14:30 07/21/25 09:01 Furosemide 40 Mg/4 Ml Vial IV 08/18/25 14:29 40 mg BID DIURETIC SB Administration Piperacillin Sod/Tazobactam 100 mls @ 200 mls/hr 07/19/25 10:46 07/19/25 11:39 Sod 3.375 gm/ Sodium Chloride IV 07/19/25 11:15 Infused STAT STA Infusion Sodium Chloride Confirm 07/19/25 10:56 Sodium Chloride 0.9% Administered 07/19/25 10:57 Dose 100 mls @ ud .ROUTE .STK-MED ONE Ondansetron HCl 4 mg 07/19/25 11:28 07/19/25 11:38 Ondansetron Hcl 4 Mg/2 Ml Vial IV 07/19/25 11:29 4 mg STAT ONE Administration Ondansetron HCl Confirm 07/19/25 11:34 Ondansetron Hcl 4 Mg/2 Ml Vial Administered 07/19/25 11:35 Dose 4 mg .ROUTE .STK-MED ONE Piperacillin Sod/Tazobactam Sod Confirm 07/19/25 10:55 Piperacillin/Tazobactam Sodium 3.375 Gm Vial Administered 07/19/25 10:56 Dose 3.375 gm IV .STK-MED ONE Multi-Disciplinary Progress Notes: Multi-Disciplinary Progress Notes 07/21/25 12:35 (created 07/21/25 13:11) Respiratory Note by Mariposa Richard PT'S O2 SAT ON 3LPM VIA NASAL CANNULA WHILE AT REST WAS 95% BUT PT'S STATES SHE IS SHORT OF BREATH. OXYGEN WAS THEN INCREASED BACK TO 4LPM VIA NASAL CANNULA AND PT STATED SHE COULD BREATH BETTER. Initialized on 07/21/25 13:11 - END OF NOTE 07/21/25 11:48 Case Management Note by Jenna Hamilton S/W PATIENT- SHE CONTINUES TO PLAN TO DC HOME WITH HER BROTHER TO ASSIST HER. [facility] HAS BEEN SET UP AND SHE ALREADY HAS 24/7 OXYGEN WITH PORTABILITY. NO NEW NEED IDENTIFIED AT THIS TIME Initialized on 07/21/25 11:48 - END OF NOTE
[2025-07-22] MEDS: VENTOLIN COMMON CANISTER IH PRN (03:55)
--- NOTE | 2025-07-22 05:12 | PCM.NOTE ---
Date and Time: 07/22/25 0511 Subjective Assessment: is a 65 year old female with a pmhx of chronic heart failure, coronary artery disease status post-CABG (9 stents), arrythmia (on eliquis/pacemaker), COPD, type 2 diabetes mellitus, hypertension, prior ischemic stroke, seizure disorder, anxiety, and depression, who presented on July 09, 2025, with shortness of breath and bilateral lower extremity edema. She was recently admitted from June 2123 for pneumonia, COPD exacerbation, and urinary tract infection, treated with doxycycline, corticosteroids, and scheduled DuoNebs. She improved and was discharged on home oxygen at her baseline 4 L/min with saturation 94%. Patient reports that her shortness of breath has not changed since discharge but she will occasionally knock her oxygen off and become short of breath at night and have a panic attack. She reports multiple panic attacks due to shortness of breath. Over the past two days she has noticed worsening bilateral leg swelling. She denies chest pain, fever, chills, or productive cough. In the emergency department, BP was 161/96 mm Hg, SpO2 94% on 3 L, and exam revealed diffuse crackles and pitting pedal edema greater on the left . Chest X-ray demonstrated worsening moderate diffuse bilateral airspace disease (both consolidating and nonconsolidating) with new small bibasilar effusions, right greater than left, and cardiomegaly with a left-sided pacemaker, similar to her CT chest from July 13. Laboratory findings showed WBC 13.8 and BNP 1600 , consistent with heart failure exacerbation. CMP was unremarkable. Respiratory viral panel was negative. Plan for observation for treatment of pneumonia and CHF exacerbation. Echo obtained 07/19/25 showing Normal LV size with mild concentric wall thickening. LVEF 5560% with normal systolic function. Grade I diastolic dysfunction (impaired relaxation). Borderline left atrial enlargement. Normal right-sided chamber size and function. No wall motion or significant valvular abnormalities. Normal aortic root. Unable to estimate RVSP due to insufficient TR jet; estimated RA pressure 10 mmHg. Overall, findings consistent with preserved EF and mild diastolic dysfunction. CT chest from 07/19/25 notes respiratory motion artifact limiting evaluation for pulmonary embolism, with no obvious PE identified. There is interval worsening of diffuse bilateral consolidative and non-consolidative airspace opacities and increased bilateral pleural effusions. 07/20/25: Patient seen at bedside, reporting improved dyspnea though remains on 4 L oxygen via nasal cannula. Cough is productive with yellow sputum. Bilateral lower extremity edema has improved. On exam, lungs with coarse crackles and expiratory wheezing bilaterally. CT chest from 07/19/25 showing respiratory motion artifact limiting evaluation for pulmonary embolism, with no obvious PE identified. There is interval worsening of diffuse bilateral consolidative and non-consolidative airspace opacities and increased bilateral pleural effusions. Echocardiogram shows normal LV size with mild concentric wall thickening, preserved systolic function (LVEF 5560%), grade I diastolic dysfunction, borderline left atrial enlargement, normal right ventricular size and function, and no significant valvular disease. Overall, findings consistent with preserved EF and mild diastolic dysfunction. Plan to continue IV diuresis with furosemide and maintain antibiotic therapy for multifocal pneumonia and CHF exacerbation, with ongoing monitoring of respiratory status, daily weights, and volume response. 07/21/25: Met with patient bedside. Endorses improvement in dyspnea and BLE edema. Cough with yellow production. She remains on 4L oxygen. Lung sounds with improved aeration. Fine crackles in bases. No wheezing on exam. Will transition to oral lasix today. Sputum culture is pending. Continue IV zosyn until resulted 07/22/25: Met with patient bedside. Endorses continued dyspnea and cough. Reports anxiety this morning. CXR showing diffuse bilateral consolidating/nonconsolidating airspace disease with small bibasilar effusions. Plans to continue antibiotic and steroids. Sputum culture pending. She continues to require 4L oxygen. - Review of Systems Constitutional: No Symptoms Eyes: No Symptoms Ears, Nose, & Throat: No Symptoms Respiratory: Cough, Short Of Breath Cardiac: Edema (BLE trace edema) Abdominal/Gastrointestinal: No Symptoms Genitourinary Symptoms: No Symptoms Musculoskeletal: No Symptoms Skin: No Symptoms Neurological: No Symptoms Psychological: No Symptoms Endocrine: No Symptoms Hematologic/Lymphatic: No Symptoms Immunological/Allergic: No Symptoms Objective Exam General Appearance: no apparent distress Neurologic Exam: alert, oriented x 3, cooperative Skin Exam: normal color Eye Exam: PERRL Ears, Nose, Throat Exam: normal ENT inspection Neck Exam: normal inspection Respiratory Exam: diminished breath sounds, crackles/rales Cardiovascular Exam: regular rate/rhythm, normal heart sounds Gastrointestinal/Abdomen Exam: soft, normal bowel sounds Extremity Exam: pedal edema (trace) Back Exam: normal inspection Pelvic Exam: deferred Rectal Exam: deferred Objective Data Vital Signs: Vital Signs - 24 hr Temp Pulse Resp BP Pulse Ox 07/22/25 04:00 98.5 F 72 18 164/75 94 L 07/22/25 03:55 67 22 92 L 07/22/25 00:51 71 20 91 L 07/21/25 23:43 98.5 F 80 24 124/60 93 L 07/21/25 20:00 97.9 F 70 22 135/67 95 07/21/25 19:41 70 18 96 07/21/25 16:00 96.8 F 73 23 150/70 93 L 07/21/25 14:47 78 20 92 L 07/21/25 12:00 97.0 F 65 22 109/62 94 L 07/21/25 07:35 96.9 F 76 22 138/63 94 L 07/21/25 07:05 78 18 96 07/21/25 05:35 73 18 94 L Pain Assessment - Last Documented Pain Intensity 0 Pain Scale Used 0-10 Pain Scale Intake and Output: Intake & Output 07/19/25 07/20/25 07/21/25 07/22/25 11:59 11:59 11:59 11:59 Intake Total 938 1765 1160 Output Total 3600 2900 900 Balance -2802 -2227 260 Weight 96.2 kg 94.4 kg 93.9 kg Lab Results: Lab Results-Last 24 Hours 07/21/25 07/21/25 07/21/25 Range/Units 04:09 04:09 04:09 WBC 11.2 H (3.98-10.04) x10^3/uL RBC 4.19 (3.93-5.22) x10^6/uL Hgb 12.5 (11.2-15.7) g/dL Hct 40.6 (34.1-44.9) % MCV 96.9 H (79.4-94.8) fL MCH 29.8 (25.6-32.2) pg MCHC 30.8 L (32.2-35.5) g/dL RDW 12.8 (11.7-14.4) % Plt Count 316 (182-369) x10^3/uL MPV 9.9 (9.4-12.3) fL Gran % 83.8 H (34.0-71.1) % Immature Gran % (Auto) 0.4 (0.001-0.429) % Nucleat RBC Rel Count 0.0 (0.00-0.2) % Eos # (Auto) 0.25 (0.04-0.36) x10^3/uL Immature Gran # (Auto) 0.04 H (0.001-0.031) x10^3u/L Absolute Lymphs (auto) 0.85 L (1.18-3.74) x10^3/uL Absolute Monos (auto) 0.63 (0.24-0.86) x10^3/uL Absolute Nucleated RBC 0.00 (0.00-0.012) x10^3u/L Lymphocytes % 7.6 L (19.3-51.7) % Monocytes % 5.6 (4.7-12.5) % Eosinophils % 2.2 (0.7-5.8) % Basophils % 0.4 (0.1-1.2) % Absolute Granulocytes 9.36 H (1.56-6.13) x10^3/uL Basophils # 0.05 (0.01-0.08) x10^3/uL Sodium 140 (135-145) mmol/L Potassium 3.8 (3.5-5.1) mmol/L Chloride 101 (98-107) mmol/L Carbon Dioxide 34 H (22-30) mmol/L Anion Gap 9.1 (5-15) MEQ/L BUN 24 H (7-17) mg/dL Creatinine 0.69 (0.52-1.04) mg/dL Estimated GFR 95.1 ML/MIN Glucose 135 H (74-106) mg/dL POC Glucometer (74 to 106) mg/dL Calcium 8.3 L (8.4-10.2) mg/dL Magnesium 1.6 (1.6-2.3) mg/dL Total Bilirubin < 0.10 L (0.2-1.3) mg/dL AST 27 (14-36) U/L ALT 17 (0-35) U/L Alkaline Phosphatase 77 (38-126) U/L Serum Total Protein 6.7 (6.3-8.2) g/dL Albumin 3.4 L (3.5-5.0) g/dL 07/21/25 07/21/25 07/21/25 Range/Units 06:53 11:04 16:19 WBC (3.98-10.04) x10^3/uL RBC (3.93-5.22) x10^6/uL Hgb (11.2-15.7) g/dL Hct (34.1-44.9) % MCV (79.4-94.8) fL MCH (25.6-32.2) pg MCHC (32.2-35.5) g/dL RDW (11.7-14.4) % Plt Count (182-369) x10^3/uL MPV (9.4-12.3) fL Gran % (34.0-71.1) % Immature Gran % (Auto) (0.001-0.429) % Nucleat RBC Rel Count (0.00-0.2) % Eos # (Auto) (0.04-0.36) x10^3/uL Immature Gran # (Auto) (0.001-0.031) x10^3u/L Absolute Lymphs (auto) (1.18-3.74) x10^3/uL Absolute Monos (auto) (0.24-0.86) x10^3/uL Absolute Nucleated RBC (0.00-0.012) x10^3u/L Lymphocytes % (19.3-51.7) % Monocytes % (4.7-12.5) % Eosinophils % (0.7-5.8) % Basophils % (0.1-1.2) % Absolute Granulocytes (1.56-6.13) x10^3/uL Basophils # (0.01-0.08) x10^3/uL Sodium (135-145) mmol/L Potassium (3.5-5.1) mmol/L Chloride (98-107) mmol/L Carbon Dioxide (22-30) mmol/L Anion Gap (5-15) MEQ/L BUN (7-17) mg/dL Creatinine (0.52-1.04) mg/dL Estimated GFR ML/MIN Glucose (74-106) mg/dL POC Glucometer 129 H 162 H 134 H (74 to 106) mg/dL Calcium (8.4-10.2) mg/dL Magnesium (1.6-2.3) mg/dL Total Bilirubin (0.2-1.3) mg/dL AST (14-36) U/L ALT (0-35) U/L Alkaline Phosphatase (38-126) U/L Serum Total Protein (6.3-8.2) g/dL Albumin (3.5-5.0) g/dL 07/21/25 Range/Units 21:26 WBC (3.98-10.04) x10^3/uL RBC (3.93-5.22) x10^6/uL Hgb (11.2-15.7) g/dL Hct (34.1-44.9) % MCV (79.4-94.8) fL MCH (25.6-32.2) pg MCHC (32.2-35.5) g/dL RDW (11.7-14.4) % Plt Count (182-369) x10^3/uL MPV (9.4-12.3) fL Gran % (34.0-71.1) % Immature Gran % (Auto) (0.001-0.429) % Nucleat RBC Rel Count (0.00-0.2) % Eos # (Auto) (0.04-0.36) x10^3/uL Immature Gran # (Auto) (0.001-0.031) x10^3u/L Absolute Lymphs (auto) (1.18-3.74) x10^3/uL Absolute Monos (auto) (0.24-0.86) x10^3/uL Absolute Nucleated RBC (0.00-0.012) x10^3u/L Lymphocytes % (19.3-51.7) % Monocytes % (4.7-12.5) % Eosinophils % (0.7-5.8) % Basophils % (0.1-1.2) % Absolute Granulocytes (1.56-6.13) x10^3/uL Basophils # (0.01-0.08) x10^3/uL Sodium (135-145) mmol/L Potassium (3.5-5.1) mmol/L Chloride (98-107) mmol/L Carbon Dioxide (22-30) mmol/L Anion Gap (5-15) MEQ/L BUN (7-17) mg/dL Creatinine (0.52-1.04) mg/dL Estimated GFR ML/MIN Glucose (74-106) mg/dL POC Glucometer 127 H (74 to 106) mg/dL Calcium (8.4-10.2) mg/dL Magnesium (1.6-2.3) mg/dL Total Bilirubin (0.2-1.3) mg/dL AST (14-36) U/L ALT (0-35) U/L Alkaline Phosphatase (38-126) U/L Serum Total Protein (6.3-8.2) g/dL Albumin (3.5-5.0) g/dL Radiology Exams: Radiology Procedures Category Date Time Status CHEST 1 VIEW (PORTABLE) Urgent Exams 07/22/25 06:00 Ordered Medications: Medications Generic Name Dose Route Start Last Admin Trade Name Freq PRN Reason Stop Dose Admin Acetaminophen 650 mg 07/19/25 19:46 07/21/25 19:47 Acetaminophen 325 Mg Tablet PO 08/18/25 19:45 650 mg Q6H PRN PRN Administration PAIN AND/OR FEVER Albuterol Sulfate 2 puff 07/19/25 14:58 07/22/25 03:55 Albuterol Common Canister Inhaler IH 08/18/25 14:57 2 puff QID PRN Administration SHORTNESS OF BREATH/WHEEZING Albuterol/Ipratropium 3 ml 07/19/25 14:40 07/22/25 00:51 Ipratropium/Albuterol Sulfate 3 Ml Ampul.Neb IH 08/18/25 14:39 3 ml Q4HPRN PRN Administration SHORTNESS OF BREATH/WHEEZING Apixaban 5 mg 07/19/25 22:00 07/21/25 21:21 Apixaban 2.5 Mg Tablet PO 08/18/25 21:59 5 mg BID SB Administration Bacitracin Zinc 0 gm 07/21/25 06:56 Bacitracin Zinc 28 Gm Tube TP 08/20/25 06:55 DAILY PRN PRN DRY OR BLEEDING NARES Carbamazepine 400 mg 07/19/25 17:00 07/21/25 21:21 Carbamazepine 200 Mg Tablet PO 08/18/25 16:59 400 mg QID SB Administration Citalopram Hydrobromide 40 mg 07/19/25 22:00 07/21/25 21:21 Citalopram Hydrobromide 20 Mg Tablet PO 08/18/25 21:59 40 mg HS SB Administration Clopidogrel Bisulfate 75 mg 07/20/25 10:00 07/21/25 09:01 Clopidogrel Bisulfate 75 Mg Tablet PO 08/19/25 09:59 75 mg DAILY SB Administration Furosemide 40 mg 07/22/25 10:00 Furosemide 40 Mg Tablet PO 08/21/25 09:59 DAILY SB Guaifenesin 600 mg 07/20/25 16:00 07/21/25 09:01 Guaifenesin 600 Mg Tablet Er PO 08/19/25 15:59 600 mg DAILY SB Administration Piperacillin Sod/Tazobactam 100 mls @ 200 mls/hr 07/19/25 18:00 07/22/25 00:14 Sod 3.375 gm/ Sodium Chloride IV 07/22/25 17:59 200 mls/hr Q6HT SB Administration Insulin Human Lispro 0 unit 07/19/25 12:51 07/20/25 17:11 Insulin Lispro 1 Unit SQ 08/18/25 12:50 3 unit UD PRN Administration HYPERGLYCEMIA Lisinopril 20 mg 07/19/25 22:00 07/21/25 21:21 Lisinopril 20 Mg Tablet PO 08/18/25 21:59 20 mg BID SB Administration Loratadine 10 mg 07/20/25 10:00 07/21/25 09:01 Loratadine 10 Mg Tablet PO 08/19/25 09:59 10 mg DAILY SB Administration Melatonin 4.5 mg 07/19/25 22:00 07/21/25 21:21 Melatonin 3 Mg Tablet PO 08/18/25 21:59 4.5 mg HS SB Administration Metoprolol Tartrate 25 mg 07/19/25 22:00 07/21/25 21:21 Metoprolol Tartrate 25 Mg Tab PO 08/18/25 21:59 25 mg BID SB Administration Ondansetron HCl 4 mg 07/19/25 12:51 07/21/25 19:47 Ondansetron Hcl 4 Mg/2 Ml Vial IV 08/18/25 12:50 4 mg Q6H PRN PRN Administration NAUSEA/VOMITING Pantoprazole Sodium 40 mg 07/20/25 10:00 07/21/25 09:01 Protonix (Pantoprazole) 40 Mg Tablet PO 08/19/25 09:59 40 mg DAILY SB Administration Prednisone 20 mg 07/19/25 22:00 07/21/25 21:22 Prednisone 20 Mg Tablet PO 08/18/25 21:59 20 mg BID SB Administration Fluticasone/Salmeterol 2 puff 07/19/25 22:00 07/21/25 19:39 Fluticasone/Salmeterol 115/21 60 Puff Aer.W.Adap 08/18/25 21:59 2 puff BID SB Administration Tramadol HCl 50 mg 07/19/25 15:00 07/21/25 21:22 Tramadol Hcl 50 Mg Tablet PO 08/18/25 14:59 50 mg TID SB Administration Discontinued Medications Generic Name Dose Route Start Last Admin Trade Name Freq PRN Reason Stop Dose Admin Albuterol/Ipratropium 3 ml 07/19/25 13:00 Ipratropium/Albuterol Sulfate 3 Ml Ampul.Neb 08/18/25 12:59 Q6HRT SB Albuterol/Ipratropium 3 ml 07/19/25 13:40 07/19/25 13:46 Ipratropium/Albuterol Sulfate 3 Ml Ampul.Neb IH 08/18/25 13:38 3 ml Q4HPRN PRN Administration SHORTNESS OF BREATH/WHEEZING Albuterol/Ipratropium Confirm 07/19/25 13:45 Ipratropium/Albuterol Sulfate 3 Ml Ampul.Neb Administered 07/19/25 13:46 Dose 3 ml IH .STK-MED ONE Bacitracin Zinc 1 gm 07/20/25 18:56 07/20/25 19:32 Bacitracin Zinc 28 Gm Tube TP 08/19/25 18:55 1 gm DAILY PRN Administration DRY OR BLEEDING NARES Furosemide 40 mg 07/19/25 14:30 07/21/25 09:01 Furosemide 40 Mg/4 Ml Vial IV 08/18/25 14:29 40 mg BID DIURETIC SB Administration Piperacillin Sod/Tazobactam 100 mls @ 200 mls/hr 07/19/25 10:46 07/19/25 11:39 Sod 3.375 gm/ Sodium Chloride IV 07/19/25 11:15 Infused STAT STA Infusion Sodium Chloride Confirm 07/19/25 10:56 Sodium Chloride 0.9% Administered 07/19/25 10:57 Dose 100 mls @ ud .ROUTE .STK-MED ONE Non-Formulary Medication 1 each 07/19/25 17:35 07/21/25 17:39 Hold Metformin Products For 48hrs MC 07/21/25 17:36 Not Given Q48H SB Ondansetron HCl 4 mg 07/19/25 11:28 07/19/25 11:38 Ondansetron Hcl 4 Mg/2 Ml Vial IV 07/19/25 11:29 4 mg STAT ONE Administration Ondansetron HCl Confirm 07/19/25 11:34 Ondansetron Hcl 4 Mg/2 Ml Vial Administered 07/19/25 11:35 Dose 4 mg .ROUTE .STK-MED ONE Piperacillin Sod/Tazobactam Sod Confirm 07/19/25 10:55 Piperacillin/Tazobactam Sodium 3.375 Gm Vial Administered 07/19/25 10:56 Dose 3.375 gm IV .STK-MED ONE Multi-Disciplinary Progress Notes: Multi-Disciplinary Progress Notes 07/22/25 01:08 Respiratory Note by Nancy Medina placed on 4L oxymask due to nose bleed. Initialized on 07/22/25 01:08 - END OF NOTE 07/21/25 12:35 (created 07/21/25 13:11) Respiratory Note by Mariposa Richard PT'S O2 SAT ON 3LPM VIA NASAL CANNULA WHILE AT REST WAS 95% BUT PT'S STATES SHE IS SHORT OF BREATH. OXYGEN WAS THEN INCREASED BACK TO 4LPM VIA NASAL CANNULA AND PT STATED SHE COULD BREATH BETTER. Initialized on 07/21/25 13:11 - END OF NOTE 07/21/25 11:48 Case Management Note by Jenna Hamilton S/W PATIENT- SHE CONTINUES TO PLAN TO DC HOME WITH HER BROTHER TO ASSIST HER. [facility] HAS BEEN SET UP AND SHE ALREADY HAS 24/7 OXYGEN WITH PORTABILITY. NO NEW NEED IDENTIFIED AT THIS TIME Initialized on 07/21/25 11:48 - END OF NOTE Assessment/Plan (1) Acute and chronic respiratory failure Current Visit: Yes Status: Acute Assessment & Plan: multifactorial (acute decompensated heart failure vs. recurrent pneumonia vs. COPD exacerbation): -The patient presents with progressive dyspnea, increased oxygen demand, elevated BNP, and imaging consistent with pulmonary congestion and effusionsmost compatible with acute decompensated heart failure superimposed on chronic lung disease. Persistent leukocytosis and patchy airspace opacities could represent residual or recurrent infection. -Supplemental oxygen with goal spo2 > 90%- currently on 3L at 92% - baseline per pt is 2L -RT following -INH/NEBS -Prednisone -Sputum culture -Will continue Zosyn for HAP -Lasix 40mg x 1- Echo to evaluate CHF -Strict I/O, daily weights, and repeat chest X-ray post-diuresis to track volume response -Procal, blood cultures x 2 -WBC reviewed -trend 07/21: -WBC reviewed at 11.0-chedlitc-nbgyy -Lactic acid 2.4 on admission- repeat pending- IVF contraindicated with CHF exacerbation -On 4L oxygen -titrate for spo2 goal > 91% -Continue Zosyn -with sputum cultures pending -Blood cultures pending -Procal WNL -CT chest showing respiratory motion artifact limiting evaluation for pulmonary embolism, with no obvious PE identified. There is interval worsening of diffuse bilateral consolidative and non-consolidative airspace opacities as well as increased bilateral pleural effusions. 07/22: -CXR diffuse bilateral consolidating/nonconsolidating airspace disease with small bibasilar effusions. -4L o2 with spo2 at 94% -Continue prednisone and Zosyn -Sputum cultures pending -Pulm referral on dc Code(s): J96.20 - ACUTE AND CHR RESP FAILURE, UNSP W HYPOXIA OR HYPERCAPNIA (2) CHF exacerbation Current Visit: Yes Status: Acute Assessment & Plan: -No echo on file -BNP elevated at 1600; BLE pedal edema on exam -Reports h/o of CHF - no home meds or diuretics -Obtain echo -elevated HOB/strict I&Os -Lasix 40mg BID -consider Cards consult 07/20: -Echo 07/19: Normal left ventricular size with mild concentric wall thickening and preserved systolic function (LVEF 5560%). Grade I diastolic dysfunction consistent with impaired relaxation. Borderline left atrial enlargement. Normal right ventricular size and function. No wall motion abnormalities or significant valvular disease. Normal aortic root and pulmonary valve. Estimated RA pressure 10 mmHg; RVSP not estimated due to insufficient TR jet. -Lasix 40mg BID -CT chest showing respiratory motion artifact limiting evaluation for pulmonary embolism, with no obvious PE identified. There is interval worsening of diffuse bilateral consolidative and non-consolidative airspace opacities as well as increased bilateral pleural effusions. -balance (-2662mls) 07/21: -BLE edema improve- trace noted bilaterally on exam -(-)5lbs since admission -(-)1.1 -transition to oral lasix 40mg -repeat CXR tomorrow -Remains on 4l oxygen- titrate as appropriate -Cardiology referral on discharge 07/22: -CXR diffuse bilateral consolidating/nonconsolidating airspace disease with small bibasilar effusions. -Continue lasix 40mg PO -BLE edema improving Code(s): I50.9 - HEART FAILURE, UNSPECIFIED (3) Pneumonia Current Visit: Yes Status: Acute Assessment & Plan: -see ARF Code(s): J18.9 - PNEUMONIA, UNSPECIFIED ORGANISM (4) CAD (coronary artery disease) Current Visit: Yes Status: Acute Assessment & Plan: -Stable; continue secondary prevention -S/p CABG 9 stents Code(s): I25.10 - ATHSCL HEART DISEASE OF [place] CORONARY ARTERY W/O ANG PCTRS (5) HTN (hypertension) Current Visit: Yes Status: Acute Assessment & Plan: -continue home meds Code(s): I10 - ESSENTIAL (PRIMARY) HYPERTENSION (6) COPD exacerbation Current Visit: No Status: Acute Assessment & Plan: -Contributing to worsening respiratory distress and hypoxemia. Likely triggered by fluid overload and possible infection. VBG demonstrates no acute hypercapnia, suggesting partial compensation. -see ARF -Nebs/INH -RT to follow -Consider ABG if worsening hypoxia or signs of CO? retention develop. Code(s): J44.1 - CHRONIC OBSTRUCTIVE PULMONARY DISEASE W (ACUTE) EXACERBATION Hyperthyroidism -Diagnosed during last hospitalization - pending endocrinology follow up- will call for appt -Recheck TSH/FT4- pending -No current antithyroid medications (e.g., methimazole or propylthiouracil) have been initiated at this time pending specialist input. -Continue to monitor for signs of thyroid storm (tachycardia, fever, altered mental status) and manage symptomatically as needed. 07/21: -FT4/TSH wnl (7) DMII (diabetes mellitus, type 2) Current Visit: No Status: Chronic Qualifiers: Diabetes mellitus technician terminal and repeater insulin use: without technician terminal and repeater use Assessment & Plan: -ADA diet -SSI -A1c at 5.73 06/27/25 (8) GERD (gastroesophageal reflux disease) Current Visit: No Status: Chronic Assessment & Plan: -Protonix Code(s): K21.9 - GASTRO-ESOPHAGEAL REFLUX DISEASE WITHOUT ESOPHAGITIS (9) History of stroke Current Visit: No Status: Chronic Assessment & Plan: -continue home meds Code(s): Z86.73 - PRSNL HX OF TIA (TIA), AND CEREB INFRC W/O RESID DEFICITS (10) Obesity (BMI 30-39.9) Current Visit: No Status: Chronic Assessment & Plan: -advised diet and exercise Code(s): E66.9 - OBESITY, UNSPECIFIED (11) Seizure disorder Current Visit: No Status: Chronic Assessment & Plan: -Stable at baseline, no acute neuro changes -Continue home regimen Code(s): G40.909 - EPILEPSY, UNSP, NOT INTRACTABLE, WITHOUT STATUS EPILEPTICUS Anxiety -continue hydroxyzine (12) Arrhythmia Current Visit: Yes Status: Acute Assessment & Plan: -Currently NSR, paced. -On ELiquis -Tele -Resume outpatient rate/rhythm regimen VTE: Eliquis PPI: Protonix Dispo: 1-3 days Code status: Full Code Plan of care time spent > 40mins Code(s): J96.20 - ACUTE AND CHR RESP FAILURE, UNSP W HYPOXIA OR HYPERCAPNIA (2) CHF exacerbation Current Visit: Yes Status: Acute Code(s): I50.9 - HEART FAILURE, UNSPECIFIED (3) Pneumonia Current Visit: Yes Status: Acute Code(s): J18.9 - PNEUMONIA, UNSPECIFIED ORGANISM (4) CAD (coronary artery disease) Current Visit: Yes Status: Acute Code(s): I25.10 - ATHSCL HEART DISEASE OF [place] CORONARY ARTERY W/O ANG PCTRS (5) HTN (hypertension) Current Visit: Yes Status: Acute Code(s): I10 - ESSENTIAL (PRIMARY) HYPERTENSION (6) COPD exacerbation Current Visit: No Status: Acute Code(s): J44.1 - CHRONIC OBSTRUCTIVE PULMONARY DISEASE W (ACUTE) EXACERBATION (7) DMII (diabetes mellitus, type 2) Current Visit: No Status: Chronic Qualifiers: Diabetes mellitus technician terminal and repeater insulin use: without alf use (8) GERD (gastroesophageal reflux disease) Current Visit: No Status: Chronic Code(s): K21.9 - GASTRO-ESOPHAGEAL REFLUX DISEASE WITHOUT ESOPHAGITIS (9) History of stroke Current Visit: No Status: Chronic Code(s): Z86.73 - PRSNL HX OF TIA (TIA), AND CEREB INFRC W/O RESID DEFICITS (10) Obesity (BMI 30-39.9) Current Visit: No Status: Chronic Code(s): E66.9 - OBESITY, UNSPECIFIED (11) Seizure disorder Current Visit: No Status: Chronic Code(s): G40.909 - EPILEPSY, UNSP, NOT INTRACTABLE, WITHOUT STATUS EPILEPTICUS (12) Arrhythmia Current Visit: Yes Status: Acute Code(s): I49.9 - CARDIAC ARRHYTHMIA, UNSPECIFIED (13) Anxiety Current Visit: Yes Status: Acute Code(s): F41.9 - ANXIETY DISORDER, UNSPECIFIED
[2025-07-22 05:22] LABS: BASOPHIL % 0.4 % (0.1-1.2); Basophil (Absolute #) 0.04 x10^3/uL (0.01-0.08); Eosinophil (Absolute #) 0.24 x10^3/uL (0.04-0.36); Hematocrit 39.5 % (34.1-44.9); Hemoglobin 12.2 g/dL (11.2-15.7); IMMATURE GRAN # 0.03 x10^3u/L (0.001-0.031); IMMATURE GRAN % 0.3 % (0.001-0.429); Lymphocyte (Absolute #) 0.92 x10^3/uL (1.18-3.74); Mean Corpuscular Hemoglobin 29.8 pg (25.6-32.2); Mean Corpuscular Hgb Concent. 30.9 g/dL (32.2-35.5); Monocyte (Absolute #) 0.70 x10^3/uL (0.24-0.86); NUCLEATED RBC # 0.00 x10^3u/L (0.00-0.012); NUCLEATED RBC % 0.0 % (0.00-0.2); Platelet Count 333 x10^3/uL (182-369); Red Blood Count 4.10 x10^6/uL (3.93-5.22); White Blood Count 11.0 x10^3/uL (3.98-10.04)
[2025-07-22] MEDS: ATARAX 25 MG PO PRN (05:37)
[2025-07-22 05:38] LABS: Calcium 8.2 mg/dL (8.4-10.2); Carbon Dioxide 34 mmol/L (22-30); Creatinine 1 0.60 mg/dL (0.52-1.04); EST GLOMERULAR FILTRATION RATE 98.3 ML/MIN; Glucose 142 mg/dL (74-106); Potassium 3.6 mmol/L (3.5-5.1); SGOT/AST 22 U/L (14-36); SGPT/ALT 17 U/L (0-35); Total Protein 6.5 g/dL (6.3-8.2)
--- NOTE | 2025-07-22 08:36 | XRAY ---
Indication: Dyspnea. Comparison: July 19, 2025 Portable chest demonstrates grossly stable appearing diffuse bilateral consolidating/nonconsolidating airspace disease with small bibasilar effusions. Heart not enlarged for AP portable technique again with CABG and left pacemaker. No new cardiopulmonary abnormalities.
[2025-07-22] MEDS: Lasix 40 MG PO SCH (09:00)
[2025-07-22] MEDS ORDERED: PIPERACILLIN/TAZOBACTAM IV ONE (22:42)
[2025-07-23 05:01] LABS: BASOPHIL % 0.4 % (0.1-1.2); Basophil (Absolute #) 0.05 x10^3/uL (0.01-0.08); Eosinophil (Absolute #) 0.21 x10^3/uL (0.04-0.36); Hematocrit 40.8 % (34.1-44.9); Hemoglobin 12.4 g/dL (11.2-15.7); IMMATURE GRAN # 0.05 x10^3u/L (0.001-0.031); IMMATURE GRAN % 0.4 % (0.001-0.429); Lymphocyte (Absolute #) 0.92 x10^3/uL (1.18-3.74); Mean Corpuscular Hemoglobin 29.7 pg (25.6-32.2); Mean Corpuscular Hgb Concent. 30.4 g/dL (32.2-35.5); Monocyte (Absolute #) 0.65 x10^3/uL (0.24-0.86); NUCLEATED RBC # 0.00 x10^3u/L (0.00-0.012); NUCLEATED RBC % 0.0 % (0.00-0.2); Platelet Count 327 x10^3/uL (182-369); Red Blood Count 4.18 x10^6/uL (3.93-5.22); White Blood Count 11.9 x10^3/uL (3.98-10.04)
--- NOTE | 2025-07-23 05:11 | PCM.NOTE ---
Date and Time: 07/23/25 0510 Subjective Assessment: is a 65 year old female with a pmhx of chronic heart failure, coronary artery disease status post-CABG (9 stents), arrythmia (on eliquis/pacemaker), COPD, type 2 diabetes mellitus, hypertension, prior ischemic stroke, seizure disorder, anxiety, and depression, who presented on July 09, 2025, with shortness of breath and bilateral lower extremity edema. She was recently admitted from June 2123 for pneumonia, COPD exacerbation, and urinary tract infection, treated with doxycycline, corticosteroids, and scheduled DuoNebs. She improved and was discharged on home oxygen at her baseline 4 L/min with saturation 94%. Patient reports that her shortness of breath has not changed since discharge but she will occasionally knock her oxygen off and become short of breath at night and have a panic attack. She reports multiple panic attacks due to shortness of breath. Over the past two days she has noticed worsening bilateral leg swelling. She denies chest pain, fever, chills, or productive cough. In the emergency department, BP was 161/96 mm Hg, SpO2 94% on 3 L, and exam revealed diffuse crackles and pitting pedal edema greater on the left . Chest X-ray demonstrated worsening moderate diffuse bilateral airspace disease (both consolidating and nonconsolidating) with new small bibasilar effusions, right greater than left, and cardiomegaly with a left-sided pacemaker, similar to her CT chest from July 13. Laboratory findings showed WBC 13.8 and BNP 1600 , consistent with heart failure exacerbation. CMP was unremarkable. Respiratory viral panel was negative. Plan for observation for treatment of pneumonia and CHF exacerbation. Echo obtained 07/19/25 showing Normal LV size with mild concentric wall thickening. LVEF 5560% with normal systolic function. Grade I diastolic dysfunction (impaired relaxation). Borderline left atrial enlargement. Normal right-sided chamber size and function. No wall motion or significant valvular abnormalities. Normal aortic root. Unable to estimate RVSP due to insufficient TR jet; estimated RA pressure 10 mmHg. Overall, findings consistent with preserved EF and mild diastolic dysfunction. CT chest from 07/19/25 notes respiratory motion artifact limiting evaluation for pulmonary embolism, with no obvious PE identified. There is interval worsening of diffuse bilateral consolidative and non-consolidative airspace opacities and increased bilateral pleural effusions. 07/20/25: Patient seen at bedside, reporting improved dyspnea though remains on 4 L oxygen via nasal cannula. Cough is productive with yellow sputum. Bilateral lower extremity edema has improved. On exam, lungs with coarse crackles and expiratory wheezing bilaterally. CT chest from 07/19/25 showing respiratory motion artifact limiting evaluation for pulmonary embolism, with no obvious PE identified. There is interval worsening of diffuse bilateral consolidative and non-consolidative airspace opacities and increased bilateral pleural effusions. Echocardiogram shows normal LV size with mild concentric wall thickening, preserved systolic function (LVEF 5560%), grade I diastolic dysfunction, borderline left atrial enlargement, normal right ventricular size and function, and no significant valvular disease. Overall, findings consistent with preserved EF and mild diastolic dysfunction. Plan to continue IV diuresis with furosemide and maintain antibiotic therapy for multifocal pneumonia and CHF exacerbation, with ongoing monitoring of respiratory status, daily weights, and volume response. 07/21/25: Met with patient bedside. Endorses improvement in dyspnea and BLE edema. Cough with yellow production. She remains on 4L oxygen. Lung sounds with improved aeration. Fine crackles in bases. No wheezing on exam. Will transition to oral lasix today. Sputum culture is pending. Continue IV zosyn until resulted 07/22/25: Met with patient bedside. Endorses continued dyspnea and cough. Reports anxiety this morning. CXR showing diffuse bilateral consolidating/nonconsolidating airspace disease with small bibasilar effusions. Plans to continue antibiotic and steroids. Sputum culture pending. She continues to require 4L oxygen. Objective Data Vital Signs: Vital Signs - 24 hr Temp Pulse Resp BP Pulse Ox 07/23/25 03:55 73 20 94 L 07/23/25 01:47 76 20 94 L 07/23/25 01:00 97.2 F 72 24 152/72 95 07/22/25 23:36 85 18 91 L 07/22/25 20:00 96.6 F 87 18 129/63 96 07/22/25 19:05 77 18 92 L 07/22/25 16:00 97.8 F 61 61 H 118/64 94 L 07/22/25 11:33 98.7 F 74 18 129/69 94 L 07/22/25 07:28 97.8 F 76 18 191/86 95 07/22/25 07:23 76 20 95 Pain Assessment - Last Documented Pain Intensity 0 Pain Scale Used 0-10 Pain Scale Intake and Output: Intake & Output 07/20/25 07/21/25 07/22/25 07/23/25 11:59 11:59 11:59 11:59 Intake Total 938 1765 1640 1060 Output Total 3600 2900 2000 1650 Balance -2662 -1135 -360 -590 Weight 94.4 kg 93.9 kg 97.73 kg Lab Results: Lab Results-Last 24 Hours 07/22/25 07/22/25 07/22/25 Range/Units 04:54 04:54 07:01 WBC 11.0 H (3.98-10.04) x10^3/uL RBC 4.10 (3.93-5.22) x10^6/uL Hgb 12.2 (11.2-15.7) g/dL Hct 39.5 (34.1-44.9) % MCV 96.3 H (79.4-94.8) fL MCH 29.8 (25.6-32.2) pg MCHC 30.9 L (32.2-35.5) g/dL RDW 12.9 (11.7-14.4) % Plt Count 333 (182-369) x10^3/uL MPV 9.8 (9.4-12.3) fL Gran % 82.3 H (34.0-71.1) % Immature Gran % (Auto) 0.3 (0.001-0.429) % Nucleat RBC Rel Count 0.0 (0.00-0.2) % Eos # (Auto) 0.24 (0.04-0.36) x10^3/uL Immature Gran # (Auto) 0.03 (0.001-0.031) x10^3u/L Absolute Lymphs (auto) 0.92 L (1.18-3.74) x10^3/uL Absolute Monos (auto) 0.70 (0.24-0.86) x10^3/uL Absolute Nucleated RBC 0.00 (0.00-0.012) x10^3u/L Lymphocytes % 8.4 L (19.3-51.7) % Monocytes % 6.4 (4.7-12.5) % Eosinophils % 2.2 (0.7-5.8) % Basophils % 0.4 (0.1-1.2) % Absolute Granulocytes 9.03 H (1.56-6.13) x10^3/uL Basophils # 0.04 (0.01-0.08) x10^3/uL Sodium 138 (135-145) mmol/L Potassium 3.6 (3.5-5.1) mmol/L Chloride 101 (98-107) mmol/L Carbon Dioxide 34 H (22-30) mmol/L Anion Gap 7.4 (5-15) MEQ/L BUN 18 H (7-17) mg/dL Creatinine 0.60 (0.52-1.04) mg/dL Estimated GFR 98.3 ML/MIN Glucose 142 H (74-106) mg/dL POC Glucometer 121 H (74 to 106) mg/dL Calcium 8.2 L (8.4-10.2) mg/dL Total Bilirubin < 0.10 L (0.2-1.3) mg/dL AST 22 (14-36) U/L ALT 17 (0-35) U/L Alkaline Phosphatase 74 (38-126) U/L Serum Total Protein 6.5 (6.3-8.2) g/dL Albumin 3.3 L (3.5-5.0) g/dL 07/22/25 07/22/25 07/22/25 Range/Units 11:16 15:47 22:50 WBC (3.98-10.04) x10^3/uL RBC (3.93-5.22) x10^6/uL Hgb (11.2-15.7) g/dL Hct (34.1-44.9) % MCV (79.4-94.8) fL MCH (25.6-32.2) pg MCHC (32.2-35.5) g/dL RDW (11.7-14.4) % Plt Count (182-369) x10^3/uL MPV (9.4-12.3) fL Gran % (34.0-71.1) % Immature Gran % (Auto) (0.001-0.429) % Nucleat RBC Rel Count (0.00-0.2) % Eos # (Auto) (0.04-0.36) x10^3/uL Immature Gran # (Auto) (0.001-0.031) x10^3u/L Absolute Lymphs (auto) (1.18-3.74) x10^3/uL Absolute Monos (auto) (0.24-0.86) x10^3/uL Absolute Nucleated RBC (0.00-0.012) x10^3u/L Lymphocytes % (19.3-51.7) % Monocytes % (4.7-12.5) % Eosinophils % (0.7-5.8) % Basophils % (0.1-1.2) % Absolute Granulocytes (1.56-6.13) x10^3/uL Basophils # (0.01-0.08) x10^3/uL Sodium (135-145) mmol/L Potassium (3.5-5.1) mmol/L Chloride (98-107) mmol/L Carbon Dioxide (22-30) mmol/L Anion Gap (5-15) MEQ/L BUN (7-17) mg/dL Creatinine (0.52-1.04) mg/dL Estimated GFR ML/MIN Glucose (74-106) mg/dL POC Glucometer 132 H 122 H 146 H (74 to 106) mg/dL Calcium (8.4-10.2) mg/dL Total Bilirubin (0.2-1.3) mg/dL AST (14-36) U/L ALT (0-35) U/L Alkaline Phosphatase (38-126) U/L Serum Total Protein (6.3-8.2) g/dL Albumin (3.5-5.0) g/dL 07/23/25 Range/Units 04:23 WBC 11.9 H (3.98-10.04) x10^3/uL RBC 4.18 (3.93-5.22) x10^6/uL Hgb 12.4 (11.2-15.7) g/dL Hct 40.8 (34.1-44.9) % MCV 97.6 H (79.4-94.8) fL MCH 29.7 (25.6-32.2) pg MCHC 30.4 L (32.2-35.5) g/dL RDW 12.6 (11.7-14.4) % Plt Count 327 (182-369) x10^3/uL MPV 9.8 (9.4-12.3) fL Gran % 84.1 H (34.0-71.1) % Immature Gran % (Auto) 0.4 (0.001-0.429) % Nucleat RBC Rel Count 0.0 (0.00-0.2) % Eos # (Auto) 0.21 (0.04-0.36) x10^3/uL Immature Gran # (Auto) 0.05 H (0.001-0.031) x10^3u/L Absolute Lymphs (auto) 0.92 L (1.18-3.74) x10^3/uL Absolute Monos (auto) 0.65 (0.24-0.86) x10^3/uL Absolute Nucleated RBC 0.00 (0.00-0.012) x10^3u/L Lymphocytes % 7.8 L (19.3-51.7) % Monocytes % 5.5 (4.7-12.5) % Eosinophils % 1.8 (0.7-5.8) % Basophils % 0.4 (0.1-1.2) % Absolute Granulocytes 9.99 H (1.56-6.13) x10^3/uL Basophils # 0.05 (0.01-0.08) x10^3/uL Sodium (135-145) mmol/L Potassium (3.5-5.1) mmol/L Chloride (98-107) mmol/L Carbon Dioxide (22-30) mmol/L Anion Gap (5-15) MEQ/L BUN (7-17) mg/dL Creatinine (0.52-1.04) mg/dL Estimated GFR ML/MIN Glucose (74-106) mg/dL POC Glucometer (74 to 106) mg/dL Calcium (8.4-10.2) mg/dL Total Bilirubin (0.2-1.3) mg/dL AST (14-36) U/L ALT (0-35) U/L Alkaline Phosphatase (38-126) U/L Serum Total Protein (6.3-8.2) g/dL Albumin (3.5-5.0) g/dL Radiology Exams: Radiology Procedures Category Date Time Status CHEST 1 VIEW (PORTABLE) Urgent Exams 07/22/25 06:00 Completed Medications: Medications Generic Name Dose Route Start Last Admin Trade Name Freq PRN Reason Stop Dose Admin Acetaminophen 650 mg 07/19/25 19:46 07/22/25 21:13 Acetaminophen 325 Mg Tablet PO 08/18/25 19:45 650 mg Q6H PRN PRN Administration PAIN AND/OR FEVER Albuterol Sulfate 2 puff 07/19/25 14:58 07/23/25 01:47 Albuterol Common Canister Inhaler IH 08/18/25 14:57 2 puff QID PRN Administration SHORTNESS OF BREATH/WHEEZING Albuterol/Ipratropium 3 ml 07/19/25 14:40 07/23/25 03:55 Ipratropium/Albuterol Sulfate 3 Ml Ampul.Neb IH 08/18/25 14:39 3 ml Q4HPRN PRN Administration SHORTNESS OF BREATH/WHEEZING Apixaban 5 mg 07/19/25 22:00 07/22/25 21:15 Apixaban 2.5 Mg Tablet PO 08/18/25 21:59 5 mg BID SB Administration Bacitracin Zinc 0 gm 07/21/25 06:56 Bacitracin Zinc 28 Gm Tube TP 08/20/25 06:55 DAILY PRN PRN DRY OR BLEEDING NARES Carbamazepine 400 mg 07/19/25 17:00 07/22/25 21:15 Carbamazepine 200 Mg Tablet PO 08/18/25 16:59 400 mg QID SB Administration Citalopram Hydrobromide 40 mg 07/19/25 22:00 07/22/25 21:14 Citalopram Hydrobromide 20 Mg Tablet PO 08/18/25 21:59 40 mg HS SB Administration Clopidogrel Bisulfate 75 mg 07/20/25 10:00 07/22/25 09:01 Clopidogrel Bisulfate 75 Mg Tablet PO 08/19/25 09:59 75 mg DAILY SB Administration Furosemide 40 mg 07/22/25 10:00 07/22/25 09:00 Furosemide 40 Mg Tablet PO 08/21/25 09:59 40 mg DAILY SB Administration Guaifenesin 600 mg 07/20/25 16:00 07/22/25 09:01 Guaifenesin 600 Mg Tablet Er PO 08/19/25 15:59 600 mg DAILY SB Administration Hydroxyzine HCl 25 mg 07/22/25 05:16 07/22/25 21:29 Hydroxyzine Hcl 25 Mg Tablet PO 08/21/25 05:15 25 mg QID PRN PRN Administration ANXIETY Piperacillin Sod/Tazobactam 100 mls @ 200 mls/hr 07/23/25 00:00 07/22/25 22:47 Sod 3.375 gm/ Sodium Chloride IV 07/26/25 00:00 200 mls/hr Q6HT SB Administration Insulin Human Lispro 0 unit 07/19/25 12:51 07/20/25 17:11 Insulin Lispro 1 Unit SQ 08/18/25 12:50 3 unit UD PRN Administration HYPERGLYCEMIA Lisinopril 20 mg 07/19/25 22:00 07/22/25 21:15 Lisinopril 20 Mg Tablet PO 08/18/25 21:59 20 mg BID SB Administration Loratadine 10 mg 07/20/25 10:00 07/22/25 09:00 Loratadine 10 Mg Tablet PO 08/19/25 09:59 10 mg DAILY SB Administration Melatonin 4.5 mg 07/19/25 22:00 07/22/25 21:14 Melatonin 3 Mg Tablet PO 08/18/25 21:59 4.5 mg HS SB Administration Metoprolol Tartrate 25 mg 07/19/25 22:00 07/22/25 21:14 Metoprolol Tartrate 25 Mg Tab PO 08/18/25 21:59 25 mg BID SB Administration Ondansetron HCl 4 mg 07/19/25 12:51 07/21/25 19:47 Ondansetron Hcl 4 Mg/2 Ml Vial IV 08/18/25 12:50 4 mg Q6H PRN PRN Administration NAUSEA/VOMITING Pantoprazole Sodium 40 mg 07/20/25 10:00 07/22/25 09:01 Protonix (Pantoprazole) 40 Mg Tablet PO 08/19/25 09:59 40 mg DAILY SB Administration Prednisone 20 mg 07/19/25 22:00 07/22/25 21:14 Prednisone 20 Mg Tablet PO 08/18/25 21:59 20 mg BID SB Administration Fluticasone/Salmeterol 2 puff 07/19/25 22:00 07/22/25 19:05 Fluticasone/Salmeterol 115/21 60 Puff Aer.W.Adap IH 08/18/25 21:59 2 puff BID SB Administration Tramadol HCl 50 mg 07/19/25 15:00 07/22/25 21:15 Tramadol Hcl 50 Mg Tablet PO 08/18/25 14:59 50 mg TID SB Administration Discontinued Medications Generic Name Dose Route Start Last Admin Trade Name Freq PRN Reason Stop Dose Admin Albuterol/Ipratropium 3 ml 07/19/25 13:00 Ipratropium/Albuterol Sulfate 3 Ml Ampul.Neb IH 08/18/25 12:59 Q6HRT SB Albuterol/Ipratropium 3 ml 07/19/25 13:40 07/19/25 13:46 Ipratropium/Albuterol Sulfate 3 Ml Ampul.Neb IH 08/18/25 13:38 3 ml Q4HPRN PRN Administration SHORTNESS OF BREATH/WHEEZING Albuterol/Ipratropium Confirm 07/19/25 13:45 Ipratropium/Albuterol Sulfate 3 Ml Ampul.Neb Administered 07/19/25 13:46 Dose 3 ml IH .STK-MED ONE Bacitracin Zinc 1 gm 07/20/25 18:56 07/20/25 19:32 Bacitracin Zinc 28 Gm Tube TP 08/19/25 18:55 1 gm DAILY PRN Administration DRY OR BLEEDING NARES Furosemide 40 mg 07/19/25 14:30 07/21/25 09:01 Furosemide 40 Mg/4 Ml Vial IV 08/18/25 14:29 40 mg BID DIURETIC SB Administration Piperacillin Sod/Tazobactam 100 mls @ 200 mls/hr 07/19/25 10:46 07/19/25 11:39 Sod 3.375 gm/ Sodium Chloride IV 07/19/25 11:15 Infused STAT STA Infusion Sodium Chloride Confirm 07/19/25 10:56 Sodium Chloride 0.9% Administered 07/19/25 10:57 Dose 100 mls @ ud .ROUTE .STK-MED ONE Piperacillin Sod/Tazobactam 100 mls @ 200 mls/hr 07/19/25 18:00 07/22/25 11:52 Sod 3.375 gm/ Sodium Chloride IV 07/22/25 17:59 200 mls/hr Q6HT SB Administration Sodium Chloride Confirm 07/22/25 22:42 Sodium Chloride 0.9% Administered 07/22/25 22:43 Dose 100 mls @ ud .ROUTE .STK-MED ONE Non-Formulary Medication 1 each 07/19/25 17:35 07/21/25 17:39 Hold Metformin Products For 48hrs MC 07/21/25 17:36 Not Given Q48H SB Ondansetron HCl 4 mg 07/19/25 11:28 07/19/25 11:38 Ondansetron Hcl 4 Mg/2 Ml Vial IV 07/19/25 11:29 4 mg STAT ONE Administration Ondansetron HCl Confirm 07/19/25 11:34 Ondansetron Hcl 4 Mg/2 Ml Vial Administered 07/19/25 11:35 Dose 4 mg .ROUTE .STK-MED ONE Piperacillin Sod/Tazobactam Sod Confirm 07/19/25 10:55 Piperacillin/Tazobactam Sodium 3.375 Gm Vial Administered 07/19/25 10:56 Dose 3.375 gm IV .STK-MED ONE Piperacillin Sod/Tazobactam Sod Confirm 07/22/25 22:42 Piperacillin/Tazobactam Sodium 3.375 Gm Vial Administered 07/22/25 22:43 Dose 3.375 gm IV .STK-MED ONE Multi-Disciplinary Progress Notes: Multi-Disciplinary Progress Notes 07/22/25 10:30 (created 07/22/25 13:31) Case Management Note by Jenna Hamilton/W PATIENT- NO CHANGE IN DC PLANS AT THIS TIME Initialized on 07/22/25 13:31 - END OF NOTE Assessment/Plan (1) Acute and chronic respiratory failure Current Visit: Yes Status: Acute Assessment & Plan: multifactorial (acute decompensated heart failure vs. recurrent pneumonia vs. COPD exacerbation): -The patient presents with progressive dyspnea, increased oxygen demand, elevated BNP, and imaging consistent with pulmonary congestion and effusionsmost compatible with acute decompensated heart failure superimposed on chronic lung disease. Persistent leukocytosis and patchy airspace opacities could represent residual or recurrent infection. -Supplemental oxygen with goal spo2 > 90%- currently on 3L at 92% - baseline per pt is 2L -RT following -INH/NEBS -Prednisone -Sputum culture -Will continue Zosyn for HAP -Lasix 40mg x 1- Echo to evaluate CHF -Strict I/O, daily weights, and repeat chest X-ray post-diuresis to track volume response -Procal, blood cultures x 2 -WBC reviewed -trend 10/29: -WBC reviewed at [id number] -Lactic acid 2.4 on admission- repeat pending- IVF contraindicated with CHF exacerbation -On 4L oxygen -titrate for spo2 goal > 91% -Continue Zosyn -with sputum cultures pending -Blood cultures pending -Procal WNL -CT chest showing respiratory motion artifact limiting evaluation for pulmonary embolism, with no obvious PE identified. There is interval worsening of diffuse bilateral consolidative and non-consolidative airspace opacities as well as increased bilateral pleural effusions. 07/22: -CXR diffuse bilateral consolidating/nonconsolidating airspace disease with small bibasilar effusions. -4L o2 with spo2 at 94% -Continue prednisone and Zosyn -Sputum cultures pending -Pulm referral on dc Code(s): J96.20 - ACUTE AND CHR RESP FAILURE, UNSP W HYPOXIA OR HYPERCAPNIA (2) CHF exacerbation Current Visit: Yes Status: Acute Assessment & Plan: -No echo on file -BNP elevated at 1600; BLE pedal edema on exam -Reports h/o of CHF - no home meds or diuretics -Obtain echo -elevated HOB/strict I&Os -Lasix 40mg BID -consider Cards consult 07/20: -Echo 07/19: Normal left ventricular size with mild concentric wall thickening and preserved systolic function (LVEF 5560%). Grade I diastolic dysfunction consistent with impaired relaxation. Borderline left atrial enlargement. Normal right ventricular size and function. No wall motion abnormalities or significant valvular disease. Normal aortic root and pulmonary valve. Estimated RA pressure 10 mmHg; RVSP not estimated due to insufficient TR jet. -Lasix 40mg BID -CT chest showing respiratory motion artifact limiting evaluation for pulmonary embolism, with no obvious PE identified. There is interval worsening of diffuse bilateral consolidative and non-consolidative airspace opacities as well as increased bilateral pleural effusions. -balance (-2662mls) 07/21: -BLE edema improve- trace noted bilaterally on exam -(-)5lbs since admission -(-)1.1 -transition to oral lasix 40mg -repeat CXR tomorrow -Remains on 4l oxygen- titrate as appropriate -Cardiology referral on discharge 07/22: -CXR diffuse bilateral consolidating/nonconsolidating airspace disease with small bibasilar effusions. -Continue lasix 40mg PO -BLE edema improving Code(s): I50.9 - HEART FAILURE, UNSPECIFIED (3) Pneumonia Current Visit: Yes Status: Acute Assessment & Plan: -see ARF Code(s): J18.9 - PNEUMONIA, UNSPECIFIED ORGANISM (4) CAD (coronary artery disease) Current Visit: Yes Status: Acute Assessment & Plan: -Stable; continue secondary prevention -S/p CABG 9 stents Code(s): I25.10 - ATHSCL HEART DISEASE OF [place] CORONARY ARTERY W/O ANG PCTRS (5) HTN (hypertension) Current Visit: Yes Status: Acute Assessment & Plan: -continue home meds Code(s): I10 - ESSENTIAL (PRIMARY) HYPERTENSION (6) COPD exacerbation Current Visit: No Status: Acute Assessment & Plan: -Contributing to worsening respiratory distress and hypoxemia. Likely triggered by fluid overload and possible infection. VBG demonstrates no acute hypercapnia, suggesting partial compensation. -see ARF -Nebs/INH -RT to follow -Consider ABG if worsening hypoxia or signs of CO? retention develop. Code(s): J44.1 - CHRONIC OBSTRUCTIVE PULMONARY DISEASE W (ACUTE) EXACERBATION Hyperthyroidism -Diagnosed during last hospitalization - pending endocrinology follow up- will call for appt -Recheck TSH/FT4- pending -No current antithyroid medications (e.g., methimazole or propylthiouracil) have been initiated at this time pending specialist input. -Continue to monitor for signs of thyroid storm (tachycardia, fever, altered mental status) and manage symptomatically as needed. 07/21: -FT4/TSH wnl (7) DMII (diabetes mellitus, type 2) Current Visit: No Status: Chronic Qualifiers: Diabetes mellitus detention insulin use: without terminal supervisor use Assessment & Plan: -ADA diet -SSI -A1c at 5.73 06/27/25 (8) GERD (gastroesophageal reflux disease) Current Visit: No Status: Chronic Assessment & Plan: -Protonix Code(s): K21.9 - GASTRO-ESOPHAGEAL REFLUX DISEASE WITHOUT ESOPHAGITIS (9) History of stroke Current Visit: No Status: Chronic Assessment & Plan: -continue home meds Code(s): Z86.73 - PRSNL HX OF TIA (TIA), AND CEREB INFRC W/O RESID DEFICITS (10) Obesity (BMI 30-39.9) Current Visit: No Status: Chronic Assessment & Plan: -advised diet and exercise Code(s): E66.9 - OBESITY, UNSPECIFIED (11) Seizure disorder Current Visit: No Status: Chronic Assessment & Plan: -Stable at baseline, no acute neuro changes -Continue home regimen Code(s): G40.909 - EPILEPSY, UNSP, NOT INTRACTABLE, WITHOUT STATUS EPILEPTICUS Anxiety -continue hydroxyzine (12) Arrhythmia Current Visit: Yes Status: Acute Assessment & Plan: -Currently NSR, paced. -On ELiquis -Tele -Resume outpatient rate/rhythm regimen VTE: Eliquis PPI: Protonix Dispo: 1-3 days Code status: Full Code Plan of care time spent > 40mins Code(s): J96.20 - ACUTE AND CHR RESP FAILURE, UNSP W HYPOXIA OR HYPERCAPNIA (2) CHF exacerbation Current Visit: Yes Status: Acute Code(s): I50.9 - HEART FAILURE, UNSPECIFIED (3) Pneumonia Current Visit: Yes Status: Acute Code(s): J18.9 - PNEUMONIA, UNSPECIFIED ORGANISM (4) CAD (coronary artery disease) Current Visit: Yes Status: Acute Code(s): I25.10 - ATHSCL HEART DISEASE OF [place] CORONARY ARTERY W/O ANG PCTRS (5) HTN (hypertension) Current Visit: Yes Status: Acute Code(s): I10 - ESSENTIAL (PRIMARY) HYPERTENSION (6) COPD exacerbation Current Visit: No Status: Acute Code(s): J44.1 - CHRONIC OBSTRUCTIVE PULMONARY DISEASE W (ACUTE) EXACERBATION (7) DMII (diabetes mellitus, type 2) Current Visit: No Status: Chronic Qualifiers: Diabetes mellitus terminal supervisor insulin use: without terminal supervisor use (8) GERD (gastroesophageal reflux disease) Current Visit: No Status: Chronic Code(s): K21.9 - GASTRO-ESOPHAGEAL REFLUX DISEASE WITHOUT ESOPHAGITIS (9) History of stroke Current Visit: No Status: Chronic Code(s): Z86.73 - PRSNL HX OF TIA (TIA), AND CEREB INFRC W/O RESID DEFICITS (10) Obesity (BMI 30-39.9) Current Visit: No Status: Chronic Code(s): E66.9 - OBESITY, UNSPECIFIED (11) Seizure disorder Current Visit: No Status: Chronic Code(s): G40.909 - EPILEPSY, UNSP, NOT INTRACTABLE, WITHOUT STATUS EPILEPTICUS (12) Arrhythmia Current Visit: Yes Status: Acute Code(s): I49.9 - CARDIAC ARRHYTHMIA, UNSPECIFIED (13) Anxiety Current Visit: Yes Status: Acute Code(s): F41.9 - ANXIETY DISORDER, UNSPECI FIED
[2025-07-23] MEDS ORDERED: PIPERACILLIN/TAZOBACTAM IV ONE (05:17)
[2025-07-23 05:19] LABS: Calcium 8.4 mg/dL (8.4-10.2); Carbon Dioxide 35.0 mmol/L (22-30); Creatinine 1 0.55 mg/dL (0.52-1.04); EST GLOMERULAR FILTRATION RATE 100.4 ML/MIN; Glucose 155.0 mg/dL (74-106); Potassium 3.6 mmol/L (3.5-5.1); SGOT/AST 22.0 U/L (14-36); SGPT/ALT 16.0 U/L (0-35); Total Protein 6.8 g/dL (6.3-8.2)
[2025-07-23 07:14] VITALS: BP 165/85; RESP 18; TEMP 98.4; O2SAT 95
[2025-07-23 08:31] VITALS: PULSE 76
--- NOTE | 2025-07-23 10:29 | PCM.DS ---
Discharge Summary Date of Admission: 07/21/25 05:11 Date of Discharge: 07/23/25 Admitting Physician: NAHEED BILLINGSLEY MD Primary Care Provider: NICHOLAS SHIN NAOMI Allergies Allergies latex Allergy (Verified 07/19/25 12:23) Itching Hospital Summary - Hospital Course Hospital Course: Ms. Hamilton is a 65-year-old female with a history of chronic heart failure, coronary artery disease status post-CABG (nine stents), atrial arrhythmia with pacemaker on apixaban, COPD on home oxygen, hypertension, type 2 diabetes mellitus, prior ischemic stroke, and seizure disorder was admitted with progressive dyspnea and worsening bilateral leg edema. She had been discharged one week prior after treatment for pneumonia, COPD exacerbation, and urinary tract infection. On readmission, she described persistent dyspnea with intermittent nocturnal panic attacks and noted increasing leg swelling without chest pain or fever. In the emergency department, she was hypertensive (BP 161/96 mm Hg), oxygen saturation 94% on 3 L O?, and exam revealed diffuse crackles and pitting pedal edema, greater on the left. Laboratory studies showed leukocytosis (WBC 13.8 ) and BNP 1600, consistent with volume overload and possible infection. Comprehensive metabolic panel was unremarkable, and respiratory viral panel was negative. Chest X-ray showed progression of diffuse bilateral airspace disease with small bibasilar effusions and cardiomegaly. Initial management targeted both acute decompensated heart failure and multifocal pneumonia with IV furosemide and Zosyn. Echocardiogram on 07/19/25 demonstrated normal left ventricular size, mild concentric hypertrophy, preserved systolic function with LVEF 5560%, Grade I diastolic dysfunction (impaired relaxation), and borderline left atrial enlargementconsistent with HFpEF. CT chest (07/19/25) showed interval worsening of diffuse bilateral consolidative and non-consolidative opacities and increased bilateral pleural effusions without evidence of pulmonary embolism. During hospitalization, she had steady diuresis with improvement in lower extremity edema and resolution of orthopnea. Leukocytosis trended down (WBC 11.5 ). Her cough became productive with yellow sputum; cultures remained pending but procalcitonin remained within normal limits, suggesting resolving pneumonia. She transitioned from IV to oral diuretics, maintained oxygenation at her baseline (34 L/min, SpO2 9294%), and resumed oral intake without difficulty. Anxiety related to dyspnea improved with supportive care and hydroxyzine. She was clinically euvolemic and stable at discharge. She is to continue antibiotic regimen previously prescribed. Prednisone burst will be called out 20mg po bid x 5 days. Patient is to continue her Nebs/Inh and follow up with Pulmonology, cardiology, and PCP. Patient is agreeable to plan and requesting discharge. Patient also advised to weight daily and notify cardiology with weight gain >3lbs in one day or >5 lbs in one week. Discharge Note New Diagnosis: COPD exac/pneumonia New Medications: prednisone 20mg bid x 5 days/ hydroxyzine 25mg po TID prn x 3 days dose/lasix 20mg daily Follow Up: PCP/pulm/cards Results pending: sputum cult I spent 35 minutes [id number] with the patient on the day of discharge performing discharge exam, discussing hospital stay and discharge instructions with patient and caregivers, preparation of discharge records, prescriptions & referral forms and addressing any questions/concerns the patient had as documented above. - Vitals & Intake/Output Vital Signs: Vital Signs Temperature 98.4 F 07/23/25 07:13 Pulse Rate 76 07/23/25 08:29 Respiratory Rate 18 07/23/25 08:29 Blood Pressure 165/85 07/23/25 07:13 O2 Sat by Pulse Oximetry 95 07/23/25 08:29 Intake & Output: Intake & Output 07/20/25 07/21/25 07/22/25 07/23/25 11:59 11:59 11:59 11:59 Intake Total 938 1765 1640 1540 Output Total 3600 2900 2000 2150 Balance -2662 -1135 -360 -610 Weight 94.4 kg 93.9 kg 97.73 kg - Lab Result Diagrams: 07/23/25 04:23 07/23/25 04:23 Lab Results-Last 24 Hrs: Lab Results-Last 24 Hours 07/22/25 07/22/25 07/22/25 Range/Units 11:16 15:47 22:50 WBC (3.98-10.04) x10^3/uL RBC (3.93-5.22) x10^6/uL Hgb (11.2-15.7) g/dL Hct (34.1-44.9) % MCV (79.4-94.8) fL MCH (25.6-32.2) pg MCHC (32.2-35.5) g/dL RDW (11.7-14.4) % Plt Count (182-369) x10^3/uL MPV (9.4-12.3) fL Gran % (34.0-71.1) % Immature Gran % (Auto) (0.001-0.429) % Nucleat RBC Rel Count (0.00-0.2) % Eos # (Auto) (0.04-0.36) x10^3/uL Immature Gran # (Auto) (0.001-0.031) x10^3u/L Absolute Lymphs (auto) (1.18-3.74) x10^3/uL Absolute Monos (auto) (0.24-0.86) x10^3/uL Absolute Nucleated RBC (0.00-0.012) x10^3u/L Lymphocytes % (19.3-51.7) % Monocytes % (4.7-12.5) % Eosinophils % (0.7-5.8) % Basophils % (0.1-1.2) % Absolute Granulocytes (1.56-6.13) x10^3/uL Basophils # (0.01-0.08) x10^3/uL Sodium (135-145) mmol/L Potassium (3.5-5.1) mmol/L Chloride (98-107) mmol/L Carbon Dioxide (22-30) mmol/L Anion Gap (5-15) MEQ/L BUN (7-17) mg/dL Creatinine (0.52-1.04) mg/dL Estimated GFR ML/MIN Glucose (74-106) mg/dL POC Glucometer 132 H 122 H 146 H (74 to 106) mg/dL Calcium (8.4-10.2) mg/dL Total Bilirubin (0.2-1.3) mg/dL AST (14-36) U/L ALT (0-35) U/L Alkaline Phosphatase (38-126) U/L NT-Pro-B Natriuret Pep (<300) pg/mL Serum Total Protein (6.3-8.2) g/dL Albumin (3.5-5.0) g/dL 07/23/25 07/23/25 07/23/25 Range/Units 04:23 04:23 04:23 WBC 11.9 H (3.98-10.04) x10^3/uL RBC 4.18 (3.93-5.22) x10^6/uL Hgb 12.4 (11.2-15.7) g/dL Hct 40.8 (34.1-44.9) % MCV 97.6 H (79.4-94.8) fL MCH 29.7 (25.6-32.2) pg MCHC 30.4 L (32.2-35.5) g/dL RDW 12.6 (11.7-14.4) % Plt Count 327 (182-369) x10^3/uL MPV 9.8 (9.4-12.3) fL Gran % 84.1 H (34.0-71.1) % Immature Gran % (Auto) 0.4 (0.001-0.429) % Nucleat RBC Rel Count 0.0 (0.00-0.2) % Eos # (Auto) 0.21 (0.04-0.36) x10^3/uL Immature Gran # (Auto) 0.05 H (0.001-0.031) x10^3u/L Absolute Lymphs (auto) 0.92 L (1.18-3.74) x10^3/uL Absolute Monos (auto) 0.65 (0.24-0.86) x10^3/uL Absolute Nucleated RBC 0.00 (0.00-0.012) x10^3u/L Lymphocytes % 7.8 L (19.3-51.7) % Monocytes % 5.5 (4.7-12.5) % Eosinophils % 1.8 (0.7-5.8) % Basophils % 0.4 (0.1-1.2) % Absolute Granulocytes 9.99 H (1.56-6.13) x10^3/uL Basophils # 0.05 (0.01-0.08) x10^3/uL Sodium 136 (135-145) mmol/L Potassium 3.6 (3.5-5.1) mmol/L Chloride 99 (98-107) mmol/L Carbon Dioxide 35 H (22-30) mmol/L Anion Gap 6.2 (5-15) MEQ/L BUN 18 H (7-17) mg/dL Creatinine 0.55 (0.52-1.04) mg/dL Estimated GFR 100.4 ML/MIN Glucose 155 H (74-106) mg/dL POC Glucometer (74 to 106) mg/dL Calcium 8.4 (8.4-10.2) mg/dL Total Bilirubin 0.10 L (0.2-1.3) mg/dL AST 22 (14-36) U/L ALT 16 (0-35) U/L Alkaline Phosphatase 79 (38-126) U/L NT-Pro-B Natriuret Pep 939 (<300) pg/mL Serum Total Protein 6.8 (6.3-8.2) g/dL Albumin 3.5 (3.5-5.0) g/dL 07/23/25 Range/Units 07:20 WBC (3.98-10.04) x10^3/uL RBC (3.93-5.22) x10^6/uL Hgb (11.2-15.7) g/dL Hct (34.1-44.9) % MCV (79.4-94.8) fL MCH (25.6-32.2) pg MCHC (32.2-35.5) g/dL RDW (11.7-14.4) % Plt Count (182-369) x10^3/uL MPV (9.4-12.3) fL Gran % (34.0-71.1) % Immature Gran % (Auto) (0.001-0.429) % Nucleat RBC Rel Count (0.00-0.2) % Eos # (Auto) (0.04-0.36) x10^3/uL Immature Gran # (Auto) (0.001-0.031) x10^3u/L Absolute Lymphs (auto) (1.18-3.74) x10^3/uL Absolute Monos (auto) (0.24-0.86) x10^3/uL Absolute Nucleated RBC (0.00-0.012) x10^3u/L Lymphocytes % (19.3-51.7) % Monocytes % (4.7-12.5) % Eosinophils % (0.7-5.8) % Basophils % (0.1-1.2) % Absolute Granulocytes (1.56-6.13) x10^3/uL Basophils # (0.01-0.08) x10^3/uL Sodium (135-145) mmol/L Potassium (3.5-5.1) mmol/L Chloride (98-107) mmol/L Carbon Dioxide (22-30) mmol/L Anion Gap (5-15) MEQ/L BUN (7-17) mg/dL Creatinine (0.52-1.04) mg/dL Estimated GFR ML/MIN Glucose (74-106) mg/dL POC Glucometer 126 H (74 to 106) mg/dL Calcium (8.4-10.2) mg/dL Total Bilirubin (0.2-1.3) mg/dL AST (14-36) U/L ALT (0-35) U/L Alkaline Phosphatase (38-126) U/L NT-Pro-B Natriuret Pep (<300) pg/mL Serum Total Protein (6.3-8.2) g/dL Albumin (3.5-5.0) g/dL Micro Results-Entire Visit: Microbiology 07/19/25 15:02 Blood Culture - Preliminary Blood 07/19/25 13:37 Blood Culture - Preliminary Blood Accuchecks Date 07/23/25 Date 07/22/25 Date 07/22/25 Date 07/22/25 Time 07:22 Time 22:50 Time 16:15 Time 11:32 - Radiology Exams Ordered Rad Exams-Entire Visit: Radiology Procedures Category Date Time Status CHEST 1 VIEW (PORTABLE) Urgent Exams 07/22/25 06:00 Completed - Procedures and Test Procedures and Tests throughout Hospitalization: Therapy Orders & Screens 07/19/25 12:51 Respiratory Therapy Consult ONCE Comment: Reason For Exam: Diagnosis: pneumonia/CHF exacerbation 07/19/25 13:25 Oxygen NASAL CANNULA 2 lpm Comment: Diagnosis: pneumonia/CHF exacerbation 07/21/25 14:47 Respiratory Therapy Assessment DAILY Comment: Diagnosis: pneumonia/CHF exacerbation Discharge Exam General Appearance: no apparent distress Neurologic Exam: alert, oriented x 3, cooperative Eye Exam: PERRL Ears, Nose, Throat Exam: normal ENT inspection Neck Exam: normal inspection Respiratory Exam: diminished breath sounds Cardiovascular Exam: regular rate/rhythm, normal heart sounds Gastrointestinal/Abdomen Exam: soft, normal bowel sounds Pelvic Exam: deferred Rectal Exam: deferred Back Exam: normal inspection Extremity Exam: normal inspection Skin Exam: normal color Final Diagnosis/Problem List - Final Discharge Diagnosis/Problem (1) Acute and chronic respiratory failure Current Visit: Yes Status: Acute Assessment & Plan: The patient presented with worsening dyspnea, hypoxemia, and increased oxygen requirement (baseline 2 L - 4 L/min) in the setting of overlapping cardiopulmonary processesacute decompensated heart failure, multifocal pneumonia, and COPD. On admission, [id number] 94% on 3 L, with diffuse bilateral crackles, radiographic pulmonary congestion, and patchy airspace disease. BNP was elevated (1600 pg/mL), WBC 13.8, and procalcitonin normal. CT chest on 07/19/25 revealed diffuse bilateral consolidative and non- consolidative opacities with small bilateral effusions, without pulmonary embolism. Echocardiogram showed preserved systolic function (LVEF 5560%) with grade I diastolic dysfunction. These findings support multifactorial acute hypoxic respiratory failure secondary to pulmonary congestion and infection rather than isolated pulmonary pathology. Oxygen therapy: Maintain O2 via nasal cannula 34 L/min with goal SpO2 > 90%; wean as tolerated. Incentive spirometry, chest physiotherapy, and scheduled nebulized bronchodilators (DuoNebs). Continue prednisone 20 mg BID 3 days, then taper per outpatient provider for COPD overlap. Complete prescribed oral antibiotic course Continue oral furosemide 20 mg daily to maintain euvolemia and prevent recurrent pulmonary edema. Monitoring: Daily weights, strict I/O, and follow-up chest imaging with PCP or pulmonology within 2 weeks. Follow-up: Cardiology and pulmonology to coordinate outpatient management of chronic HFpEF and COPD, both contributing to recurrent respiratory decompensation. Code(s): J96.20 - ACUTE AND CHR RESP FAILURE, UNSP W HYPOXIA OR HYPERCAPNIA (2) CHF exacerbation Current Visit: Yes Status: Acute Assessment & Plan: BNP 1600 down to 939 CXR with pulmonary congestion, bilateral effusions, and pitting edema improved after IV diuresis. Echo showed LVEF 5560% with Grade I diastolic dysfunction. Likely triggered by volume overload and underlying infection. Furosemide 20 mg PO daily; patient instructed on daily weights, sodium restriction, and fluid monitoring. Outpatient cardiology follow-up for long-term HF management and diuretic titration. Maintain O2 saturation > 90%; continue home O2 34 L/min via nasal cannula. Reinforce avoidance of NSAIDs and excessive sodium intake. Repeat BMP and BNP with PCP or cardiology in 1 week to assess volume and renal response. Follow up with cardiology Code(s): I50.9 - HEART FAILURE, UNSPECIFIED (3) Pneumonia Current Visit: Yes Status: Acute Assessment & Plan: see arf Code(s): J18.9 - PNEUMONIA, UNSPECIFIED ORGANISM (4) CAD (coronary artery disease) Current Visit: Yes Status: Acute Assessment & Plan: No chest pain or ischemic changes; stable hemodynamics throughout stay. Continue aspirin, statin, and beta-kenan per prior regimen. Code(s): I25.10 - ATHSCL HEART DISEASE OF [place] CORONARY ARTERY W/O ANG PCTRS (5) HTN (hypertension) Current Visit: Yes Status: Acute Assessment & Plan: Continue home antihypertensives. Code(s): I10 - ESSENTIAL (PRIMARY) HYPERTENSION (6) COPD exacerbation Current Visit: No Status: Acute Assessment & Plan: see arf Code(s): J44.1 - CHRONIC OBSTRUCTIVE PULMONARY DISEASE W (ACUTE) EXACERBATION (7) DMII (diabetes mellitus, type 2) Current Visit: No Status: Chronic Assessment & Plan: Continue home regimen (8) GERD (gastroesophageal reflux disease) Current Visit: No Status: Chronic Assessment & Plan: Continue home regimen Code(s): K21.9 - GASTRO-ESOPHAGEAL REFLUX DISEASE WITHOUT ESOPHAGITIS (9) History of stroke Current Visit: No Status: Chronic Assessment & Plan: No residual deficits; no new neurological findings. Continue antiplatelet therapy and statin for secondary prevention. Code(s): Z86.73 - PRSNL HX OF TIA (TIA), AND CEREB INFRC W/O RESID DEFICITS (10) Obesity (BMI 30-39.9) Current Visit: No Status: Chronic Assessment & Plan: Advised diet/exercise when able Code(s): E66.9 - OBESITY, UNSPECIFIED (11) Seizure disorder Current Visit: No Status: Chronic Assessment & Plan: No acute episodes; neurological baseline maintained. Continue home antiepileptic regimen. Code(s): G40.909 - EPILEPSY, UNSP, NOT INTRACTABLE, WITHOUT STATUS EPILEPTICUS (12) Arrhythmia Current Visit: Yes Status: Acute Assessment & Plan: Continue Eliquis Code(s): I49.9 - CARDIAC ARRHYTHMIA, UNSPECIFIED (13) Hyperthyroidism Current Visit: Yes Status: Acute Assessment & Plan: Follow up with endocrinology as scheduled TSH/FT4 WNL at this hospitalization Code(s): E05.90 - THYROTOXICOSIS, UNSP WITHOUT THYROTOXIC CRISIS OR STORM (14) Anxiety Current Visit: Yes Status: Acute Assessment & Plan: Continue hydroxyzine 25mg po tid - 3 day supply sent out Follow-Up: Primary Care Provider: within 1 week Cardiology: within 12 weeks Pulmonology: within 2 weeks Endocrinology (hyperthyroidism evaluation): as scheduled Code(s): F41.9 - ANXIETY DISORDER, UNSPECIFIED - Discharge Discharge Date: 07/23/25 Disposition: Home, Self-Care Condition: Stable Prescriptions: New Hydroxyzine HCl 25 mg [Atarax 25 mg] 25 mg PO QID PRN PRN 3 Days #9 tablet PRN Reason: Anxiety PANTOPRAZOLE 40 mg Tablet [Protonix 40MG Tablet] 40 mg PO DAILY 30 Days #30 tablet Furosemide 20 mg [Lasix 20 mg] 20 mg PO DAILY 30 Days #30 tablet Continue Citalopram Hydrobromide 20 mg* [ceLEXa 20 MG] 40 mg PO HS Metoprolol Tartrate 50 mg [Lopressor 50 MG] 25 mg PO BID carBAMazepine [Tegretol] 400 mg PO QID Clopidogrel Bisulfate [PLAVIX Tablet] 75 mg PO DAILY Metformin HCl [Metformin ER Osmotic] 1,000 mg PO BID Tramadol HCl 50 mg [Ultram 50 mg] 50 mg PO TID Semaglutide [Ozempic] 2 mg SQ WEEKLY Empagliflozin [Jardiance] 25 mg PO QHS Apixaban [Eliquis] 5 mg PO BID Melatonin 5 mg PO HS Lisinopril 10 mg [Zestril 10 MG] 20 mg PO BID Cetirizine HCl 10 mg PO DAILY Albuterol 8 gm Mdi Hfa [Ventolin Hfa MDI] 2 puff IH QID PRN PRN Reason: Shortness Of Breath/Wheezing Doxycycline Hyclate 100 mg [Vibramycin 100 MG] 100 mg PO BID 5 Days #10 tab Albuterol/Ipratropium 3ml Neb* [DUONEB 0.5-3 MG/3 ml Neb] 3 ml IH Q4HPRN PRN 5 Days #30 amp PRN Reason: Shortness Of Breath/Wheezing Fluticasone/Salmeterol 115/21 [Advair Hfa 115/21 Common canister*] 2 puff IH BID 30 Days #1 inhaler cefuroxime axetiL [Cefuroxime] 500 mg PO BID 5 Days #10 tablet Guaifenesin [Mucus Relief] 400 mg PO DAILY Prednisone 20 mg [Deltasone 20 mg] 20 mg PO BID 5 Days #10 tablet Instructions: Pneumonia in adults - Discharge instructions, Heart failure in adults - Discharge instructions Additional Instructions: [facility] HAS BEEN SET UP FOR YOU. THEY WILL CALL YOU TO ARRANGE A TIME TO COME SEE YOU. IF YOU NEED ANYTHING PRIOR TO THEM CONTACTING YOU, YOU CAN REACH THEM AT [phone]. Follow up with: DEVON MACHADO [NON-STAFF PHY W/O PRIVILEGES, UNKNOWN] - Office will call patient Referral Note: Office Plans to call you today to schedule. JULIAN CATES [ACTIVE STAFF, PULMONARY MEDICINE] - 08/11/25 1:30 pm Referral Note: at [facility] office NICHOLAS SHIN MD [Primary Care Provider, FAMILY PRACTICE] - 07/26/25 10:45 am Victor Hugo Ward MD [CONSULTING PHYSICIAN, CARDIOLOGY] - 07/27/25 11:00 am Forms: Discharge Instructions
== END 2025-07-23 11:46 | disposition home health service (06) | DRG 189 ==
LOC: ED 09:57 → MED SURG 12:15 → OBSVTOIN 07-21 05:11
PROVIDERS: ADMIT Internal Medicine; ATTEND Internal Medicine
DX: J96.20 Acute and chronic respiratory failure, unspecified whether with hypoxia or hypercapnia (principal); J18.9 Pneumonia, unspecified organism; J44.1 Chronic obstructive pulmonary disease with (acute) exacerbation; N39.0 Urinary tract infection, site not specified; I11.0 Hypertensive heart disease with heart failure; I50.9 Heart failure, unspecified; I25.10 Atherosclerotic heart disease of native coronary artery without angina pectoris; E11.9 Type 2 diabetes mellitus without complications; K21.9 Gastro-esophageal reflux disease without esophagitis; E66.9 Obesity, unspecified; G40.909 Epilepsy, unspecified, not intractable, without status epilepticus; I49.9 Cardiac arrhythmia, unspecified; E05.90 Thyrotoxicosis, unspecified without thyrotoxic crisis or storm; F41.9 Anxiety disorder, unspecified; R60.0 Localized edema; Z86.73 Personal history of transient ischemic attack (TIA), and cerebral infarction without residual deficits; Z79.01 Long term (current) use of anticoagulants; Z79.899 Other long term (current) drug therapy; Z95.0 Presence of cardiac pacemaker